=== PATIENT | male | born 1945 | race Caucasian/White ===

== ENCOUNTER 2018-12-29 12:33 | Observation (INO) ==
[2018-12-29 14:18] LABS: Basophils # (auto) 0.03 K/uL (0-0.2); Basophils % (auto) 0.4 %; Eosinophils # (auto) 0.07 K/uL (0-0.5); Eosinophils % (auto) 0.9 %; Hematocrit (blood only) 35.6 % (42-52); Hemoglobin 10.9 g/dL (14.0-18.0); Immature Granulocytes # (auto) 0.02 K/uL (0.00-0.02); Immature Granulocytes % (auto) 0.3 %; Lymphocytes # (auto) 0.65 K/uL (1.2-3.4); Lymphocytes % (auto) 8.8 %; Mean Corpuscular Hgb Conc 30.6 g/dL (32-36); Mean Corpuscular Volume 76.2 fL (80-100); Mean Platelet Volume 10.2 fL (7.4-10.4); Monocytes % (auto) 12.2 %; Neutrophils # (auto) 5.72 K/uL (1.4-6.5); Neutrophils % (auto) 77.4 %; Platelet Count 240 K/uL (130-400); RDW Coefficient of Variation 16.9 % (11.5-14.5); RDW Standard Deviation 45.9 fL (36.4-46.3); Red Blood Count 4.67 M/uL (4.7-6.1); White Blood Count 7.39 K/uL (4.8-10.8)
[2018-12-29] MEDS ORDERED: CIPROFLOXACIN 500 MG TAB PO STA (14:27)
[2018-12-29 14:35] LABS: Albumin Level 3.2 gm/dl (3.4-5.0); Calcium 8.2 mg/dl (8.5-10.1); Est GFR (African American) 53.7; Est GFR (Non-African American) 46.3; Potassium 4.5 mmol/L (3.5-5.1)
[2018-12-29 14:38] LABS: Albumin Globulin Ratio 0.8 (0.9-2); Bilirubin,Total 0.4 mg/dl (0.2-1); Globulin 4.1 gm/dl (2.5-4.0); Total Protein 7.3 gm/dl (6.4-8.2)
[2018-12-29 15:33] LABS: INR 1.1 (0.9-1.1); Prothrombin Time 11.5 Seconds (9.0-12.0)
--- NOTE | 2018-12-29 16:20 | History & Physical Report ---
Date of Service December 29, 2018 Assessment & Plan (1) Hematuria: Patient with gross hematuria, gaviria in place. Initially clotted now seems to be functioning properly. -Admit to medical floor -Continuous bladder irrigation -Urology consultation -CBC q 8 hours -Hold anticoagulation -NPO after midnight for possible intervention -Ceftriaxone 1gm IV daily to start tomorrow (2) CKD (chronic kidney disease) stage 3, GFR 30-59 ml/min: BUN and Cr mildly above baseline -Gentle IVF, NSS at 80mL/hr x 1 liter -Continue to monitor BUN/Cr/electrolytes -Avoid nephrotoxic agents -Renal dosing where appropriate (3) HTN (hypertension), benign: Blood pressure well controlled at present -Continue Amlodipine -Continue Coreg -Continue Lisinopril -Monitor (4) Atrial fibrillation: Rate controlled -Continue Coreg -Hold Apixaban -Continue to monitor (5) Diabetes: Blood sugar well controlled at present -Hold Metformin -ISS -Continue to monitor (6) Major depressive disorder: Chronic. Stable -Continue Zoloft daily (7) GERD (gastroesophageal reflux disease): Stable. Chronic -Continue Pepcid daily (8) BPH (benign prostatic hyperplasia): Continue Flomax Urology consultation F/E/N - NSS at 80mL/hr x 1 liter, monitor electrolytes and replete as needed, NPO after midnight Ppx -SCDs, Pepcid Code - DNR per discussion with patient Dispo - Admit to medical floor with tele History of Present Illness Chief Complaint: Hematuria Primary Care Provider: Yeyo Melendez DO Patient is a 73yo C male. Had a cystoscopy performed yesterday by Dr. Larson with bladder neck dilation and stent placement. The procedure was well tolerated, no complications. He was sent home with Gaviria in place. He reports hematuria with clots upon returning home. His Gaviria stopped draining around 10:00PM. Patient called home nursing and they came to his home to irrigate the Gaviria. He went to bed around 11:00. when he woke this AM he states his bed was full of blood, Gaviria still not draining, suprapubic discomfort. He called home nursing again and they attempted to irrigate his Gaviria, however they were unsuccessful. He was sent to the ER. Patient presently feeling well. No CP/SOB/palpitations/dizziness ER Course: Cipro Allergies Allergy/AdvReac Type Severity Reaction Status Date / Time No Known Allergies Allergy Verified 12/29/18 14:35 Home Medications Home Medications Medication Instructions Recorded Confirmed Type carvedilol [Coreg] 6.25 mg PO BID 10/15/18 12/29/18 History docusate sodium 100 mg PO QAM 10/15/18 12/29/18 History melatonin 3 mg PO HS 10/15/18 12/29/18 History metformin [Glucophage] 500 mg PO QAM 10/15/18 12/29/18 History sertraline [Zoloft] 50 mg PO QAM 10/15/18 12/29/18 History temazepam [Restoril] 15 mg PO HS PRN 10/15/18 12/29/18 History amlodipine 5 mg PO QAM 11/17/18 12/29/18 History lisinopril 40 mg PO QAM 11/17/18 12/29/18 History tamsulosin 0.4 mg PO HS 11/17/18 12/29/18 History apixaban 5 mg PO BID #60 tab 11/21/18 12/29/18 Rx furosemide 20 mg PO QAM #30 tab 11/21/18 12/29/18 Rx Lyrica 25 mg PO BID 12/24/18 12/29/18 History acetaminophen [Tylenol] 650 mg PO Q6H PRN 12/24/18 12/29/18 History famotidine 20 mg PO QAM 12/24/18 12/29/18 History ferrous sulfate 325 mg PO BID 12/24/18 12/29/18 History magnesium oxide 400 mg PO QAM 12/24/18 12/29/18 History Past Med/Surg History Medical History Hypertensive urgency 11/2018 CHF (congestive heart failure) Major depressive disorder BPH w urinary obs/LUTS Obesity Chronic anticoagulation Demand ischemia of myocardium 11/2018 RESULTED IN ELEVATED TROPONIN; "LV FUNCTION IS NORMAL.. STABLE FROM A CARDIAC STANDPOINT" PER 11/20/18 [facility] CARDIO PROGRESS NOTE HTN (hypertension), benign Hyperlipidemia Osteoarthritis, knee CKD (chronic kidney disease) stage 3, GFR 30-59 ml/min A-fib Anemia CHRONIC' BASELINE HGB 10-11 RANGE PER CHART REVIEW Anxiety BPH (benign prostatic hyperplasia) Depression GERD (gastroesophageal reflux disease) CONTROLLED Hypertension Kidney stones Type 2 diabetes mellitus Surgical History No history of previous surgery Family History Other Family history non-contributory Social History Preferred Language: Belarusian Beliefs That Will Affect Care: None marital status: Single Current Living Situation: Alone Current Living Situation Comment: [facility] Q 2-3 DAYS Feels Safe at Home: Yes Smoking Status: Never smoker Hx Alcohol Use: No Hx Substance Use: No Review of Systems All systems reviewed & are unremarkable except as noted in HPI & below Physical Exam Vital Signs (Past 24 Hours): Last Vital Signs Temp 36.8 C 12/29/18 12:40 Pulse 79 12/29/18 14:22 Resp 15 12/29/18 14:22 BP 161/100 H 12/29/18 14:22 Pulse Ox 94 12/29/18 14:22 Physical Exam: General: patient resting comfortably, NAD, non-toxic in appearance, AA&O x 4 Skin: warm, dry, intact, no rashes or lesions HEENT: NC/AT, PERRL, EOMI, anicteric sclera, conjunctiva without injection, external ear normal to inspection and nontender, nares patent, moist mucus membranes, dentition intact, no oropharyngeal lesions, neck supple, trachea midline, no LAD, no thyromegaly, no JVD Heart: +S1/S2, irregularly irregular, no m/r/g Lungs: equal air entry bilaterally, no rales/rhonchi/wheezes Abd: +BS, soft, NT/ND, no masses/organomegaly/ascites, mild suprapubic tenderness, Gaviria catheter in place with 300mL of dark blood with clots in the bag, urine in tubing as well Ext: warm, 2+ pulses in UE/LE bilaterally, no clubbing/cyanosis or edema Neuro: nonfocal, patient AA&O x 4, speech intact, no facial droop, moving all extremities on command with equal strength 5/5 Results & Data Laboratory Results Lab Results 12/29/18 12/29/18 12/29/18 Range/Units 14:00 14:00 14:00 WBC 7.39 (4.8-10.8) K/uL RBC 4.67 L (4.7-6.1) M/uL Hgb 10.9 L (14.0-18.0) g/dL Hct 35.6 L (42-52) % MCV 76.2 L (80-100) fL MCH 23.3 L (25-34) pg MCHC 30.6 L (32-36) g/dL RDW Std Deviation 45.9 (36.4-46.3) fL RDW Coeff of Cain 16.9 H (11.5-14.5) % Plt Count 240 (130-400) K/uL MPV 10.2 (7.4-10.4) fL Immature Gran % (Auto) 0.3 % Neut % (Auto) 77.4 % Lymph % (Auto) 8.8 % [place] % (Auto) 12.2 % Eos % (Auto) 0.9 % Baso % (Auto) 0.4 % Immature Gran # (Auto) 0.02 (0.00-0.02) K/uL Neut # (Auto) 5.72 (1.4-6.5) K/uL Lymph # (Auto) 0.65 L (1.2-3.4) K/uL [place] # (Auto) 0.90 H (0.11-0.59) K/uL Eos # (Auto) 0.07 (0-0.5) K/uL Baso # (Auto) 0.03 (0-0.2) K/uL PT 11.5 (9.0-12.0) Seconds INR 1.1 (0.9-1.1) Sodium 139 (136-145) mmol/L Potassium 4.5 (3.5-5.1) mmol/L Chloride 106 (98-107) mmol/L Carbon Dioxide 27 (21-32) mmol/L Anion Gap 6.0 (3-11) BUN 29 H (7-18) mg/dl Creatinine 1.47 H (0.6-1.4) mg/dl Est Cr Clr Drug Dosing 57.0 ml/min Est GFR ( Amer) 53.7 Est GFR (Non-Af Amer) 46.3 BUN/Creatinine Ratio 20.0 (10-20) Glucose 141 H (70-99) mg/dl Calcium 8.2 L (8.5-10.1) mg/dl Total Bilirubin 0.4 (0.2-1) mg/dl AST 7 L (15-37) U/L ALT 14 (12-78) U/L Alkaline Phosphatase 79 (45-117) U/L Total Protein 7.3 (6.4-8.2) gm/dl Albumin 3.2 L (3.4-5.0) gm/dl Globulin 4.1 H (2.5-4.0) gm/dl Albumin/Globulin Ratio 0.8 L (0.9-2) Lipase 54 L (73-393) U/L Code Status & VTE Plan Code Status DNR VTE Prophylaxis Plan VTE Prophylaxis will be ordered: Yes Critical Care Time Critical Care Time: No (1) Major depressive disorder Major depression recurrence: unspecified whether recurrent Active/Remission status: remission status unspecified Qualified Code(s): F32.9 - Major depressive disorder, single episode, unspecified (2) Hematuria Hematuria type: gross Qualified Code(s): R31.0 - Gross hematuria (3) Diabetes Diabetes mellitus type: type 2 Diabetes mellitus envelope sealer insulin use: without envelope sealer use Diabetes mellitus complication status: without complication Qualified Code(s): E11.9 - Type 2 diabetes mellitus without complications (4) Atrial fibrillation Atrial fibrillation type: permanent Qualified Code(s): I48.2 - Chronic atrial fibrillation (5) GERD (gastroesophageal reflux disease) Esophagitis presence: esophagitis presence not specified Qualified Code(s): K21.9 - Gastro-esophageal reflux disease without esophagitis
[2018-12-29] MEDS ORDERED: DEXTROSE 50% 50 ML SYRINGE IV PRN (18:45)
[2018-12-29] MEDS ORDERED: GLUCOSE 10 TABS/TUBE PO PRN (18:45)
[2018-12-29] MEDS ORDERED: GLUCAGON FOR INJ 1 MG VIAL SQ PRN (18:45)
[2018-12-29] MEDS ORDERED: ACETAMINOPHEN 325 MG TAB PO PRN (18:45)
[2018-12-29] MEDS ORDERED: TEMAZEPAM 15 MG CAPSULE PO PRN (18:45)
[2018-12-29] MEDS ORDERED: NON-FORMULARY MEDICATION (Acetaminophen [Tylenol] 650 MG) PO PRN (18:45)
[2018-12-29] MEDS ORDERED: CARBOHYDRATES FOR HYPOGLYCEMIA PO PRN (18:45)
[2018-12-29] MEDS ORDERED: GLUCOSE 40% GEL 15 GM TUBE PO PRN (18:45)
--- NOTE | 2018-12-29 18:49 | Emergency Department Note ---
Entered by Kraig Ferro acting as a scribe for History of Present Illness General Chief complaint: Hematuria Source: patient Limitations: no limitations History of Present Illness Provider complaint: Hematuria Onset (ago): hour(s) Location: genitals Pain Consistency: + intermittent Quality: + other (hematuria) Associated symptoms: + other (No pain, feels need to urinate) Treatments prior to arrival: other (Lithotripsy yesterday, 2 stents yesterday) The patient is a 73 year old male who presents to the Emergency Room with complaints of intermittent hematuria that began last night. The patient states that he had a lithotripsy performed and 2 stents placed in his right kidney yesterday for a large stone. He states that he has had a catheter placed for the past 6 months after a procedure to "scrape out my prostate" was not successful. The patient states that when he woke up this morning his bed was covered in blood and there was blood in the catheter. He does add that his Home Nurse flushed the catheter last night and again this morning. The catheter did flush this morning after her first attempt, but then clotted again. The patient admits that he feels the need to urinate and has been "pushing urine" out around the catheter. He denies any abdominal pain, but does feel the need to urinate currently. Home Medications Home Medications Medication Instructions Recorded Confirmed Type carvedilol [Coreg] 6.25 mg PO BID 10/15/18 12/29/18 History docusate sodium 100 mg PO QAM 10/15/18 12/29/18 History melatonin 3 mg PO HS 10/15/18 12/29/18 History metformin [Glucophage] 500 mg PO QAM 10/15/18 12/29/18 History sertraline [Zoloft] 50 mg PO QAM 10/15/18 12/29/18 History temazepam [Restoril] 15 mg PO HS PRN 10/15/18 12/29/18 History amlodipine 5 mg PO QAM 11/17/18 12/29/18 History lisinopril 40 mg PO QAM 11/17/18 12/29/18 History tamsulosin 0.4 mg PO HS 11/17/18 12/29/18 History apixaban 5 mg PO BID #60 tab 11/21/18 12/29/18 Rx furosemide 20 mg PO QAM #30 tab 11/21/18 12/29/18 Rx Lyrica 25 mg PO BID 12/24/18 12/29/18 History acetaminophen [Tylenol] 650 mg PO Q6H PRN 12/24/18 12/29/18 History famotidine 20 mg PO QAM 12/24/18 12/29/18 History ferrous sulfate 325 mg PO BID 12/24/18 12/29/18 History magnesium oxide 400 mg PO QAM 12/24/18 12/29/18 History Allergies Allergy/AdvReac Type Severity Reaction Status Date / Time No Known Allergies Allergy Verified 12/29/18 14:35 Past Med/Surg History Medical History Hypertensive urgency 11/2018 CHF (congestive heart failure) Major depressive disorder BPH w urinary obs/LUTS Obesity Chronic anticoagulation Demand ischemia of myocardium 11/2018 RESULTED IN ELEVATED TROPONIN; "LV FUNCTION IS NORMAL.. STABLE FROM A CARDIAC STANDPOINT" PER 11/20/18 [facility] CARDIO PROGRESS NOTE HTN (hypertension), benign Hyperlipidemia Osteoarthritis, knee CKD (chronic kidney disease) stage 3, GFR 30-59 ml/min A-fib Anemia CHRONIC' BASELINE HGB 10-11 RANGE PER CHART REVIEW Anxiety BPH (benign prostatic hyperplasia) Depression GERD (gastroesophageal reflux disease) CONTROLLED Hypertension Kidney stones Type 2 diabetes mellitus Surgical History No history of previous surgery Family History Other Family history non-contributory Social History Preferred Language: Portuguese Beliefs That Will Affect Care: None marital status: Single Current Living Situation: Alone Current Living Situation Comment: [facility] Q 2-3 DAYS Feels Safe at Home: Yes Smoking Status: Never smoker Hx Alcohol Use: No Hx Substance Use: No Review of Systems See HPI for pertinent positives & negatives. and A total of 10 systems reviewed and were otherwise negative Physical Exam Vital Signs Vital Signs - 24 hr 12/29/18 12:37 12/29/18 12:40 12/29/18 12:44 Temperature 36.8 C Temperature Source Oral Sepsis Recent Fever Within 48 Hours No Sepsis New/Unexplained Change in Mental Status No Sepsis Action Taken by Nursing No Action Required Pulse Rate 72 76 70 Pulse Rate [Left Apical] Pulse Rate from SpO2 Sensor 79 74 Pulse Rhythm Regular Pulse Rhythm [Left Apical] Pulse Strength Normal Pulse Strength [Left Apical] Respiratory Rate 22 18 20 Respiratory Effort / Characteristics Non-Labored Spontaneous Respiratory Depth Normal Respiratory Pattern Regular Blood Pressure 148/108 H 141/88 H Blood Pressure [Right Arm] Blood Pressure Mean 121 105 Blood Pressure Mean [Right Arm] Blood Pressure Position Sitting Blood Pressure Position [Right Arm] Pulse Oximetry 99 99 99 Oxygen Delivery Method Room Air 12/29/18 13:00 12/29/18 13:01 12/29/18 13:30 Temperature Temperature Source Sepsis Recent Fever Within 48 Hours Sepsis New/Unexplained Change in Mental Status Sepsis Action Taken by Nursing Pulse Rate 85 71 Pulse Rate [Left Apical] Pulse Rate from SpO2 Sensor 87 76 Pulse Rhythm Pulse Rhythm [Left Apical] Pulse Strength Pulse Strength [Left Apical] Respiratory Rate 10 L 16 Respiratory Effort / Characteristics Respiratory Depth Respiratory Pattern Blood Pressure 141/88 H 141/72 H Blood Pressure [Right Arm] Blood Pressure Mean 105 95 Blood Pressure Mean [Right Arm] Blood Pressure Position Blood Pressure Position [Right Arm] Pulse Oximetry 100 100 Oxygen Delivery Method 12/29/18 13:58 12/29/18 14:00 12/29/18 14:22 Temperature Temperature Source Sepsis Recent Fever Within 48 Hours Sepsis New/Unexplained Change in Mental Status Sepsis Action Taken by Nursing Pulse Rate 67 Pulse Rate [Left Apical] 79 Pulse Rate from SpO2 Sensor Pulse Rhythm Pulse Rhythm [Left Apical] Regular Pulse Strength Pulse Strength [Left Apical] Normal Respiratory Rate 15 Respiratory Effort / Characteristics Non-Labored Spontaneous Respiratory Depth Normal Respiratory Pattern Regular Blood Pressure 137/91 Blood Pressure [Right Arm] 161/100 H Blood Pressure Mean 106 Blood Pressure Mean [Right Arm] 120 Blood Pressure Position Blood Pressure Position [Right Arm] Lying Pulse Oximetry 94 Oxygen Delivery Method Room Air Room Air 12/29/18 14:30 12/29/18 15:00 12/29/18 15:01 Temperature Temperature Source Sepsis Recent Fever Within 48 Hours Sepsis New/Unexplained Change in Mental Status Sepsis Action Taken by Nursing Pulse Rate 73 Pulse Rate [Left Apical] Pulse Rate from SpO2 Sensor Pulse Rhythm Pulse Rhythm [Left Apical] Pulse Strength Pulse Strength [Left Apical] Respiratory Rate 19 Respiratory Effort / Characteristics Respiratory Depth Respiratory Pattern Blood Pressure 135/85 157/104 H 161/100 H Blood Pressure [Right Arm] Blood Pressure Mean 101 121 120 Blood Pressure Mean [Right Arm] Blood Pressure Position Blood Pressure Position [Right Arm] Pulse Oximetry Oxygen Delivery Method 12/29/18 15:02 12/29/18 15:30 12/29/18 15:31 Temperature Temperature Source Sepsis Recent Fever Within 48 Hours Sepsis New/Unexplained Change in Mental Status Sepsis Action Taken by Nursing Pulse Rate 73 70 66 Pulse Rate [Left Apical] Pulse Rate from SpO2 Sensor Pulse Rhythm Pulse Rhythm [Left Apical] Pulse Strength Pulse Strength [Left Apical] Respiratory Rate 22 21 18 Respiratory Effort / Characteristics Respiratory Depth Respiratory Pattern Blood Pressure 152/91 H Blood Pressure [Right Arm] Blood Pressure Mean 111 Blood Pressure Mean [Right Arm] Blood Pressure Position Blood Pressure Position [Right Arm] Pulse Oximetry Oxygen Delivery Method 12/29/18 16:00 12/29/18 16:30 12/29/18 16:31 Temperature Temperature Source Sepsis Recent Fever Within 48 Hours Sepsis New/Unexplained Change in Mental Status Sepsis Action Taken by Nursing Pulse Rate 76 75 65 Pulse Rate [Left Apical] Pulse Rate from SpO2 Sensor Pulse Rhythm Pulse Rhythm [Left Apical] Pulse Strength Pulse Strength [Left Apical] Respiratory Rate 28 H 27 H 19 Respiratory Effort / Characteristics Respiratory Depth Respiratory Pattern Blood Pressure 136/93 160/86 H Blood Pressure [Right Arm] Blood Pressure Mean 107 110 Blood Pressure Mean [Right Arm] Blood Pressure Position Blood Pressure Position [Right Arm] Pulse Oximetry Oxygen Delivery Method 12/29/18 17:00 12/29/18 17:01 12/29/18 17:30 Temperature Temperature Source Sepsis Recent Fever Within 48 Hours Sepsis New/Unexplained Change in Mental Status Sepsis Action Taken by Nursing Pulse Rate 71 71 80 Pulse Rate [Left Apical] Pulse Rate from SpO2 Sensor Pulse Rhythm Pulse Rhythm [Left Apical] Pulse Strength Pulse Strength [Left Apical] Respiratory Rate 20 20 20 Respiratory Effort / Characteristics Respiratory Depth Respiratory Pattern Blood Pressure 165/88 H 171/105 H Blood Pressure [Right Arm] Blood Pressure Mean 113 127 Blood Pressure Mean [Right Arm] Blood Pressure Position Blood Pressure Position [Right Arm] Pulse Oximetry Oxygen Delivery Method 12/29/18 17:31 12/29/18 18:00 12/29/18 18:01 Temperature Temperature Source Sepsis Recent Fever Within 48 Hours Sepsis New/Unexplained Change in Mental Status Sepsis Action Taken by Nursing Pulse Rate 79 71 78 Pulse Rate [Left Apical] Pulse Rate from SpO2 Sensor Pulse Rhythm Pulse Rhythm [Left Apical] Pulse Strength Pulse Strength [Left Apical] Respiratory Rate 18 19 15 Respiratory Effort / Characteristics Respiratory Depth Respiratory Pattern Blood Pressure 156/98 H Blood Pressure [Right Arm] Blood Pressure Mean 117 Blood Pressure Mean [Right Arm] Blood Pressure Position Blood Pressure Position [Right Arm] Pulse Oximetry Oxygen Delivery Method GENERAL: Sitting up in bed, alert, disheveled, non-toxic, in mild-distress. EYE EXAM: normal conjunctiva. OROPHARYNX: no exudate, no erythema, lips, buccal mucosa, and tongue normal and mucous membranes are moist NECK: supple, no nuchal rigidity, no adenopathy, non-tender LUNGS: Clear to auscultation. Normal chest wall mechanics HEART: no murmurs, S1 normal and S2 normal ABDOMEN: abdomen soft, non-tender, normo-active bowel, sounds, no masses, no gutierrez ound or guarding. BACK: Back is symmetrical on inspection and there is no deformity, no midline tenderness, no CVA tenderness. SKIN: no rashes and no bruising UPPER EXTREMITIES: upper extremities are grossly normal. LOWER EXTREMITIES: No pitting edema. NEURO EXAM: Normal sensorium, cranial nerves II-XII grossly intact, normal speech, no gross weakness of arms, no gross weakness of legs. : Gaviria inplace with blood leaking around the Gaviria. Bedside US shows Gaviria in bladder with retained fluid. Procedures Free Text Procedures BED SIDE US: Shows gaviria in place in bladder with retained fluid. Course ED COURSE: Vital signs were reviewed and showed hypertension. The patients medical record was reviewed The above diagnostic studies were performed and reviewed. ED treatments and interventions as stated above. 1316: The patient was evaluated in room C1B. A complete history and physical examination was performed. 1427: I discussed the case with Martha Chadwick - Urology. She suggests admitting to medicine. 1428: I reviewed the patient's case with Dr. Blair Carlin [facility] Hospitalist. She will evaluate the patient for further management. 1431: Upon reevaluation, the patient is resting in bed. I discussed my findings with the patient and he understands and agrees with the treatment plan. Based on the patients age, coexisting illnesses, exam and lab findings the decision to treat as an inpatient was made. The patient remained stable while under my care. The patient will be evaluated for further management. Consultations Consultation #1: Administered Medications Discontinued Medications Ciprofloxacin (Cipro) 500 mg PO NOW STA Stop: 12/29/18 14:28 Last Admin: 12/29/18 15:01 Dose: 500 mg Documented by: [id number] Medical Decision Making Differential Diagnosis Differential diagnosis: Etiologies such as biliary colic, cholecystitis, hepatitis, pancreatitis, cardiac disease, pancreatitis, gastritis, peptic ulcer disease, appendicitis, cystitis, diverticulitis, mesenteric ischemia, inflammatory bowel disease, ileus, bowel obstruction, testicular torsion, aortic pathology, shingles, as well as others were considered. Medical Records Attestation: I reviewed the patient's medical records. Home Medications Current Medication List: was personally reviewed by me Laboratory Data Attestation: I reviewed the patient's lab results. Result diagrams: 12/29/18 14:00 12/29/18 14:00 Lab Results 12/29/18 12/29/18 12/29/18 Range/Units 14:00 14:00 14:00 WBC 7.39 (4.8-10.8) K/uL RBC 4.67 L (4.7-6.1) M/uL Hgb 10.9 L (14.0-18.0) g/dL Hct 35.6 L (42-52) % MCV 76.2 L (80-100) fL MCH 23.3 L (25-34) pg MCHC 30.6 L (32-36) g/dL RDW Std Deviation 45.9 (36.4-46.3) fL RDW Coeff of Cain 16.9 H (11.5-14.5) % Plt Count 240 (130-400) K/uL MPV 10.2 (7.4-10.4) fL Immature Gran % (Auto) 0.3 % Neut % (Auto) 77.4 % Lymph % (Auto) 8.8 % [place] % (Auto) 12.2 % Eos % (Auto) 0.9 % Baso % (Auto) 0.4 % Immature Gran # (Auto) 0.02 (0.00-0.02) K/uL Neut # (Auto) 5.72 (1.4-6.5) K/uL Lymph # (Auto) 0.65 L (1.2-3.4) K/uL [place] # (Auto) 0.90 H (0.11-0.59) K/uL Eos # (Auto) 0.07 (0-0.5) K/uL Baso # (Auto) 0.03 (0-0.2) K/uL PT 11.5 (9.0-12.0) Seconds INR 1.1 (0.9-1.1) Sodium 139 (136-145) mmol/L Potassium 4.5 (3.5-5.1) mmol/L Chloride 106 (98-107) mmol/L Carbon Dioxide 27 (21-32) mmol/L Anion Gap 6.0 (3-11) BUN 29 H (7-18) mg/dl Creatinine 1.47 H (0.6-1.4) mg/dl Est Cr Clr Drug Dosing 57.0 ml/min Est GFR ( Amer) 53.7 Est GFR (Non-Af Amer) 46.3 BUN/Creatinine Ratio 20.0 (10-20) Glucose 141 H (70-99) mg/dl Calcium 8.2 L (8.5-10.1) mg/dl Total Bilirubin 0.4 (0.2-1) mg/dl AST 7 L (15-37) U/L ALT 14 (12-78) U/L Alkaline Phosphatase 79 (45-117) U/L Total Protein 7.3 (6.4-8.2) gm/dl Albumin 3.2 L (3.4-5.0) gm/dl Globulin 4.1 H (2.5-4.0) gm/dl Albumin/Globulin Ratio 0.8 L (0.9-2) Lipase 54 L (73-393) U/L Blood Pressure Blood Pressure Findings: Elevated blood pressure Blood Pressure Disposition: further management by hospitalist ROGELIO Narrative Patient is a 73-year-old male who presents the ER following receiving lithotripsy yesterday having 2 stents placed and a Gaviria reinserted for hematuria. Per report while he was at home he had nursing come to help him out as the Gaviria clock on 2 separate occasions once last night and once this morning. They were unable to clear the Gaviria this morning. He was leaking urine around catheter. Upon presentation patient's Gaviria was flushed on 3 separate occasions and cleared but re-clotted. Following this he was placed on continuous bladder irrigation after discussion with urology. I updated the patient at bedside. Discussed with the hospitalist and he was admitted for persistent hematuria and recurrent clogging of the Gaviria. Labs were obtained and showed mild anemia at 10.9 which consistent with his previous. No significant leukocytosis. INR was unremarkable. BMP was unremarkable as well as bilirubin LFTs and lipase. Patient does take a 10 a inhibitor. I did give him a dose of Cipro prior to admission as well. Impression & Plan Post-operative hemorrhage, Hematuria, Complication of Gaviria catheter, Acute urinary retention Discharge Plan Visit Data *Final* Discharge Date/Time: 12/29/18 18:27 Chief Complaint: Hematuria ED Provider: Rome Goff Discharge Problem: Post-operative hemorrhage, Hematuria, Complication of Gaviria catheter, Acute urinary retention Patient Disposition: Admitted As Inpatient Discharge Instructions Interventions: ED Discharge Assessment Last Done: 12/29/18 18:27 The scribe's documentation has been prepared under my direction and personally reviewed by me in its entirety. I confirm that the note above accurately reflects all work, treatment, procedures, and medical decision making performed by me.
[2018-12-29 19:41] LABS: Hematocrit (blood only) 34.2 % (42-52); Hemoglobin 10.5 g/dL (14.0-18.0); Mean Corpuscular Hgb Conc 30.7 g/dL (32-36); Mean Corpuscular Volume 76.5 fL (80-100); Mean Platelet Volume 9.8 fL (7.4-10.4); Platelet Count 216 K/uL (130-400); RDW Coefficient of Variation 16.9 % (11.5-14.5); RDW Standard Deviation 47.3 fL (36.4-46.3); Red Blood Count 4.47 M/uL (4.7-6.1); White Blood Count 6.37 K/uL (4.8-10.8)
[2018-12-29] MEDS: SODIUM CHLORIDE 0.9% 1000ML 1,000 ML IV SCH (20:37)
[2018-12-29] MEDS: cefTRIAXone SODIUM 1,000 MG in DEXTROSE 5% 50 ML IV SCH (20:40)
[2018-12-29 20:48] LABS: Appearance Urine Turbid (Clear); Bilirubin Urine Negative (Negative); Blood Urine 3+ (Negative); Epithelial Cell Urine Auto >30 /lpf (0-5); Glucose Urine UA Negative (Negative); Ketones Urine Negative (Negative); Leukocyte Esterase Urine 3+ (Negative); Nitrite Urine Negative (Negative); Protein Urine 3+ (Negative); Specific Gravity Urine 1.019 (1.000-1.030); Urobilinogen Urine Negative (Negative); WBC Urine Automated >30 /hpf (0-5)
[2018-12-29 20:59] LABS: Color Urine Amber
[2018-12-29 21:14] LABS: Bacteria Urine Automated 1+ (Negative); RBC Urine Automated >30 /hpf (0-4)
[2018-12-29] MEDS: INSULIN ASPART 100 UNITS/ML 3 ML PEN SC SCH (21:48)
[2018-12-29] MEDS: PREGABALIN 25 MG CAP PO SCH (22:00)
[2018-12-29] MEDS: CARVEDILOL 6.25 MG TAB PO SCH (22:24)
[2018-12-29] MEDS: FERROUS SULFATE 325 MG TAB PO SCH (22:25)
[2018-12-29] MEDS: TAMSULOSIN HCL 0.4 MG CAP PO SCH (22:25)
[2018-12-30] MEDS: INSULIN ASPART 100 UNITS/ML 3 ML PEN SC SCH ×5 (06:23→20:41)
--- NOTE | 2018-12-30 07:17 | Urology Consultation ---
Date of Consultation December 30, 2018 Assessment & Plan (1) Acute urinary retention: (2) Hematuria: 73yo M POD #1 s/p Cystoscopy with incision/dilation of bladder neck contracture, bilateral RPG and ureteral stent insertion - AFebrile, VSS - 20fr 3-way hematuria catheter intact with CBI running - hematuria resolved, draining clear yellow this AM - H/H stable - Pt denies pain or discomfort with catheter Plan : decrease CBI rate to slow drip this AM CBI clamped this evening. No acute surgical intervention required at this time. Plans to restart eliquis tonight, reasonable. Will continue to monitor, likely okay to d/c home tomorrow if urine remains clear. History of Present Illness Reason for Consultation: Gross hematuria s/p cystoscopy with incision/dilation of bladder neck contracture, bilateral retrograde pyelogram and ureteral stent insertion on 12/28/[address] Larson . Home with catheter same day with gaviria catheter in place. Presented back to ED POD x2 for obstructed gaviria catheter due to clots. Required hand irrigation multiple times in ED. Per our recommendation, catheter was converted to 20fr 3-way and started on CBI last evening. Pt takes Eliquis for atrial fib, only able to hold for short period of time preoperatively. Pt appears comfortable on exam this AM, denies suprapubic or flank pain. Catheter draining clear yellow. Offers no concerns or complaints with gaviria catheter in place. Requesting Physician: Dr. Pinto Attending Physician: Mansi Pinto, History of Present Illness 73yo M POD #2 Allergies Allergy/AdvReac Type Severity Reaction Status Date / Time No Known Allergies Allergy Verified 12/29/18 14:35 Home Medications Home Medications Medication Instructions Recorded Confirmed Type carvedilol [Coreg] 6.25 mg PO BID 10/15/18 12/29/18 History docusate sodium 100 mg PO QAM 10/15/18 12/29/18 History melatonin 3 mg PO HS 10/15/18 12/29/18 History metformin [Glucophage] 500 mg PO QAM 10/15/18 12/29/18 History sertraline [Zoloft] 50 mg PO QAM 10/15/18 12/29/18 History temazepam [Restoril] 15 mg PO HS PRN 10/15/18 12/29/18 History amlodipine 5 mg PO QAM 11/17/18 12/29/18 History lisinopril 40 mg PO QAM 11/17/18 12/29/18 History tamsulosin 0.4 mg PO HS 11/17/18 12/29/18 History apixaban 5 mg PO BID #60 tab 11/21/18 12/29/18 Rx furosemide 20 mg PO QAM #30 tab 11/21/18 12/29/18 Rx Lyrica 25 mg PO BID 12/24/18 12/29/18 History acetaminophen [Tylenol] 650 mg PO Q6H PRN 12/24/18 12/29/18 History famotidine 20 mg PO QAM 12/24/18 12/29/18 History ferrous sulfate 325 mg PO BID 12/24/18 12/29/18 History magnesium oxide 400 mg PO QAM 12/24/18 12/29/18 History Patient History Medical History Hypertensive urgency 11/2018 CHF (congestive heart failure) Major depressive disorder BPH w urinary obs/LUTS Obesity Chronic anticoagulation Demand ischemia of myocardium 11/2018 RESULTED IN [facility]; "LV FUNCTION IS NORMAL.. STABLE FROM A CARDIAC STANDPOINT" PER 11/20/18 [facility] CARDIO PROGRESS NOTE HTN (hypertension), benign Hyperlipidemia Osteoarthritis, knee CKD (chronic kidney disease) stage 3, GFR 30-59 ml/min A-fib Anemia CHRONIC' BASELINE HGB 10-11 RANGE PER CHART REVIEW Anxiety BPH (benign prostatic hyperplasia) Depression GERD (gastroesophageal reflux disease) CONTROLLED Hypertension Kidney stones Type 2 diabetes mellitus Surgical History No history of previous surgery Family History Other Family history non-contributory Social History Communication Ability: Effective Beliefs That Will Affect Care: None marital status: Single Current Living Situation: Alone Current Living Situation Comment: [facility] 2-3 DAYS Other Information That Helps Us Care for You: No Feels Safe at Home: Yes Safety Concerns: Feels Safe At This Time Smoking Status: Never smoker Hx Alcohol Use: No Hx Substance Use: No Review of Systems Constitutional: no fever and no chills Eyes: no problem reported Ear, Nose, Mouth, Throat: no ear pain Respiratory: no cough and no dyspnea Cardiovascular: no chest pain Gastrointestinal: no abdominal pain, no bloating, no nausea and no vomiting Genitourinary (Male): no dysuria, no hematuria and no flank pain Musculoskeletal: no back pain Integumentary: no acne and no rash Neurologic: no numbness and no paresthesia Psychiatric: no behavioral changes and no hopelessness Endocrine: no fatigue and no polydipsia Hematologic / Lymphatic: no easy bleeding Allergy / Immunological: no problem reported Physical Exam Vital Signs (Past 24 Hours): Last Vital Signs Temp 36.5 C 12/29/18 23:15 Pulse 86 12/29/18 23:15 Resp 16 12/29/18 23:15 BP 152/97 H 12/29/18 23:15 Pulse Ox 95 12/29/18 23:15 Constitutional: well developed and well nourished; no acute distress, not ill appearing and not intoxicated appearing Eyes: no nystagmus corrective lenses ENMT: Ears: no hearing impairment Neck: + trachea not midline Respiratory: no respiratory distress Cardiovascular: Vessels: no JVD Gastrointestinal (Abdomen): Inspection/Auscultation: abdomen not distended and no abdominal edema Musculoskeletal: Head/Neck/Chest: + abnormal head shape Skin: no rashes Neurologic: not confused and not obtunded Psychiatric: Orientation: alert and oriented x 3 Apperance: appropriately d ressed Genitourinary: 3-way hematuria catheter intact, no drainage or penile swelling. Results & Data Laboratory Results Laboratory Results - last 48 hr 12/29/18 12/29/18 12/29/18 14:00 14:00 14:00 WBC 7.39 RBC 4.67 L Hgb 10.9 L Hct 35.6 L MCV 76.2 L MCH 23.3 L MCHC 30.6 L RDW Std Deviation 45.9 RDW Coeff of Cain 16.9 H Plt Count 240 MPV 10.2 Immature Gran % (Auto) 0.3 Neut % (Auto) 77.4 Lymph % (Auto) 8.8 [place] % (Auto) 12.2 Eos % (Auto) 0.9 Baso % (Auto) 0.4 Immature Gran # (Auto) 0.02 Neut # (Auto) 5.72 Lymph # (Auto) 0.65 L [place] # (Auto) 0.90 H Eos # (Auto) 0.07 Baso # (Auto) 0.03 PT 11.5 INR 1.1 Sodium 139 Potassium 4.5 Chloride 106 Carbon Dioxide 27 Anion Gap 6.0 BUN 29 H Creatinine 1.47 H Est Cr Clr Drug Dosing 57.0 Est GFR ( Amer) 53.7 Est GFR (Non-Af Amer) 46.3 BUN/Creatinine Ratio 20.0 Glucose 141 H POC Glucose Calcium 8.2 L Total Bilirubin 0.4 AST 7 L ALT 14 Alkaline Phosphatase 79 Total Protein 7.3 Albumin 3.2 L Globulin 4.1 H Albumin/Globulin Ratio 0.8 L Lipase 54 L Urine Color Urine Appearance Urine pH Ur Specific [place] Urine Protein Urine Glucose (UA) Urine Ketones Urine Blood Urine Nitrite Urine Bilirubin Urine Urobilinogen Ur Leukocyte Esterase Urine WBC (Auto) Urine RBC (Auto) U Hyaline Cast (Auto) U Epithel Cells (Auto) Urine Bacteria (Auto) Urine Yeast 12/29/18 12/29/18 12/29/18 19:33 20:26 Unknown WBC 6.37 RBC 4.47 L Hgb 10.5 L Hct 34.2 L MCV 76.5 L MCH 23.5 L MCHC 30.7 L RDW Std Deviation 47.3 H RDW Coeff of Cain 16.9 H Plt Count 216 MPV 9.8 Immature Gran % (Auto) Neut % (Auto) Lymph % (Auto) [place] % (Auto) Eos % (Auto) Baso % (Auto) Immature Gran # (Auto) Neut # (Auto) Lymph # (Auto) [place] # (Auto) Eos # (Auto) Baso # (Auto) PT INR Sodium Potassium Chloride Carbon Dioxide Anion Gap BUN Creatinine Est Cr Clr Drug Dosing Est GFR ( Amer) Est GFR (Non-Af Amer) BUN/Creatinine Ratio Glucose POC Glucose 176 H Calcium Total Bilirubin AST ALT Alkaline Phosphatase Total Protein Albumin Globulin Albumin/Globulin Ratio Lipase Urine Color Janet Urine Appearance Turbid H Urine pH 6.0 Ur Specific [place] 1.019 Urine Protein 3+ H Urine Glucose (UA) Negative Urine Ketones Negative Urine Blood 3+ H Urine Nitrite Negative Urine Bilirubin Negative Urine Urobilinogen Negative Ur Leukocyte Esterase 3+ H Urine WBC (Auto) >30 H Urine RBC (Auto) >30 H U Hyaline Cast (Auto) Not Reportable U Epithel Cells (Auto) >30 H Urine Bacteria (Auto) 1+ H Urine Yeast Not Reportable 12/30/18 12/30/18 12/30/18 06:10 06:17 07:59 WBC RBC Hgb Hct MCV MCH MCHC RDW Std Deviation RDW Coeff of Cain Plt Count MPV Immature Gran % (Auto) Neut % (Auto) Lymph % (Auto) [place] % (Auto) Eos % (Auto) Baso % (Auto) Immature Gran # (Auto) Neut # (Auto) Lymph # (Auto) [place] # (Auto) Eos # (Auto) Baso # (Auto) PT INR Sodium 139 Potassium 3.7 D Chloride 108 H Carbon Dioxide 26 Anion Gap 6.0 BUN 24 H Creatinine 1.14 D Est Cr Clr Drug Dosing 72.7 Est GFR ( Amer) 73.0 Est GFR (Non-Af Amer) 63.0 BUN/Creatinine Ratio 21.2 H Glucose 120 H POC Glucose 128 H 125 H Calcium 8.2 L Total Bilirubin AST ALT Alkaline Phosphatase Total Protein Albumin Globulin Albumin/Globulin Ratio Lipase Urine Color Urine Appearance Urine pH Ur Specific [place] Urine Protein Urine Glucose (UA) Urine Ketones Urine Blood Urine Nitrite Urine Bilirubin Urine Urobilinogen Ur Leukocyte Esterase Urine WBC (Auto) Urine RBC (Auto) U Hyaline Cast (Auto) U Epithel Cells (Auto) Urine Bacteria (Auto) Urine Yeast 12/30/18 12/30/18 12:05 17:16 WBC RBC Hgb Hct MCV MCH MCHC RDW Std Deviation RDW Coeff of Cain Plt Count MPV Immature Gran % (Auto) Neut % (Auto) Lymph % (Auto) [place] % (Auto) Eos % (Auto) Baso % (Auto) Immature Gran # (Auto) Neut # (Auto) Lymph # (Auto) [place] # (Auto) Eos # (Auto) Baso # (Auto) PT INR Sodium Potassium Chloride Carbon Dioxide Anion Gap BUN Creatinine Est Cr Clr Drug Dosing Est GFR ( Amer) Est GFR (Non-Af Amer) BUN/Creatinine Ratio Glucose POC Glucose 128 H 119 H Calcium Total Bilirubin AST ALT Alkaline Phosphatase Total Protein Albumin Globulin Albumin/Globulin Ratio Lipase Urine Color Urine Appearance Urine pH Ur Specific [place] Urine Protein Urine Glucose (UA) Urine Ketones Urine Blood Urine Nitrite Urine Bilirubin Urine Urobilinogen Ur Leukocyte Esterase Urine WBC (Auto) Urine RBC (Auto) U Hyaline Cast (Auto) U Epithel Cells (Auto) Urine Bacteria (Auto) Urine Yeast (1) Hematuria Hematuria type: unspecified type Qualified Code(s): R31.9 - Hematuria, unspecified
[2018-12-30 07:28] LABS: BUN Creatinine Ratio 21.2 (10-20); Calcium 8.2 mg/dl (8.5-10.1); Creatinine Clr Calc Pharmacy 72.7 ml/min; Potassium 3.7 mmol/L (3.5-5.1)
[2018-12-30] MEDS ORDERED: Nursing to Pharmacy Communication ONE (07:53)
[2018-12-30] MEDS: FERROUS SULFATE 325 MG TAB PO SCH ×2 (08:45→20:31)
[2018-12-30] MEDS: AMLODIPINE BESYLATE 5 MG TAB PO SCH (08:45)
[2018-12-30] MEDS: MAGNESIUM OXIDE 400 MG TAB PO SCH (08:45)
[2018-12-30] MEDS: LISINOPRIL 40 MG TAB PO SCH (08:46)
[2018-12-30] MEDS: SERTRALINE HCL 50 MG TABLET PO SCH (08:46)
[2018-12-30] MEDS: FUROSEMIDE 20 MG TAB PO SCH (08:46)
[2018-12-30] MEDS: DOCUSATE SODIUM 100 MG CAP PO SCH (08:46)
[2018-12-30] MEDS: FAMOTIDINE 20 MG TAB PO SCH (08:46)
[2018-12-30] MEDS: CARVEDILOL 6.25 MG TAB PO SCH ×2 (08:47→20:30)
[2018-12-30] MEDS: PREGABALIN 25 MG CAP PO SCH ×2 (08:48→20:43)
[2018-12-30] MEDS: SODIUM CHLORIDE 0.9% 1000ML 1,000 ML IV SCH ×2 (08:48→20:26)
--- NOTE | 2018-12-30 16:25 | Family Medicine Progress Note ---
Date of Service December 30, 2018 Assessment & Plan (1) Hematuria: appears to have resolved after continuous bladder irrigation. Plan for clamping after re-recheck mid-day per Urology. No plan for surgical intervention He is POD#1 s/p cystoscopy with incision/dilation of bladder neck contracture, ureteral stent inserion, bilateral RPG Hgb is stable Apixiban held because of hematuria, SCDs for DVT ppx today, but will restart Abixaban since hematuria has resolved and currently in afib plan for discharge home tomorrow rocephin was started for possible UTI, pending cultures. (2) Complication of Gaviria catheter: appears to have been resolved, functioning properly (3) Atrial fibrillation: will restart Abixaban since hematuria has resolved and currently in afib rate control with co-reg irregularly irregular on exam, asymptomatic (4) GERD (gastroesophageal reflux disease): continue with famotidine (5) BPH (benign prostatic hyperplasia): continue with tamsulosin (6) CHF (congestive heart failure): continue with lasix and coreg (7) Diabetes: metformin on hold Insulin for coverage (8) Anxiety: continue with temazepam continue with Sertaline (9) HTN (hypertension), benign: continue with amlodipine continue with lisinopril Supervising Physician Co-Signing Physician Notes I saw the patient with the resident physician and confirmed hernandez portions of the history and physical exam. Agree with the impression and plan as noted in the resident documentation. Urology consult reviewed and appreciated. Fortunately patient is without discomfort; his continuous bladder irrigation is producing normal-appearing urine without obvious blood. We will continue per urology's recommendations. Subjective Caveat: History limited by patient is a vague historian. Rosendo states that he has not had anymore hematuria. He denies chest pain, shortness of breath, abdomina pain, nausea, vomiting, diarrhea, constipation, black/bloody bowel movements. Physical Exam Vital Signs (Past 24 Hours): Last Vital Signs Temp 36.9 C 12/30/18 15:19 Pulse 77 12/30/18 15:19 Resp 18 12/30/18 15:19 BP 135/84 12/30/18 15:19 Pulse Ox 95 12/30/18 15:19 Constitutional: WD/WN, vitals as above + obese, cooperative and comfortable Eyes: + anicteric sclerae Neck: normal visual inspection and trachea midline Respiratory: normal respiratory effort, lungs clear to auscultation Cardiovascular: Rate/Rhythm: regular rate; + abnormal rhythm (irregularly irregular) Extremities: no edema Gastrointestinal (Abdomen): Inspection/Auscultation: normal bowel sounds Percussion/Palpation: abdomen soft; abdomen nontender, no guarding and abdomen not rigid Musculoskeletal: Head/Neck/Chest: normocephalic and head atraumatic Skin: no rashes, warm and dry Neurologic: moves all extremities and awake Psychiatric: A+Ox3, euthymic affect Genitourinary: gaviria cath in place with yellow colored urine in bag without signs of hematuria Results & Data Laboratory Results Laboratory Results - last 24 hr 12/29/18 12/29/18 12/29/18 19:33 20:26 Unknown WBC 6.37 RBC 4.47 L Hgb 10.5 L Hct 34.2 L MCV 76.5 L MCH 23.5 L MCHC 30.7 L RDW Std Deviation 47.3 H RDW Coeff of Cain 16.9 H Plt Count 216 MPV 9.8 Sodium Potassium Chloride Carbon Dioxide Anion Gap BUN Creatinine Est Cr Clr Drug Dosing Est GFR ( Amer) Est GFR (Non-Af Amer) BUN/Creatinine Ratio Glucose POC Glucose 176 H Calcium Urine Color [place] Urine Appearance Turbid H Urine pH 6.0 Ur Specific [place] 1.019 Urine Protein 3+ H Urine Glucose (UA) Negative Urine Ketones Negative Urine Blood 3+ H Urine Nitrite Negative Urine Bilirubin Negative Urine Urobilinogen Negative Ur Leukocyte Esterase 3+ H Urine WBC (Auto) >30 H Urine RBC (Auto) >30 H U Hyaline Cast (Auto) Not Reportable U Epithel Cells (Auto) >30 H Urine Bacteria (Auto) 1+ H Urine Yeast Not Reportable 12/30/18 12/30/18 12/30/18 06:10 06:17 07:59 WBC RBC Hgb Hct MCV MCH MCHC RDW Std Deviation RDW Coeff of Cain Plt Count MPV Sodium 139 Potassium 3.7 D Chloride 108 H Carbon Dioxide 26 Anion Gap 6.0 BUN 24 H Creatinine 1.14 D Est Cr Clr Drug Dosing 72.7 Est GFR ( Amer) 73.0 Est GFR (Non-Af Amer) 63.0 BUN/Creatinine Ratio 21.2 H Glucose 120 H POC Glucose 128 H 125 H Calcium 8.2 L Urine Color Urine Appearance Urine pH Ur Specific [place] Urine Protein Urine Glucose (UA) Urine Ketones Urine Blood Urine Nitrite Urine Bilirubin Urine Urobilinogen Ur Leukocyte Esterase Urine WBC (Auto) Urine RBC (Auto) U Hyaline Cast (Auto) U Epithel Cells (Auto) Urine Bacteria (Auto) Urine Yeast 12/30/18 12/30/18 12:05 17:16 WBC RBC Hgb Hct MCV MCH MCHC RDW Std Deviation RDW Coeff of Cain Plt Count MPV Sodium Potassium Chloride Carbon Dioxide Anion Gap BUN Creatinine Est Cr Clr Drug Dosing Est GFR ( Amer) Est GFR (Non-Af Amer) BUN/Creatinine Ratio Glucose POC Glucose 128 H 119 H Calcium Urine Color Urine Appearance Urine pH Ur Specific [place] Urine Protein Urine Glucose (UA) Urine Ketones Urine Blood Urine Nitrite Urine Bilirubin Urine Urobilinogen Ur Leukocyte Esterase Urine WBC (Auto) Urine RBC (Auto) U Hyaline Cast (Auto) U Epithel Cells (Auto) Urine Bacteria (Auto) Urine Yeast Medications Administered Amlodipine Besylate (Norvasc) 5 mg PO [facility] Stop: 01/29/19 08:59 Last Admin: 12/30/18 08:45 Dose: 5 mg Documented by: [id number] Carvedilol (Coreg) 6.25 mg PO BID [facility] Stop: 01/28/19 20:59 Last Admin: 12/30/18 08:47 Dose: 6.25 mg Documented by: [id number] Admin: 12/29/18 22:24 Dose: 6.25 mg Documented by: [id number] Docusate Sodium (Colace) 100 mg PO [facility] Stop: 01/29/19 08:59 Last Admin: 12/30/18 08:46 Dose: 100 mg Documented by: [id number] [facility]: 01/29/19 08:59 Last Admin: 12/30/18 08:46 Dose: 20 mg Documented by: [id number] Ferrous Sulfate (Feosol) 325 mg PO BID [facility] Stop: 01/28/19 20:59 Last Admin: 12/30/18 08:45 Dose: 325 mg Documented by: [id number] Admin: 12/29/18 22:25 Dose: 325 mg Documented by: [id number] Furosemide (Lasix) [facility] Stop: 01/29/19 08:59 Last Admin: 12/30/18 08:46 Dose: 20 mg Documented by: [id number] Ceftriaxone Sodium 1,000 mg/ (Dextrose) 50 mls @ 100 mls/hr IV Q24H [facility] Stop: 01/03/19 19:59 Last Infusion: 12/29/18 21:46 Dose: 0 mls/hr Documented by: [id number] Admin: 12/29/18 20:40 Dose: 100 mls/hr Documented by: [id number] Sodium Chloride (Nss 1000ml) 1,000 mls @ 80 mls/hr IV .[id number] [facility] Stop: 01/28/19 19:29 Last Admin: 12/30/18 08:48 Dose: 80 mls/hr Documented by: [id number] Infusion: 12/30/18 08:48 Dose: 80 mls/hr Documented by: [id number] Admin: 12/29/18 20:37 Dose: 80 mls/hr Documented by: [id number] Insulin Aspart (Novolog Flexpen) 0 units SC ACHS [facility] Stop: 01/29/19 07:29 Last Admin: 12/30/18 13:33 Dose: 7 units Documented by: [id number] Cosigned by: [id number] Admin: 12/30/18 08:55 Dose: 5 units Documented by: [id number] Cosigned by: [id number] Lisinopril (Zestril) 40 mg PO QAM [facility] Stop: 01/29/19 08:59 Last Admin: 12/30/18 08:46 Dose: 40 mg Documented by: [id number] Magnesium Oxide (Mag-Ox) 400 mg PO QAM [facility] Stop: 01/29/19 08:59 Last Admin: 12/30/18 08:45 Dose: 400 mg Documented by: [id number] Pregabalin (Lyrica) 25 mg PO BID [facility] Stop: 01/28/19 20:59 Last Admin: 12/30/18 08:48 Dose: 25 mg Documented by: [id number] Admin: 12/29/18 22:00 Dose: 25 mg Documented by: [id number] Sertraline HCl (Zoloft) 50 mg PO QAM [facility] Stop: 01/29/19 08:59 Last Admin: 12/30/18 08:46 Dose: 50 mg Documented by: [id number] Tamsulosin HCl (Flomax) 0.4 mg PO HS [facility] Stop: 01/28/19 20:59 Last Admin: 12/29/18 22:25 Dose: 0.4 mg Documented by: [id number] (1) Hematuria Hematuria type: unspecified type Qualified Code(s): R31.9 - Hematuria, unspecified (2) Diabetes Diabetes mellitus complication status: without complication 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: without 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 use Diabetes mellitus type: type 2 Qualified Code(s): E11.9 - Type 2 diabetes mellitus without complications (3) Atrial fibrillation Atrial fibrillation type: permanent Qualified Code(s): I48.2 - Chronic atrial fibrillation (4) GERD (gastroesophageal reflux disease) Esophagitis presence: esophagitis presence not specified Qualified Code(s): K21.9 - Gastro-esophageal reflux disease without esophagitis (5) Complication of Gaviria catheter Encounter type: initial encounter Qualified Code(s): T83.9XXA - Unspecified complication of genitourinary prosthetic device, implant and graft, initial encounter
[2018-12-30] MEDS: cefTRIAXone SODIUM 1,000 MG in DEXTROSE 5% 50 ML IV SCH (20:28)
[2018-12-30] MEDS: TAMSULOSIN HCL 0.4 MG CAP PO SCH (20:31)
[2018-12-30] MEDS: APIXABAN 5 MG TABLET PO SCH (20:43)
[2018-12-31 07:08] LABS: Basophils # (auto) 0.03 K/uL (0-0.2); Basophils % (auto) 0.7 %; Eosinophils # (auto) 0.15 K/uL (0-0.5); Eosinophils % (auto) 3.3 %; Hematocrit (blood only) 31.9 % (42-52); Hemoglobin 9.8 g/dL (14.0-18.0); Immature Granulocytes # (auto) 0.02 K/uL (0.00-0.02); Immature Granulocytes % (auto) 0.4 %; Lymphocytes # (auto) 0.68 K/uL (1.2-3.4); Mean Corpuscular Hgb Conc 30.7 g/dL (32-36); Mean Platelet Volume 10.9 fL (7.4-10.4); Monocytes # (auto) 0.65 K/uL (0.11-0.59); Monocytes % (auto) 14.3 %; Neutrophils % (auto) 66.3 %; Platelet Count 208 K/uL (130-400); RDW Coefficient of Variation 17.2 % (11.5-14.5); RDW Standard Deviation 47.3 fL (36.4-46.3); White Blood Count 4.53 K/uL (4.8-10.8)
[2018-12-31 07:43] LABS: BUN Creatinine Ratio 15.2 (10-20); Calcium 7.6 mg/dl (8.5-10.1); Creatinine Clr Calc Pharmacy 65.8 ml/min; Est GFR (African American) 64.7; Est GFR (Non-African American) 55.8; Potassium 3.9 mmol/L (3.5-5.1)
[2018-12-31] MEDS: PREGABALIN 25 MG CAP PO SCH ×2 (09:06→21:33)
[2018-12-31] MEDS: MAGNESIUM OXIDE 400 MG TAB PO SCH (09:06)
[2018-12-31] MEDS: AMLODIPINE BESYLATE 5 MG TAB PO SCH (09:06)
[2018-12-31] MEDS: DOCUSATE SODIUM 100 MG CAP PO SCH (09:06)
[2018-12-31] MEDS: CARVEDILOL 6.25 MG TAB PO SCH ×2 (09:06→21:29)
[2018-12-31] MEDS: FERROUS SULFATE 325 MG TAB PO SCH ×2 (09:06→21:30)
[2018-12-31] MEDS: FAMOTIDINE 20 MG TAB PO SCH (09:07)
[2018-12-31] MEDS: LISINOPRIL 40 MG TAB PO SCH (09:07)
[2018-12-31] MEDS: FUROSEMIDE 20 MG TAB PO SCH (09:07)
[2018-12-31] MEDS: SERTRALINE HCL 50 MG TABLET PO SCH (09:07)
[2018-12-31] MEDS: APIXABAN 5 MG TABLET PO SCH ×2 (09:08→21:29)
[2018-12-31] MEDS: SODIUM CHLORIDE 0.9% 1000ML 1,000 ML IV SCH ×2 (09:08→21:34)
--- NOTE | 2018-12-31 09:09 | Urology Progress Note ---
Date of Service December 31, 2018 Assessment & Plan (1) Hematuria: Pt doing very well overnight Afebrile, VSS. H/H stable. Eliquis restarted last evening. Phipps now draining pink tinged, small clots. Careplan discussed with Dr. Larson. Will continue to monitor today, would like to observe hematuria at least 24 hours after initiating anticoagulation therapy. Okay to hand irrigate PRN clots, if this is required more than 2x, please restart CBI. We will continue to follow closely with primary service. Please see additional comments per my attending physician as indicated. Subjective 73yo M with gross hematuria s/p TIBNC, bilateral stent placement Doing well overnight No new issues or concerns. Tolerated CBI on hold, did not require hand irrigation overnight. Restarted eliquis last evening - pink tinged urine, scant small clot, easily passed Pt denies flank pain, suprapubic pain or bladder spasms Denies fever/chils. n/v. Denies CP/SOB. Review of Systems All systems reviewed & are unremarkable except as noted in HPI & below Physical Exam Vital Signs (Past 24 Hours): Last Vital Signs Temp 36.9 C 12/31/18 08:56 Pulse 68 12/31/18 08:56 Resp 20 12/31/18 08:56 BP 130/82 12/31/18 08:56 Pulse Ox 95 12/31/18 08:56 Physical Exam: A&Ox3 RRR abd obese soft : 20fr 3-way hematuria catheter in place, draining pink tinged urine with small clots. Results & Data Laboratory Results Laboratory Results - last 48 hr 12/29/18 12/29/18 12/29/18 14:00 14:00 14:00 WBC 7.39 RBC 4.67 L Hgb 10.9 L Hct 35.6 L MCV 76.2 L MCH 23.3 L MCHC 30.6 L RDW Std Deviation 45.9 RDW Coeff of Cain 16.9 H Plt Count 240 MPV 10.2 Immature Gran % (Auto) 0.3 Neut % (Auto) 77.4 Lymph % (Auto) 8.8 Person % (Auto) 12.2 Eos % (Auto) 0.9 Baso % (Auto) 0.4 Immature Gran # (Auto) 0.02 Neut # (Auto) 5.72 Lymph # (Auto) 0.65 L Person # (Auto) 0.90 H Eos # (Auto) 0.07 Baso # (Auto) 0.03 PT 11.5 INR 1.1 Sodium 139 Potassium 4.5 Chloride 106 Carbon Dioxide 27 Anion Gap 6.0 BUN 29 H Creatinine 1.47 H Est Cr Clr Drug Dosing 57.0 Est GFR ( Amer) 53.7 Est GFR (Non-Af Amer) 46.3 BUN/Creatinine Ratio 20.0 Glucose 141 H POC Glucose Calcium 8.2 L Total Bilirubin 0.4 AST 7 L ALT 14 Alkaline Phosphatase 79 Total Protein 7.3 Albumin 3.2 L Globulin 4.1 H Albumin/Globulin Ratio 0.8 L Lipase 54 L Urine Color Urine Appearance Urine pH Ur Specific Alderson Urine Protein Urine Glucose (UA) Urine Ketones Urine Blood Urine Nitrite Urine Bilirubin Urine Urobilinogen Ur Leukocyte Esterase Urine WBC (Auto) Urine RBC (Auto) U Hyaline Cast (Auto) U Epithel Cells (Auto) Urine Bacteria (Auto) Urine Yeast 12/29/18 12/29/18 12/29/18 19:33 20:26 Unknown WBC 6.37 RBC 4.47 L Hgb 10.5 L Hct 34.2 L MCV 76.5 L MCH 23.5 L MCHC 30.7 L RDW Std Deviation 47.3 H RDW Coeff of Cain 16.9 H Plt Count 216 MPV 9.8 Immature Gran % (Auto) Neut % (Auto) Lymph % (Auto) Person % (Auto) Eos % (Auto) Baso % (Auto) Immature Gran # (Auto) Neut # (Auto) Lymph # (Auto) Person # (Auto) Eos # (Auto) Baso # (Auto) PT INR Sodium Potassium Chloride Carbon Dioxide Anion Gap BUN Creatinine Est Cr Clr Drug Dosing Est GFR ( Amer) Est GFR (Non-Af Amer) BUN/Creatinine Ratio Glucose POC Glucose 176 H Calcium Total Bilirubin AST ALT Alkaline Phosphatase Total Protein Albumin Globulin Albumin/Globulin Ratio Lipase Urine Color Janet Urine Appearance Turbid H Urine pH 6.0 Ur Specific Ald[place] 1.019 Urine Protein 3+ H Urine Glucose (UA) Negative Urine Ketones Negative Urine Blood 3+ H Urine Nitrite Negative Urine Bilirubin Negative Urine Urobilinogen Negative Ur Leukocyte Esterase 3+ H Urine WBC (Auto) >30 H Urine RBC (Auto) >30 H U Hyaline Cast (Auto) Not Reportable U Epithel Cells (Auto) >30 H Urine Bacteria (Auto) 1+ H Urine Yeast Not Reportable 12/30/18 12/30/18 12/30/18 06:10 06:17 07:59 WBC RBC Hgb Hct MCV MCH MCHC RDW Std Deviation RDW Coeff of Cain Plt Count MPV Immature Gran % (Auto) Neut % (Auto) Lymph % (Auto) Person % (Auto) Eos % (Auto) Baso % (Auto) Immature Gran # (Auto) Neut # (Auto) Lymph # (Auto) Person # (Auto) Eos # (Auto) Baso # (Auto) PT INR Sodium 139 Potassium 3.7 D Chloride 108 H Carbon Dioxide 26 Anion Gap 6.0 BUN 24 H Creatinine 1.14 D Est Cr Clr Drug Dosing 72.7 Est GFR ( Amer) 73.0 Est GFR (Non-Af Amer) 63.0 BUN/Creatinine Ratio 21.2 H Glucose 120 H POC Glucose 128 H 125 H Calcium 8.2 L Total Bilirubin AST ALT Alkaline Phosphatase Total Protein Albumin Globulin Albumin/Globulin Ratio Lipase Urine Color Urine Appearance Urine pH Ur Specific [place] Urine Protein Urine Glucose (UA) Urine Ketones Urine Blood Urine Nitrite Urine Bilirubin Urine Urobilinogen Ur Leukocyte Esterase Urine WBC (Auto) Urine RBC (Auto) U Hyaline Cast (Auto) U Epithel Cells (Auto) Urine Bacteria (Auto) Urine Yeast 12/30/18 12/30/18 12/30/18 12:05 17:16 20:34 WBC RBC Hgb Hct MCV MCH MCHC RDW Std Deviation RDW Coeff of Cain Plt Count MPV Immature Gran % (Auto) Neut % (Auto) Lymph % (Auto) Person % (Auto) Eos % (Auto) Baso % (Auto) Immature Gran # (Auto) Neut # (Auto) Lymph # (Auto) Person # (Auto) Eos # (Auto) Baso # (Auto) PT INR Sodium Potassium Chloride Carbon Dioxide Anion Gap BUN Creatinine Est Cr Clr Drug Dosing Est GFR ( Amer) Est GFR (Non-Af Amer) BUN/Creatinine Ratio Glucose POC Glucose 128 H 119 H 164 H Calcium Total Bilirubin AST ALT Alkaline Phosphatase Total Protein Albumin Globulin Albumin/Globulin Ratio Lipase Urine Color Urine Appearance Urine pH Ur Specific Ald[place] Urine Protein Urine Glucose (UA) Urine Ketones Urine Blood Urine Nitrite Urine Bilirubin Urine Urobilinogen Ur Leukocyte Esterase Urine WBC (Auto) Urine RBC (Auto) U Hyaline Cast (Auto) U Epithel Cells (Auto) Urine Bacteria (Auto) Urine Yeast 12/31/18 12/31/18 12/31/18 06:34 06:34 08:04 WBC 4.53 L RBC 4.20 L Hgb 9.8 L Hct 31.9 L MCV 76.0 L MCH 23.3 L MCHC 30.7 L RDW Std Deviation 47.3 H RDW Coeff of Cain 17.2 H Plt Count 208 MPV 10.9 H Immature Gran % (Auto) 0.4 Neut % (Auto) 66.3 Lymph % (Auto) 15.0 Person % (Auto) 14.3 Eos % (Auto) 3.3 Baso % (Auto) 0.7 Immature Gran # (Auto) 0.02 Neut # (Auto) 3.00 Lymph # (Auto) 0.68 L Person # (Auto) 0.65 H Eos # (Auto) 0.15 Baso # (Auto) 0.03 PT INR Sodium 139 Potassium 3.9 Chloride 108 H Carbon Dioxide 26 Anion Gap 5.0 BUN 19 H Creatinine 1.26 Est Cr Clr Drug Dosing 65.8 Est GFR ( Amer) 64.7 Est GFR (Non-Af Amer) 55.8 BUN/Creatinine Ratio 15.2 Glucose 113 H POC Glucose 121 H Calcium 7.6 L Total Bilirubin AST ALT Alkaline Phosphatase Total Protein Albumin Globulin Albumin/Globulin Ratio Lipase Urine Color Urine Appearance Urine pH Ur Specific Ald[place] Urine Protein Urine Glucose (UA) Urine Ketones Urine Blood Urine Nitrite Urine Bilirubin Urine Urobilinogen Ur Leukocyte Esterase Urine WBC (Auto) Urine RBC (Auto) U Hyaline Cast (Auto) U Epithel Cells (Auto) Urine Bacteria (Auto) Urine Yeast 12/31/18 11:56 WBC RBC Hgb Hct MCV MCH MCHC RDW Std Deviation RDW Coeff of Cain Plt Count MPV Immature Gran % (Auto) Neut % (Auto) Lymph % (Auto) Person % (Auto) Eos % (Auto) Baso % (Auto) Immature Gran # (Auto) Neut # (Auto) Lymph # (Auto) Person # (Auto) Eos # (Auto) Baso # (Auto) PT INR Sodium Potassium Chloride Carbon Dioxide Anion Gap BUN Creatinine Est Cr Clr Drug Dosing Est GFR ( Amer) Est GFR (Non-Af Amer) BUN/Creatinine Ratio Glucose POC Glucose 159 H Calcium Total Bilirubin AST ALT Alkaline Phosphatase Total Protein Albumin Globulin Albumin/Globulin Ratio Lipase Urine Color Urine Appearance Urine pH Ur Specific Ald[place] Urine Protein Urine Glucose (UA) Urine Ketones Urine Blood Urine Nitrite Urine Bilirubin Urine Urobilinogen Ur Leukocyte Esterase Urine WBC (Auto) Urine RBC (Auto) U Hyaline Cast (Auto) U Epithel Cells (Auto) Urine Bacteria (Auto) Urine Yeast (1) Hematuria Hematuria type: unspecified type Qualified Code(s): R31.9 - Hematuria, unspecified
[2018-12-31] MEDS: INSULIN ASPART 100 UNITS/ML 3 ML PEN SC SCH ×4 (09:12→21:30)
[2018-12-31 11:49] VITALS: TEMP 97.9
--- NOTE | 2018-12-31 17:18 | Family Medicine Progress Note ---
Date of Service December 31, 2018 Assessment & Plan (1) Hematuria: Urology noted some pink tinged urine in gaviria bag with small clots. Hgb is stable Apixiban for afib restarted last night plan for discharge home tomorrow with observation of hematuria today on anticoagulation rocephin was started for possible UTI, but cultures negative and Rocephin discontinued. (2) Complication of Gaviria catheter: functioning properly (3) Atrial fibrillation: restarted Abixaban last night rate control with co-reg irregularly irregular on exam, asymptomatic (4) GERD (gastroesophageal reflux disease): continue with famotidine (5) BPH (benign prostatic hyperplasia): continue with tamsulosin (6) CHF (congestive heart failure): continue with lasix and coreg (7) Diabetes: metformin on hold Insulin for coverage (8) Anxiety: continue with temazepam continue with Sertaline (9) HTN (hypertension), benign: continue with amlodipine continue with lisinopril (10) DVT prophylaxis: on Eliquis will DC SCDs Supervising Physician Co-Signing Physician Notes Patient seen and examined with Dr. Humphrey. Agree with history, physical exam findings, assessment and plan of care as outlined. In brief, Mr. Hopkins is a 73 year old male admitted following a urologic procedure for hematuria and gaviria catheter malfunction. He is feeling well today. Did have some pink tinged urine but no big clots today in the gaviria bag. 1. hematuria. resolving. back on apixaban. monitor for re-bleeding. ceftriaxone discontinued since cx did not grow pathogens. 2. afib, rate controlled, coreg. AC with apixaban. 3. HTN. controlled. amlodipine, lisinopril 4. anemia of chronic disease. stable. 5. CKD stage 3, stable. Dispo: discharge home tomorrow if no re-bleeding. Subjective Urology noted gaviria drained pink tinged, small clots this morning. At time of our rounds, gaviria bag contained yellow urine without red or pink color. Rosendo reports no abdominal pain, or bloody bowel movements. He has no acute complaints. He is agreeable for observation of hematuria today as anticoagulation was restarted last night. Physical Exam Vital Signs (Past 24 Hours): Last Vital Signs Temp 36.6 C 12/31/18 15:50 Pulse 71 12/31/18 15:50 Resp 16 12/31/18 15:50 BP 122/75 12/31/18 15:50 Pulse Ox 96 12/31/18 15:50 Constitutional: WD/WN, vitals as above + obese, cooperative and comfortable Eyes: + anicteric sclerae Neck: normal visual inspection and trachea midline Respiratory: normal respiratory effort, lungs clear to auscultation Cardiovascular: Rate/Rhythm: regular rate; + abnormal rhythm (irregularly irregular) Extremities: no edema Gastrointestinal (Abdomen): Inspection/Auscultation: normal bowel sounds Percussion/Palpation: abdomen soft; abdomen nontender, no guarding and abdomen not rigid Musculoskeletal: Head/Neck/Chest: normocephalic and head atraumatic Skin: no rashes, warm and dry Neurologic: moves all extremities and awake Psychiatric: A+Ox3, euthymic affect Genitourinary: gaviria bag in place draining yellow urine Results & Data Laboratory Results Laboratory Results - last 24 hr 12/30/18 12/30/18 12/31/18 17:16 20:34 06:34 WBC 4.53 L RBC 4.20 L Hgb 9.8 L Hct 31.9 L MCV 76.0 L MCH 23.3 L MCHC 30.7 L RDW Std Deviation 47.3 H RDW Coeff of Cain 17.2 H Plt Count 208 MPV 10.9 H Immature Gran % (Auto) 0.4 Neut % (Auto) 66.3 Lymph % (Auto) 15.0 [place] % (Auto) 14.3 Eos % (Auto) 3.3 Baso % (Auto) 0.7 Immature Gran # (Auto) 0.02 Neut # (Auto) 3.00 Lymph # (Auto) 0.68 L [place] # (Auto) 0.65 H Eos # (Auto) 0.15 Baso # (Auto) 0.03 Sodium Potassium Chloride Carbon Dioxide Anion Gap BUN Creatinine Est Cr Clr Drug Dosing Est GFR ( Amer) Est GFR (Non-Af Amer) BUN/Creatinine Ratio Glucose POC Glucose 119 H 164 H Calcium 12/31/18 12/31/18 12/31/18 06:34 08:04 11:56 WBC RBC Hgb Hct MCV MCH MCHC RDW Std Deviation RDW Coeff of Cain Plt Count MPV Immature Gran % (Auto) Neut % (Auto) Lymph % (Auto) [place] % (Auto) Eos % (Auto) Baso % (Auto) Immature Gran # (Auto) Neut # (Auto) Lymph # (Auto) [place] # (Auto) Eos # (Auto) Baso # (Auto) Sodium 139 Potassium 3.9 Chloride 108 H Carbon Dioxide 26 Anion Gap 5.0 BUN 19 H Creatinine 1.26 Est Cr Clr Drug Dosing 65.8 Est GFR ( Amer) 64.7 Est GFR (Non-Af Amer) 55.8 BUN/Creatinine Ratio 15.2 Glucose 113 H POC Glucose 121 H 159 H Calcium 7.6 L 12/31/18 17:06 WBC RBC Hgb Hct MCV MCH MCHC RDW Std Deviation RDW Coeff of Cain Plt Count MPV Immature Gran % (Auto) Neut % (Auto) Lymph % (Auto) [place] % (Auto) Eos % (Auto) Baso % (Auto) Immature Gran # (Auto) Neut # (Auto) Lymph # (Auto) [place] # (Auto) Eos # (Auto) Baso # (Auto) Sodium Potassium Chloride Carbon Dioxide Anion Gap BUN Creatinine Est Cr Clr Drug Dosing Est GFR ( Amer) Est GFR (Non-Af Amer) BUN/Creatinine Ratio Glucose POC Glucose 124 H Calcium Medications Administered Amlodipine Besylate (Norvasc) 5 mg PO QAM CYNDIE Stop: 01/29/19 08:59 Last Admin: 12/31/18 09:06 Dose: 5 mg Documented by: [id number] Admin: 12/30/18 08:45 Dose: 5 mg Documented by: [id number] Apixaban (Eliquis) 5 mg PO BID CYNDIE Stop: 01/29/19 20:59 Last Admin: 12/31/18 09:08 Dose: 5 mg Documented by: [id number] Admin: 12/30/18 20:43 Dose: 5 mg Documented by: [id number] Carvedilol (Coreg) 6.25 mg PO BID CYNDIE Stop: 01/28/19 20:59 Last Admin: 12/31/18 09:06 Dose: 6.25 mg Documented by: [id number] Admin: 12/30/18 20:30 Dose: 6.25 mg Documented by: [id number] Admin: 12/30/18 08:47 Dose: 6.25 mg Documented by: [id number] Admin: 12/29/18 22:24 Dose: 6.25 mg Documented by: [id number] [facility] S[facility] ([facility]ace) [facility] [place]: 01/29/19 08:59 Last Admin: 12/31/18 09:06 Dose: 100 mg Documented by: [id number] Admin: 12/30/18 08:46 Dose: 100 mg Documented by: [id number] Famotidine (Pepcid) [facility] [place] Stop: 01/29/19 08:59 Last Admin: 12/31/18 09:07 Dose: 20 mg Documented by: [id number] Admin: 12/30/18 08:46 Dose: 20 mg Documented by: [id number] Ferrous Sulfate (Feosol) 325 mg PO BID [facility] Stop: 01/28/19 20:59 Last Admin: 12/31/18 09:06 Dose: 325 mg Documented by: [id number] Admin: 12/30/18 20:31 Dose: 325 mg Documented by: [id number] Admin: 12/30/18 08:45 Dose: 325 mg Documented by: [id number] Admin: 12/29/18 22:25 Dose: 325 mg Documented by: [id number] Furosemide (Lasix) 20 mg PO [facility] Stop: 01/29/19 08:59 Last Admin: 12/31/18 09:07 Dose: 20 mg Documented by: [id number] Admin: 12/30/18 08:46 Dose: 20 mg Documented by: [id number] Ceftriaxone Sodium 1,000 mg/ (Dextrose) 50 mls @ 100 mls/hr IV Q24H [facility] Stop: 01/03/19 19:59 Last Infusion: 12/30/18 21:56 Dose: 0 mls/hr Documented by: [id number] Admin: 12/30/18 20:28 Dose: 100 mls/hr Documented by: [id number] Infusion: 12/29/18 21:46 Dose: 0 mls/hr Documented by: [id number] Admin: 12/29/18 20:40 Dose: 100 mls/hr Documented by: [id number] Sodium Chloride (Nss 1000ml) 1,000 mls @ 80 mls/hr IV .[id number] [facility] Stop: 01/28/19 19:29 Last Admin: 12/31/18 09:08 Dose: 80 mls/hr Documented by: [id number] Infusion: 12/31/18 08:56 Dose: 80 mls/hr Documented by: [id number] Infusion: 12/31/18 05:07 Dose: 80 mls/hr Documented by: [id number] Admin: 12/30/18 20:26 Dose: 80 mls/hr Documented by: [id number] Infusion: 12/30/18 20:26 Dose: 80 mls/hr Documented by: [id number] Admin: 12/30/18 08:48 Dose: 80 mls/hr Documented by: [id number] Infusion: 12/30/18 08:48 Dose: 80 mls/hr Documented by: [id number] Admin: 12/29/18 20:37 Dose: 80 mls/hr Documented by: [id number] Insulin Aspart (Novolog Flexpen) 0 units SC ACHS CYNDIE Stop: 01/29/19 07:29 Last Admin: 12/31/18 13:06 Dose: 8 units Documented by: [id number] Cosigned by: [id number] Admin: 12/31/18 09:12 Dose: 7 units Documented by: [id number] Cosigned by: [id number] Admin: 12/30/18 20:41 Dose: 3 units Documented by: [id number] Cosigned by: [id number] Admin: 12/30/18 18:35 Dose: 7 units Documented by: [id number] Cosigned by: [id number] Admin: 12/30/18 13:33 Dose: 7 units Documented by: [id number] Cosigned by: [id number] Admin: 12/30/18 08:55 Dose: 5 units Documented by: [id number] Cosigned by: [id number] Lisinopril (Zestril) 40 mg PO QAM CYNDIE Stop: 01/29/19 08:59 Last Admin: 12/31/18 09:07 Dose: 40 mg Documented by: [id number] Admin: 12/30/18 08:46 Dose: 40 mg Documented by: [id number] Magnesium Oxide (Mag-Ox) 400 mg PO QAM CYNDIE Stop: 01/29/19 08:59 Last Admin: 12/31/18 09:06 Dose: 400 mg Documented by: [id number] Admin: 12/30/18 08:45 Dose: 400 mg Documented by: [id number] Pregabalin (Lyrica) 25 mg PO BID CYNDIE Stop: 01/28/19 20:59 Last Admin: 12/31/18 09:06 Dose: 25 mg Documented by: [id number] Admin: 12/30/18 20:43 Dose: 25 mg Documented by: [id number] Admin: 12/30/18 08:48 Dose: 25 mg Documented by: [id number] Admin: 12/29/18 22:00 Dose: 25 mg Documented by: [id number] Sertraline HCl (Zoloft) 50 mg PO QAM [facility] Stop: 01/29/19 08:59 Last Admin: 12/31/18 09:07 Dose: 50 mg Documented by: [id number] Admin: 12/30/18 08:46 Dose: 50 mg Documented by: [id number] Tamsulosin HCl (Flomax) 0.4 mg PO HS [facility] Stop: 01/28/19 20:59 Last Admin: 12/30/18 20:31 Dose: 0.4 mg Documented by: [id number] Admin: 12/29/18 22:25 Dose: 0.4 mg Documented by: [id number] (1) Hematuria Hematuria type: unspecified type Qualified Code(s): R31.9 - Hematuria, unspecified (2) Diabetes Diabetes mellitus complication status: without complication Diabetes mellitus fci insulin use: without fci use Diabetes mellitus type: type 2 Qualified Code(s): E11.9 - Type 2 diabetes mellitus without complications (3) Atrial fibrillation Atrial fibrillation type: permanent Qualified Code(s): I48.2 - Chronic atrial fibrillation (4) GERD (gastroesophageal reflux disease) Esophagitis presence: esophagitis presence not specified Qualified Code(s): K21.9 - Gastro-esophageal reflux disease without esophagitis (5) Complication of Gaviria catheter Encounter type: initial encounter Qualified Code(s): T83.9XXA - Unspecified complication of genitourinary prosthetic device, implant and graft, initial encounter
[2018-12-31] MEDS: TAMSULOSIN HCL 0.4 MG CAP PO SCH (21:30)
[2019-01-01 07:08] LABS: Hematocrit (blood only) 32.7 % (42-52); Hemoglobin 10.2 g/dL (14.0-18.0); Mean Corpuscular Hgb Conc 31.2 g/dL (32-36); Mean Corpuscular Volume 76.4 fL (80-100); Platelet Count 200 K/uL (130-400); RDW Coefficient of Variation 17.1 % (11.5-14.5); RDW Standard Deviation 46.8 fL (36.4-46.3); Red Blood Count 4.28 M/uL (4.7-6.1); White Blood Count 4.17 K/uL (4.8-10.8)
[2019-01-01 07:43] LABS: BUN Creatinine Ratio 16.7 (10-20); Creatinine Clr Calc Pharmacy 79.7 ml/min; Est GFR (African American) 81.6; Est GFR (Non-African American) 70.4; Potassium 3.9 mmol/L (3.5-5.1)
[2019-01-01 07:56] VITALS: O2SAT 96
[2019-01-01] MEDS: INSULIN ASPART 100 UNITS/ML 3 ML PEN SC SCH ×3 (09:46→18:05)
[2019-01-01] MEDS: CARVEDILOL 6.25 MG TAB PO SCH (09:48)
[2019-01-01] MEDS: APIXABAN 5 MG TABLET PO SCH (09:48)
[2019-01-01] MEDS: DOCUSATE SODIUM 100 MG CAP PO SCH (09:48)
[2019-01-01] MEDS: FERROUS SULFATE 325 MG TAB PO SCH (09:49)
[2019-01-01] MEDS: MAGNESIUM OXIDE 400 MG TAB PO SCH (09:49)
[2019-01-01] MEDS: FUROSEMIDE 20 MG TAB PO SCH (09:49)
[2019-01-01] MEDS: LISINOPRIL 40 MG TAB PO SCH (09:50)
[2019-01-01] MEDS: SERTRALINE HCL 50 MG TABLET PO SCH (09:50)
[2019-01-01] MEDS: FAMOTIDINE 20 MG TAB PO SCH (09:50)
[2019-01-01] MEDS: AMLODIPINE BESYLATE 5 MG TAB PO SCH (09:50)
[2019-01-01] MEDS: PREGABALIN 25 MG CAP PO SCH (09:54)
[2019-01-01] MEDS: SODIUM CHLORIDE 0.9% 1000ML 1,000 ML IV SCH (09:56)
--- NOTE | 2019-01-01 13:33 | Urology Progress Note ---
Date of Service January 01, 2019 Assessment & Plan (1) Hematuria: Will plan to continue to monitor. Feeling better overall. Discussed large bilateral obstructing stones. Stents in good position. Will need to plan future intervention. Will need to have Cardiology and PCP assist with risk assessment and planning for procedures. Will likely be at least 2 additional procedures on stones with possiblity of further intervention if stones take more than one intervention. Also need to consider outlet obstruction and bladder lesions. Will plan to reimage while admitted with CT to assist in planning and confirm stents and melisa. Will monitor for now. Subjective 73yo M with gross hematuria s/p TIBNC, bilateral stent placement Improved. Patient feels better than he has in "months" Tolerating diet. Tolerating stents and gaviria. Clear urine. NO major issues. Severe cardiac issues at baseline. Toelrating medications. Physical Exam Vital Signs (Past 24 Hours): Last Vital Signs Temp 36.6 C 01/01/19 07:00 Pulse 78 01/01/19 07:00 Resp 18 01/01/19 07:00 BP 168/98 H 01/01/19 07:00 Pulse Ox 96 01/01/19 07:00 Constitutional: WD/WN, vitals as above well developed, well nourished, + obese, cooperative and comfortable; no acute distress, not ill appearing and not intoxicated appearing Eyes: + anicteric sclerae; no nystagmus ENMT: Ears: no hearing impairment Neck: normal visual inspection and trachea midline Respiratory: normal respiratory effort, lungs clear to auscultation no respiratory distress Cardiovascular: Rate/Rhythm: regular rate; + abnormal rhythm (irregularly irregular) Vessels: no JVD Extremities: no edema Gastrointestinal (Abdomen): Inspection/Auscultation: normal bowel sounds; abdomen not distended and no abdominal edema Percussion/Palpation: abdomen soft; abdomen nontender, no guarding and abdomen not rigid Musculoskeletal: Head/Neck/Chest: normocephalic and head atraumatic Skin: no rashes, warm and dry no rashes Neurologic: moves all extremities and awake; not confused and not obtunded Psychiatric: A+Ox3, euthymic affect Orientation: alert and oriented x 3 Apperance: appropriately dressed (1) Hematuria Hematuria type: unspecified type Qualified Code(s): R31.9 - Hematuria, unspecified
[2019-01-01 15:05] VITALS: BP 105/70; PULSE 60
--- NOTE | 2019-01-01 15:53 | Discharge Summary ---
Date of Service January 01, 2019 Admission HPI Per Admitting Provider Patient is a 73yo C male. Had a cystoscopy performed yesterday by Dr. Larson with bladder neck dilation and stent placement. The procedure was well tolerated, no complications. He was sent home with Gaviria in place. He reports hematuria with clots upon returning home. His Gaviria stopped draining around 10:00PM. Patient called home nursing and they came to his home to irrigate the Gaviria. He went to bed around 11:00. when he woke this AM he states his bed was full of blood, Gaviria still not draining, suprapubic discomfort. He called home nursing again and they attempted to irrigate his Gaviria, however they were unsuccessful. He was sent to the ER. Patient presently feeling well. No CP/SOB/palpitations/dizziness ER Course: Cipro Admission Exam Per Admitting Provider General: patient resting comfortably, NAD, non-toxic in appearance, AA&O x 4 Skin: warm, dry, intact, no rashes or lesions HEENT: NC/AT, PERRL, EOMI, anicteric sclera, conjunctiva without injection, external ear normal to inspection and nontender, nares patent, moist mucus membranes, dentition intact, no oropharyngeal lesions, neck supple, trachea midline, no LAD, no thyromegaly, no JVD Heart: +S1/S2, irregularly irregular, no m/r/g Lungs: equal air entry bilaterally, no rales/rhonchi/wheezes Abd: +BS, soft, NT/ND, no masses/organomegaly/ascites, mild suprapubic tenderness, Gaviria catheter in place with 300mL of dark blood with clots in the bag, urine in tubing as well Ext: warm, 2+ pulses in UE/LE bilaterally, no clubbing/cyanosis or edema Neuro: nonfocal, patient AA&O x 4, speech intact, no facial droop, moving all extremities on command with equal strength 5/5 Principal Diagnosis hematuria Discharge Exam Constitutional: WD/WN, vitals as above + obese, cooperative and comfortable Eyes: Neck: normal visual inspection and trachea midline Respiratory: normal respiratory effort, lungs clear to auscultation Cardiovascular: Rate/Rhythm: regular rate; + abnormal rhythm (irregularly irregular) Extremities: no edema Gastrointestinal (Abdomen): Inspection/Auscultation: normal bowel sounds Percussion/Palpation: abdomen soft; abdomen nontender, no guarding and abdomen not rigid Musculoskeletal: Head/Neck/Chest: normocephalic and head atraumatic Skin: no rashes, warm and dry Neurologic: moves all extremities and awake Psychiatric: A+Ox3, euthymic affect Genitourinary: gaviria bag in place draining yellow urine; no clots Discharge Data Allergies Allergy/AdvReac Type Severity Reaction Status Date / Time No Known Allergies Allergy Verified 12/29/18 14:35 Consultations 12/29/18 14:27 ED Decision to Admit Stat 12/29/18 18:45 Consult Urology Routine Ordered Studies 01/01/19 15:30 CT abd pelvis wo con Routine 01/02/19 13:28 CT abd pelvis wo con Routine Hospital Course (1) Hematuria: Pt was admitted to medical floor for management of hematuria and gaviria catheter malfunction. he was provided continous bladder irragation, ac held, started on CTX for possible urine infection, and uro was consulted. Hematuria resolved s/p ~24 of CBI , h/h was stable. CBI was clamped that evening and eliquis restarted. Following day small clots and blood observed in gaviria bag, uro wanted to monitor pt for 24 hours. Ucx was neg rocephin stopped. The following day pt gaviria bag was clot and blood free, afvss, no contrast CT obtained and pt was d/c'd (2) Complication of Gaviria catheter: as above (3) Atrial fibrillation: As above rate control with co-reg irregularly irregular on exam, asymptomatic (4) GERD (gastroesophageal reflux disease): continued with famotidine (5) BPH (benign prostatic hyperplasia): continued with tamsulosin (6) CHF (congestive heart failure): continued with lasix and coreg (7) Diabetes: metformin was held sugars were controlled per pharmacy, d/c on home regimen (8) Anxiety: continued with temazepam continued with Sertaline (9) HTN (hypertension), benign: continued with amlodipine continued with lisinopril (10) DVT prophylaxis: Eliquis Total Time Total Time Spent Total Time Spent (In Minutes): 30 Discharge Plan Discharge Items Patient Disposition: Home - Self-Care Reason For Visit: HEMATURIA Discharge Diagnosis: Hematuria with Gaviria Cath Malfunction Discharge Goals: Decrease discomfort and Therapeutic intervention Activity: Resume your previous activity Non-emergency contact: Primary Care Provider and Urologist Call non-emergency contact if: you have any medication questions, your symptoms worsen, your pain is not controlled and your temperature is above 101 Follow-up/Referrals: Yeyo Melendez, DO [Primary Care Provider] - Diet: Carb Consistent or DM2 Addtl Provider Instructions: Care instructions: You were admitted to [facility] for treatment of blood in your urine and gaviria cath malfunction A discharge summary will be sent to your primary care physician to ensure continuity of care. Please bring this discharge summary with you to your next office appointment so that your provider can review it at that time. Follow-up appointments: - Keep all your follow-up appointments as already scheduled. If you cannot make an appointment, notify your provider. - We request you schedule a follow-up appointment with your primary care physician within one week of discharge. Please call their office to do so Medications: - Your medication list has been reviewed and reconciled upon discharge to ensure accuracy and continuity of care. - You are provided with a list of all your current medications at this time. Please review this list closely and make note of any changes. - Please take all of your medications exactly as prescribed. - Tell your primary care provider if you cannot afford your medications. - Call your primary care provider if you are having any side effects or any other problems. - Call your primary care provider before taking any over the counter medications or supplements, including herbals and vitamins, because some of these may interact with your current medications and/or make your symptoms worse. It has been our privilege to take care of you during your hospital stay. Symptoms: Please call your primary care provider for symptoms including, but not limited to: fevers (temperatures > 38.3 degrees C), chills, intractable nausea or vomiting, diarrhea, rash, shortness of breath, bleeding, pain, or if you experience any worsening of the symptoms that brought you to the hospital. For EMERGENCY and VERY SERIOUS health-related issues, such as chest pain, shortness of breath, or sudden onset of the symptoms that brought you to the hospital, you may need to call 911 or go directly to the Emergency Room Prescriptions: Continued amlodipine 5 mg tablet 5 mg PO QAM RF: 0 tamsulosin 0.4 mg capsule 0.4 mg PO HS RF: 0 lisinopril 40 mg tablet 40 mg PO QAM RF: 0 furosemide 20 mg Tablet 20 mg PO QAM Qty: 30 RF: 2 apixaban 5 mg tablet 5 mg PO BID Qty: 60 RF: 2 famotidine 20 mg Tablet 20 mg PO QAM RF: 0 ferrous sulfate 325 mg (65 mg iron) Tablet,Delayed Release (Dr/Ec) 325 mg PO BID RF: 0 Lyrica 25 mg Capsule 25 mg PO BID RF: 0 magnesium oxide 400 mg Capsule 400 mg PO QAM RF: 0 acetaminophen [Tylenol] 325 mg Capsule 650 mg PO Q6H PRN (Reason: Pain) RF: 0 metformin [Glucophage] 500 mg tablet 500 mg PO QAM RF: 0 carvedilol [Coreg] 6.25 mg tablet 6.25 mg PO BID RF: 0 melatonin 3 mg Tablet 3 mg PO HS RF: 0 temazepam [Restoril] 15 mg capsule 15 mg PO HS PRN (Reason: Restless Leg(S)) RF: 0 docusate sodium 100 mg Capsule 100 mg PO QAM RF: 0 sertraline [Zoloft] 50 mg tablet 50 mg PO QAM RF: 0 Stand-Alone Forms: [facility] Discharge Orders: Discharge Order (Routine); Ordered 01/01/19 Ordered By: Jonn Pinto Admission Data Admit Date/Time: 12/29/18 16:14 Attending Provider: Shyann Bey Admit Provider: Mansi Pinto Primary Care Provider: Yeyo Melendez Other Providers: Mansi Pinto ; Hugo Larson II Service: Surgical Services Supervising Physician Co-Signing Physician Notes Patient seen and examined independently of Dr. Pinto. Agree with history, physical exam findings, and hospital course as outlined. In brief, Mr. Hopkins is a 73 year old male admitted following a urologic procedure for hematuria and gaviria catheter malfunction. He is feeling well today. Gaviria bag is draining yellow urine. No clots visible. 1. hematuria. resolving. back on apixaban. no signs of re-bleeding. ceftriaxone discontinued since cx did not grow pathogens. 2. afib, rate controlled, coreg. AC with apixaban. 3. HTN. controlled. amlodipine, lisinopril 4. anemia of chronic disease. stable. 5. CKD stage 3, stable. Dispo: CT to assist with surgical planning per urology then dc home. Resident Activity Tracking Resident Involvement: Resident Care Provided Care Provided: Adult [facility] Medicine
--- NOTE | 2019-01-01 16:10 | CT Scan Report ---
CT abd pelvis wo con CT DOSE: 1180.93 mGycm HISTORY: Bilateral Stones and Stents. Hematuria. TECHNIQUE: Multiaxial CT images of the abdomen and pelvis were performed without contrast. A dose lo wering technique was utilized adhering to the principles of ALARA. COMPARISON STUDY: 12/24/2018 FINDINGS: Lung bases are clear. Liver continues to show a small anterior hepatic cyst. This is unchan ged. Spleen and pancreas appear unremarkable. Patient now has bilateral urinary tract stents. A large calcification right renal pelvis is unchanged . There is mild cortical scarring of the right kidney. Hydronephrosis on the prior study is not ident ified currently. There is been interval placement of a left ureteral stent. There has been considerable improvement in the left hydronephrosis. There continues be moderate cortical scarring left kidney. It is not appear to be a current ureteral calculus. Bowel pattern is nonobstructive. Mild bladder wall thickening. Prostate is moderately enlarged. IMPRESSION: 1. Interval placement of a left ureteral stent. 2. No evidence for a ureteral calculus at the current time. 3. Bilateral nonobstructing renal calcifications are again noted. 4. Improved exam with a hydronephrosis procedure described resolved. The above report was generated using voice recognition software. It may contain grammatical, syntax or spelling errors. Electronically signed by: Alfred Patiño M.D. 01/01/2019 4:09 PM
== END 2019-01-01 18:14 | disposition home or self-care (01) ==
LOC: ED 12:33 → 3N 12:33 → SUATTDRO 16:14 → 3N 18:27

== ENCOUNTER 2019-02-01 01:01 | Inpatient (IN) ==
[2019-02-01] MEDS ORDERED: fentaNYL citrate 100 MCG/2 ML VIAL IV STA ×2 (02:01→02:34)
[2019-02-01] MEDS ORDERED: METOPROLOL TARTRATE 1 MG/ML VIAL IV STA (02:01)
[2019-02-01 02:10] LABS: Basophils # (auto) 0.02 K/uL (0-0.2); Basophils % (auto) 0.2 %; Eosinophils # (auto) 0.09 K/uL (0-0.5); Eosinophils % (auto) 1.1 %; Hematocrit (blood only) 34.9 % (42-52); Hemoglobin 10.8 g/dL (14.0-18.0); Immature Granulocytes # (auto) 0.03 K/uL (0.00-0.02); Immature Granulocytes % (auto) 0.4 %; Lymphocytes # (auto) 0.59 K/uL (1.2-3.4); Lymphocytes % (auto) 7.1 %; Mean Corpuscular Hgb Conc 30.9 g/dL (32-36); Mean Corpuscular Volume 73.6 fL (80-100); Mean Platelet Volume 9.6 fL (7.4-10.4); Monocytes # (auto) 0.56 K/uL (0.11-0.59); Monocytes % (auto) 6.7 %; Neutrophils # (auto) 7.07 K/uL (1.4-6.5); Neutrophils % (auto) 84.5 %; Platelet Count 345 K/uL (130-400); RDW Coefficient of Variation 17.4 % (11.5-14.5); Red Blood Count 4.74 M/uL (4.7-6.1); White Blood Count 8.36 K/uL (4.8-10.8)
[2019-02-01 02:20] LABS: INR 1.2 (0.9-1.1); Partial Thromboplastin Time 26.6 Seconds (21.0-31.0); Prothrombin Time 11.9 Seconds (9.0-12.0)
[2019-02-01 02:30] LABS: Alanine Aminotransferase 15 U/L (12-78); Albumin Level 3.1 gm/dl (3.4-5.0); Aspartate Aminotransferase 9 U/L (15-37); BUN Creatinine Ratio 20.6 (10-20); Bilirubin Direct < 0.1 mg/dl (0-0.2); Blood Urea Nitrogen 30 mg/dl (7-18); Calcium 8.7 mg/dl (8.5-10.1); Carbon Dioxide 26 mmol/L (21-32); Chloride 109 mmol/L (98-107); Est GFR (African American) 54.7; Est GFR (Non-African American) 47.2; Glucose 178 mg/dl (70-99); Potassium 3.9 mmol/L (3.5-5.1); Sodium 143 mmol/L (136-145)
[2019-02-01 02:35] LABS: Alkaline Phosphatase 77 U/L (45-117); Bilirubin,Total 0.3 mg/dl (0.2-1); Total Protein 7.3 gm/dl (6.4-8.2); Troponin I < 0.015 ng/ml (0-0.045)
[2019-02-01 02:37] LABS: RBC Morphology Unremarkable
--- NOTE | 2019-02-01 03:34 | Emergency Department Note ---
Entered by Boone Newman acting as a scribe for ED Provider Note Name: Rosendo Hopkins Age: 74 Arrives Via: EMS Informant: Self CC: Urinary retention HPI: 74 y/o male arrives for evaluation of constant urinary retention beginning this afternoon. The patient states his catheter stopped draining this afternoon and had several blood clots in it. He reports he is also experiences abdominal pain and fullness. The patient states he had kidney stones removed a few days ago and had the catheter placed then. The patient notes he is on Elequis for his a-fib. He states he thinks he is on an antibiotic. The patient denies SOB, chest pain, and fevers. No medications perior to arrival. Movement makes worse, laying still on left side makes better. no trauma nor injuries. This occurred in similar fashion last month. ROS: See above HPI for pertinent positives & negatives. A total of 10 systems reviewed and were otherwise negative. Past Medical History: A-fib, hematuria, DM, GERD, BPH, CHF, HTN, CKD Past Surgical History: Kidney stone removal Family History: non-contributory Social History: Single Home Medications: Eliquis Allergies NKDA Physical: Vitals: BP 154/120, Pusle 120 Exam: GENERAL: Patient is uncomfortable appearing and in moderate distress. EYES: No scleral icterus, unremarkable pupils. NECK: No masses appreciated, no meningismus, trachea is midline. RESPIRATORY: No dyspnea. Clear to auscultation and equal bilaterally. No wheeze, no rhonchi. CARDIOVASCULAR: Tachycardic rate and rhythm. No murmurs, rubs, gallops appreciated. GASTROINTESTINAL: Abdomen soft, suprapubic tenderness to palpation, no peritonitis. Bowel sounds positive. No masses appreciated. : (Performed in the presence of a male nurse): Blood at the meatus of the penis. BACK: Unremarkable. No CVA tenderness. EXTREMITIES: Normal motion all extremities, no cyanosis, no edema. NEUROLOGIC: Alert and oriented, no acute motor or sensory deficits, no focal we akness, cranial nerves grossly intact. SKIN: No rash, no jaundice, no diaphoresis. ED Course: Prior Medical Record, Triage/Nursing Notes, Medications, Allergies reviewed by Me Vital Signs: reviewed and remarkable for Labs: Reviewed and remarkable for mild anemia, stable Cr Interventions: Fentanyl 50mcg IV, Fentanyl 75mcg IV, Lopressor 5mg IV Imaging: none EKG: none Consults: Dr Zamorano and Dr Melendez Reassessments/Times: 0116: The patient was evaluated in room C02B, and a complete history and physical examination were performed. 0142: Two 20 Persian Foleys have been placed and both have been blocked. The second one is currently being flushed with little success. I asked the nurse to obtain labs and a type an screen. 0202: The patient is feeling better after about 600cc of blood has been removed from his bladder. The Gaviria continues to clog although the patient feels better. His heart rate has maintained in the 130s. 0213: The third Gaviria is now being placed. After 5 of Lopressor the pt's HR has dropped to the 80s-90s. 0225: Currently placing a three way catheter because each Gaviria has been blocked. 0234: The three way is in place and another 300cc of grossly bloody urine was drained from his bladder. CBI will be started shortly. 0239: Paged Dr. Zamorano, [facility] Hospitalist. 0249: I reviewed the patient's case with Dr. Zamorano, [facility] Hospitalist. He requests I discuss the case with Urology to ensure nothing special needs to be done. 0252: Paged Dr. Melendez, Urology 0256: I discussed the patient's case with Dr. Melendez, Urology. He is in agreeme nt with the plan and states hand irrigation may still be required. 0259: I updated Dr. Zamorano of the consult. He will evaluate the patient for further management and care. Blood pressure: Elevated - Monitored by hospitalist. Disposition: Hospitalization Differentials: Urinary retention, hematuria, UTI, renal failure, anemia, a-fib with RVR, cardiac ischemia, amongst others. Medical Decision Making: Pleasnt 74 yr old male quite uncomfortable arrives for acute urinary retention. Left renal stone removal last week including biopsy of ulcer in proximal ureter. Has been on Eliquis for afib. Several days bloody urine with acute obstruction this evening. I personally manually removed about 600 ml clot from gaviria over an hour and 2 different 20 g catheters. We then placed [address] catheter and began CBI with gradually clearing urine though continued red urine. HR was controlled with lopressor. Pain controlled with fentanyl. Mildly dehydration with minor renal insufficiency from his baseline though will defer hydration at this time to hospitalist service. We discussed abx and they will manage these as well. Currently he does not appear infected and due to pure blood removed from initial two catheters UA was not sent. Patient without chest pain. WIthout hypotension nor acute anemia I do not feel that he requires transfusion, nor do I feel trying to reverse Eliquis would be beneficial at this time. Hospitalist and Urology on board with plan. Impression: Acute Urinary Retention Gross Hematuria Atrial Fibrillation with rapid ventricular response Acute Renal Insufficiency Florencio Rebolledo MD The scribe's documentation has been prepared under my direction and personally reviewed by me in its entirety. I confirm that the note above accurately reflects all work, treatment, procedures, and medical decision making performed by me. Impression & Plan Acute urinary retention, Gross hematuria, Atrial fibrillation with rapid ventricular response, Acute renal insufficiency Past Med/Surg History Medical History Atrial fibrillation Diabetes GERD (gastroesophageal reflux disease) BPH (benign prostatic hyperplasia) Hypertensive urgency 11/2018 CHF (congestive heart failure) Major depressive disorder BPH w urinary obs/LUTS Obesity Chronic anticoagulation Demand ischemia of myocardium 11/2018 RESULTED IN ELEVATED TROPONIN; "LV FUNCTION IS NORMAL.. STABLE FROM A CARDIAC STANDPOINT" PER 11/20/18 [facility] CARDIO PROGRESS NOTE HTN (hypertension), benign Hyperlipidemia Osteoarthritis, knee CKD (chronic kidney disease) stage 3, GFR 30-59 ml/min A-fib Anemia CHRONIC' BASELINE HGB 10-11 RANGE PER CHART REVIEW Anxiety BPH (benign prostatic hyperplasia) Depression GERD (gastroesophageal reflux disease) CONTROLLED Hypertension Indwelling Gaviria catheter present Kidney stones Type 2 diabetes mellitus Surgical History History of colonoscopy History of cystoscopy WITH STENT 12/28/18 Family History Other Family history non-contributory Social History Preferred Language: Bots[place] Communication Ability: Effective Beliefs That Will Affect Care: None marital status: Single Current Living Situation: Alone Current Living Situation Comment: [facility] Q 2-3 DAYS Feels Safe at Home: Yes Smoking Status: Never smoker Hx Alcohol Use: No Hx Substance Use: No Results & Data Vital Signs Vital Signs - 24 hr 02/01/19 02:11 Pulse Rate 120 H Blood Pressure 154/120 H Home Medications Current Medication List: was personally reviewed by me Laboratory Data Attestation: I reviewed the patient's lab results. Result diagrams: 02/01/19 01:56 02/01/19 01:56 Lab Results 02/01/19 02/01/19 02/01/19 Range/Units 01:56 01:56 01:56 WBC 8.36 (4.8-10.8) K/uL RBC 4.74 (4.7-6.1) M/uL Hgb 10.8 L (14.0-18.0) g/dL Hct 34.9 L (42-52) % MCV 73.6 L (80-100) fL MCH 22.8 L (25-34) pg MCHC 30.9 L (32-36) g/dL RDW Std Deviation 47.0 H (36.4-46.3) fL RDW Coeff of Cain 17.4 H (11.5-14.5) % Plt Count 345 (130-400) K/uL MPV 9.6 (7.4-10.4) fL Immature Gran % (Auto) 0.4 % Neut % (Auto) 84.5 % Lymph % (Auto) 7.1 % [place] % (Auto) 6.7 % Eos % (Auto) 1.1 % Baso % (Auto) 0.2 % Immature Gran # (Auto) 0.03 H (0.00-0.02) K/uL Neut # (Auto) 7.07 H (1.4-6.5) K/uL Lymph # (Auto) 0.59 L (1.2-3.4) K/uL [place] # (Auto) 0.56 (0.11-0.59) K/uL Eos # (Auto) 0.09 (0-0.5) K/uL Baso # (Auto) 0.02 (0-0.2) K/uL RBC Morphology Unremarkable PT 11.9 (9.0-12.0) Seconds INR 1.2 H (0.9-1.1) APTT 26.6 (21.0-31.0) Seconds PTT Ratio 1.0 Sodium 143 (136-145) mmol/L Potassium 3.9 (3.5-5.1) mmol/L Chloride 109 H (98-107) mmol/L Carbon Dioxide 26 (21-32) mmol/L Anion Gap 8.0 (3-11) BUN 30 H (7-18) mg/dl Creatinine 1.44 H (0.6-1.4) mg/dl Est Cr Clr Drug Dosing Not Reportable Est GFR ( Amer) 54.7 Est GFR (Non-Af Amer) 47.2 BUN/Creatinine Ratio 20.6 H (10-20) Glucose 178 H (70-99) mg/dl Calcium 8.7 (8.5-10.1) mg/dl Total Bilirubin 0.3 (0.2-1) mg/dl Direct Bilirubin < 0.1 (0-0.2) mg/dl AST 9 L (15-37) U/L ALT 15 (12-78) U/L Alkaline Phosphatase 77 (45-117) U/L Troponin I < 0.015 (0-0.045) ng/ml Total Protein 7.3 (6.4-8.2) gm/dl Albumin 3.1 L (3.4-5.0) gm/dl Blood Type Antibody Screen 02/01/19 Range/Units 01:56 WBC (4.8-10.8) K/uL RBC (4.7-6.1) M/uL Hgb (14.0-18.0) g/dL Hct (42-52) % MCV (80-100) fL MCH (25-34) pg MCHC (32-36) g/dL RDW Std Deviation (36.4-46.3) fL RDW Coeff of Cain (11.5-14.5) % Plt Count (130-400) K/uL MPV (7.4-10.4) fL Immature Gran % (Auto) % Neut % (Auto) % Lymph % (Auto) % [place] % (Auto) % Eos % (Auto) % Baso % (Auto) % Immature Gran # (Auto) (0.00-0.02) K/uL Neut # (Auto) (1.4-6.5) K/uL Lymph # (Auto) (1.2-3.4) K/uL [place] # (Auto) (0.11-0.59) K/uL Eos # (Auto) (0-0.5) K/uL Baso # (Auto) (0-0.2) K/uL RBC Morphology PT (9.0-12.0) Seconds INR (0.9-1.1) APTT (21.0-31.0) Seconds PTT Ratio Sodium (136-145) mmol/L Potassium (3.5-5.1) mmol/L Chloride (98-107) mmol/L Carbon Dioxide (21-32) mmol/L Anion Gap (3-11) BUN (7-18) mg/dl Creatinine (0.6-1.4) mg/dl Est Cr Clr Drug Dosing Est GFR ( Amer) Est GFR (Non-Af Amer) BUN/Creatinine Ratio (10-20) Glucose (70-99) mg/dl Calcium (8.5-10.1) mg/dl Total Bilirubin (0.2-1) mg/dl Direct Bilirubin (0-0.2) mg/dl AST (15-37) U/L ALT (12-78) U/L Alkaline Phosphatase (45-117) U/L Troponin I (0-0.045) ng/ml Total Protein (6.4-8.2) gm/dl Albumin (3.4-5.0) gm/dl Blood Type A Positive Antibody Screen NEGATIVE Administered Medications Discontinued Medications Fentanyl Citrate (Fentanyl Citrate) 50 mcg IV NOW STA Stop: 02/01/19 02:02 Last Admin: 02/01/19 02:11 Dose: 50 mcg Documented by: [id number] Fentanyl Citrate (Fentanyl Citrate) 75 mcg IV NOW STA Stop: 02/01/19 02:35 Last Admin: 02/01/19 03:15 Dose: 100 mcg Documented by: [id number] Metoprolol Tartrate (Lopressor) 5 mg IV NOW STA Stop: 02/01/19 02:02 Last Admin: 02/01/19 02:11 Dose: 5 mg Documented by: [id number] Blood Pressure Blood Pressure Findings: Elevated blood pressure Blood Pressure Disposition: further management by hospitalist Discharge Plan Visit Data Chief Complaint: Catheter Replacement ED Provider: Florencio Rebolledo Discharge Problem: Acute urinary retention, Gross hematuria, Atrial fibrillation with rapid ventricular response, Acute renal insufficiency Patient Disposition: Being Evaluated by Hospitalist Forms Stand Alone Forms: My [facility] Prescriptions Prescriptions: No Action amlodipine 5 mg tablet 5 mg PO BID RF: 0 tamsulosin 0.4 mg capsule 0.4 mg PO HS RF: 0 lisinopril 40 mg tablet 40 mg PO QAM RF: 0 furosemide 20 mg Tablet 20 mg PO QAM Qty: 30 RF: 2 famotidine 20 mg Tablet 20 mg PO QAM RF: 0 ferrous sulfate 325 mg (65 mg iron) Tablet,Delayed Release (Dr/Ec) 325 mg PO BID RF: 0 Lyrica 25 mg Capsule 25 mg PO BID RF: 0 magnesium oxide 400 mg Capsule 400 mg PO QAM RF: 0 acetaminophen [Tylenol] 325 mg Capsule 650 mg PO Q6H PRN (Reason: Pain) RF: 0 oxybutynin chloride 5 mg Tablet 5 mg PO Q8H PRN (Reason: Bladder Spasms) RF: 0 cranberry extract 425 mg Capsule 425 mg PO DAILY RF: 0 oxycodone-acetaminophen [Percocet] 7.5-325 mg tablet 1 tab PO Q8H PRN (Reason: pain) Qty: 7 RF: 0 carvedilol 3.125 mg tablet 3.125 mg PO BID RF: 0 Eliquis 5 mg tablet 5 mg PO DAILY RF: 0 metformin [Glucophage] 500 mg tablet 500 mg PO BID RF: 0 melatonin 3 mg Tablet 3 mg PO HS RF: 0 temazepam [Restoril] 15 mg capsule 15 mg PO HS PRN (Reason: Restless Leg(S)) RF: 0 docusate sodium 100 mg Capsule 100 mg PO QAM RF: 0 sertraline [Zoloft] 50 mg tablet 50 mg PO QAM RF: 0 Referrals Referrals: Yeyo Melendez DO [Primary Care Provider] - The scribe's documentation has been prepared under my direction and personally reviewed by me in its entirety. I confirm that the note above accurately reflects all work, treatment, procedures, and medical decision making performed by me.
[2019-02-01] MEDS ORDERED: LORazepam 0.5 MG/1 ML VIAL IV STA ×2 (03:46→05:35)
--- NOTE | 2019-02-01 03:52 | History & Physical Report ---
Date of Service February 01, 2019 Assessment & Plan (1) Acute urinary retention: 74 y/oM with recent hx of left renal stone removal, L ureteral stent exchange and biopsy of ulcer in L proximal ureter on 01/25; BPH, Afib, Diastolic CHF, HTN, DM, and anxiety presented with constant urinary retention x 1 day. Urinary Retention: Catheter clogged with blood -Had left renal stone removal, L ureteral stent exchange and biopsy of ulcer in L proximal ureter on 01/25 and pt was continued on eliquis -Pt noted catheter not draining yesterday afternoon -ED: Bladder was irrigated manually with 600cc of clot removal and another 300cc with continous irrigation -On continous irrigation -Started on rocephin for prophylaxis -Pain relief: fentanyl 50mcg Q3H PRN -Urology consulted: Dr. Melendez Acute blood loss in the setting of baseline anemia -Hgb on arrival 10.8 (baseline around 10) -Type and screen completed -AM CBC and Check H/H Q6H x 3 CKD (chronic kidney disease) stage 3, GFR 30-59 ml/min: -BUN and Cr (1.4 improved from 1.7 on 01/14) and mildly above baseline of 1.3 -IVFs NS at 125cc/hr -Continue to monitor BMP -Avoid nephrotoxic agents -Renal dosing where appropriate Afib/HTN/Diastolic CHF -ECHO: 11/2018: Ef 55-60%, mild con. LVH, mild-mod MVR, mild TVR -Hold eliquis in the setting of acute bleed -Hold Lisinopril and Lasix in the setting of elevated Cr -Continue Coreg and amlodipine -Lopressor 5mg IV Q4H PRN with hold parameters DM -Hold metformin -On SSI -BSG checks per protocol GERD -Continue famotidine RLS -Continue Temazepam Anxiety -Continue sertraline BPH -Continue tamsulosin Bladder spasm -Continue Oxybutynin NPO on IVF NS 125cc/hr for possible procedure DVT prop: SCD only Code: Full Dispo: PCU telemetry (2) Gross hematuria: (3) Atrial fibrillation with rapid ventricular response: (4) Atrial fibrillation: (5) Diabetes: (6) GERD (gastroesophageal reflux disease): (7) BPH (benign prostatic hyperplasia): (8) Anxiety: (9) CHF (congestive heart failure): (10) HTN (hypertension), benign: (11) Hyperlipidemia: (12) CKD (chronic kidney disease) stage 3, GFR 30-59 ml/min: History of Present Illness Primary Care Provider: Yeyo Melendez, DO 74 y/oM presented with constant urinary retention beginning x 1 day. Catheter stopped draining yesterday afternoon and had several blood clots in it. Catheter was placed post urology procedure on 01/25. A/w pelvis/groin pain. Pt taking Elequis for his a-fib. Denies any f/c, sob, chest pain, abdominal pain, n/v. Of note: Pt had left renal stone removal, L ureteral stent exchange and biopsy of ulcer in proximal ureter on 01/25. Pt was recently admitted on 12/29 for similar issue, hematuria and clots blocking catheter from draining. ED course: Bladder was irrigated with 3 foleys which clogged and about 600cc of clot were removed then a and 3-way catheter was placed with an additional 300cc removal and continues bladder irrigation started. Dr. Melendez was called who noted that additional hand irrigation may be required. Found to be hypertensive and tachycardic. Hgb 10.8 (around baseline), Cr improved from 1.7 on 01/14 to 1.4 today. Given: Fentanyl 50mcg IV, Fentanyl 75mcg IV, Lopressor 5mg IV Allergies Allergy/AdvReac Type Severity Reaction Status Date / Time No Known Allergies Allergy Verified 02/01/19 02:02 Home Medications Home Medications Medication Instructions Recorded Confirmed Type docusate sodium 100 mg PO QAM 10/15/18 02/01/19 History melatonin 3 mg PO HS 10/15/18 02/01/19 History metformin [Glucophage] 500 mg PO BID 10/15/18 02/01/19 History sertraline [Zoloft] 50 mg PO QAM 10/15/18 02/01/19 History temazepam [Restoril] 15 mg PO HS PRN 10/15/18 02/01/19 History amlodipine 5 mg PO BID 11/17/18 02/01/19 History lisinopril 40 mg PO QAM 11/17/18 02/01/19 History tamsulosin 0.4 mg PO HS 11/17/18 02/01/19 History furosemide 20 mg PO QAM #30 tab 11/21/18 02/01/19 Rx Lyrica 25 mg PO BID 12/24/18 02/01/19 History acetaminophen [Tylenol] 650 mg PO Q6H PRN 12/24/18 02/01/19 History famotidine 20 mg PO QAM 12/24/18 02/01/19 History ferrous sulfate 325 mg PO BID 12/24/18 02/01/19 History magnesium oxide 400 mg PO QAM 12/24/18 02/01/19 History cranberry extract 425 mg PO DAILY 01/06/19 02/01/19 History oxybutynin chloride 5 mg PO Q8H PRN 01/06/19 02/01/19 History oxycodone-acetaminophen [Percocet] 1 tab PO Q8H PRN #7 tab 01/25/19 02/01/19 Rx apixaban [Eliquis] 5 mg PO DAILY 02/01/19 02/01/19 History carvedilol 3.125 mg PO BID 02/01/19 02/01/19 History Past Med/Surg History Medical History Atrial fibrillation Diabetes GERD (gastroesophageal reflux disease) BPH (benign prostatic hyperplasia) Hypertensive urgency 11/2018 CHF (congestive heart failure) Major depressive disorder BPH w urinary obs/LUTS Obesity Chronic anticoagulation Demand ischemia of myocardium 11/2018 RESULTED IN ELEVATED TROPONIN; "LV FUNCTION IS NORMAL.. STABLE FROM A CARDIAC STANDPOINT" PER 11/20/18 [facility] CARDIO PROGRESS NOTE HTN (hypertension), benign Hyperlipidemia Osteoarthritis, knee CKD (chronic kidney disease) stage 3, GFR 30-59 ml/min A-fib Anemia CHRONIC' BASELINE HGB 10-11 RANGE PER CHART REVIEW Anxiety BPH (benign prostatic hyperplasia) Depression GERD (gastroesophageal reflux disease) CONTROLLED Hypertension Indwelling Phipps catheter present Kidney stones Type 2 diabetes mellitus Surgical History History of colonoscopy History of cystoscopy WITH STENT 12/28/18 Family History Other Family history non-contributory Social History Preferred Language: Beninese Communication Ability: Effective Comp Field Case Manager Required: No Beliefs That Will Affect Care: None marital status: Single Current Living Situation: Alone Current Living Situation Comment: [facility] Q 2-3 DAYS Other Information That Helps Us Care for You: No Feels Safe at Home: Yes Safety Concerns: Feels Safe At This Time Smoking Status: Never smoker Hx Alcohol Use: No Hx Substance Use: No Review of Systems As per HPI Physical Exam Vital Signs (Past 24 Hours): Last Vital Signs Temp 36.8 C 02/01/19 01:05 Pulse 120 H 02/01/19 02:11 Resp 26 H 02/01/19 01:05 BP 154/120 H 02/01/19 02:11 Pulse Ox 98 02/01/19 01:05 Physical Exam: General: In NAD Neuro: A&O x 4 CV: RRR, no m/r/g Pulm: CTAB, equal breath sounds bilaterally, on RA GI: +BS, non-distended, NTTP in all quadrants Genitourinary: 3 [address] catheter [address] with continous irrigation running, blood noted on b/l pt legs Results & Data Laboratory Results Abnormal lab results 02/01/19 02/01/19 02/01/19 Range/Units 01:56 01:56 01:56 Hgb 10.8 L (14.0-18.0) g/dL Hct 34.9 L (42-52) % MCV 73.6 L (80-100) fL MCH 22.8 L (25-34) pg MCHC 30.9 L (32-36) g/dL RDW Std Deviation 47.0 H (36.4-46.3) fL RDW Coeff of Cain 17.4 H (11.5-14.5) % Immature Gran # (Auto) 0.03 H (0.00-0.02) K/uL Neut # (Auto) 7.07 H (1.4-6.5) K/uL Lymph # (Auto) 0.59 L (1.2-3.4) K/uL INR 1.2 H (0.9-1.1) Chloride 109 H (98-107) mmol/L BUN 30 H (7-18) mg/dl Creatinine 1.44 H (0.6-1.4) mg/dl BUN/Creatinine Ratio 20.6 H (10-20) Glucose 178 H (70-99) mg/dl AST 9 L (15-37) U/L Albumin 3.1 L (3.4-5.0) gm/dl Code Status & VTE Plan Code Status Full VTE Prophylaxis Plan VTE Prophylaxis will be ordered: Yes Reason for no VTE drug order: Contraindicated Supervising Physician Co-Signing Physician Notes Attending addendum: I have physically seen this patient, have supervised the medical residents activities, and agree with the H&P unless as otherwise noted. Assessment and Plan: Acute urinary retention/multiple clots in bladder-- Will hold Eliquis. Continue CBI. Urine has significantly improved but still is dark pink. Place empirically on ceftriaxone 1 g IV daily. Acetaminophen 1000 mg IV every 8 hours as needed mild pain or temperature. Fentanyl 50 mcg IV every 3 hours as needed severe pain. Urology consult Dr. Melendez is aware. Anemia-- Patient does have chronic anemia, however, will expect that his hemoglobin will drop further than his baseline. Type and screen ordered and completed. H&H every 6 hours x3. Atrial fibrillation/hypertension/diastolic CHF-- hold Eliquis as noted above Hold lisinopril and Lasix due to acute kidney injury. Continue Coreg and amlodipine with hold parameters. Lopressor 5 mg IV every 4 hours as needed systolic blood pressure above 160. Remainder of orders and notations as noted. Resident Activity Tracking Resident Involvement: Resident Care Provided Care Provided: Adult Hospital Medicine (1) Diabetes Diabetes mellitus complication status: without complication Diabetes mellitus exterminator insulin use: without exterminator use Diabetes mellitus type: type 2 Qualified Code(s): E11.9 - Type 2 diabetes mellitus without complications (2) Atrial fibrillation Atrial fibrillation type: permanent Qualified Code(s): I48.2 - Chronic atrial fibrillation (3) Hyperlipidemia Hyperlipidemia type: unspecified Qualified Code(s): E78.5 - Hyperlipidemia, unspecified (4) GERD (gastroesophageal reflux disease) Esophagitis presence: esophagitis presence not specified Qualified Code(s): K21.9 - Gastro-esophageal reflux disease without esophagitis
[2019-02-01] MEDS ORDERED: ONDANSETRON INJ 2 MG/ML 2 ML VIAL IV PRN (05:01)
[2019-02-01] MEDS ORDERED: fentaNYL citrate 100 MCG/2 ML VIAL IV PRN (05:01)
[2019-02-01] MEDS ORDERED: TEMAZEPAM 15 MG CAPSULE PO PRN (05:01)
[2019-02-01] MEDS: SODIUM CHLORIDE 0.9% 1000ML 1,000 ML IV SCH ×3 (05:26→20:20)
[2019-02-01] MEDS: OXYBUTYNIN CHLORIDE 5 MG TAB PO PRN ×2 (05:43→22:23)
[2019-02-01] MEDS: cefTRIAXone SODIUM 2,000 MG in DEXTROSE 5% 50 ML IV SCH (06:26)
[2019-02-01] MEDS: METOPROLOL TARTRATE 1 MG/ML VIAL IV SCH ×2 (06:36→10:30)
[2019-02-01] MEDS: AMLODIPINE BESYLATE 5 MG TAB PO SCH ×2 (07:41→20:19)
[2019-02-01] MEDS: FERROUS SULFATE 325 MG TAB PO SCH ×2 (07:41→20:19)
[2019-02-01] MEDS: MAGNESIUM OXIDE 400 MG TAB PO SCH (07:41)
[2019-02-01] MEDS: SERTRALINE HCL 50 MG TABLET PO SCH (07:42)
[2019-02-01] MEDS: FAMOTIDINE 20 MG TAB PO SCH (07:42)
[2019-02-01] MEDS: INSULIN ASPART 100 UNITS/ML 3 ML PEN SC SCH ×4 (07:48→20:23)
--- NOTE | 2019-02-01 07:52 | Urology Consultation ---
Date of Consultation February 01, 2019 Assessment & Plan (1) Gross hematuria: (2) Clot retention of urine: 74yo M POD# 7 s/p cystoscopy Left RGP, Left Ureteral Stent Exchange, Left URS, stone extraction, LL, and biopsy of ureter. Pt has bilateral stents, plans to address R sided stone burden in near future. KUB now - stents in good position. R renal pelvic stone noted, ?L distal ureteral stone. Continue CBI Keep NPO Continue H/H q6h - due at 11am. Discussed with Dr. Callejas, eliquis just stopped last evening. Likely will not intervene tonight due to risk for worsening bleeding with manipulation. PRBC on hold if needed. Pt seen with stable hct at noon. he apparently passed out and cardiology is seeing him for possible pacemaker in am . Question stone fragment in distal l ureter but needs stent removed and needs R stone treated . Will discuss with partners for possible r ureteroscopy and laser litho this admission. Continue to hold elequis and monitor h/h . Hospitalists to transfuse at there discretion but hct will continue to drift lower. Possible intervention or Thursday. Ok to feed from POV today if ok with cardiology History of Present Illness Reason for Consultation: gross hematuria, clot retention s/p URS Requesting Physician: Dr Farnsworth Attending Physician: Thien Zamorano MD History of Present Illness 74yo M well known to our practice with, on eliquis for afib. Hx of TURP 10 months ago with continued bleeding and retention issues, complicated by obstructing nephrolithiasis. Pt has undergone staged procedures with Dr. Larson on 12/28 for incision/dilation of BNC, bilat stent insertions for obs stones - admitted for hematuria at that time. OR on 01/25 for L stent exchange, laser litho and ureteral biopsy. Pt still has significant stone burden to R renal pelvis with planned repeat OR in near future. Pt presented back to ED for clotted catheter this AM. Required ample hand irrigation to free clots, then began CBI. Pt generally uncomfortable but denies signficant flank or suprapubic pain. Denies dysuria. CBI running at fast rate, draining light pink/cross urine. Nursing reports requiring hand irrigation x1 since on floor. 24fr 3-way hematuria catheter intact. Allergies Allergy/AdvReac Type Severity Reaction Status Date / Time No Known Allergies Allergy Verified 02/01/19 02:02 Home Medications Home Medications Medication Instructions Recorded Confirmed Type docusate sodium 100 mg PO QAM 10/15/18 02/01/19 History melatonin 3 mg PO HS 10/15/18 02/01/19 History metformin [Glucophage] 500 mg PO BID 10/15/18 02/01/19 History sertraline [Zoloft] 50 mg PO QAM 10/15/18 02/01/19 History temazepam [Restoril] 15 mg PO HS PRN 10/15/18 02/01/19 History amlodipine 5 mg PO BID 11/17/18 02/01/19 History lisinopril 40 mg PO QAM 11/17/18 02/01/19 History tamsulosin 0.4 mg PO HS 11/17/18 02/01/19 History furosemide 20 mg PO QAM #30 tab 11/21/18 02/01/19 Rx Lyrica 25 mg PO BID 12/24/18 02/01/19 History acetaminophen [Tylenol] 650 mg PO Q6H PRN 12/24/18 02/01/19 History famotidine 20 mg PO QAM 12/24/18 02/01/19 History ferrous sulfate 325 mg PO BID 12/24/18 02/01/19 History magnesium oxide 400 mg PO QAM 12/24/18 02/01/19 History cranberry extract 425 mg PO DAILY 01/06/19 02/01/19 History oxybutynin chloride 5 mg PO Q8H PRN 01/06/19 02/01/19 History oxycodone-acetaminophen [Percocet] 1 tab PO Q8H PRN #7 tab 01/25/19 02/01/19 Rx apixaban [Eliquis] 5 mg PO DAILY 02/01/19 02/01/19 History carvedilol 3.125 mg PO BID 02/01/19 02/01/19 History Patient History Medical History Atrial fibrillation Diabetes GERD (gastroesophageal reflux disease) BPH (benign prostatic hyperplasia) Hypertensive urgency 11/2018 CHF (congestive heart failure) Major depressive disorder BPH w urinary obs/LUTS Obesity Chronic anticoagulation Demand ischemia of myocardium 11/2018 RESULTED IN ELEVATED TROPONIN; "LV FUNCTION IS NORMAL.. STABLE FROM A CARDIAC STANDPOINT" PER 11/20/18 [facility] CARDIO PROGRESS NOTE HTN (hypertension), benign Hyperlipidemia Osteoarthritis, knee CKD (chronic kidney disease) stage 3, GFR 30-59 ml/min A-fib Anemia CHRONIC' BASELINE HGB 10-11 RANGE PER CHART REVIEW Anxiety BPH (benign prostatic hyperplasia) Depression GERD (gastroesophageal reflux disease) CONTROLLED Hypertension Indwelling Phipps catheter present Kidney stones Type 2 diabetes mellitus Surgical History History of colonoscopy History of cystoscopy WITH STENT 12/28/18 Family History Other Family history non-contributory Social History Preferred Language: Khmer Communication Ability: Effective Fiscal Analyst Required: No Beliefs That Will Affect Care: None marital status: Single Current Living Situation: Alone Current Living Situation Comment: [facility] Q 2-3 DAYS Other Information That Helps Us Care for You: No Feels Safe at Home: Yes Safety Concerns: Feels Safe At This Time Smoking Status: Never smoker Hx Alcohol Use: No Hx Substance Use: No Review of Systems Constitutional: no fever and no chills Eyes: no blind spots and no problem reported Ear, Nose, Mouth, Throat: no ear pain and no tinnitus Respiratory: no cough and no dyspnea Cardiovascular: no chest pain Gastrointestinal: no abdominal pain, no bloating, no early satiety, no nausea and no vomiting Genitourinary (Male): + hematuria; no dysuria, no flank pain, no testicle pain, no penile discharge and no urinary urgency Musculoskeletal: no back pain Integumentary: no acne and no rash Neurologic: no gait abnormality, no falls, no paralysis, no numbness and no radiating pain Psychiatric: no behavioral changes and no hopelessness Endocrine: no fatigue and no polydipsia Hematologic / Lymphatic: no easy bleeding and no coagulopathy Allergy / Immunological: no GI upset with certain foods and no lip swelling Physical Exam Vital Signs (Past 24 Hours): Last Vital Signs Temp 36.9 C 02/01/19 07:37 Pulse 88 02/01/19 07:37 Resp 18 02/01/19 07:37 BP 105/68 02/01/19 07:37 Pulse Ox 93 02/01/19 07:37 Constitutional: + obese; no acute distress and not intoxicated appearing Eyes: PERRL, conjunctivae normal, anicteric sclerae no nystagmus ENMT: Ears: no hearing impairment and no TM abnormality Neck: trachea midline Respiratory: no respiratory distress and does not use accessory muscles Cardiovascular: Vessels: no JVD Chest (Breasts): Chest: no mass Gastrointestinal (Abdomen): Inspection/Auscultation: abdomen not distended and no abdominal edema Musculoskeletal: Head/Neck/Chest: normocephalic and head atraumatic Skin: no rashes and no ulcers Psychiatric: Orientation: alert and oriented x 3 Eye Contact: good eye contact Genitourinary: no CVA tenderness 24fr 3-way hematuria catheter intact, CBI running at fast rate. Draining light cross red. Lymphatic: no cervical or axillary lymphadenopathy Results & Data Laboratory Results Laboratory Results - last 48 hr 02/01/19 02/01/19 02/01/19 01:56 01:56 01:56 WBC 8.36 RBC 4.74 Hgb 10.8 L Hct 34.9 L MCV 73.6 L MCH 22.8 L MCHC 30.9 L RDW Std Deviation 47.0 H RDW Coeff of Cain 17.4 H Plt Count 345 MPV 9.6 Immature Gran % (Auto) 0.4 Neut % (Auto) 84.5 Lymph % (Auto) 7.1 [place] % (Auto) 6.7 Eos % (Auto) 1.1 Baso % (Auto) 0.2 Immature Gran # (Auto) 0.03 H Neut # (Auto) 7.07 H Lymph # (Auto) 0.59 L [place] # (Auto) 0.56 Eos # (Auto) 0.09 Baso # (Auto) 0.02 RBC Morphology Unremarkable PT 11.9 INR 1.2 H APTT 26.6 PTT Ratio 1.0 Sodium 143 Potassium 3.9 Chloride 109 H Carbon Dioxide 26 Anion Gap 8.0 BUN 30 H Creatinine 1.44 H Est Cr Clr Drug Dosing Not Reportable Est GFR ( Amer) 54.7 Est GFR (Non-Af Amer) 47.2 BUN/Creatinine Ratio 20.6 H Glucose 178 H POC Glucose Calcium 8.7 Total Bilirubin 0.3 Direct Bilirubin < 0.1 AST 9 L ALT 15 Alkaline Phosphatase 77 Troponin I < 0.015 Total Protein 7.3 Albumin 3.1 L Blood Type Antibody Screen 02/01/19 02/01/19 02/01/19 01:56 07:17 11:10 WBC RBC Hgb 9.4 L Hct 30.6 L MCV MCH MCHC RDW Std Deviation RDW Coeff of Cain Plt Count MPV Immature Gran % (Auto) Neut % (Auto) Lymph % (Auto) [place] % (Auto) Eos % (Auto) Baso % (Auto) Immature Gran # (Auto) Neut # (Auto) Lymph # (Auto) [place] # (Auto) Eos # (Auto) Baso # (Auto) RBC Morphology PT INR APTT PTT Ratio Sodium Potassium Chloride Carbon Dioxide Anion Gap BUN Creatinine Est Cr Clr Drug Dosing Est GFR ( Amer) Est GFR (Non-Af Amer) BUN/Creatinine Ratio Glucose POC Glucose 181 H Calcium Total Bilirubin Direct Bilirubin AST ALT Alkaline Phosphatase Troponin I Total Protein Albumin Blood Type A Positive Antibody Screen NEGATIVE
[2019-02-01] MEDS: PREGABALIN 25 MG CAP PO SCH ×2 (08:39→20:22)
[2019-02-01] MEDS ORDERED: CARVEDILOL 3.125 MG TAB PO SCH (09:00)
--- NOTE | 2019-02-01 09:49 | XRay Report ---
XR KUB CLINICAL HISTORY: 74 years-old Male presenting with stone burden. TECHNIQUE: Single supine view of the abdomen was obtained. COMPARISON: CT from 01/01/2019. FINDINGS: Nonobstructive bowel gas pattern. No gross pneumoperitoneum. Bilateral ureteral stents in place as on prior exam. The presence of bilateral renal calculi is yamileth r appreciated on the prior CT. Dominant calculus in the right renal pelvis again noted. Calcification in the left hemipelvis along the course of the left ureteral stent may represent a distal left urete ral calculus. Additional phleboliths again noted. Degenerative changes of the spine. Lung bases clear. IMPRESSION: 1. The overall calculus burden is not as well demonstrated by radiograph. Dominant right pelvic calc ulus noted as well as a presumed distal left ureteral calculus. Bilateral ureteral stents in place. Electronically signed by: Greyson Anne M.D. 02/01/2019 9:48 AM
[2019-02-01 11:23] LABS: Hematocrit (blood only) 30.6 % (42-52); Hemoglobin 9.4 g/dL (14.0-18.0)
[2019-02-01 12:38] LABS: Hematocrit (blood only) 31.4 % (42-52); Hemoglobin 9.6 g/dL (14.0-18.0); Mean Corpuscular Hgb Conc 30.6 g/dL (32-36); Mean Corpuscular Volume 74.1 fL (80-100); Mean Platelet Volume 9.5 fL (7.4-10.4); Platelet Count 307 K/uL (130-400); RDW Coefficient of Variation 17.6 % (11.5-14.5); Red Blood Count 4.24 M/uL (4.7-6.1)
[2019-02-01] MEDS: INSULIN GLARGINE SOLOSTAR 100 UNITS/ML 3 ML PEN SC SCH (12:54)
[2019-02-01 13:05] LABS: BUN Creatinine Ratio 20.7 (10-20); Blood Urea Nitrogen 27 mg/dl (7-18); Calcium 8.5 mg/dl (8.5-10.1); Carbon Dioxide 28 mmol/L (21-32); Chloride 110 mmol/L (98-107); Creatinine Clr Calc Pharmacy 60.5 ml/min; Est GFR (African American) 60.2; Est GFR (Non-African American) 51.9; Glucose 156 mg/dl (70-99); Magnesium 2.1 mg/dl (1.8-2.4); Potassium 3.9 mmol/L (3.5-5.1); Sodium 144 mmol/L (136-145)
[2019-02-01 13:10] LABS: Troponin I < 0.015 ng/ml (0-0.045)
--- NOTE | 2019-02-01 16:14 | Cardiology Consultation ---
Date of Consultation February 01, 2019 Assessment & Plan (1) Atrial fibrillation: When he presented in atrial fibrillation earlier this year we thought it was probably paroxysmal, although ever since then he appears to be in it on every electrocardiogram. I still do not believe it is permanent as it would have been identified and treated before therefore I think it probably now persistent. On the other hand I do not think it is permanent and we may well want to get him back into sinus rhythm once we have his urinary situation settled down and we can anticoagulate him for the long run. I would therefore use a dual-chamber pacemaker and plan on cardioversion down the road. (2) Bradycardia: He has a well-documented episode of transient bradycardia with very little escape rhythm and associated with syncope. The episode was profound enough that even though he was in the bathroom and perhaps we could explain it in part by a vagal reaction I do not think we can leave it untreated. He was unconscious, the episode was prolonged (nearly 30 seconds) and his heart rate is otherwise well controlled so we really cannot decrease rate controlling medications. He is also had at least one other episode at home where he fell with injury and that may have been a similar etiology. I think he needs a pacemaker. I discussed the indications, procedure, risks and alternatives of pacemaker implantation with him and he understands and agrees to proceed. Sent obtained. I also discussed conscious sedation and he is agreeable. Sent obtained. We will plan on doing this tomorrow morning. (3) Chronic anticoagulation: He will need long-term anticoagulation, he has been on Eliquis and has been tolerating it well. Although it is on hold now for both his pacemaker and then for his urologic surgery at some point I would recommend restarting it when cleared by surgery. History of Present Illness Reason for Consultation: Severe bradycardia Attending Physician: Brennen Villarreal History of Present Illness This is a 74-year-old male who has a history of hypertension, diabetes mellitus, atrial fibrillation (which may be paroxysmal), BPH, obesity and a lot of urinary difficulty including long-standing indwelling catheter, kidney stones and difficulty with bleeding from his catheter and around his catheter in the past. He has also had urinary tract infections has been on various antibiotics. He was not happy with his care in [place] therefore he was brought to [facility] in mid October 2018, he was treated in the emergency room for bleeding at the catheter site and discharged. He presented again on November 18, 2018 evidently because of a headache and he was noted to be in atrial fibrillation with a rapid heart rate and quite hypertensive. He was unaware of the diagnosis and this was the first time we were aware that he had atrial fibrillation therefore our thought was that it was paroxysmal. We treated his atrial fibrillation with rate control and that he was placed on anticoagulation, however he has continued to have a lot of difficulty with urinary procedures and is currently having hematuria and I believe urologic surgery is planned. Today while in the bathroom he had a profound episode of bradycardia where he became unresponsive and had very long periods of asystole. It took several people to get him back to bed and the episode was quite prolonged (on the order of 30 seconds). Interestingly now at the time of my evaluation he has no recollection of it. He does describe one other episode of falling where he had injury to his spine about 2 years ago. He does not recall any other loss of consciousness (although he does not remember the one today and he was clearly unconscious). He remained in atrial fibrillation throughout this event. Allergies Allergy/AdvReac Type Severity Reaction Status Date / Time No Known Allergies Allergy Verified 02/01/19 02:02 Home Medications Home Medications Medication Instructions Recorded Confirmed Type docusate sodium 100 mg PO QAM 10/15/18 02/01/19 History melatonin 3 mg PO HS 10/15/18 02/01/19 History metformin [Glucophage] 500 mg PO BID 10/15/18 02/01/19 History sertraline [Zoloft] 50 mg PO QAM 10/15/18 02/01/19 History temazepam [Restoril] 15 mg PO HS PRN 10/15/18 02/01/19 History amlodipine 5 mg PO BID 11/17/18 02/01/19 History lisinopril 40 mg PO QAM 11/17/18 02/01/19 History tamsulosin 0.4 mg PO HS 11/17/18 02/01/19 History furosemide 20 mg PO QAM #30 tab 11/21/18 02/01/19 Rx Lyrica 25 mg PO BID 12/24/18 02/01/19 History acetaminophen [Tylenol] 650 mg PO Q6H PRN 12/24/18 02/01/19 History famotidine 20 mg PO QAM 12/24/18 02/01/19 History ferrous sulfate 325 mg PO BID 12/24/18 02/01/19 History magnesium oxide 400 mg PO QAM 12/24/18 02/01/19 History cranberry extract 425 mg PO DAILY 01/06/19 02/01/19 History oxybutynin chloride 5 mg PO Q8H PRN 01/06/19 02/01/19 History oxycodone-acetaminophen [Percocet] 1 tab PO Q8H PRN #7 tab 01/25/19 02/01/19 Rx apixaban [Eliquis] 5 mg PO DAILY 02/01/19 02/01/19 History carvedilol 3.125 mg PO BID 02/01/19 02/01/19 History Patient History Medical History Atrial fibrillation Diabetes GERD (gastroesophageal reflux disease) BPH (benign prostatic hyperplasia) Hypertensive urgency 11/2018 CHF (congestive heart failure) Major depressive disorder BPH w urinary obs/LUTS Obesity Chronic anticoagulation Demand ischemia of myocardium 11/2018 RESULTED IN ELEVATED TROPONIN; "LV FUNCTION IS NORMAL.. STABLE FROM A CARDIAC STANDPOINT" PER 11/20/18 [facility] CARDIO PROGRESS NOTE HTN (hypertension), benign Hyperlipidemia Osteoarthritis, knee CKD (chronic kidney disease) stage 3, GFR 30-59 ml/min A-fib Anemia CHRONIC' BASELINE HGB 10-11 RANGE PER CHART REVIEW Anxiety BPH (benign prostatic hyperplasia) Depression GERD (gastroesophageal reflux disease) CONTROLLED Hypertension Indwelling Phipps catheter present Kidney stones Type 2 diabetes mellitus Surgical History History of colonoscopy History of cystoscopy WITH STENT 12/28/18 Family History Other Family history non-contributory Social History Communication Ability: Effective Beliefs That Will Affect Care: None marital status: Single Current Living Situation: Alone Current Living Situation Comment: [facility] 2-3 DAYS Other Information That Helps Us Care for You: No Feels Safe at Home: Yes Safety Concerns: Feels Safe At This Time Smoking Status: Never smoker Hx Alcohol Use: No Hx Substance Use: No Review of Systems Negative for lightheadedness, dizziness, palpitations, presyncope or syncope. No exertional symptoms, no dyspnea on exertion or exertional chest pain. No orthopnea or PND or peripheral edema. No GI complaints. No neurologic complaints such as TIA or stroke symptoms. Other systems negative. Physical Exam Vital Signs (Past 24 Hours): Last Vital Signs Temp 36.4 C L 02/01/19 15:14 Pulse 76 02/01/19 15:14 Resp 13 02/01/19 15:14 BP 144/85 H 02/01/19 15:14 Pulse Ox 100 02/01/19 15:14 Physical Exam: Constitutional: Alert, cooperative and in no distress. HEENT: Unremarkable Neck: No jugular venous distention, carotid pulses are irregular but otherwise normal and equal bilaterally without bruits. Pulmonary: Clear to auscultation bilaterally. Cardiac: Irregular rhythm with no murmur, gallop or rub. Abdomen: Soft, nontender with normal bowel sounds. Extremities: No edema. Distal pulses intact. Neurologic: No focal findings. Gait is steady. Skin: No rash, ecchymoses or petechiae. Results & Data Diagnostic Findings Telemetry: Review of telemetry shows that he is predominantly in atrial fibri llation with a controlled heart rate. Earlier today he had an episode he became profoundly bradycardic with only occasional escape beats, this lasted for just under 30 seconds. (1) Atrial fibrillation Atrial fibrillation type: permanent Qualified Code(s): I48.2 - Chronic atrial fibrillation
[2019-02-01 17:18] LABS: Hematocrit (blood only) 29.9 % (42-52); Hemoglobin 9.3 g/dL (14.0-18.0)
--- NOTE | 2019-02-01 19:40 | Hospitalist Progress Note ---
Date of Service February 01, 2019 Assessment & Plan (1) Bradycardia: In the setting of probable vasovagal type event as the severe bradycardia occurred while straining at stool. This was a severe episode with probable escape rhythm noted on tele and the event was quite prolonged (20+ seconds). He lost consciousness. He also had another syncopal episode about 2 years ago - etiology at that time was uncertain, but easily could have been similar to today's event. Dr. Trinidad was consulted and he plans to place permanent pacemaker tomorrow. NPO after MN. Eliquis has been held since yesterday due to hematuria. Holding coreg and IV lopressor was stopped. Based on testing, my exam, etc I do not think this was a primary neurological event (stroke, seizure, etc). Neuro exam remains normal. I also do not think this was an ACS. Present on Admission?: No (2) Syncope: see discussion above in "bradycardia". Present on Admission?: No (3) Clot retention of urine: copious bladder clots leading to urinary retention in the setting of chronic eliquis use. eliquis has been stopped. 3-way gaviria with CBI is continuing. creatinine modestly improved today. the patient just had a urological procedure about 1 week ago including - cystoscopy, Left RGP, Left Ureteral Stent Exchange, Left URS, stone extraction, laser lithotripsy, and biopsy of ureter. urology has seen today - plan is for ongoing CBI. possible OR later this week for additional stone management. continue to monitor H/H while holding eliquis. Present on Admission?: Yes (4) Acute blood loss anemia: due to bleeding. continue to trend H/H. no indication for PRBCs at this time. MCV on CBC quite low c/w Fe deficiency -- will need Fe supplementation. Present on Admission?: Yes (5) Kidney stone: management per urology Present on Admission?: Yes (6) Acute renal insufficiency: 2nd to obstruction. improving s/p gaviria with CBI. BMP in am. Present on Admission?: Yes (7) BPH (benign prostatic hyperplasia): cont alpha travon Present on Admission?: Yes (8) Diabetes: add lantus 10 units daily. cont novolog ac/hs. DM diet. Present on Admission?: Yes (9) Atrial fibrillation: holding low-dose coreg due to today's bradycardia event. holding eliquis due to hematuria. see "bradycardia" re: plan for pacemaker. Present on Admission?: Yes (10) Obesity: BMI 35.9 Present on Admission?: Yes (11) HTN (hypertension), benign: cont norvasc hold coreg (12) CKD (chronic kidney disease) stage 3, GFR 30-59 ml/min: baseline Cr about 1 or 1.1 (13) DVT prophylaxis: SCDs chemical means contraindicated attempted to call both contacts listed in chair - unsuccessful critical care time about 60 minutes including [place] [facility] [place] [facility] [place], speaking with cardiology, speaking with urology, etc. Subjective 2 visits to see the patient today. First visit was during AM rounds. He was resting in bed. Only complaint was that of bladder spasm. CBI via 3-way gaviria was in place. Tele overnight had demonstrated a.fib with good rate control. About 2 hours after I had seen him a "ascencion blue" was called by the nursing staff. I responded immediately to the code. Upon arrival he was sitting on the bedside commode and appeared very pale, ashen, and was unresponsive. The monitor showed a.fib with rates <100 and his initial BP was 90 systolic. He was brought to the bed by numerous staff members. Once in the bed his mentation, color, and ability to speak improved. Initially his speech was garbled. He had a nonfocal neurological exam. FSBS was >150. Repeat BP was about 140 systolic. EKG with RBBB and no acute ST changes. Within 5 minutes his speech, mentation, color, etc were all normal. The patient states he had been straining to have a bowel movement during this event. I checked the tele strips which corresponded to the start of the event and he had severe bradycardia with probable escape rhythm. The bradycardia event lasted 20+ seconds. With resolution of this he returned to rate-controlled a.fib. The patient was quite tearful following this event. He did NOT report any chest pain, dyspnea, etc. Constitutional: no fever Respiratory: no cough and no dyspnea Cardiovascular: no chest pain, no orthopnea, no paroxysmal nocturnal dyspnea and no edema Gastrointestinal: + abdominal pain and + constipation; no nausea, no vomiting and no diarrhea/loose stools Genitourinary (Male): + hematuria bladde pain/spasm Physical Exam Vital Signs (Past 24 Hours): Last Vital Signs Temp 36.4 C L 02/01/19 15:14 Pulse 76 02/01/19 15:14 Resp 13 02/01/19 15:14 BP 144/85 H 02/01/19 15:14 Pulse Ox 100 02/01/19 15:14 Constitutional: + obese; no acute distress this exam was from my initial visit this AM ENMT: external ear and nose normal, oropharynx normal Respiratory: normal respiratory effort, lungs clear to auscultation Cardiovascular: Rate/Rhythm: regular rate; + abnormal rhythm (irregular) Heart Sounds: normal S1 and normal S2; no murmur Vessels: posterior tibial pulses present and dorsalis pedis pulses present; no JVD Extremities: no edema Gastrointestinal (Abdomen): Inspection/Auscultation: + abdomen distended Percussion/Palpation: + abdomen tender (mild - suprapubic region); no hepatosplenomegaly Skin: pallor Psychiatric: A+Ox3, euthymic affect Genitourinary: gaviria in place; bag with grossly bloody urine Lymphatic: repeat exam during the Code- gen- garbled speech, then improved; pallor/ashen with ultimate return of color mouth -MMM neck- no JVD heart- irregular, s1, s2 lungs - CTA b/l abd- soft NT ext - no edema neuro - strength 5/5 x 4 exts; no facial droop; DTRs 2+ b/l Results & Data Laboratory Results Laboratory Results - last 24 hr 02/01/19 02/01/19 02/01/19 01:56 01:56 01:56 WBC 8.36 RBC 4.74 Hgb 10.8 L Hct 34.9 L MCV 73.6 L MCH 22.8 L MCHC 30.9 L RDW Std Deviation 47.0 H RDW Coeff of Cain 17.4 H Plt Count 345 MPV 9.6 Immature Gran % (Auto) 0.4 Neut % (Auto) 84.5 Lymph % (Auto) 7.1 Clare % (Auto) 6.7 Eos % (Auto) 1.1 Baso % (Auto) 0.2 Immature Gran # (Auto) 0.03 H Neut # (Auto) 7.07 H Lymph # (Auto) 0.59 L Clare # (Auto) 0.56 Eos # (Auto) 0.09 Baso # (Auto) 0.02 RBC Morphology Unremarkable PT 11.9 INR 1.2 H APTT 26.6 PTT Ratio 1.0 Sodium 143 Potassium 3.9 Chloride 109 H Carbon Dioxide 26 Anion Gap 8.0 BUN 30 H Creatinine 1.44 H Est Cr Clr Drug Dosing Not Reportable Est GFR ( Amer) 54.7 Est GFR (Non-Af Amer) 47.2 BUN/Creatinine Ratio 20.6 H Glucose 178 H POC Glucose Calcium 8.7 Magnesium Total Bilirubin 0.3 Direct Bilirubin < 0.1 AST 9 L ALT 15 Alkaline Phosphatase 77 Troponin I < 0.015 Total Protein 7.3 Albumin 3.1 L Blood Type Blood Type Recheck Antibody Screen Crossmatch 02/01/19 02/01/19 02/01/19 01:56 07:17 11:10 WBC RBC Hgb 9.4 L Hct 30.6 L MCV MCH MCHC RDW Std Deviation RDW Coeff of Cain Plt Count MPV Immature Gran % (Auto) Neut % (Auto) Lymph % (Auto) Clare % (Auto) Eos % (Auto) Baso % (Auto) Immature Gran # (Auto) Neut # (Auto) Lymph # (Auto) Clare # (Auto) Eos # (Auto) Baso # (Auto) RBC Morphology PT INR APTT PTT Ratio Sodium Potassium Chloride Carbon Dioxide Anion Gap BUN Creatinine Est Cr Clr Drug Dosing Est GFR ( Amer) Est GFR (Non-Af Amer) BUN/Creatinine Ratio Glucose POC Glucose 181 H Calcium Magnesium Total Bilirubin Direct Bilirubin AST ALT Alkaline Phosphatase Troponin I Total Protein Albumin Blood Type A Positive Blood Type Recheck Antibody Screen NEGATIVE Crossmatch See Detail 02/01/19 02/01/19 02/01/19 11:10 11:25 12:20 WBC RBC Hgb Hct MCV MCH MCHC RDW Std Deviation RDW Coeff of Cain Plt Count MPV Immature Gran % (Auto) Neut % (Auto) Lymph % (Auto) Clare % (Auto) Eos % (Auto) Baso % (Auto) Immature Gran # (Auto) Neut # (Auto) Lymph # (Auto) Clare # (Auto) Eos # (Auto) Baso # (Auto) RBC Morphology PT INR APTT PTT Ratio Sodium Potassium Chloride Carbon Dioxide Anion Gap BUN Creatinine Est Cr Clr Drug Dosing Est GFR ( Amer) Est GFR (Non-Af Amer) BUN/Creatinine Ratio Glucose POC Glucose 144 H 171 H Calcium Magnesium Total Bilirubin Direct Bilirubin AST ALT Alkaline Phosphatase Troponin I Total Protein Albumin Blood Type Blood Type Recheck A Positive Antibody Screen Crossmatch 02/01/19 02/01/19 02/01/19 12:31 12:31 16:59 WBC 7.70 RBC 4.24 L Hgb 9.6 L Hct 31.4 L MCV 74.1 L MCH 22.6 L MCHC 30.6 L RDW Std Deviation 48.0 H RDW Coeff of Cain 17.6 H Plt Count 307 MPV 9.5 Immature Gran % (Auto) Neut % (Auto) Lymph % (Auto) Clare % (Auto) Eos % (Auto) Baso % (Auto) Immature Gran # (Auto) Neut # (Auto) Lymph # (Auto) Clare # (Auto) Eos # (Auto) Baso # (Auto) RBC Morphology PT INR APTT PTT Ratio Sodium 144 Potassium 3.9 Chloride 110 H Carbon Dioxide 28 Anion Gap 6.0 BUN 27 H Creatinine 1.33 Est Cr Clr Drug Dosing 60.5 Est GFR ( Amer) 60.2 Est GFR (Non-Af Amer) 51.9 BUN/Creatinine Ratio 20.7 H Glucose 156 H POC Glucose 124 H Calcium 8.5 Magnesium 2.1 Total Bilirubin Direct Bilirubin AST ALT Alkaline Phosphatase Troponin I < 0.015 Total Protein Albumin Blood Type Blood Type Recheck Antibody Screen Crossmatch 02/01/19 17:07 WBC RBC Hgb 9.3 L Hct 29.9 L MCV MCH MCHC RDW Std Deviation RDW Coeff of Cain Plt Count MPV Immature Gran % (Auto) Neut % (Auto) Lymph % (Auto) Clare % (Auto) Eos % (Auto) Baso % (Auto) Immature Gran # (Auto) Neut # (Auto) Lymph # (Auto) Clare # (Auto) Eos # (Auto) Baso # (Auto) RBC Morphology PT INR APTT PTT Ratio Sodium Potassium Chloride Carbon Dioxide Anion Gap BUN Creatinine Est Cr Clr Drug Dosing Est GFR ( Amer) Est GFR (Non-Af Amer) BUN/Creatinine Ratio Glucose POC Glucose Calcium Magnesium Total Bilirubin Direct Bilirubin AST ALT Alkaline Phosphatase Troponin I Total Protein Albumin Blood Type Blood Type Recheck Antibody Screen Crossmatch (1) Syncope Syncope type: unspecified Qualified Code(s): R55 - Syncope and collapse (2) BPH (benign prostatic hyperplasia) Lower urinary tract symptom presence: symptoms present Lower urinary tract symptom detail: unspecified Qualified Code(s): N40.1 - Benign prostatic hyperplasia with lower urinary tract symptoms (3) Diabetes Diabetes mellitus type: type 2 Diabetes mellitus mcc insulin use: without mcc use Diabetes mellitus complication status: without complication Qualified Code(s): E11.9 - Type 2 diabetes mellitus without complications (4) Atrial fibrillation Atrial fibrillation type: permanent Qualified Code(s): I48.2 - Chronic atrial fibrillation (5) Obesity Obesity type: unspecified obesity type Obesity classification: adult class 2 (BMI 35 - 39.9) Serious obesity comorbidity presence: with serious comorbidity Body mass index: BMI 35.0-35.9 Qualified Code(s): E66.01 - Morbid (severe) obesity due to excess calories; Z68.35 - Body mass index (BMI) 35.0-35.9, adult
[2019-02-01] MEDS ORDERED: HYDROmorphone INJ 0.5 MG/0.5 ML SYR IV PRN (20:09)
[2019-02-01] MEDS: TAMSULOSIN HCL 0.4 MG CAP PO SCH (20:19)
[2019-02-01 23:14] LABS: Hematocrit (blood only) 28.6 % (42-52); Hemoglobin 8.9 g/dL (14.0-18.0)
[2019-02-02] MEDS: SODIUM CHLORIDE 0.9% 1000ML 1,000 ML IV SCH ×3 (04:32→21:24)
[2019-02-02] MEDS: cefTRIAXone SODIUM 2,000 MG in DEXTROSE 5% 50 ML IV SCH (04:36)
[2019-02-02] MEDS ORDERED: CEFAZOLIN 2000MG 2,000 MG/15 ML SYR IV SCH (06:00)
[2019-02-02 06:10] LABS: Hematocrit (blood only) 26.3 % (42-52); Hemoglobin 8.1 g/dL (14.0-18.0); Mean Corpuscular Hgb Conc 30.8 g/dL (32-36); Mean Corpuscular Volume 74.1 fL (80-100); Platelet Count 248 K/uL (130-400); RDW Coefficient of Variation 17.6 % (11.5-14.5); RDW Standard Deviation 48.2 fL (36.4-46.3); Red Blood Count 3.55 M/uL (4.7-6.1); White Blood Count 5.57 K/uL (4.8-10.8)
[2019-02-02 06:45] LABS: BUN Creatinine Ratio 20.4 (10-20); Calcium 8.1 mg/dl (8.5-10.1); Creatinine Clr Calc Pharmacy 73.2 ml/min; Est GFR (African American) 75.7; Est GFR (Non-African American) 65.3; Potassium 3.8 mmol/L (3.5-5.1)
[2019-02-02] MEDS ORDERED: BACITRACIN INJ 50,000 UNIT VIAL ONE (07:24)
[2019-02-02] MEDS ORDERED: LIDOCAINE HCL 1% 20 ML VIAL ONE (07:24)
[2019-02-02] MEDS ORDERED: BACITRACIN OINT 0.9 GM PKT ONE (07:24)
[2019-02-02] MEDS ORDERED: CEFAZOLIN 250 MG/ML 1 GM VIAL ONE (08:26)
[2019-02-02] MEDS ORDERED: fentaNYL citrate 100 MCG/2 ML VIAL ONE ×2 (08:26→08:57)
[2019-02-02] MEDS ORDERED: MIDAZOLAM HCL 5 MG/ML 1 ML VIAL ONE ×2 (08:26→08:57)
--- NOTE | 2019-02-02 08:30 | History & Physical Bridge Note ---
Date of Service February 02, 2019 History & Physical Bridge Note I have examined the patient, reviewed the History & Physical and in the interval since the performance of the History & Physical I have noted the following changes of clinical significance: no changes noted
--- NOTE | 2019-02-02 08:32 | Pre Anesthesia Assessment ---
Date of Service February 02, 2019 Pre Sedation Assessment Vital Signs Temp Pulse Pulse Pulse Resp BP BP 02/02/19 08:06 36.8 C 65 18 02/02/19 06:03 86 02/02/19 05:40 02/02/19 03:57 36.8 C 82 19 170/88 H 02/02/19 00:34 77 02/02/19 00:17 158/101 H 02/01/19 23:57 36.6 C 85 19 178/124 H 02/01/19 15:14 36.4 C L 76 13 144/85 H 02/01/19 12:03 36.8 C 75 18 02/01/19 10:30 66 110/77 BP Pulse Ox 02/02/19 08:06 159/92 H 98 02/02/19 06:03 02/02/19 05:40 144/80 H 02/02/19 03:57 96 02/02/19 00:34 144/93 H 02/02/19 00:17 02/01/19 23:57 98 02/01/19 15:14 100 02/01/19 12:03 96/62 L 100 02/01/19 10:30 Cardiovascular Additional Comments: irregular Respiratory normal respiratory effort, lungs clear to auscultation Pre-Sedation Airway Assessment Smoking Status: Never smoker Hx Sleep Apnea: No Hx Difficult Intubation: No Short, Thick Neck: Yes Thyromental Distance: > or= 3.5 Finger Breadths Mallampati Class: II ASA III NPO Status Date of Last Intake of Fluids: 02/01/19 Date of Last Intake of Solid Food: 02/01/19 Procedure Planning Contraindications for Sedation: none Current Medications Reviewed: Yes Notes The planned sedation has been discussed with the patient. Informed Consent was obtained. I have identified the patient, determined the appropriateness of sedation and have assessed the patient immediately prior to the procedure. All medicine(s) and interventions are by my order.
[2019-02-02] MEDS: LACTATED RINGER'S 1,000 ML IV SCH (09:04)
--- NOTE | 2019-02-02 09:28 | Urology Progress Note ---
Date of Service February 02, 2019 Assessment & Plan (1) Gross hematuria: (2) Clot retention of urine: 74yo M POD# 8 s/p cystoscopy Left RGP, Left Ureteral Stent Exchange, Left URS, stone extraction, LL, and biopsy of ureter. R ureteral stent maintained. He has a large R renal pelvic stone noted, ?L distal ureteral stone. Pt off floor receiving pacemaker this AM Back to check on patient this afternoon, s/p pacer insertion. Hbg steadily dropping to 8g/dL this AM. May benefit from transfusion if becomes hemodynamically unstable. Urine color improved from cross to light pink to clear today. CBI running, titrating to keep urine light pink/peach. Hand irrigation x1 on plastic boat buffer. Slowed rate down slightly to see how patient tolerates. Titrate to light pink. Dr. Hankins aware of patient status. NPO at [place] again to re-evaluate benefit of possible intervention tomorrow for continued hematuria. Discussed with nursing staff. . Subjective 73yo M with recurrent gross hematuria s/p URS. bilateral stents in place. Offers no new complaints today. Tolerating CBI - required hand irrigation x1 last evening. Now draining link pink/peach color, No clots. s/p permanent pacemaker insertion today, poor recollection of events from yesterday. Review of Systems All systems reviewed & are unremarkable except as noted in HPI & below Physical Exam Vital Signs (Past 24 Hours): Last Vital Signs Temp 36.8 C 02/02/19 08:06 Pulse 65 02/02/19 08:06 Resp 18 02/02/19 08:06 BP 159/92 H 02/02/19 08:06 Pulse Ox 98 02/02/19 08:06 Physical Exam: A&Ox3 RRR ABd soft,obese, nontender no suprapubic tenderness on palpation 3way catheter intact, CBI running at moderate rate to keep urine light pink /peach. Results & Data Laboratory Results Laboratory Results - last 48 hr 02/01/19 02/01/19 02/01/19 01:56 01:56 01:56 WBC 8.36 RBC 4.74 Hgb 10.8 L Hct 34.9 L MCV 73.6 L MCH 22.8 L MCHC 30.9 L RDW Std Deviation 47.0 H RDW Coeff of Cain 17.4 H Plt Count 345 MPV 9.6 Immature Gran % (Auto) 0.4 Neut % (Auto) 84.5 Lymph % (Auto) 7.1 Williams % (Auto) 6.7 Eos % (Auto) 1.1 Baso % (Auto) 0.2 Immature Gran # (Auto) 0.03 H Neut # (Auto) 7.07 H Lymph # (Auto) 0.59 L Williams # (Auto) 0.56 Eos # (Auto) 0.09 Baso # (Auto) 0.02 RBC Morphology Unremarkable PT 11.9 INR 1.2 H APTT 26.6 PTT Ratio 1.0 Sodium 143 Potassium 3.9 Chloride 109 H Carbon Dioxide 26 Anion Gap 8.0 BUN 30 H Creatinine 1.44 H Est Cr Clr Drug Dosing Not Reportable Est GFR ( Amer) 54.7 Est GFR (Non-Af Amer) 47.2 BUN/Creatinine Ratio 20.6 H Glucose 178 H POC Glucose Calcium 8.7 Magnesium Total Bilirubin 0.3 Direct Bilirubin < 0.1 AST 9 L ALT 15 Alkaline Phosphatase 77 Troponin I < 0.015 Total Protein 7.3 Albumin 3.1 L Blood Type Blood Type Recheck Antibody Screen Crossmatch 02/01/19 02/01/19 02/01/19 01:56 07:17 11:10 WBC RBC Hgb 9.4 L Hct 30.6 L MCV MCH MCHC RDW Std Deviation RDW Coeff of Cain Plt Count MPV Immature Gran % (Auto) Neut % (Auto) Lymph % (Auto) Williams % (Auto) Eos % (Auto) Baso % (Auto) Immature Gran # (Auto) Neut # (Auto) Lymph # (Auto) Williams # (Auto) Eos # (Auto) Baso # (Auto) RBC Morphology PT INR APTT PTT Ratio Sodium Potassium Chloride Carbon Dioxide Anion Gap BUN Creatinine Est Cr Clr Drug Dosing Est GFR ( Amer) Est GFR (Non-Af Amer) BUN/Creatinine Ratio Glucose POC Glucose 181 H Calcium Magnesium Total Bilirubin Direct Bilirubin AST ALT Alkaline Phosphatase Troponin I Total Protein Albumin Blood Type A Positive Blood Type Recheck Antibody Screen NEGATIVE Crossmatch See Detail 02/01/19 02/01/19 02/01/19 11:10 11:25 12:20 WBC RBC Hgb Hct MCV MCH MCHC RDW Std Deviation RDW Coeff of Cain Plt Count MPV Immature Gran % (Auto) Neut % (Auto) Lymph % (Auto) Williams % (Auto) Eos % (Auto) Baso % (Auto) Immature Gran # (Auto) Neut # (Auto) Lymph # (Auto) Williams # (Auto) Eos # (Auto) Baso # (Auto) RBC Morphology PT INR APTT PTT Ratio Sodium Potassium Chloride Carbon Dioxide Anion Gap BUN Creatinine Est Cr Clr Drug Dosing Est GFR ( Amer) Est GFR (Non-Af Amer) BUN/Creatinine Ratio Glucose POC Glucose 144 H 171 H Calcium Magnesium Total Bilirubin Direct Bilirubin AST ALT Alkaline Phosphatase Troponin I Total Protein Albumin Blood Type Blood Type Recheck A Positive Antibody Screen Crossmatch 02/01/19 02/01/19 02/01/19 12:31 12:31 16:59 WBC 7.70 RBC 4.24 L Hgb 9.6 L Hct 31.4 L MCV 74.1 L MCH 22.6 L MCHC 30.6 L RDW Std Deviation 48.0 H RDW Coeff of Cain 17.6 H Plt Count 307 MPV 9.5 Immature Gran % (Auto) Neut % (Auto) Lymph % (Auto) Williams % (Auto) Eos % (Auto) Baso % (Auto) Immature Gran # (Auto) Neut # (Auto) Lymph # (Auto) Williams # (Auto) Eos # (Auto) Baso # (Auto) RBC Morphology PT INR APTT PTT Ratio Sodium 144 Potassium 3.9 Chloride 110 H Carbon Dioxide 28 Anion Gap 6.0 BUN 27 H Creatinine 1.33 Est Cr Clr Drug Dosing 60.5 Est GFR ( Amer) 60.2 Est GFR (Non-Af Amer) 51.9 BUN/Creatinine Ratio 20.7 H Glucose 156 H POC Glucose 124 H Calcium 8.5 Magnesium 2.1 Total Bilirubin Direct Bilirubin AST ALT Alkaline Phosphatase Troponin I < 0.015 Total Protein Albumin Blood Type Blood Type Recheck Antibody Screen Crossmatch 02/01/19 02/01/19 02/01/19 17:07 20:15 23:01 WBC RBC Hgb 9.3 L 8.9 L Hct 29.9 L 28.6 L MCV MCH MCHC RDW Std Deviation RDW Coeff of Cain Plt Count MPV Immature Gran % (Auto) Neut % (Auto) Lymph % (Auto) Williams % (Auto) Eos % (Auto) Baso % (Auto) Immature Gran # (Auto) Neut # (Auto) Lymph # (Auto) Williams # (Auto) Eos # (Auto) Baso # (Auto) RBC Morphology PT INR APTT PTT Ratio Sodium Potassium Chloride Carbon Dioxide Anion Gap BUN Creatinine Est Cr Clr Drug Dosing Est GFR ( Amer) Est GFR (Non-Af Amer) BUN/Creatinine Ratio Glucose POC Glucose 179 H Calcium Magnesium Total Bilirubin Direct Bilirubin AST ALT Alkaline Phosphatase Troponin I Total Protein Albumin Blood Type Blood Type Recheck Antibody Screen Crossmatch 02/02/19 02/02/19 02/02/19 05:15 05:15 10:12 WBC 5.57 RBC 3.55 L Hgb 8.1 L Hct 26.3 L MCV 74.1 L MCH 22.8 L MCHC 30.8 L RDW Std Deviation 48.2 H RDW Coeff of Cain 17.6 H Plt Count 248 MPV 10.0 Immature Gran % (Auto) Neut % (Auto) Lymph % (Auto) Williams % (Auto) Eos % (Auto) Baso % (Auto) Immature Gran # (Auto) Neut # (Auto) Lymph # (Auto) Williams # (Auto) Eos # (Auto) Baso # (Auto) RBC Morphology PT INR APTT PTT Ratio Sodium 145 Potassium 3.8 Chloride 112 H Carbon Dioxide 26 Anion Gap 7.0 BUN 22 H Creatinine 1.10 Est Cr Clr Drug Dosing 73.2 Est GFR ( Amer) 75.7 Est GFR (Non-Af Amer) 65.3 BUN/Creatinine Ratio 20.4 H Glucose 124 H POC Glucose 137 H Calcium 8.1 L Magnesium Total Bilirubin Direct Bilirubin AST ALT Alkaline Phosphatase Troponin I Total Protein Albumin Blood Type Blood Type Recheck Antibody Screen Crossmatch 02/02/19 11:10 WBC RBC Hgb Hct MCV MCH MCHC RDW Std Deviation RDW Coeff of Cain Plt Count MPV Immature Gran % (Auto) Neut % (Auto) Lymph % (Auto) Williams % (Auto) Eos % (Auto) Baso % (Auto) Immature Gran # (Auto) Neut # (Auto) Lymph # (Auto) Williams # (Auto) Eos # (Auto) Baso # (Auto) RBC Morphology PT INR APTT PTT Ratio Sodium Potassium Chloride Carbon Dioxide Anion Gap BUN Creatinine Est Cr Clr Drug Dosing Est GFR ( Amer) Est GFR (Non-Af Amer) BUN/Creatinine Ratio Glucose POC Glucose 182 H Calcium Magnesium Total Bilirubin Direct Bilirubin AST ALT Alkaline Phosphatase Troponin I Total Protein Albumin Blood Type Blood Type Recheck Antibody Screen Crossmatch
[2019-02-02] MEDS: INSULIN ASPART 100 UNITS/ML 3 ML PEN SC SCH ×4 (09:29→21:25)
--- NOTE | 2019-02-02 09:52 | Operative Report ---
Post Operative Report Pre & Post Diagnosis Operation Date: 02/02/19 08:00 Preoperative diagnosis: Atrial fibrillation with severe symptomatic bradycardia Postoperative diagnosis: Same Procedure Operation Date: 02/02/19 08:00 Actual Procedures p Pacer with A/V Leads (Dual) - Omkar Trinidad MD s Venogram, Unilateral - Omkar Trinidad MD Surgeon Omkar Trinidad MD Tray Delivery Aide None Estimated Blood Loss 50 Findings Consistent with Post-Op Diagnosis High venous pressures with more than usual bleeding Specimens None Complications none Disposition Accompanied Patient To Recovery: No Disposition: PCU Description of Procedure After obtaining informed consent for the procedure, the patient was brought to the laboratory and prepped and draped in the standard sterile manner. Dye was injected the left arm IV site to opacify the left subclavian vein. The wise bclavian vein was identified and found to be free of obstruction. The left prepectoral region was anesthetized with 1% lidocaine local anesthetic and left axillary venipuncture was performed by percutaneous technique and a guidewire placed through the left subclavian vein into the superior vena cava. The area was further infiltrated with 1% lidocaine local anesthetic and a 5 cm incision was made parallel to the left clavicle and 2 cm below it and carried down to the anterior pectoralis fascia. A pacemaker pocket was formed by blunt dissection anterior to the pectoralis fascia and a bacitracin-soaked sponge (50,000 units in 50 cc normal saline solution) was placed in the pocket. An 8 German Medtronic lead introducer was placed over the guidewire into the left subclavian vein, the dilator and guidewire were removed and a bipolar active fixation steroid tipped ventricular lead was advanced through the introducer into the superior vena cava. A guidewire was placed through the introducer and the introducer was stripped from the lead and guidewire. Another 8 German Medtronic lead introducer was placed over the guidewire into the left subclavian vein, the dilator and guidewire were removed and a bipolar active fixation steroid tipped atrial lead was advanced through the introducer into the superior vena cava. A guidewire was placed back through the introducer and the introducer was stripped from the lead and guidewire. Using a curved stylette the ventricular lead was advanced through the right ventricular outflow tract into the pulmonary artery and then using a straight stylette was positioned in the right ventricular apex. The screw was extended fixing the lead in position. Pacing and sensing thresholds were evaluated in bipolar configuration and are recorded on the implant data sheet. Using a curved stylette the atrial lead was positioned in the region of the atrial appendage and the screw extended fixing the lead in position. Pacing and sensing thresholds were evaluated in bipolar configuration and are recorded on the implant data sheet. Once the leads were in position they were attached to the anterior pectoralis fascia using 2 sutures of 2-0 silk around each lead collar. The bacitracin- soaked sponge was removed from the pocket, hemostasis was obtained, the pacemaker was attached to the leads and placed in the pocket with the leads coiled beneath it. The incision was closed with a running double subcutaneous closure of 3-0 Vicryl absorbable suture, followed by running subcuticular skin closure of 4-0 Vicryl absorbable suture. Bacitracin ointment was placed on the incision and a pressure dressing applied. I attest to the content of the Intraoperative Record and any orders documented therein. Any exceptions are noted below.
[2019-02-02] MEDS ORDERED: ACETAMINOPHEN 325 MG TAB PO PRN (09:53)
[2019-02-02] MEDS ORDERED: KETOROLAC TROMETHAMINE 10 MG TABLET PO PRN (09:53)
[2019-02-02] MEDS: PREGABALIN 25 MG CAP PO SCH ×2 (10:13→20:12)
[2019-02-02] MEDS: FERROUS SULFATE 325 MG TAB PO SCH ×4 (10:13→22:23)
[2019-02-02] MEDS: FAMOTIDINE 20 MG TAB PO SCH (10:14)
[2019-02-02] MEDS: MAGNESIUM OXIDE 400 MG TAB PO SCH (10:14)
[2019-02-02] MEDS: AMLODIPINE BESYLATE 5 MG TAB PO SCH ×2 (10:14→20:13)
[2019-02-02] MEDS: SERTRALINE HCL 50 MG TABLET PO SCH (10:14)
[2019-02-02] MEDS: INSULIN GLARGINE SOLOSTAR 100 UNITS/ML 3 ML PEN SC SCH (10:15)
[2019-02-02] MEDS: CARVEDILOL 6.25 MG TAB PO SCH ×2 (12:12→20:12)
[2019-02-02] MEDS ORDERED: SODIUM CHLORIDE 0.9% 250 ML IV PRN (16:20)
[2019-02-02] MEDS: TAMSULOSIN HCL 0.4 MG CAP PO SCH (20:13)
--- NOTE | 2019-02-02 20:42 | Hospitalist Progress Note ---
Date of Service February 02, 2019 Assessment & Plan (1) Bradycardia: In the setting of probable vasovagal type event as the severe bradycardia occurred while straining at stool. This was a severe episode with probable escape rhythm noted on tele and the event was quite prolonged (20+ seconds). He lost consciousness. He also had another syncopal episode about 2 years ago - etiology at that time was uncertain, but easily could have been similar to today's event. s/p permanent pacemaker placement today by Dr. Trinidad without incident. appreciate his help. chest x-ray w/o pneumothorax. ok to resume coreg. (2) Syncope: see discussion above in "bradycardia". no recurrent events. s/p pacer placement today. (3) Clot retention of urine: copious bladder clots leading to urinary retention in the setting of chronic eliquis use. eliquis has been stopped. 3-way gaviria with CBI is continuing. creatinine continues to improve. the patient just had a urological procedure about 1 week ago including - cystoscopy, Left RGP, Left Ureteral Stent Exchange, Left URS, stone extraction, laser lithotripsy, and biopsy of ureter. urology continues to follow - has right-sided stone and ?left-sided stone as well. plan is for OR this week for stone management and to address the source of his hematuria. appreciate urology consult. (4) Acute blood loss anemia: due to bleeding. continue to trend H/H. no indication for PRBCs at this time but getting closer to needing such; thus will type/cross 1unit and place on hold. cbc in am. ferritin c/w severe Fe deficiency. (5) Iron deficiency anemia: start ferrous sulfate 325mg BID see above in "acute blood loss" Present on Admission?: Yes (6) Kidney stone: management per urology pelvic stone on right, ?stone on left as well OR this week for stone management (7) Acute renal insufficiency: 2nd to obstruction. improving s/p gaviria with CBI. BMP in am. overall improving nicely. (8) BPH (benign prostatic hyperplasia): cont alpha travon (9) Diabetes: cont lantus 10 units daily. may need slightly more basal insulin. cont novolog ac/hs. DM diet. (10) Atrial fibrillation: resume coreg. holding eliquis due to hematuria. s/p pacer placement -- see above. (11) Obesity: BMI 37 (12) HTN (hypertension), benign: cont norvasc resume coreg (13) CKD (chronic kidney disease) stage 3, GFR 30-59 ml/min: baseline Cr about 1 or 1.1 (14) DVT prophylaxis: SCDs chemical means contraindicated due to hematuria PT, OT evals Subjective I saw the patient post-op from pacer placement. He was resting well. He denied any complaints today. In fact he said "I feel pretty good today." Tele overnight with rate-controlled a.fib; no further episodes of bradycardia. Late in day had ASYMPTOMATIC 10+beat run of nonsustained V-tach. Urine is starting to clear with CBI. Constitutional: no fever Respiratory: no cough and no dyspnea Cardiovascular: no chest pain, no orthopnea, no paroxysmal nocturnal dyspnea and no edema Gastrointestinal: no abdominal pain, no nausea and no vomiting Physical Exam Vital Signs (Past 24 Hours): Last Vital Signs Temp 36.6 C 02/02/19 19:09 Pulse 65 02/02/19 19:09 Resp 20 02/02/19 19:09 BP 118/72 02/02/19 19:09 Pulse Ox 95 02/02/19 19:09 Constitutional: + obese; no acute distress ENMT: external ear and nose normal, oropharynx normal Respiratory: normal respiratory effort, lungs clear to auscultation Cardiovascular: Rate/Rhythm: regular rate; + abnormal rhythm (irregular) Heart Sounds: normal S1 and normal S2; no murmur Vessels: posterior tibial pulses present and dorsalis pedis pulses present; no JVD Extremities: no edema Gastrointestinal (Abdomen): normal bowel sounds, soft, nontender, no hepatosplenomegaly Inspection/Auscultation: abdomen not distended Skin: pacer site left upper chest covered w/ dressing Psychiatric: A+Ox3, euthymic affect Results & Data Laboratory Results Laboratory Results - last 24 hr 02/01/19 02/02/19 02/02/19 23:01 05:15 05:15 WBC 5.57 RBC 3.55 L Hgb 8.9 L 8.1 L Hct 28.6 L 26.3 L MCV 74.1 L MCH 22.8 L MCHC 30.8 L RDW Std Deviation 48.2 H RDW Coeff of Cain 17.6 H Plt Count 248 MPV 10.0 Sodium 145 Potassium 3.8 Chloride 112 H Carbon Dioxide 26 Anion Gap 7.0 BUN 22 H Creatinine 1.10 Est Cr Clr Drug Dosing 73.2 Est GFR ( Amer) 75.7 Est GFR (Non-Af Amer) 65.3 BUN/Creatinine Ratio 20.4 H Glucose 124 H POC Glucose Calcium 8.1 L Ferritin 02/02/19 02/02/19 02/02/19 10:12 11:10 16:28 WBC RBC Hgb Hct MCV MCH MCHC RDW Std Deviation RDW Coeff of Cain Plt Count MPV Sodium Potassium Chloride Carbon Dioxide Anion Gap BUN Creatinine Est Cr Clr Drug Dosing Est GFR ( Amer) Est GFR (Non-Af Amer) BUN/Creatinine Ratio Glucose POC Glucose 137 H 182 H 135 H Calcium Ferritin 02/02/19 02/02/19 16:45 16:45 WBC RBC Hgb 8.0 L Hct MCV MCH MCHC RDW Std Deviation RDW Coeff of Cain Plt Count MPV Sodium Potassium Chloride Carbon Dioxide Anion Gap BUN Creatinine Est Cr Clr Drug Dosing Est GFR ( Amer) Est GFR (Non-Af Amer) BUN/Creatinine Ratio Glucose POC Glucose Calcium Ferritin 18.9 (1) BPH (benign prostatic hyperplasia) Lower urinary tract symptom detail: unspecified Lower urinary tract symptom presence: symptoms present Qualified Code(s): N40.1 - Benign prostatic hyperplasia with lower urinary tract symptoms (2) Diabetes Diabetes mellitus complication status: without complication Diabetes mellitus shelter insulin use: without shelter use Diabetes mellitus type: type 2 Qualified Code(s): E11.9 - Type 2 diabetes mellitus without complications (3) Atrial fibrillation Atrial fibrillation type: permanent Qualified Code(s): I48.2 - Chronic atrial fibrillation (4) Syncope Syncope type: unspecified Qualified Code(s): R55 - Syncope and collapse (5) Obesity Body mass index: BMI 35.0-35.9 Obesity classification: adult class 2 (BMI 35 - 39.9) Obesity type: unspecified obesity type Serious obesity comorbidity presence: with serious comorbidity Qualified Code(s): E66.01 - Morbid (severe) obesity due to excess calories; Z68.35 - Body mass index (BMI) 35.0-35.9, adult (6) Iron deficiency anemia Iron deficiency anemia type: chronic blood loss Qualified Code(s): D50.0 - Iron deficiency anemia secondary to blood loss (chronic)
[2019-02-02] MEDS ORDERED: FERROUS SULFATE 325 MG TAB PO SCH (21:00)
[2019-02-02] MEDS: OXYBUTYNIN CHLORIDE 5 MG TAB PO PRN (22:19)
[2019-02-03] MEDS: cefTRIAXone SODIUM 2,000 MG in DEXTROSE 5% 50 ML IV SCH (05:41)
[2019-02-03] MEDS: SODIUM CHLORIDE 0.9% 1000ML 1,000 ML IV SCH ×2 (05:41→16:23)
[2019-02-03 05:49] LABS: Hematocrit (blood only) 22.7 % (42-52); Hemoglobin 7.2 g/dL (14.0-18.0); Mean Corpuscular Hgb Conc 31.7 g/dL (32-36); Mean Corpuscular Volume 74.2 fL (80-100); Mean Platelet Volume 9.7 fL (7.4-10.4); Platelet Count 211 K/uL (130-400); RDW Standard Deviation 48.7 fL (36.4-46.3); Red Blood Count 3.06 M/uL (4.7-6.1); White Blood Count 4.38 K/uL (4.8-10.8)
[2019-02-03 06:10] LABS: Calcium 7.7 mg/dl (8.5-10.1); Creatinine Clr Calc Pharmacy 75.4 ml/min; Est GFR (African American) 76.5; Magnesium 1.9 mg/dl (1.8-2.4); Potassium 3.7 mmol/L (3.5-5.1)
--- NOTE | 2019-02-03 07:19 | XRay Report ---
TWO VIEW CHEST CLINICAL HISTORY: Cardiac pacemaker implantation. FINDINGS: PA and lateral chest radiographs are compared to study dated 01/14/2019. A 2-lead cardiac pa cemaker has been placed and partially obscures the left upper chest. Leads project over the right atr ial appendage and the right ventricle. The heart is enlarged and there is atherosclerotic calcificati on of the thoracic aorta. The pulmonary vasculature is noncongested. There is bibasilar scarring/atel ectasis. Chronic interstitial thickening similar to previous. No airspace consolidation or pleural ef fusion is identified. There is no pneumothorax. The skeletal structures are osteopenic. Advanced arth ritic change and deformity is seen in the shoulders. Degenerative change is also seen throughout the thoracic spine. IMPRESSION: 1. A 2-lead cardiac pacemaker has been placed as detailed above. No pneumothorax is identified post p rocedure. 2. Cardiomegaly without radiographic evidence of congestive failure. 3. No airspace consolidation or pleural effusion is identified. Electronically signed by: Monty De M.D. 02/03/2019 7:18 AM
[2019-02-03] MEDS ORDERED: MAGNESIUM SULFATE / D5W 1 GM/100 ML BAG IV ONE (07:45)
[2019-02-03] MEDS ORDERED: SODIUM CHLORIDE 0.9% 250 ML IV PRN (07:58)
--- NOTE | 2019-02-03 08:01 | Hospitalist Progress Note ---
Date of Service February 03, 2019 Assessment & Plan (1) Bradycardia: In the setting of probable vasovagal type event as the severe bradycardia occurred while straining at stool. This was a severe episode with probable escape rhythm noted on tele and the event was quite prolonged (20+ seconds). He lost consciousness. He also had another syncopal episode about 2 years ago - etiology at that time was uncertain, but easily could have been similar to today's event. s/p permanent pacemaker placement on 02/[address] Trinidad without incident. Pacer is functioning well. Can be discharged to home as per cardiology -Continue carvedilol 6.25 mg p.o. twice daily (2) Syncope: see discussion above in "bradycardia". no recurrent events. s/p pacer placement on 02/02 (3) Clot retention of urine: copious bladder clots leading to urinary retention in the setting of chronic eliquis use. eliquis remains on hold 3-way gaviria with CBI was performed and is now turned down, urine is clear creatinine continues to improve. the patient just had a urological procedure about 1 week prior to admission including - cystoscopy, Left RGP, Left Ureteral Stent Exchange, Left URS, stone extraction, laser lithotripsy, and biopsy of ureter. This is the most likely source of his clots/hematuria Now status post Cystoscopy, Bilateral Retrograde Pyelogram, Bilateral Ureteroscopy, Bilateral Laser Lithotripsy, with right Ureteral Stent Exchange on 02/03 Gaviria catheter was removed after the procedure today -Watch for recurrent hematuria (4) Acute blood loss anemia: due to bleeding. Although ferritin c/w severe Fe deficiency which points towards a more chronic anemia Hemoglobin trended downward today further to 7.2 -Transfuse 2 units of PRBCs today -Follow CBC in the morning (5) Iron deficiency anemia: started ferrous sulfate 325mg BID see above in "acute blood loss" -Need to see if has had GI workup recently (6) Kidney stone: management per urology pelvic stone on right, ureteral stone on left as well Now status post or today as above with lithotripsy Stents in place (7) Acute renal insufficiency: 2nd to obstruction. Resolved s/p gaviria with CBI. BMP in am. (8) BPH (benign prostatic hyperplasia): cont Flomax (9) Diabetes: Blood sugars well controlled, hemoglobin A1c 6.6% in 12/2018 -Cont lantus 10 units daily cont novolog ac/hs. DM diet. (10) Atrial fibrillation: Rates well controlled -Continue Coreg. -Continue holding eliquis due to hematuria and restart when okay with urology. s/p pacer placement -- see above. (11) Obesity: BMI 37 (12) HTN (hypertension), benign: Blood pressures controlled -Cont norvasc and carvedilol at increased dose of 6.25 mg twice daily -Holding furosemide and lisinopril from home due to GRETCHEN earlier in the stay (13) CKD (chronic kidney disease) stage 3, GFR 30-59 ml/min: baseline Cr about 1 or 1.1 (14) DVT prophylaxis: SCDs chemical means contraindicated due to hematuria PT, OT evals ordered but not completed yet due to receiving blood transfusion today Disposition-remain on telemetry Subjective Patient reports feeling tired. Hematuria has resolved but did have to have it hand irrigated one time on the overnight shift. Denies abdominal pain or chest pain, denies shortness of breath. Discussed getting a blood transfusion today and he is frustrated and feels like he is not improving. Telemetry with atrial fibrillation one 4 beat run of V. tach. Review of Systems All systems reviewed & are unremarkable except as noted in HPI & below Physical Exam Vital Signs (Past 24 Hours): Last Vital Signs Temp 37.1 C 02/03/19 03:53 Pulse 85 02/03/19 03:53 Resp 19 02/03/19 03:53 BP 143/86 H 02/03/19 03:53 Pulse Ox 97 02/03/19 03:53 Constitutional: WD/WN, vitals as above Eyes: PERRL, conjunctivae normal, anicteric sclerae Neck: trachea midline, no thyromegaly Respiratory: normal respiratory effort, lungs clear to auscultation Cardiovascular: RRR, no murmur, no edema Gastrointestinal (Abdomen): normal bowel sounds, soft, nontender, no hepatosplenomegaly Musculoskeletal: Extremities: extremities normal to inspection; no cyanosis and no clubbing Skin: no rashes, warm and dry Neurologic: moves all extremities and awake; no focal motor deficits Psychiatric: Orientation: alert and oriented x 3 Affect: + depressed affect Genitourinary: Gaviria catheter in place with clear yellow urine Results & Data Laboratory Results 02/03/19 02/03/19 02/03/19 Range/Units Unknown 16:19 15:17 WBC (4.8-10.8) K/uL RBC (4.7-6.1) M/uL Hgb 8.9 L (14.0-18.0) g/dL Hct 28.3 L (42-52) % MCV (80-100) fL MCH (25-34) pg MCHC (32-36) g/dL RDW Std Deviation (36.4-46.3) fL RDW Coeff of Cain (11.5-14.5) % Plt Count (130-400) K/uL MPV (7.4-10.4) fL Sodium (136-145) mmol/L Potassium (3.5-5.1) mmol/L Chloride (98-107) mmol/L Carbon Dioxide (21-32) mmol/L Anion Gap (3-11) BUN (7-18) mg/dl Creatinine (0.6-1.4) mg/dl Est Cr Clr Drug Dosing ml/min Est GFR ( Amer) Est GFR (Non-Af Amer) BUN/Creatinine Ratio (10-20) Glucose (70-99) mg/dl POC Glucose 119 H (70-99) Calcium (8.5-10.1) mg/dl Magnesium (1.8-2.4) mg/dl Ferritin (8-388) ng/ml Stone Source Pending Stone Weight Pending Stone Composition Pending Stone Composition 2 Pending Major Stone Nidus Pending Blood Type Antibody Screen Crossmatch 02/03/19 02/03/19 02/03/19 Range/Units 15:14 13:10 10:58 WBC (4.8-10.8) K/uL RBC (4.7-6.1) M/uL Hgb (14.0-18.0) g/dL Hct (42-52) % MCV (80-100) fL MCH (25-34) pg MCHC (32-36) g/dL RDW Std Deviation (36.4-46.3) fL RDW Coeff of Cain (11.5-14.5) % Plt Count (130-400) K/uL MPV (7.4-10.4) fL Sodium (136-145) mmol/L Potassium (3.5-5.1) mmol/L Chloride (98-107) mmol/L Carbon Dioxide (21-32) mmol/L Anion Gap (3-11) BUN (7-18) mg/dl Creatinine (0.6-1.4) mg/dl Est Cr Clr Drug Dosing ml/min Est GFR ( Amer) Est GFR (Non-Af Amer) BUN/Creatinine Ratio (10-20) Glucose (70-99) mg/dl POC Glucose 106 H 112 H 135 H (70-99) Calcium (8.5-10.1) mg/dl Magnesium (1.8-2.4) mg/dl Ferritin (8-388) ng/ml Stone Source Stone Weight Stone Composition Stone Composition 2 Major Stone Nidus Blood Type Antibody Screen Crossmatch 02/03/19 02/03/19 02/03/19 Range/Units 07:07 04:59 04:59 WBC 4.38 L (4.8-10.8) K/uL RBC 3.06 L (4.7-6.1) M/uL Hgb 7.2 L (14.0-18.0) g/dL Hct 22.7 L (42-52) % MCV 74.2 L (80-100) fL MCH 23.5 L (25-34) pg MCHC 31.7 L (32-36) g/dL RDW Std Deviation 48.7 H (36.4-46.3) fL RDW Coeff of Cain 18.0 H (11.5-14.5) % Plt Count 211 (130-400) K/uL MPV 9.7 (7.4-10.4) fL Sodium 143 (136-145) mmol/L Potassium 3.7 (3.5-5.1) mmol/L Chloride 111 H (98-107) mmol/L Carbon Dioxide 25 (21-32) mmol/L Anion Gap 7.0 (3-11) BUN 16 (7-18) mg/dl Creatinine 1.09 (0.6-1.4) mg/dl Est Cr Clr Drug Dosing 75.4 ml/min Est GFR ( Amer) 76.5 Est GFR (Non-Af Amer) 66.0 BUN/Creatinine Ratio 15.0 (10-20) Glucose 104 H (70-99) mg/dl POC Glucose 122 H (70-99) Calcium 7.7 L (8.5-10.1) mg/dl Magnesium 1.9 (1.8-2.4) mg/dl Ferritin (8-388) ng/ml Stone Source Stone Weight Stone Composition Stone Composition 2 Major Stone Nidus Blood Type Antibody Screen Crossmatch 02/02/19 02/02/19 02/01/19 Range/Units 21:08 16:45 01:56 WBC (4.8-10.8) K/uL RBC (4.7-6.1) M/uL Hgb (14.0-18.0) g/dL Hct (42-52) % MCV (80-100) fL MCH (25-34) pg MCHC (32-36) g/dL RDW Std Deviation (36.4-46.3) fL RDW Coeff of Cain (11.5-14.5) % Plt Count (130-400) K/uL MPV (7.4-10.4) fL Sodium (136-145) mmol/L Potassium (3.5-5.1) mmol/L Chloride (98-107) mmol/L Carbon Dioxide (21-32) mmol/L Anion Gap (3-11) BUN (7-18) mg/dl Creatinine (0.6-1.4) mg/dl Est Cr Clr Drug Dosing ml/min Est GFR ( Amer) Est GFR (Non-Af Amer) BUN/Creatinine Ratio (10-20) Glucose (70-99) mg/dl POC Glucose 184 H (70-99) Calcium (8.5-10.1) mg/dl Magnesium (1.8-2.4) mg/dl Ferritin 18.9 (8-388) ng/ml Stone Source Stone Weight Stone Composition Stone Composition 2 Major Stone Nidus Blood Type A Positive Antibody Screen NEGATIVE Crossmatch See Detail (1) BPH (benign prostatic hyperplasia) Lower urinary tract symptom detail: unspecified Lower urinary tract symptom presence: symptoms present Qualified Code(s): N40.1 - Benign prostatic hyperplasia with lower urinary tract symptoms (2) Diabetes Diabetes mellitus complication status: without complication Diabetes mellitus retirement insulin use: without oysterman use Diabetes mellitus type: type 2 Qualified Code(s): E11.9 - Type 2 diabetes mellitus without complications (3) Atrial fibrillation Atrial fibrillation type: permanent Qualified Code(s): I48.2 - Chronic atrial fibrillation (4) Syncope Syncope type: unspecified Qualified Code(s): R55 - Syncope and collapse (5) Iron deficiency anemia Iron deficiency anemia type: chronic blood loss Qualified Code(s): D50.0 - Iron deficiency anemia secondary to blood loss (chronic) (6) Obesity Body mass index: BMI 35.0-35.9 Obesity classification: adult class 2 (BMI 35 - 39.9) Obesity type: unspecified obesity type Serious obesity comorbidity presence: with serious comorbidity Qualified Code(s): E66.01 - Morbid (severe) obesity due to excess calories; Z68.35 - Body mass index (BMI) 35.0-35.9, adult
[2019-02-03] MEDS: INSULIN ASPART 100 UNITS/ML 3 ML PEN SC SCH ×4 (08:34→21:06)
[2019-02-03] MEDS: POTASSIUM CHLORIDE / WTR 10 MEQ/100 ML PLCT IV SCH ×2 (08:35→09:56)
[2019-02-03] MEDS: CARVEDILOL 6.25 MG TAB PO SCH ×2 (08:36→21:04)
[2019-02-03] MEDS: FAMOTIDINE 20 MG TAB PO SCH (08:36)
[2019-02-03] MEDS: AMLODIPINE BESYLATE 5 MG TAB PO SCH ×2 (08:36→21:04)
[2019-02-03] MEDS: FERROUS SULFATE 325 MG TAB PO SCH ×2 (08:36→21:04)
[2019-02-03] MEDS: INSULIN GLARGINE SOLOSTAR 100 UNITS/ML 3 ML PEN SC SCH (08:37)
[2019-02-03] MEDS: SERTRALINE HCL 50 MG TABLET PO SCH (08:37)
[2019-02-03] MEDS: MAGNESIUM OXIDE 400 MG TAB PO SCH (08:37)
[2019-02-03] MEDS: PREGABALIN 25 MG CAP PO SCH ×2 (08:38→21:03)
--- NOTE | 2019-02-03 11:49 | Urology Progress Note ---
Date of Service February 03, 2019 Assessment & Plan (1) Kidney stone: Hematuria; b/l stones/stents - transfuse now - plan for cysto, pos fulguration, pos b/l ureteroscopy w/laser lithotripsy and pos stent exchange - risks, benefits, and alternatives discussed Subjective feeling ok frustrated by his numerous problems hematuria has essentially resolved did require irrigation x1 last evening pacer placed yesterday (tolerated well) scheduled transfusion later today Physical Exam Vital Signs (Past 24 Hours): Last Vital Signs Temp 36.7 C 02/03/19 11:13 Pulse 70 02/03/19 11:13 Resp 18 02/03/19 11:13 BP 120/95 02/03/19 11:13 Pulse Ox 94 02/03/19 11:13 Physical Exam: NAD AAOx3 rrr (paced) pacer site bandaged, healthy appearing no resp distress abd soft urine clear (gaviria) minimal edema no rash no adenopathy
[2019-02-03] MEDS ORDERED: MIDAZOLAM HCL 1 MG/ML 2ML VIAL ONE (12:29)
[2019-02-03] MEDS ORDERED: PROPOFOL IV EMULSION 10 MG/ML 20 ML VIAL IV ONE (12:29)
[2019-02-03] MEDS ORDERED: PHENYLEPHRINE 100MCG/ML 5ML SYR ONE (12:29)
[2019-02-03] MEDS ORDERED: ePHEDrine sulfate 50 MG/ML SYR ONE (12:29)
[2019-02-03] MEDS ORDERED: ONDANSETRON INJ 2 MG/ML 2 ML VIAL ONE (12:29)
[2019-02-03] MEDS ORDERED: LIDOCAINE HCL 2% 2 ML VIAL/AMP(20MG/ML) INFIL ONE (12:29)
[2019-02-03] MEDS ORDERED: fentaNYL citrate 100 MCG/2 ML VIAL ONE (12:29)
--- NOTE | 2019-02-03 13:23 | Anesthesiology Consultation ---
Date of Service February 03, 2019 The patient has received 2 units PRBC since his hgb was last checked. Assessment & Plan (1) Encounter for pre-operative examination: Chart Review Chart Review: Acceptable Risk for Surgery and Patient NOT seen in Pre Admission Testing Consults Requested none NPO Date Last Intake of Fluids: 02/01/19 Time Last Intake of Fluids: 23:59 Date Last Intake of Solids: 02/01/19 Time Last Intake of Solids: 23:59 History Surgery Operation Date: 02/02/19 08:00 Proposed Procedures p Single Chamber Pacemaker Insertion - Omkar Trinidad MD Operation Date: 02/03/19 13:05 Proposed Procedures p Cystoscopy, Fulguration, Bilateral Retrograde Pyelogram, Laser Lithotripsy, Basket Stone Extraction, with Stent Exchange - Edin Hankins MD Height/Weight Height: 5 ft 10 in Weight: 118.2 kg Allergies Allergy/AdvReac Type Severity Reaction Status Date / Time No Known Allergies Allergy Verified 02/01/19 02:02 Medications Home Medications Medication Instructions Recorded Confirmed Last Taken docusate sodium 100 mg PO QAM 10/15/18 02/01/19 01/24/19 09:00 melatonin 3 mg PO HS 10/15/18 02/01/19 01/24/19 21:00 metformin [Glucophage] 500 mg PO BID 10/15/18 02/01/19 01/24/19 09:00 sertraline [Zoloft] 50 mg PO QAM 10/15/18 02/01/19 01/24/19 09:00 temazepam [Restoril] 15 mg PO HS PRN 10/15/18 02/01/19 01/21/19 21:00 amlodipine 5 mg PO BID 11/17/18 02/01/19 01/24/19 06:00 lisinopril 40 mg PO QAM 11/17/18 02/01/19 01/25/19 06:00 tamsulosin 0.4 mg PO HS 11/17/18 02/01/19 01/24/19 21:00 furosemide 20 mg PO QAM #30 tab 11/21/18 02/01/19 01/25/19 06:00 Lyrica 25 mg PO BID 12/24/18 02/01/19 01/24/19 18:00 acetaminophen [Tylenol] 650 mg PO Q6H PRN 12/24/18 02/01/19 12/28/18 08:00 famotidine 20 mg PO QAM 12/24/18 02/01/19 01/25/19 06:00 ferrous sulfate 325 mg PO BID 12/24/18 02/01/19 01/24/19 18:00 magnesium oxide 400 mg PO QAM 12/24/18 02/01/19 01/24/19 09:00 cranberry extract 425 mg PO DAILY 01/06/19 02/01/19 01/25/19 06:00 oxybutynin chloride 5 mg PO Q8H PRN 01/06/19 02/01/19 Unknown oxycodone-acetaminophen [Percocet] 1 tab PO Q8H PRN #7 tab 01/25/19 02/01/19 Unknown apixaban [Eliquis] 5 mg PO DAILY 02/01/19 02/01/19 Unknown carvedilol 3.125 mg PO BID 02/01/19 02/01/19 Unknown Active Medications Generic Name Dose Route Start Last Admin Trade Name Freq PRN Reason Stop Dose Admin Amlodipine Besylate 5 mg 02/01/19 09:00 02/03/19 08:36 Norvasc PO 03/03/19 08:59 5 mg BID CYNDIE Administration Carvedilol 6.25 mg 02/02/19 10:00 02/03/19 08:36 Coreg PO 03/04/19 09:59 6.25 mg BID CYNDIE Administration Famotidine 20 mg 02/01/19 09:00 02/03/19 08:36 Pepcid PO 03/03/19 08:59 20 mg QAM CYNDIE Administration Ferrous Sulfate 325 mg 02/01/19 09:00 02/03/19 08:36 Feosol PO 03/03/19 08:59 325 mg BID CYNDIE Administration Ceftriaxone Sodium 2,000 mg/ 70 mls @ 100 mls/hr 02/01/19 05:00 02/03/19 06:24 Dextrose IV 02/11/19 04:59 Infused Q24H CYNDIE Infusion Protocol Sodium Chloride 1,000 mls @ 125 mls/hr 02/01/19 05:01 02/03/19 12:01 Nss 1000ml IV 03/03/19 05:00 15 mls/hr .Q8H CYNDIE Infusion Insulin Aspart 0 units 02/01/19 07:30 02/03/19 11:51 Novolog Flexpen SC 03/03/19 07:29 Not Given ACHS CYNDIE Insulin Glargine 10 units 02/01/19 09:15 02/03/19 08:37 Lantus Solostar Pen SC 03/03/19 09:14 10 units QAM CYNDIE Administration Magnesium Oxide 400 mg 02/01/19 09:00 02/03/19 08:37 Mag-Ox PO 03/03/19 08:59 400 mg QAM CYNDIE Administration Oxybutynin Chloride 5 mg 02/01/19 05:01 02/02/19 22:19 Ditropan PO 03/03/19 05:00 5 mg Q8H PRN Administration Bladder Spasms Pregabalin 25 mg 02/01/19 09:00 02/03/19 08:38 Lyrica PO 03/03/19 08:59 25 mg BID CYNDIE Administration Sertraline HCl 50 mg 02/01/19 09:00 02/03/19 08:37 Zoloft PO 03/03/19 08:59 50 mg QAM CYNDIE Administration Tamsulosin HCl 0.4 mg 02/01/19 21:00 02/02/19 20:13 Flomax PO 03/03/19 20:59 0.4 mg HS CYNDIE Administration Past Medical History Medical History Atrial fibrillation (Chronic) Diabetes (Chronic) GERD (gastroesophageal reflux disease) BPH (benign prostatic hyperplasia) Hypertensive urgency 11/2018 CHF (congestive heart failure) Major depressive disorder BPH w urinary obs/LUTS Obesity (Chronic) Chronic anticoagulation Demand ischemia of myocardium 11/2018 RESULTED IN ELEVATED TROPONIN; "LV FUNCTION IS NORMAL.. STABLE FROM A CARDIAC STANDPOINT" PER 11/20/18 [facility] CARDIO PROGRESS NOTE HTN (hypertension), benign Hyperlipidemia Osteoarthritis, knee CKD (chronic kidney disease) stage 3, GFR 30-59 ml/min A-fib Anemia CHRONIC' BASELINE HGB 10-11 RANGE PER CHART REVIEW Anxiety BPH (benign prostatic hyperplasia) Depression GERD (gastroesophageal reflux disease) CONTROLLED Hypertension Indwelling Phipps catheter present Kidney stones Type 2 diabetes mellitus Past Family History Family History Other Family history non-contributory Past Surgical History Surgical History H/O cystoscopy 01/25/19 LMA 5 History of colonoscopy History of cystoscopy WITH STENT 12/28/18 Social History Smoking Status: Never smoker Do You Dip or Chew Tobacco: No Hx Alcohol Use: No Hx Substance Use: No substance use type: does not use Physical Exam Vital Signs Last Vital Signs Temp 36.8 C 02/03/19 13:20 Pulse 83 02/03/19 13:20 Resp 20 02/03/19 13:20 BP 148/88 H 02/03/19 13:20 Pulse Ox 93 02/03/19 13:20 Testing Electrocardiogram Date: 02/02/19 Findings: + AFIB @ (74) and + RBBB Chest X-Ray Date: 02/03/19 [place], [place] [phone] XRay Report Patient: LUIS ALBERTO PARHAM Date: 02/01/19 MR#: [id number]: [id number] Acct ID:[id number]: [facility] Zip: [place] [address] Age: 74Location: 2E Sex: M Room/Bed: [facility] Att Phy: Haylie Rodgers, MDDiagnosis: HEMATURIA Aimee Phy: Yeyo Melendez, DOService Date: 02/03/19 Fam Phy: Interpreting Phy: Monty De MD Admit Phy: Thien Zamorano M.D. Ordering Phy: Omkar Trinidad MD cc: ~ TWO VIEW CHEST CLINICAL HISTORY: Cardiac pacemaker implantation. FINDINGS: PA and lateral chest radiographs are compared to study dated 01/14/2019. A 2-lead cardiac pacemaker has been placed and partially obscures the left upper chest. Leads project over the right atrial appendage and the right ventricle. The heart is enlarged and there is atherosclerotic calcification of the thoracic aorta. The pulmonary vasculature is noncongested. There is bibasilar scarring/atelectasis. Chronic interstitial thickening similar to previous. No airspace consolidation or pleural effusion is identified. There is no pneumothorax. The skeletal structures are osteopenic. Advanced arthritic change and deformity is seen in the shoulders. Degenerative change is also seen throughout the thoracic spine. IMPRESSION: 1. A 2-lead cardiac pacemaker has been placed as detailed above. No pneumothorax is identified post procedure. 2. Cardiomegaly without radiographic evidence of congestive failure. 3. No airspace consolidation or pleural effusion is identified. Electronically signed by: Monty De M.D. 02/03/2019 7:18 AM Dictated: 02/03/19715 Transcribed: 02/03/19715 Laboratory Results 02/03/19 04:59 02/03/19 04:59 Blood Type A Positive 02/01/19 01:56 Antibody Screen NEGATIVE 02/01/19 01:56 PT 11.9 Seconds (9.0-12.0) 02/01/19 01:56 INR 1.2 (0.9-1.1) H 02/01/19 01:56 APTT 26.6 Seconds (21.0-31.0) 02/01/19 01:56 02/03/19 02/03/19 02/03/19 13:10 10:58 07:07 POC Glucose 112 H 135 H 122 H
[2019-02-03] MEDS ORDERED: IOTHALAMATE MEGLUMINE II 17.2% 250 ML VIAL ONE (13:46)
--- NOTE | 2019-02-03 15:04 | Operative Report ---
Post Operative Report Pre & Post Diagnosis Operation Date: 02/02/19 08:00 <No data on this case meets the specified criteria> Operation Date: 02/03/19 13:05 Pre-Op Diagnosis: HEMATURIA, Bilateral stones/stents Post-Op Diagnosis: HEMATURIA, Bilateral stones/stents Procedure Operation Date: 02/02/19 08:00 Actual Procedures p Pacer with A/V Leads (Dual) - Omkar Trinidad MD s Venogram, Unilateral - Omkar Trinidad MD Operation Date: 02/03/19 13:05 Actual Procedures p Cystoscopy, Bilateral Retrograde Pyelogram, Bilateral Ureteroscopy, Bilateral Laser Lithotripsy, with right Ureteral Stent Exchange - Edin Hankins MD Surgeon Jose Hankins MD Production Line Welder None Estimated Blood Loss 50 Findings Consistent with Post-Op Diagnosis Specimens stones for chemical analysis Description of Procedure Patient was identified in the preoperative holding area, appropriate informed consents reviewed and completed and the patient was transported to the operating suite. Earlier in the morning, he received appropriate preoperative antibiotics in the form of ceftriaxone. He received appropriate general anesthesia upon arrival in the operative suite. He was placed in dorsal lithotomy position where he was sterilely prepped and draped in standard fashion. To begin the case I passed a 22 [place] cystoscope with 30 degree lens. Inspection revealed no evidence of significant urethral abnormality, he is noted to have an enlarged prostate with no active bleeding. There is some debris and old clot within the bladder which was evacuated. He had bilateral ureteral stents easily visible within the bladder. I turned my attention to the left ureteral orifice and grasped the distal aspect of the left stent. I withdrew the stent to the urethral meatus and intubated with a sensor wire. I then entered the bladder with a semirigid ureteroscope alongside the wire and guided into the distal left ureter. I encountered a large yellow appearing calculus approximately 3 cm above the UVJ. I passed a 270 m laser fiber and fragmented the stone entirely before evacuating it from the ureter. I left a wire in place and I did opacify the collecting system which promptly drained. I withdrew the wire. I then turned my attention to the right ureteral orifice. Grasped the distal aspect of the right ureteral stent withdrew to the meatus before intubating it with a sensor wire. After withdrawing the stent, I passed a 10 [place] double- lumen catheter over the wire and introduced a second wire which was advanced to the kidney. I then advanced a flexible ureteroscope over 1 of the wires will reserving that there is a safety wire. I performed a full renoscopy which revealed a large yellow appearing calculus in the renal pelvis. I passed 270 m laser fiber and fragmented the stone entirely. Of note, there is a substantial amount of debris within the kidney, but I could not identify any large fragments within the pile of debris. Performed a careful exit ureteroscopy identifying no ureteral stones. I then placed a 6 [place] by 26 cm double-J ureteral stent seeing a good curl in the kidney as well as the bladder. I left a string attached to the distal aspect of the stent. I elected to leave him without a Phipps catheter. I drained his bladder and concluded the case. He was extubated and taken to the PACU in stable condition. I attest to the content of the Intraoperative Record and any orders documented therein. Any exceptions are noted below.
[2019-02-03] MEDS ORDERED: ONDANSETRON INJ 2 MG/ML 2 ML VIAL IV PRN (15:09)
[2019-02-03] MEDS ORDERED: ATROPINE SULFATE 0.1 MG/ML 10ML SYR IV PRN (15:09)
[2019-02-03] MEDS ORDERED: PHENYLEPHRINE 100MCG/ML 5ML SYR IV PRN (15:09)
[2019-02-03] MEDS ORDERED: LABETALOL HCL IV 5 MG/ML 20ML IV PRN (15:09)
[2019-02-03] MEDS ORDERED: ePHEDrine sulfate 50 MG/ML AMP IV PRN (15:09)
[2019-02-03] MEDS ORDERED: fentaNYL citrate 100 MCG/2 ML VIAL IV PRN (15:09)
[2019-02-03 15:24] LABS: Hematocrit (blood only) 28.3 % (42-52); Hemoglobin 8.9 g/dL (14.0-18.0)
--- NOTE | 2019-02-03 15:29 | Anesthesiology Progress Note ---
Date of Service February 03, 2019 Anesthesia Post Procedure Vital Signs Vital Signs: Temp Pulse Pulse Resp BP BP Pulse Ox 02/03/19 13:20 36.8 C 83 20 148/88 H 93 02/03/19 13:01 147/88 H 02/03/19 13:00 36.8 C 83 16 148/106 H 93 02/03/19 12:57 36.6 C 78 16 147/87 H 96 02/03/19 12:27 36.7 C 73 18 155/86 H 97 02/03/19 12:12 36.6 C 68 18 141/87 H 96 02/03/19 11:56 36.7 C 72 16 156/79 H 95 02/03/19 11:13 36.7 C 70 18 120/95 94 02/03/19 10:30 36.9 C 85 16 168/97 H 96 02/03/19 09:30 36.9 C 76 20 158/79 H 96 02/03/19 09:00 36.8 C 65 18 152/78 H 96 02/03/19 08:46 36.7 C 78 16 135/87 95 02/03/19 08:31 36.7 C 75 16 152/83 H 96 02/03/19 03:53 37.1 C 85 19 143/86 H 97 02/02/19 23:44 37.1 C 82 19 174/75 H 97 02/02/19 19:09 36.6 C 65 20 118/72 95 02/02/19 18:21 84 144/72 H 95 Pain Intensity Abdomen: Pain Intensity: 2 Notes Mental Status: alert / awake / arousable Patient Amnestic to Procedure: Yes Nausea / Vomiting: adequately controlled Pain: adequately controlled Airway Patency, RR, SpO2: stable & adequate BP & HR: stable & adequate Hydration State: stable & adequate Anesthetic Complications: no major complications apparent and Pt Satisfied with anesthetic care Notes: The patient did well. He is awake and vitals are stable. Postop hgb is 8.9.
--- NOTE | 2019-02-03 16:02 | Fluoroscopy Report ---
FL retrograde includes kub HISTORY: 74 years-old Male B/L CYSTO/RETROGRADE cystourethrogram with stent placement COMPARISON: KUB 02/01/2019 TECHNIQUE: 3 views of the abdomen and pelvis were obtained utilizing 47.8 seconds fluoroscopy time FINDINGS: Guidewire noted within the left ureter. A right ureteral stent is noted with the proximal portion manjit earing to be in satisfactory positioning. The distal portion of the right ureteral stent is not image d. IMPRESSION: Fluoroscopic assistance as above. Please see procedural report for further details. The above report was generated using voice recognition software. It may contain grammatical, syntax o r spelling errors. Electronically signed by: Randy Vance M.D. 02/03/2019 4:01 PM
--- NOTE | 2019-02-03 16:50 | Cardiology Progress Note ---
Date of Service February 03, 2019 Assessment & Plan (1) Atrial fibrillation: When he presented in atrial fibrillation earlier this year we thought it was probably paroxysmal, although ever since then he appears to be in it on every electrocardiogram. I still do not believe it is permanent as it would have been identified and treated before therefore I think it probably now persistent. On the other hand I do not think it is permanent and we may well want to get him back into sinus rhythm once we have his urinary situation settled down and we can anticoagulate him for the long run. I increased his beta-travon after pacemaker implantation. His heart rate appears to be well controlled and he is asymptomatic with his rhythm. (2) Bradycardia: He has a well-documented episode of transient bradycardia with very little escape rhythm and associated with syncope. The episode was profound enough that even though he was in the bathroom and perhaps we could explain it in part by a vagal reaction I did not think we could leave it untreated. He was unconscious, the episode was prolonged (nearly 30 seconds) and his heart rate was otherwise well controlled so we really could not decrease rate controlling medications. He has also had at least one other episode at home where he fell with injury and that may have been a similar etiology. I think he needs a pacemaker,, that was performed yesterday. (3) Chronic anticoagulation: He will need long-term anticoagulation, he has been on Eliquis and has been tolerating it well. Although it is on hold now for both his pacemaker and then for his urologic surgery at some point I would recommend restarting it when cleared by surgery. From the standpoint of the pacemaker he can start it any time now, including this evening. (4) Pacemaker: His pacemaker is working well, the site looks good, measurements are excellent and leads are in good position on chest x-ray. His site looks good and I replaced the dressing. He can go home anytime from my standpoint. Subjective Patient seen this morning, at that time he is feeling well having no significant discomfort at his pacemaker site. No palpitations. Physical Exam Vital Signs (Past 24 Hours): Last Vital Signs Temp 36.2 C L 02/03/19 15:08 Pulse 86 02/03/19 15:35 Resp 22 02/03/19 15:35 BP 120/82 02/03/19 15:35 Pulse Ox 95 02/03/19 15:35 Physical Exam: The pacemaker site was clean and dry, minimal bleeding, no ecchymosis or swelling. Minimal tenderness. Results & Data Diagnostic Findings ECG post pacemaker: Atrial fibrillation with a controlled heart rate, appropriate pacemaker inhibition Telemetry: Atrial fibrillation with a controlled heart rate, appropriate intermittent ventricular pacing Chest x-ray: Good lead position, no pneumothorax Pacemaker evaluation: Excellent pacing and sensing characteristics. (1) Atrial fibrillation Atrial fibrillation type: permanent Qualified Code(s): I48.2 - Chronic atrial fibrillation
[2019-02-03] MEDS: TAMSULOSIN HCL 0.4 MG CAP PO SCH (21:04)
[2019-02-03] MEDS: LACTATED RINGER'S 1,000 ML IV SCH (23:09)
[2019-02-04] MEDS: SODIUM CHLORIDE 0.9% 1000ML 1,000 ML IV SCH ×2 (00:36→19:43)
[2019-02-04] MEDS: cefTRIAXone SODIUM 2,000 MG in DEXTROSE 5% 50 ML IV SCH (04:58)
[2019-02-04 06:02] LABS: Basophils # (auto) 0.02 K/uL (0-0.2); Basophils % (auto) 0.3 %; Eosinophils # (auto) 0.17 K/uL (0-0.5); Eosinophils % (auto) 2.6 %; Hematocrit (blood only) 29.1 % (42-52); Hemoglobin 9.1 g/dL (14.0-18.0); Immature Granulocytes # (auto) 0.05 K/uL (0.00-0.02); Immature Granulocytes % (auto) 0.8 %; Lymphocytes # (auto) 0.49 K/uL (1.2-3.4); Lymphocytes % (auto) 7.5 %; Mean Corpuscular Hgb Conc 31.3 g/dL (32-36); Mean Corpuscular Volume 76.6 fL (80-100); Mean Platelet Volume 9.6 fL (7.4-10.4); Monocytes # (auto) 0.86 K/uL (0.11-0.59); Monocytes % (auto) 13.2 %; Neutrophils # (auto) 4.92 K/uL (1.4-6.5); Neutrophils % (auto) 75.6 %; Platelet Count 207 K/uL (130-400); RDW Coefficient of Variation 18.1 % (11.5-14.5); White Blood Count 6.51 K/uL (4.8-10.8)
[2019-02-04 06:29] LABS: BUN Creatinine Ratio 12.2 (10-20); Calcium 7.6 mg/dl (8.5-10.1); Creatinine Clr Calc Pharmacy 73.6 ml/min; Est GFR (African American) 73.3; Est GFR (Non-African American) 63.2; Magnesium 2.1 mg/dl (1.8-2.4); Potassium 3.8 mmol/L (3.5-5.1)
[2019-02-04] MEDS: CARVEDILOL 6.25 MG TAB PO SCH ×2 (08:17→20:07)
[2019-02-04] MEDS: SERTRALINE HCL 50 MG TABLET PO SCH (08:17)
[2019-02-04] MEDS: FERROUS SULFATE 325 MG TAB PO SCH ×2 (08:17→20:07)
[2019-02-04] MEDS: MAGNESIUM OXIDE 400 MG TAB PO SCH (08:17)
[2019-02-04] MEDS: AMLODIPINE BESYLATE 5 MG TAB PO SCH ×2 (08:17→20:07)
[2019-02-04] MEDS: FAMOTIDINE 20 MG TAB PO SCH (08:18)
[2019-02-04] MEDS: PREGABALIN 25 MG CAP PO SCH ×2 (08:19→20:07)
[2019-02-04] MEDS: INSULIN ASPART 100 UNITS/ML 3 ML PEN SC SCH ×4 (08:22→20:29)
[2019-02-04] MEDS: INSULIN GLARGINE SOLOSTAR 100 UNITS/ML 3 ML PEN SC SCH (08:22)
--- NOTE | 2019-02-04 09:14 | Cardiology Progress Note ---
Date of Service February 04, 2019 Assessment & Plan (1) Atrial fibrillation: When he presented in atrial fibrillation earlier this year we thought it was probably paroxysmal, although ever since then he appears to be in it on every electrocardiogram. I still do not believe it is permanent as it would have been identified and treated before therefore I think it probably now persistent. On the other hand I do not think it is permanent and we may well want to get him back into sinus rhythm, however we need to wait about a month on anticoagulation. He will be seen in the office in March and I scheduled that appointment, at that time we can check his pacemaker and consider elective cardioversion depending on his anticoagulation status. I increased his beta- travon after pacemaker implantation. His heart rate appears to be well controlled on the increased dose of carvedilol and he is asymptomatic with his rhythm so I would continue this dose. (2) Bradycardia: He has a well-documented episode of transient bradycardia with very little escape rhythm and associated with syncope. The episode was profound enough that even though he was in the bathroom and perhaps we could explain it in part by a vagal reaction I did not think we could leave it untreated. He was unconscious, the episode was prolonged (nearly 30 seconds) and his heart rate was otherwise well controlled so we really could not decrease rate controlling medications. He has also had at least one other episode at home where he fell with injury and that may have been a similar etiology. Hopefully the pacemaker will eliminate further episodes. (3) Chronic anticoagulation: He will need long-term anticoagulation, he has been on Eliquis and has been tolerating it well. He is now back on it and seems to be doing well. Hopefully he can continue it. (4) Pacemaker: His pacemaker is working well, the site looks good, measurements are excellent and leads are in good position on chest x-ray. His site looks good. He can go home anytime from my standpoint. I have arranged follow-up for early March in our office and it is in his discharge paperwork. Subjective He feels well today from the cardiovascular standpoint. I understand he may be going home today. No pacer site discomfort. Physical Exam Vital Signs (Past 24 Hours): Last Vital Signs Temp 36.7 C 02/04/19 07:26 Pulse 78 02/04/19 07:26 Resp 20 02/04/19 07:26 BP 154/82 H 02/04/19 07:26 Pulse Ox 97 02/04/19 07:26 Physical Exam: The pacemaker site looks good, I did not remove the dressing today but there is no evidence of bleeding or swelling or tenderness. Results & Data Diagnostic Findings Telemetry: Atrial fibrillation with a controlled heart rate regimen. (1) Atrial fibrillation Atrial fibrillation type: permanent Qualified Code(s): I48.2 - Chronic atrial fibrillation
--- NOTE | 2019-02-04 11:52 | Urology Progress Note ---
Date of Service February 04, 2019 Assessment & Plan (1) Clot retention of urine: 74yo M POD# 1 cysto, bilateral URS, LL, right stent exchange. See op note for details of procedure - Stone burden now cleared from L side, stent removed. R renal stone fragmented - likely still with substantial, but small debris within the kidney. R ureteral stent with tether - if appropriate progression, consider stent removal as soon as Thursday Hematuria seems largely improved, voiding spontaneously, clear Pt doing well, in better spirits. VS and H/H remains stable s/p 2u PRBC transfusion. Continue tamsulosin. Bladder scans qshift. Straight cath for PVR >300. Pt may benefit from CIC teaching in the future. Plan for outpt KUB prior to ureteral stent removal on Thursday, per Dr. Hankins. If patient still inpatient at this time, will re-evaluate. Will continue to monitor while inpatient. Subjective 74yo M s/p POD #1 s/p cysto, bilateral URS, LL, and R stent exchange. Pt in better spirits today, sitting up in chair at time of evaluation. Tolerating regular PO diet well. Denies n/v/f/c. Has been spontaneously voiding small amounts, frequently. Denies hematuria or dysuria. Denies flank or suprapubic pain. Physical Exam Vital Signs (Past 24 Hours): Last Vital Signs Temp 36.7 C 02/04/19 11:21 Pulse 65 02/04/19 11:21 Resp 19 02/04/19 11:21 BP 118/67 02/04/19 11:21 Pulse Ox 96 02/04/19 11:21 Physical Exam: A&Ox3 RRR Abd soft, obese, nontender Psych: better spirits Urine clear (in urinal) Results & Data Laboratory Results Laboratory Results - last 48 hr 02/01/19 02/02/19 02/02/19 01:56 16:28 16:45 WBC RBC Hgb 8.0 L Hct MCV MCH MCHC RDW Std Deviation RDW Coeff of Cain Plt Count MPV Immature Gran % (Auto) Neut % (Auto) Lymph % (Auto) [place] % (Auto) Eos % (Auto) Baso % (Auto) Immature Gran # (Auto) Neut # (Auto) Lymph # (Auto) [place] # (Auto) Eos # (Auto) Baso # (Auto) Sodium Potassium Chloride Carbon Dioxide Anion Gap BUN Creatinine Est Cr Clr Drug Dosing Est GFR ( Amer) Est GFR (Non-Af Amer) BUN/Creatinine Ratio Glucose POC Glucose 135 H Calcium Magnesium Ferritin Blood Type A Positive Antibody Screen NEGATIVE Crossmatch See Detail 02/02/19 02/02/19 02/03/19 16:45 21:08 04:59 WBC 4.38 L RBC 3.06 L Hgb 7.2 L Hct 22.7 L MCV 74.2 L MCH 23.5 L MCHC 31.7 L RDW Std Deviation 48.7 H RDW Coeff of Cain 18.0 H Plt Count 211 MPV 9.7 Immature Gran % (Auto) Neut % (Auto) Lymph % (Auto) [place] % (Auto) Eos % (Auto) Baso % (Auto) Immature Gran # (Auto) Neut # (Auto) Lymph # (Auto) [place] # (Auto) Eos # (Auto) Baso # (Auto) Sodium Potassium Chloride Carbon Dioxide Anion Gap BUN Creatinine Est Cr Clr Drug Dosing Est GFR ( Amer) Est GFR (Non-Af Amer) BUN/Creatinine Ratio Glucose POC Glucose 184 H Calcium Magnesium Ferritin 18.9 Blood Type Antibody Screen Crossmatch 02/03/19 02/03/19 02/03/19 04:59 07:07 10:58 WBC RBC Hgb Hct MCV MCH MCHC RDW Std Deviation RDW Coeff of Cain Plt Count MPV Immature Gran % (Auto) Neut % (Auto) Lymph % (Auto) [place] % (Auto) Eos % (Auto) Baso % (Auto) Immature Gran # (Auto) Neut # (Auto) Lymph # (Auto) [place] # (Auto) Eos # (Auto) Baso # (Auto) Sodium 143 Potassium 3.7 Chloride 111 H Carbon Dioxide 25 Anion Gap 7.0 BUN 16 Creatinine 1.09 Est Cr Clr Drug Dosing 75.4 Est GFR ( Amer) 76.5 Est GFR (Non-Af Amer) 66.0 BUN/Creatinine Ratio 15.0 Glucose 104 H POC Glucose 122 H 135 H Calcium 7.7 L Magnesium 1.9 Ferritin Blood Type Antibody Screen Crossmatch 02/03/19 02/03/19 02/03/19 13:10 15:14 15:17 WBC RBC Hgb 8.9 L Hct 28.3 L MCV MCH MCHC RDW Std Deviation RDW Coeff of Cain Plt Count MPV Immature Gran % (Auto) Neut % (Auto) Lymph % (Auto) [place] % (Auto) Eos % (Auto) Baso % (Auto) Immature Gran # (Auto) Neut # (Auto) Lymph # (Auto) [place] # (Auto) Eos # (Auto) Baso # (Auto) Sodium Potassium Chloride Carbon Dioxide Anion Gap BUN Creatinine Est Cr Clr Drug Dosing Est GFR ( Amer) Est GFR (Non-Af Amer) BUN/Creatinine Ratio Glucose POC Glucose 112 H 106 H Calcium Magnesium Ferritin Blood Type Antibody Screen Crossmatch 02/03/19 02/03/19 02/04/19 16:19 20:14 05:30 WBC 6.51 RBC 3.80 L Hgb 9.1 L Hct 29.1 L MCV 76.6 L MCH 23.9 L MCHC 31.3 L RDW Std Deviation 51.0 H RDW Coeff of Cain 18.1 H Plt Count 207 MPV 9.6 Immature Gran % (Auto) 0.8 Neut % (Auto) 75.6 Lymph % (Auto) 7.5 [place] % (Auto) 13.2 Eos % (Auto) 2.6 Baso % (Auto) 0.3 Immature Gran # (Auto) 0.05 H Neut # (Auto) 4.92 Lymph # (Auto) 0.49 L [place] # (Auto) 0.86 H Eos # (Auto) 0.17 Baso # (Auto) 0.02 Sodium Potassium Chloride Carbon Dioxide Anion Gap BUN Creatinine Est Cr Clr Drug Dosing Est GFR ( Amer) Est GFR (Non-Af Amer) BUN/Creatinine Ratio Glucose POC Glucose 119 H 132 H Calcium Magnesium Ferritin Blood Type Antibody Screen Crossmatch 02/04/19 02/04/19 02/04/19 05:30 07:07 11:18 WBC RBC Hgb Hct MCV MCH MCHC RDW Std Deviation RDW Coeff of Cain Plt Count MPV Immature Gran % (Auto) Neut % (Auto) Lymph % (Auto) [place] % (Auto) Eos % (Auto) Baso % (Auto) Immature Gran # (Auto) Neut # (Auto) Lymph # (Auto) [place] # (Auto) Eos # (Auto) Baso # (Auto) Sodium 142 Potassium 3.8 Chloride 112 H Carbon Dioxide 24 Anion Gap 6.0 BUN 14 Creatinine 1.13 Est Cr Clr Drug Dosing 73.6 Est GFR ( Amer) 73.3 Est GFR (Non-Af Amer) 63.2 BUN/Creatinine Ratio 12.2 Glucose 112 H POC Glucose 110 H 130 H Calcium 7.6 L Magnesium 2.1 Ferritin Blood Type Antibody Screen Crossmatch
--- NOTE | 2019-02-04 14:04 | Communication Note ---
Date of Service: February 04, 2019 Tentative follow-up arranged for patient at [facility] [place] Thursday, February 07 at 1:40PM with myself pending discharge. Please instruct patient to go for x-ray prior to visit (added to discharge instructions). If patient is still inpatient on Thursday, will plan for KUB and possible stent removal while in-house.
[2019-02-04] MEDS: HYDROCODONE/ACETAMOPHEN 5/325MG TAB PO PRN ×2 (15:46→20:06)
--- NOTE | 2019-02-04 15:58 | Hospitalist Progress Note ---
Date of Service February 04, 2019 Assessment & Plan (1) Bradycardia: In the setting of probable vasovagal type event as the severe bradycardia occurred while straining at stool. This was a severe episode with probable escape rhythm noted on tele and the event was quite prolonged (20+ seconds). He lost consciousness. He also had another syncopal episode about 2 years ago - etiology at that time was uncertain, but easily could have been similar to today's event. s/p permanent pacemaker placement on 02/[address] Trinidad without incident. Pacer is functioning well. Can be discharged as per cardiology -Continue carvedilol 6.25 mg p.o. twice daily (2) Syncope: see discussion above in "bradycardia". no recurrent events. s/p pacer placement on 02/02 (3) Clot retention of urine: copious bladder clots leading to urinary retention in the setting of chronic eliquis use. eliquis remains on hold 3-way gaviria with CBI was initially performed and was successful in stopping his bleeding No hematuria today the patient just had a urological procedure about 1 week prior to admission including - cystoscopy, Left RGP, Left Ureteral Stent Exchange, Left URS, stone extraction, laser lithotripsy, and biopsy of ureter. This was the most likely source of his clots/hematuria in the setting of taking Eliquis Now status post Cystoscopy, Bilateral Retrograde Pyelogram, Bilateral Ureteroscopy, Bilateral Laser Lithotripsy, with right Ureteral Stent Exchange on 02/03 Gaviria catheter was removed after the procedure and he no longer has a stent on the left. -Watch for recurrent hematuria -Discussed the case with urology-they may remove his right ureteral stent in the office on Thursday-arrangements will be made for this appointment and he should have a KUB prior to his appointment -Neurology recommends continuing to hold Eliquis until after stent removal (4) Acute blood loss anemia: due to bleeding. Although ferritin c/w severe Fe deficiency which points towards a more chronic anemia Hemoglobin trended downward to 7.2 randell-now appropriately increased to 9.1 after transfusion of 2 units of PRBCs on 02/03 No further bleeding -Follow CBC in the morning (5) Iron deficiency anemia: started ferrous sulfate 325mg BID see above in "acute blood loss" -Would recommend GI workup with EGD and colonoscopy as an outpatient when stabilized. (6) Kidney stone: management per urology pelvic stone on right, ureteral stone on left as well Now status post lithotripsy with left-sided stone gone and right-sided stones likely remain with stent in place Management as per urology with follow-up appointment scheduled for Thursday (7) Acute renal insufficiency: 2nd to obstruction. Resolved s/p gaviria with CBI. BMP in am. (8) BPH (benign prostatic hyperplasia): cont Flomax -Bladder scan every 6 hours straight cath as needed Gaviria catheter remains out (9) Diabetes: Blood sugars well controlled, hemoglobin A1c 6.6% in 12/2018 -Cont lantus 10 units daily cont novolog ac/hs. DM diet. (10) Atrial fibrillation: Rates well controlled -Continue Coreg. -Continue holding eliquis due to hematuria and restart after stent removal as per urology recommendations s/p pacer placement -- see above. (11) Obesity: BMI 37 (12) HTN (hypertension), benign: Blood pressures controlled -Cont norvasc and carvedilol at increased dose of 6.25 mg twice daily -Was holding furosemide and lisinopril from home due to GRETCHEN earlier in the stay but can restart Lasix tomorrow as his weight is trending upward (13) CKD (chronic kidney disease) stage 3, GFR 30-59 ml/min: baseline Cr about 1 or 1.1 (14) DVT prophylaxis: SCDs chemical means contraindicated due to hematuria PT, OT evals recommending rehab placement Disposition-remain on telemetry overnight and if hemoglobin and renal function stable in the morning and no further hematuria, can be discharged to a swing bed at [facility] tomorrow for rehab Subjective Feeling much better today. Having some acute on chronic right shoulder pain that he says is from arthritis that he has had for many years. No further hematuria. He is getting his urine out now without the Gaviria catheter in place. Denies abdominal pain. Denies chest pain or shortness of breath. In better spirits today and has more energy after blood transfusion yesterday. Telemetry with atrial fibrillation some PVCs and pacing, rates in the 80s-90s Review of Systems All systems reviewed & are unremarkable except as noted in HPI & below Physical Exam Vital Signs (Past 24 Hours): Last Vital Signs Temp 36.7 C 02/04/19 15:49 Pulse 78 02/04/19 15:49 Resp 20 02/04/19 15:49 BP 145/76 H 02/04/19 15:49 Pulse Ox 98 02/04/19 15:49 Constitutional: WD/WN, vitals as above Eyes: PERRL, conjunctivae normal, anicteric sclerae Neck: trachea midline, no thyromegaly Respiratory: normal respiratory effort, lungs clear to auscultation Cardiovascular: Rate/Rhythm: regular rate; + abnormal rhythm (Irregularly ir regular) Heart Sounds: no murmur Extremities: + edema (2+ pitting edema legs bilaterally) Gastrointestinal (Abdomen): normal bowel sounds, soft, nontender, no hepatosplenomegaly Musculoskeletal: Extremities: extremities normal to inspection; no cyanosis and no clubbing Skin: no rashes, warm and dry Neurologic: moves all extremities and awake; no focal motor deficits Psychiatric: Orientation: alert and oriented x 3 Results & Data Laboratory Results 02/04/19 02/04/19 02/04/19 Range/Units 16:41 11:18 07:07 WBC (4.8-10.8) K/uL RBC (4.7-6.1) M/uL Hgb (14.0-18.0) g/dL Hct (42-52) % MCV (80-100) fL MCH (25-34) pg MCHC (32-36) g/dL RDW Std Deviation (36.4-46.3) fL RDW Coeff of Cain (11.5-14.5) % Plt Count (130-400) K/uL MPV (7.4-10.4) fL Immature Gran % (Auto) % Neut % (Auto) % Lymph % (Auto) % [place] % (Auto) % Eos % (Auto) % Baso % (Auto) % Immature Gran # (Auto) (0.00-0.02) K/uL Neut # (Auto) (1.4-6.5) K/uL Lymph # (Auto) (1.2-3.4) K/uL [place] # (Auto) (0.11-0.59) K/uL Eos # (Auto) (0-0.5) K/uL Baso # (Auto) (0-0.2) K/uL Sodium (136-145) mmol/L Potassium (3.5-5.1) mmol/L Chloride (98-107) mmol/L Carbon Dioxide (21-32) mmol/L Anion Gap (3-11) BUN (7-18) mg/dl Creatinine (0.6-1.4) mg/dl Est Cr Clr Drug Dosing ml/min Est GFR ( Amer) Est GFR (Non-Af Amer) BUN/Creatinine Ratio (10-20) Glucose (70-99) mg/dl POC Glucose 83 130 H 110 H (70-99) Calcium (8.5-10.1) mg/dl Magnesium (1.8-2.4) mg/dl Crossmatch 02/04/19 02/04/19 02/03/19 Range/Units 05:30 05:30 20:14 WBC 6.51 (4.8-10.8) K/uL RBC 3.80 L (4.7-6.1) M/uL Hgb 9.1 L (14.0-18.0) g/dL Hct 29.1 L (42-52) % MCV 76.6 L (80-100) fL MCH 23.9 L (25-34) pg MCHC 31.3 L (32-36) g/dL RDW Std Deviation 51.0 H (36.4-46.3) fL RDW Coeff of Cain 18.1 H (11.5-14.5) % Plt Count 207 (130-400) K/uL MPV 9.6 (7.4-10.4) fL Immature Gran % (Auto) 0.8 % Neut % (Auto) 75.6 % Lymph % (Auto) 7.5 % [place] % (Auto) 13.2 % Eos % (Auto) 2.6 % Baso % (Auto) 0.3 % Immature Gran # (Auto) 0.05 H (0.00-0.02) K/uL Neut # (Auto) 4.92 (1.4-6.5) K/uL Lymph # (Auto) 0.49 L (1.2-3.4) K/uL [place] # (Auto) 0.86 H (0.11-0.59) K/uL Eos # (Auto) 0.17 (0-0.5) K/uL Baso # (Auto) 0.02 (0-0.2) K/uL Sodium 142 (136-145) mmol/L Potassium 3.8 (3.5-5.1) mmol/L Chloride 112 H (98-107) mmol/L Carbon Dioxide 24 (21-32) mmol/L Anion Gap 6.0 (3-11) BUN 14 (7-18) mg/dl Creatinine 1.13 (0.6-1.4) mg/dl Est Cr Clr Drug Dosing 73.6 ml/min Est GFR ( Amer) 73.3 Est GFR (Non-Af Amer) 63.2 BUN/Creatinine Ratio 12.2 (10-20) Glucose 112 H (70-99) mg/dl POC Glucose 132 H (70-99) Calcium 7.6 L (8.5-10.1) mg/dl Magnesium 2.1 (1.8-2.4) mg/dl Crossmatch 02/01/19 Range/Units 01:56 WBC (4.8-10.8) K/uL RBC (4.7-6.1) M/uL Hgb (14.0-18.0) g/dL Hct (42-52) % MCV (80-100) fL MCH (25-34) pg MCHC (32-36) g/dL RDW Std Deviation (36.4-46.3) fL RDW Coeff of Cain (11.5-14.5) % Plt Count (130-400) K/uL MPV (7.4-10.4) fL Immature Gran % (Auto) % Neut % (Auto) % Lymph % (Auto) % [place] % (Auto) % Eos % (Auto) % Baso % (Auto) % Immature Gran # (Auto) (0.00-0.02) K/uL Neut # (Auto) (1.4-6.5) K/uL Lymph # (Auto) (1.2-3.4) K/uL [place] # (Auto) (0.11-0.59) K/uL Eos # (Auto) (0-0.5) K/uL Baso # (Auto) (0-0.2) K/uL Sodium (136-145) mmol/L Potassium (3.5-5.1) mmol/L Chloride (98-107) mmol/L Carbon Dioxide (21-32) mmol/L Anion Gap (3-11) BUN (7-18) mg/dl Creatinine (0.6-1.4) mg/dl Est Cr Clr Drug Dosing ml/min Est GFR ( Amer) Est GFR (Non-Af Amer) BUN/Creatinine Ratio (10-20) Glucose (70-99) mg/dl POC Glucose (70-99) Calcium (8.5-10.1) mg/dl Magnesium (1.8-2.4) mg/dl Crossmatch See Detail (1) BPH (benign prostatic hyperplasia) Lower urinary tract symptom detail: unspecified Lower urinary tract symptom presence: symptoms present Qualified Code(s): N40.1 - Benign prostatic hyperplasia with lower urinary tract symptoms (2) Diabetes Diabetes mellitus complication status: without complication 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 Diabetes mellitus type: type 2 Qualified Code(s): E11.9 - Type 2 diabetes mellitus without complications (3) Atrial fibrillation Atrial fibrillation type: permanent Qualified Code(s): I48.2 - Chronic atrial fibrillation (4) Syncope Syncope type: unspecified Qualified Code(s): R55 - Syncope and collapse (5) Iron deficiency anemia Iron deficiency anemia type: chronic blood loss Qualified Code(s): D50.0 - Iron deficiency anemia secondary to blood loss (chronic) (6) Obesity Body mass index: BMI 35.0-35.9 Obesity classification: adult class 2 (BMI 35 - 39.9) Obesity type: unspecified obesity type Serious obesity comorbidity presence: with serious comorbidity Qualified Code(s): E66.01 - Morbid (severe) obesity due to excess calories; Z68.35 - Body mass index (BMI) 35.0-35.9, adult
[2019-02-04] MEDS: TAMSULOSIN HCL 0.4 MG CAP PO SCH (20:07)
--- NOTE | 2019-02-04 22:16 | XRay Report ---
XR KUB/Abdomen 1 view CLINICAL HISTORY: 74 years-old Male presenting with right stent leaking. TECHNIQUE: Single supine view of the abdomen was obtained. COMPARISON: 02/01/2019. FINDINGS: Moderate stool burden throughout the colon. Nonobstructive bowel gas pattern. No gross pneumoperitone um. Interval removal of the left ureteral stent. Additionally, the right ureteral stent has been displace d distally with the distal terminus potentially within the penile urethra. There is loss of the pigta il morphology at the proximal terminus. Degenerative changes of the spine. Partially visualized pacer leads at the lung bases. IMPRESSION: 1. Complete displacement of the left ureteral stent and significant displacement of the right ureter al stent since the prior exam. The distal terminus of the right ureteral stent may be within the peni le urethra. Electronically signed by: Greyson Anne M.D. 02/04/2019 10:14 PM
[2019-02-05 06:18] LABS: Basophils # (auto) 0.02 K/uL (0-0.2); Basophils % (auto) 0.5 %; Eosinophils # (auto) 0.13 K/uL (0-0.5); Eosinophils % (auto) 3.1 %; Hematocrit (blood only) 28.3 % (42-52); Hemoglobin 8.8 g/dL (14.0-18.0); Immature Granulocytes # (auto) 0.04 K/uL (0.00-0.02); Lymphocytes % (auto) 14.4 %; Mean Corpuscular Hgb Conc 31.1 g/dL (32-36); Mean Corpuscular Volume 77.3 fL (80-100); Mean Platelet Volume 9.9 fL (7.4-10.4); Monocytes # (auto) 0.65 K/uL (0.11-0.59); Monocytes % (auto) 15.6 %; Neutrophils # (auto) 2.74 K/uL (1.4-6.5); Neutrophils % (auto) 65.4 %; Platelet Count 212 K/uL (130-400); RDW Coefficient of Variation 18.3 % (11.5-14.5); RDW Standard Deviation 51.7 fL (36.4-46.3); Red Blood Count 3.66 M/uL (4.7-6.1); White Blood Count 4.18 K/uL (4.8-10.8)
[2019-02-05 06:36] LABS: BUN Creatinine Ratio 14.9 (10-20); Calcium 7.9 mg/dl (8.5-10.1); Creatinine Clr Calc Pharmacy 78.2 ml/min; Est GFR (African American) 78.3; Est GFR (Non-African American) 67.5; Potassium 3.6 mmol/L (3.5-5.1)
[2019-02-05 07:29] LABS: RBC Morphology Unremarkable
[2019-02-05] MEDS: FAMOTIDINE 20 MG TAB PO SCH (07:54)
[2019-02-05] MEDS: CARVEDILOL 6.25 MG TAB PO SCH (07:54)
[2019-02-05] MEDS: AMLODIPINE BESYLATE 5 MG TAB PO SCH (07:54)
[2019-02-05] MEDS: INSULIN ASPART 100 UNITS/ML 3 ML PEN SC SCH ×2 (07:54→11:43)
[2019-02-05] MEDS: FERROUS SULFATE 325 MG TAB PO SCH (07:54)
[2019-02-05] MEDS: MAGNESIUM OXIDE 400 MG TAB PO SCH (07:55)
[2019-02-05] MEDS: SERTRALINE HCL 50 MG TABLET PO SCH (07:55)
[2019-02-05] MEDS: INSULIN GLARGINE SOLOSTAR 100 UNITS/ML 3 ML PEN SC SCH (07:55)
[2019-02-05] MEDS: PREGABALIN 25 MG CAP PO SCH (07:58)
[2019-02-05] MEDS ORDERED: FUROSEMIDE 20 MG TAB PO SCH (09:00)
--- NOTE | 2019-02-05 10:17 | Discharge Summary ---
Date of Service February 05, 2019 Admission HPI Per Admitting Provider 74 y/oM presented with constant urinary retention beginning x 1 day. Catheter stopped draining yesterday afternoon and had several blood clots in it. Catheter was placed post urology procedure on 01/25. A/w pelvis/groin pain. Pt taking Elequis for his a-fib. Denies any f/c, sob, chest pain, abdominal pain, n/v. Of note: Pt had left renal stone removal, L ureteral stent exchange and biopsy of ulcer in proximal ureter on 01/25. Pt was recently admitted on 12/29 for similar issue, hematuria and clots blocking catheter from draining. ED course: Bladder was irrigated with 3 foleys which clogged and about 600cc of clot were removed then a and 3-way catheter was placed with an additional 300cc removal and continues bladder irrigation started. Dr. Melendez was called who noted that additional hand irrigation may be required. Found to be hypertensive and tachycardic. Hgb 10.8 (around baseline), Cr improved from 1.7 on 01/14 to 1.4 today. Given: Fentanyl 50mcg IV, Fentanyl 75mcg IV, Lopressor 5mg IV Principal Diagnosis Gross hematuria, symptomatic bradycardia Discharge Exam Constitutional WD/WN, vitals as above Eyes PERRL, conjunctivae normal, anicteric sclerae Neck trachea midline, no thyromegaly Respiratory normal respiratory effort, lungs clear to auscultation Cardiovascular Rate/Rhythm: regular rate; + abnormal rhythm (Irregularly irregular) Heart Sounds: no murmur Extremities: + edema (2+ pitting edema legs bilaterally) Gastrointestinal (Abdomen) normal bowel sounds, soft, nontender, no hepatosplenomegaly Musculoskeletal Extremities: extremities normal to inspection; no cyanosis and no clubbing Skin no rashes, warm and dry (Dressing in place over left anterior chest wall clean dry and intact) Neurologic moves all extremities and awake; no focal motor deficits Psychiatric Orientation: alert and oriented x 3 Discharge Data Allergies Allergy/AdvReac Type Severity Reaction Status Date / Time No Known Allergies Allergy Verified 02/01/19 02:02 Consultations 02/01/19 02:39 ED Decision to Admit Stat 02/01/19 03:34 Consult Urology Routine 02/01/19 05:01 Consult Urology Routine 02/01/19 13:17 Consult Cardiology Routine Procedures Performed Operation Date: 02/02/19 08:00 Actual Procedures p Pacer with A/V Leads (Dual) - Omkar Trinidad MD s Venogram, Unilateral - Omkar Trinidad MD Operation Date: 02/03/19 13:05 Actual Procedures p Cystoscopy, Bilateral Retrograde Pyelogram, Bilateral Ureteroscopy, Bilateral Laser Lithotripsy - Edin Hankins MD s right Ureteral Stent Exchange - Edin Hankins MD Chest x-ray Ordered Studies 02/02/19 06:45 EP Lab Images for PACS ONCE 02/03/19 13:10 FL retrograde includes kub Routine Hospital Course (1) Bradycardia: In the setting of probable vasovagal type event as the severe bradycardia occurred while straining at stool. This was a severe episode with probable escape rhythm noted on tele and the event was quite prolonged (20+ seconds). He lost consciousness. He also had another syncopal episode about 2 years ago - etiology at that time was uncertain, but easily could have been similar to today's event. s/p permanent pacemaker placement on 02/[address] Trinidad without incident. Pacer is functioning well. Can be discharged as per cardiology -Continue carvedilol 6.25 mg p.o. twice daily (2) Syncope: see discussion above in "bradycardia". no recurrent events. s/p pacer placement on 02/02 (3) Clot retention of urine: copious bladder clots leading to urinary retention in the setting of chronic eliquis use. eliquis remains on hold 3-way gaviria with CBI was initially performed and was successful in stopping his bleeding No hematuria for several days prior to discharge the patient just had a urological procedure about 1 week prior to admission including - cystoscopy, Left RGP, Left Ureteral Stent Exchange, Left URS, stone extraction, laser lithotripsy, and biopsy of ureter. This was the most likely source of his clots/hematuria in the setting of taking Eliquis Now status post Cystoscopy, Bilateral Retrograde Pyelogram, Bilateral Uretero scopy, Bilateral Laser Lithotripsy, with right Ureteral Stent Exchange on 02/03 Gaviria catheter was removed after the procedure and he no longer has a stent on the left. -Watch for recurrent hematuria -Discussed the case with urology-they may remove his right ureteral stent in the office on Thursday-arrangements will be made for this appointment and he should have a KUB prior to his appointment -Neurology recommends continuing to hold Eliquis until after stent removal (4) Acute blood loss anemia: due to bleeding. Although ferritin c/w severe Fe deficiency which points towards a more chronic anemia Hemoglobin trended downward to 7.2 randell-now appropriately increased to 9.1 after transfusion of 2 units of PRBCs on 02/03, hemoglobin was 8.8 on the day of discharge No further bleeding -Follow CBC in 3-5 days at rehab (5) Iron deficiency anemia: started ferrous sulfate 325mg BID see above in "acute blood loss" -Would recommend GI workup with EGD and colonoscopy as an outpatient when stabilized. (6) Kidney stone: management per urology pelvic stone on right, ureteral stone on left as well Now status post lithotripsy with left-sided stone gone and right-sided stones likely remain with stent in place Management as per urology with follow-up appointment scheduled for Thursday (7) Acute renal insufficiency: Secondary to obstruction. Resolved s/p gaviria with CBI. Follow BMP in 3-5 days (8) BPH (benign prostatic hyperplasia): cont Flomax No evidence of urinary retention since Gaviria catheter was removed (9) Diabetes: Blood sugars well controlled, hemoglobin A1c 6.6% in 12/2018 -Cont lantus 10 units daily cont novolog ac/hs. DM diet. (10) Atrial fibrillation: Rates well controlled -Continue Coreg. -Continue holding eliquis due to hematuria and restart after stent removal as per urology recommendations s/p pacer placement -- see above. (11) Obesity: BMI 37 (12) HTN (hypertension), benign: Blood pressures controlled -Cont norvasc and carvedilol at increased dose of 6.25 mg twice daily -Was holding furosemide and lisinopril from home due to GRETCHEN earlier in the stay but have since restarted Lasix as his weight is trending upward -DC lisinopril (13) CKD (chronic kidney disease) stage 3, GFR 30-59 ml/min: baseline Cr about 1 or 1.1 (14) DVT prophylaxis: SCDs chemical means contraindicated due to hematuria PT, OT evals recommending rehab placement Disposition-stable for discharge today to a swing bed at [facility] for rehab Total Time Total Time Spent Total Time Spent (In Minutes): Greater than 30 minutes Total Time Includes: Examination of the Patient, Discharge Planning and Medication Reconciliation Discharge Plan Discharge Items Patient Disposition: Home - Self-Care Reason For Visit: HEMATURIA Discharge Diagnosis: Gross hematuria, symptomatic bradycardia Condition: Good Discharge Goals: Diagnostic testing, Improve disease control, Learn about illness and Therapeutic intervention Activity: As commented below Lifting Comment: No lifting with left upper extremity Bathing: Keep incision dry Exercise/Sports: As tolerated Exercise Comment: With PT/OT, no raising of left upper extremity above the level of the shoulder Non-emergency contact: Primary Care Provider, Conservation Specialist and Urologist Call non-emergency contact if: you have any medication questions, your symptoms worsen, your pain is not controlled, your pain is worsening, your pain is unusual for you, your pain is concerning for you, you have a fever, your temperature is above 101, your wound has increased redness, your wound has increased drainage and your wound pain has increased Follow-up/Referrals: Omkar Trinidad MD [Physician] - 03/09/19 3:00 pm Martha Penn CRNP [Nurse Practitioner] - 02/07/19 1:40 pm (with KUB (please go to [facility] before appointment to have x-ray done prior to visit)) Yeyo Melendez DO [Primary Care Provider] - Diet: Heart Healthy Addtl Provider Instructions: You were admitted with gross hematuria and had your Eliquis put on hold for now. You required a blood transfusion. Urology treated your stones and placed a new stent in the right ureter. Please follow-up with them as scheduled on Thursday for possible stent removal. The Eliquis should continue to be on hold until after stent removal as per urology recommendations. You had a pacemaker placed due to bradycardia that was symptomatic and caused syncope. Please follow-up with the urologist, project controls scheduler, and a primary care physician as scheduled after discharge. ACTIVITY RECOMMENDATIONS: * Do not raise affected arm over head for 2 weeks. SPECIAL CARE INSTRUCTIONS: * If bleeding occurs, apply direct pressure to area for 5 minutes. * Call your doctor if you have severe pain, fever, drainage or bleeding at site. * Keep dressing on and dry for 24 hours then remove (remove on 02/05/2019). * Keep any scheduled doctor's appointment. * Implant Card - hand held device with website information given. SKIN IRRITATION: * You may experience some redness and/or swelling in the area where radiation was administered. If any skin irritation occurs, please contact your family physician. FOLLOW UP VISIT: Keep any scheduled doctor appointments. Prescriptions: New carvedilol 6.25 mg Tablet 6.25 mg PO BID Qty: 60 RF: 0 Novolog Flexpen U-100 Insulin 100 unit/mL (3 mL) Insulin Pen 1 units SC ACHS Qty: 1 RF: 0 Lantus Solostar U-100 Insulin 100 unit/mL (3 mL) Insulin Pen 10 unit SC QAM Qty: 3 RF: 0 temazepam 15 mg Capsule 15 mg PO HS PRN (Reason: sleep) Qty: 3 RF: 0 hydrocodone-acetaminophen [[place]] 5-325 mg Tablet 1 tab PO Q4H PRN (Reason: pain) Qty: 10 RF: 0 Continued amlodipine 5 mg tablet 5 mg PO BID RF: 0 tamsulosin 0.4 mg capsule 0.4 mg PO HS RF: 0 furosemide 20 mg Tablet 20 mg PO QAM Qty: 30 RF: 2 famotidine 20 mg Tablet 20 mg PO QAM RF: 0 ferrous sulfate 325 mg (65 mg iron) Tablet,Delayed Release (Dr/Ec) 325 mg PO BID RF: 0 Lyrica 25 mg Capsule 25 mg PO BID RF: 0 magnesium oxide 400 mg Capsule 400 mg PO QAM RF: 0 acetaminophen [Tylenol] 325 mg Capsule 650 mg PO Q6H PRN (Reason: Pain) RF: 0 oxybutynin chloride 5 mg Tablet 5 mg PO Q8H PRN (Reason: Bladder Spasms) RF: 0 cranberry extract 425 mg Capsule 425 mg PO DAILY RF: 0 metformin [Glucophage] 500 mg tablet 500 mg PO BID RF: 0 melatonin 3 mg Tablet 3 mg PO HS RF: 0 docusate sodium 100 mg Capsule 100 mg PO QAM RF: 0 sertraline [Zoloft] 50 mg tablet 50 mg PO QAM RF: 0 Changed Eliquis 5 mg tablet 5 mg PO BID Qty: 0 RF: 0 Discontinued lisinopril 40 mg tablet 40 mg PO QAM RF: 0 oxycodone-acetaminophen [Percocet] 7.5-325 mg tablet 1 tab PO Q8H PRN (Reason: pain) Qty: 7 RF: 0 carvedilol 3.125 mg tablet 3.125 mg PO BID RF: 0 temazepam [Restoril] 15 mg capsule 15 mg PO HS PRN (Reason: Restless Leg(S)) RF: 0 Stand-Alone Forms: [facility] Discharge Orders: Discharge Order (Routine); Ordered 02/05/19 Ordered By: Haylie Rodgers Admission Data Admit Date/Time: 02/01/19 03:44 Attending Provider: Haylie Rodgers Admit Provider: Thien Zamorano Primary Care Provider: Yeyo Melendez Other Providers: Munir Melendez I. ; Thien Zamorano ; Omkar Trinidad Service: Telemetry Other Interventions: Discharge Summary Assessment (RN) Last Done: 02/05/19 11:11 Pending Studies at Discharge: No DC Date/Time DO NOT enter until pt leaves facility: 02/05/19 14:52
--- NOTE | 2019-02-05 12:19 | Urology Progress Note ---
Date of Service February 05, 2019 pt pulled stent out inadvertently 70 percent and a kub last night showed the stent partially out. Pt voiding clear urine . Pvr today 230 cc . Urine clear . Pt going to rehab today Physical Exam Vital Signs (Past 24 Hours): Last Vital Signs Temp 36.6 C 02/05/19 11:11 Pulse 67 02/05/19 11:11 Resp 20 02/05/19 11:11 BP 121/74 02/05/19 11:11 Pulse Ox 100 02/05/19 11:11
[2019-02-10 07:41] LABS: Component 2 DNR
== END 2019-02-05 14:52 | disposition home or self-care (01) | DRG 243 ==
LOC: ED 01:01 → SUATTDRO 03:44 → 2E 03:44

== ENCOUNTER 2022-07-22 09:13 | Inpatient (IN) ==
[2022-07-22] MEDS ORDERED: SODIUM CHLORIDE 0.9% 1000ML 1,000 ML IV SCH (10:15)
--- NOTE | 2022-07-22 10:38 | XRay Report ---
XR chest 1V portable CLINICAL HISTORY: Sepsis TECHNIQUE: Single frontal radiograph of the chest was obtained. Comparison: Comparison is made to chest radiograph 11/21/2021 FINDINGS: Dual lead pacemaker is seen. Cardiomegaly is noted. Calcified aortic knob is seen. There is a left re trocardiac opacity. No evidence of pleural effusion or pneumothorax. IMPRESSION: Left retrocardiac opacity may represent atelectasis, pneumonia, and/or aspiration. ACT 112: Negative or not required by law. Electronically signed by: Willy Franz M.D. 07/22/2022 10:37 AM
[2022-07-22 10:48] LABS: Hematocrit (blood only) 29.5 % (40.1-51.0); Hemoglobin 9.3 g/dl (14.0-18.0); Mean Corpuscular Hemoglobin 26.6 pg (25.0-34.0); Mean Corpuscular Hgb Conc 31.5 g/dL (32.0-36.0); Mean Corpuscular Volume 84.5 fL (80.0-100.0); Mean Platelet Volume 10.4 fL (9.4-12.4); Platelet Count 305 K/uL (130-400); RDW Coefficient of Variation 14.6 % (11.5-14.5); RDW Standard Deviation 44.1 fL (36.4-46.3); Red Blood Count 3.49 M/uL (4.63-6.08); White Blood Count 28.75 K/ul (4.8-10.8)
[2022-07-22 10:50] LABS: Appearance Urine Turbid (Clear); Color Urine Brown; Specific Gravity Urine 1.023 (1.000-1.030)
[2022-07-22 10:54] LABS: RBC Urine >30 /hpf (0-4); WBC Urine >30 /hpf (0-5)
[2022-07-22 10:55] LABS: Bacteria Urine 4+ (Negative); Epithelial Cell Urine 0-5 /lpf (0-5); Hyaline Casts Urine 0-5 /lpf (0-5); Renal Epithelial Cells Urine 0-5 /lpf (0-5)
[2022-07-22 10:55] LABS: INR 1.3 (0.9-1.1); Prothrombin Time 13.4 Seconds (9.0-12.0)
[2022-07-22] MEDS ORDERED: CEFEPIME 2,000 MG/20 ML VIAL IV STA (10:55)
--- NOTE | 2022-07-22 10:58 | Emergency Department Note ---
History of Present Illness General Chief complaint: Weakness Time Seen by Provider: 07/22/22 10:01 Source: patient Mode of arrival: ambulatory Limitations: no limitations History of Present Illness Provider complaint: weakness Maximum Pain Intensity: 8 This is a 77-year-old male presents emergency department with concern for weakness. Patient states he underwent removal of kidney stones yesterday and was discharged home. He states this morning he felt weak and he attempted to stand up at bedside and slowly fell back against the bed and slid down to the floor onto his butt. He denies any head trauma. He denies any concern for injury with this. Patient states he did not wait for his aide/caregivers to help him. Patient states he has had kidney stones previously. He states the c atheter was left in place after the procedure and it has been dark and at times bloody looking. He states he was told this is normal. He states he did eat and drink normally last night. He states he does not believe he was discharged on any prophylactic antibiotics. Home Medications Medication Instructions Recorded Confirmed Type blood-glucose meter (Accu-Chek #1 ea 06/12/21 07/11/22 Rx Guide Glucose Meter) lancets (Accu-Chek Softclix #100 ea 06/12/21 07/11/22 Rx Lancets) plastic urinal #2 ea 07/18/21 07/11/22 Rx Hospital Bed Homecare (Hospital #1 ea 08/22/21 07/11/22 Rx Bed) Power Wheel Chair Repair #1 ea 11/20/21 07/11/22 Rx acetaminophen 650 mg 650 mg PO BID 11/21/21 07/21/22 History tablet,extended release omega-3 fatty acids 2,000 mg PO BID 11/21/21 07/11/22 History nebulizer #1 ea 11/22/21 07/11/22 Rx Foot plate for power scooter #1 ea 02/26/22 07/11/22 Rx apixaban 5 mg tablet (Eliquis) 5 mg PO BID #180 tabs 02/27/22 07/21/22 Rx diaper,brief,adult,disposable #200 ea 03/04/22 07/11/22 Rx disposable gloves (Disposable #100 ea 03/04/22 07/11/22 Rx Latex-Free Gloves) underpads (Bed Underpads) #4 ea 03/04/22 07/11/22 Rx amlodipine 5 mg tablet 5 mg PO QAM #90 tabs 03/27/22 07/21/22 Rx ferrous sulfate 325 mg (65 mg 325 mg PO BID #180 tabs 03/27/22 07/21/22 Rx iron) tablet,delayed release blood sugar diagnostic (Accu-Chek #100 ea 06/13/22 07/11/22 Rx Guide test strips) ARM REST FOR POWER WHEELCHAIR #1 ea 06/17/22 07/11/22 Rx furosemide 20 mg tablet 20 mg PO QAM 06/17/22 07/21/22 History glimepiride 1 mg tablet 1 mg PO QAM 06/17/22 07/21/22 History levothyroxine 50 mcg tablet 50 mcg PO QAM 06/17/22 07/21/22 History magnesium oxide 400 mg PO QAM 06/17/22 07/21/22 History omeprazole 40 mg capsule,delayed 40 mg PO QAM 06/17/22 07/21/22 History release sertraline 50 mg tablet (Zoloft) 50 mg PO HS 06/17/22 07/21/22 History carvedilol 6.25 mg tablet 6.25 mg PO BIDM #180 tabs 06/18/22 07/21/22 Rx oxycodone-acetaminophen 7.5 mg-325 1 tab PO Q8H PRN pain #7 tabs 06/26/22 07/21/22 Rx mg tablet (Percocet) phenazopyridine 200 mg tablet 200 mg PO Q8H PRN pain #10 tabs 06/26/22 07/21/22 Rx (Pyridium) tamsulosin 0.4 mg capsule 0.4 mg PO HS #30 caps 06/26/22 07/21/22 Rx amoxicillin 875 mg-potassium 1 tab PO BID #20 tabs 07/09/22 07/21/22 Rx clavulanate 125 mg tablet ciprofloxacin HCl 500 mg tablet 500 mg PO BID #6 tabs 07/11/22 07/21/22 Rx (Cipro) ciprofloxacin HCl 500 mg tablet 500 mg PO Q12H #14 tabs 07/21/22 Rx (Cipro) oxybutynin chloride 5 mg tablet 5 mg PO Q8H PRN bladder spasms #20 07/21/22 Rx tabs oxycodone-acetaminophen 7.5 mg-325 1 tab PO Q8H PRN pain #7 tabs 07/21/22 Rx mg tablet (Percocet) phenazopyridine 200 mg tablet 200 mg PO Q8H PRN pain #10 tabs 07/21/22 Rx (Pyridium) tamsulosin 0.4 mg capsule 0.4 mg PO HS #30 caps 07/21/22 Rx Allergies Allergy/AdvReac Type Severity Reaction Status Date / Time No Known Allergies Allergy Verified 07/21/22 07:50 Past Med/Surg History Medical History (Updated 07/23/22 @ 18:14 by Blossom Lyn DO) Acute kidney injury Anxiety Atrial fibrillation dual chamber pacemaker, Medtronic, follows with [facility], on Eliquis BPH (benign prostatic hyperplasia) CHF (congestive heart failure) EF 55-60% per 2019 ECHO Chronic pain CKD (chronic kidney disease) stage 3, GFR 30-59 ml/min no specialist per pt Depression Diabetes NIDDM Difficult intubation h/o glidescope intubation 06/26/22. GERD (gastroesophageal reflux disease) HTN (hypertension), benign Hyperkalemia Hyperlipidemia Hypothyroidism Iron deficiency anemia Kidney stones bilateral On anticoagulant therapy Pacemaker Last checked 05/2022. Medtronic device. placed in 2019 at [facility] Surgical History (Updated 07/23/22 @ 18:14 by Blossom Lyn DO) H/O cystoscopy H/O ureteroscopy (~2018) with stent placements History of colonoscopy History of cystoscopy with stent 06/26/22: Grade 1 view, Glidescope 4. ETT 8. Hx of lithotripsy S/P cardiac pacemaker procedure placed in 2019 [facility]> last checked Dec 2021 Family History Grandfather Myocardial infarction Other Family history non-contributory No family history of adverse response to anesthesia Denies family history of Colon cancer Ovarian cancer Prostate cancer Breast cancer Social History Smoking Status: Never smoker Second Hand Exposure: No; Do You Dip or Chew Tobacco: No; Hx Alcohol Use: No Hx Substance Use: No Preferred Language: Fijian Communication Ability: Effective Visual Impairment: No Limitations Hearing Ability: Normal Girl Friday Required: No Beliefs That Will Affect Care: None marital status: Single Current Living Situation: Alone Current Living Situation Comment: [employer] helps to take care of him but then leaves current occupational status: 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 Feels Safe at Home: Yes and No Is there a partner from a previous relationship who is making you feel unsafe now?: No Any Concerns about Your Family Situation: Yes (no home care at night) Would You Like to Speak to Someone About Your Situation: Yes (wants to set up night time home care) Safety Concerns: Afraid for Self Childhood Exposure to Second-Hand Smoke: No Dental Care, Regularly: No Physical Activity Frequency: Does not Exercise Seatbelt Use: always Sunscreen Use: No Assistive Devices: Cane, Hospital Bed, Walker and Wheelchair Review of Systems A total of 10 systems reviewed and were otherwise negative All systems reviewed & are unremarkable except as noted in HPI & below Physical Exam Vital Signs Vital Signs - 24 hr 07/22/22 08:51 07/22/22 08:51 07/22/22 08:51 Temperature 36.7 C Temperature Source Oral Pulse Rate 80 Pulse Rate from SpO2 Sensor Pulse Rhythm Regular Pulse Strength Normal Respiratory Rate 16 16 Respiratory Effort / Characteristics Non-Labored Non-Labored Respiratory Depth Normal Normal Respiratory Pattern Regular Regular Blood Pressure 98/60 L Blood Pressure Mean 72 Blood Pressure Position Lying Pulse Oximetry 94 96 Oxygen Delivery Method Room Air Room Air Oxygen Flow Rate 6 Sepsis Recent Fever Within 48 Hours No Sepsis New/Unexplained Change in Mental Status No Sepsis Action Taken by Nursing No Action Required Oxygen Flow Rate - Titration 0 Pulse Oximetry Post Tiitration 94 07/22/22 09:19 07/22/22 09:20 07/22/22 09:50 Temperature Temperature Source Pulse Rate 78 Pulse Rate from SpO2 Sensor 79 Pulse Rhythm Pulse Strength Respiratory Rate 30 H Respiratory Effort / Characteristics Respiratory Depth Respiratory Pattern Blood Pressure 79/59 L 98/60 L Blood Pressure Mean 65 72 Blood Pressure Position Pulse Oximetry 90 Oxygen Delivery Method Oxygen Flow Rate Sepsis Recent Fever Within 48 Hours Sepsis New/Unexplained Change in Mental Status Sepsis Action Taken by Nursing Oxygen Flow Rate - Titration Pulse Oximetry Post Tiitration 07/22/22 11:10 07/22/22 11:15 07/22/22 11:15 Temperature Temperature Source Pulse Rate 90 87 Pulse Rate from SpO2 Sensor 88 86 Pulse Rhythm Pulse Strength Respiratory Rate 25 H 28 H Respiratory Effort / Characteristics Respiratory Depth Respiratory Pattern Blood Pressure 87/49 L 75/52 L Blood Pressure Mean 61 59 Blood Pressure Position Pulse Oximetry 92 92 Oxygen Delivery Method Oxygen Flow Rate Sepsis Recent Fever Within 48 Hours Sepsis New/Unexplained Change in Mental Status Sepsis Action Taken by Nursing Oxygen Flow Rate - Titration Pulse Oximetry Post Tiitration 07/22/22 11:17 07/22/22 11:17 07/22/22 11:57 Temperature Temperature Source Pulse Rate 81 Pulse Rate from SpO2 Sensor 81 Pulse Rhythm Pulse Strength Respiratory Rate 19 Respiratory Effort / Characteristics Respiratory Depth Respiratory Pattern Blood Pressure 87/43 L 124/53 L Blood Pressure Mean 57 76 Blood Pressure Position Pulse Oximetry 92 Oxygen Delivery Method Oxygen Flow Rate Sepsis Recent Fever Within 48 Hours Sepsis New/Unexplained Change in Mental Status Sepsis Action Taken by Nursing Oxygen Flow Rate - Titration Pulse Oximetry Post Tiitration 07/22/22 11:57 07/22/22 12:02 07/22/22 12:02 Temperature Temperature Source Pulse Rate 87 84 Pulse Rate from SpO2 Sensor 84 99 H Pulse Rhythm Pulse Strength Respiratory Rate 26 H 25 H Respiratory Effort / Characteristics Respiratory Depth Respiratory Pattern Blood Pressure 105/53 L Blood Pressure Mean 70 Blood Pressure Position Pulse Oximetry 92 93 Oxygen Delivery Method Oxygen Flow Rate Sepsis Recent Fever Within 48 Hours Sepsis New/Unexplained Change in Mental Status Sepsis Action Taken by Nursing Oxygen Flow Rate - Titration Pulse Oximetry Post Tiitration 07/22/22 12:31 07/22/22 12:31 07/22/22 12:55 Temperature Temperature Source Pulse Rate 91 H Pulse Rate from SpO2 Sensor 87 Pulse Rhythm Pulse Strength Respiratory Rate 22 Respiratory Effort / Characteristics Respiratory Depth Respiratory Pattern Blood Pressure 89/47 L 98/65 L Blood Pressure Mean 61 76 Blood Pressure Position Pulse Oximetry 90 Oxygen Delivery Method Oxygen Flow Rate Sepsis Recent Fever Within 48 Hours Sepsis New/Unexplained Change in Mental Status Sepsis Action Taken by Nursing Oxygen Flow Rate - Titration Pulse Oximetry Post Tiitration 07/22/22 12:55 07/22/22 13:00 07/22/22 13:00 Temperature Temperature Source Pulse Rate 89 85 Pulse Rate from SpO2 Sensor 90 90 Pulse Rhythm Pulse Strength Respiratory Rate 26 H 24 Respiratory Effort / Characteristics Respiratory Depth Respiratory Pattern Blood Pressure 104/61 Blood Pressure Mean 75 Blood Pressure Position Pulse Oximetry 93 92 Oxygen Delivery Method Oxygen Flow Rate Sepsis Recent Fever Within 48 Hours Sepsis New/Unexplained Change in Mental Status Sepsis Action Taken by Nursing Oxygen Flow Rate - Titration Pulse Oximetry Post Tiitration GENERAL: alert, well appearing, well nourished, no distress, non-toxic, BMI 29 EYE EXAM: normal conjunctiva, PERRL and EOM's grossly intact OROPHARYNX: no exudate, no erythema, lips, buccal mucosa, and tongue normal and mucous membranes are moist NECK: supple, no nuchal rigidity, no adenopathy, non-tender LUNGS: Clear to auscultation. Normal chest wall mechanics, no w/r/r HEART: no murmurs, S1 normal and S2 normal ABDOMEN: abdomen soft, non-tender, normo-active bowel sounds, no masses, no rebound or guarding. BACK: Back is symmetrical on inspection and there is no deformity, no midline tenderness, no CVA tenderness. SKIN: no rashes and no bruising UPPER EXTREMITIES: upper extremities are grossly normal. FROM, nml pulses b/l. LOWER EXTREMITIES: No pitting edema. FROM, nml pulses b/l. NEURO EXAM: Normal sensorium, cranial nerves II-XII grossly intact, normal speech, no gross weakness of arms, no gross weakness of legs. Gross sensation intact. Course Course 1105: Pt updated at bedside on results. Administered Medications Carvedilol (Carvedilol 3.125 Mg Tab) 3.125 mg PO BIDM [facility] Stop: 08/22/22 16:59 Last Admin: 07/23/22 16:58 Dose: 3.125 mg Documented By: TAN Cefepime HCl 1,000 mg/ Syringe 10 mls @ 5 mls/min IV Q12H [facility]; Protocol Stop: 07/24/22 15:59 Last Admin: 07/23/22 15:05 Dose: 5 mls/min Documented By: Admin: 07/23/22 04:02 Dose: 5 mls/min Documented By: Admin: 07/22/22 17:23 Dose: 5 mls/min Documented By: MARIBEL Insulin Aspart (Insulin Aspart Per Unit) 0 units SC ACHS [facility] Stop: 08/21/22 16:29 Last Admin: 07/23/22 17:16 Dose: 2 units Documented By: TAN Co-signed By: AM Admin: 07/23/22 12:41 Dose: 2 units Documented By: TAN Co-signed By: LEXA Admin: 07/23/22 08:19 Dose: 3 units Documented By: TAN Co-signed By: KANG Admin: 07/22/22 22:15 Dose: 2 units Documented By: JONO Co-signed By: KATHLEEN Admin: 07/22/22 17:21 Dose: 2 units Documented By: MARIBEL Co-signed By: PHILIP Insulin Glargine (Lantus Per Unit Charge) 9 units SQ BID [facility] Stop: 08/21/22 15:45 Last Admin: 07/23/22 08:29 Dose: 9 units Documented By: TAN Co-signed By: KANG Admin: 07/22/22 22:16 Dose: 9 units Documented By: JONO Co-signed By: KATHLEEN Admin: 07/22/22 16:38 Dose: 9 units Documented By: MARIBEL Co-signed By: BECKY Levothyroxine Sodium (Levothyroxine Sodium 50 Mcg Tablet) 50 mcg PO QAM [facility] Stop: 08/22/22 08:59 Last Admin: 07/23/22 08:14 Dose: 50 mcg Documented By: TAN Oxybutynin Chloride (Oxybutynin Chloride 5 Mg Tab) 5 mg PO Q8H PRN PRN Reason: bladder spasms Stop: 08/21/22 15:45 Last Admin: 07/23/22 08:14 Dose: 5 mg Documented By: TAN Pantoprazole Sodium (Pantoprazole 40 Mg Tab) 40 mg PO DAILY [facility] Stop: 08/22/22 08:59 Last Admin: 07/23/22 08:14 Dose: 40 mg Documented By: TAN Sertraline HCl (Sertraline Hcl 50 Mg Tablet) 50 mg PO HS [facility] Stop: 08/21/22 20:59 Last Admin: 07/22/22 22:16 Dose: 50 mg Documented By: JONO Discontinued Medications Carvedilol (Carvedilol 6.25 Mg Tab) 6.25 mg PO BIDM [facility] Stop: 08/21/22 16:59 Last Admin: 07/23/22 08:15 Dose: 6.25 mg Documented By: Admin: 07/22/22 17:23 Dose: 6.25 mg Documented By: MARIBEL Sodium Chloride (Nss 1000ml) 1,000 mls @ 125 mls/hr IV .Q8H [facility] Stop: 08/21/22 10:14 Last Infusion: 07/22/22 17:19 Dose: 0 mls/hr Documented By: Admin: 07/22/22 10:49 Dose: 125 mls/hr Documented By: DOMINICK Cefepime HCl (Maxipime) 2,000 mg in 20 mls @ 5 mls/min IV NOW STA; Protocol Stop: 07/22/22 10:58 Last Admin: 07/22/22 11:05 Dose: 5 mls/min Documented By: DOMINICK Sodium Chloride (Nss) 500 mls @ 999 mls/hr IV .Q31M ONE Stop: 07/22/22 11:58 Last Infusion: 07/22/22 12:02 Dose: 0 mls/hr Documented By: Admin: 07/22/22 11:35 Dose: 999 mls/hr Documented By: DOMINICK Metronidazole (Flagyl) 500 mg in 100 mls @ 100 mls/hr IV Q8H [facility]IE Stop: 07/24/22 16:14 Last Infusion: 07/23/22 09:51 Dose: 0 mls/hr Documented By: Admin: 07/23/22 08:26 Dose: 100 mls/hr Documented By: Infusion: 07/23/22 00:49 Dose: 0 mls/hr Documented By: Admin: 07/22/22 23:49 Dose: 100 mls/hr Documented By: Infusion: 07/22/22 19:36 Dose: 0 mls/hr Documented By: Admin: 07/22/22 18:36 Dose: 100 mls/hr Documented By: MARIBEL Sodium Chloride (Nss 1000ml) 1,000 mls @ 125 mls/hr IV .Q8H [facility]IE Stop: 07/23/22 07:45 Last Infusion: 07/23/22 07:58 Dose: 0 mls/hr Documented By: Admin: 07/22/22 23:50 Dose: 125 mls/hr Documented By: Infusion: 07/22/22 23:50 Dose: 125 mls/hr Documented By: Admin: 07/22/22 17:06 Dose: 125 mls/hr Documented By: MARIBEL Medical Decision Making Differential Diagnosis Differential Diagnosis includes but is not limited to dehydration, stroke, anemia, hypoglycemia, hyponatremia, hypernatremia, urinary tract infection, pneu monia, bronchitis, sepsis, gastroenteritis, additional abdominal pathology, metabolic abnormalities and infections. Medical Records Attestation: I reviewed the patient's medical records. Home Medications Current Medication List: was personally reviewed by me Laboratory Data Attestation: I reviewed the patient's lab results. Result diagrams: 07/23/22 09:40 07/23/22 06:49 Lab Results 07/22/22 07/22/22 07/22/22 Range/Units 10:22 10:24 10:34 WBC 28.75 H (4.8-10.8) K/ul RBC 3.49 L (4.63-6.08) M/uL Hgb 9.3 L (14.0-18.0) g/dl Hct 29.5 L (40.1-51.0) % MCV 84.5 (80.0-100.0) fL MCH 26.6 (25.0-34.0) pg MCHC 31.5 L (32.0-36.0) g/dL RDW Std Deviation 44.1 (36.4-46.3) fL RDW Coeff of Cain 14.6 H (11.5-14.5) % Plt Count 305 (130-400) K/uL MPV 10.4 (9.4-12.4) fL Immature Gran % (Auto) 1.6 % Neut % (Auto) 91.7 % Lymph % (Auto) 0.6 % Irion % (Auto) 5.9 % Eos % (Auto) 0.0 % Baso % (Auto) 0.2 % Neut # (Auto) 26.40 H (1.4-6.5) K/uL Lymph # (Auto) 0.16 L (1.2-3.4) K/uL Irion # (Auto) 1.69 H (0.24-0.82) K/uL Eos # (Auto) 0.00 (0-0.50) K/uL Baso # (Auto) 0.05 (0-0.2) K/uL Immature Gran # (Auto) 0.45 H (0.00-0.02) K/uL PT (9.0-12.0) Seconds INR (0.9-1.1) Sodium (136-145) mmol/L Potassium (3.5-5.1) mmol/L Chloride (98-107) mmol/L Carbon Dioxide (21-32) mmol/L Anion Gap (3-11) BUN (6-23) mg/dl Creatinine (0.6-1.4) mg/dl Est Cr Clr Drug Dosing ml/min Est GFR ( Amer) ml/min Est GFR (Non-Af Amer) ml/min BUN/Creatinine Ratio (10-20) Glucose (70-99(Fasting)) mg/dl Lactate (0.4-2.0) mmol/L Calcium (8.5-10.1) mg/dl Magnesium (1.7-2.4) mg/dl Total Bilirubin (0.2-1.0) mg/dl Direct Bilirubin (0-0.2) mg/dl AST (13-39) U/L ALT (7-52) U/L Alkaline Phosphatase (34-104) U/L Troponin I High Sens (0-20) pg/ml Total Protein (6.0-8.3) gm/dl Albumin (3.4-5.0) gm/dl Procalcitonin (0-0.5) ng/ml Urine Color Brown Urine Appearance Turbid A (Clear) Urine pH (4.5-7.5) Ur Specific [place] 1.023 (1.000-1.030) Urine Protein (Negative) Urine Glucose (UA) (Negative) Urine Ketones (Negative) Urine Blood (Negative) Urine Nitrite (Negative) Urine Bilirubin (Negative) Urine Urobilinogen (Negative) Ur Leukocyte Esterase (Negative) Urine RBC >30 H (0-4) /hpf Urine WBC >30 H (0-5) /hpf Ur Epithelial Cells 0-5 (0-5) /lpf Ur Renal Epithelial Cell 0-5 (0-5) /lpf Urine Bacteria 4+ H (Negative) Hyaline Casts 0-5 (0-5) /lpf Granular Casts 1-5 H (0) /lpf SARS-CoV-2, RNA, NAAT NEGATIVE (NEGATIVE) 07/22/22 07/22/22 07/22/22 Range/Units 10:34 10:34 10:34 WBC (4.8-10.8) K/ul RBC (4.63-6.08) M/uL Hgb (14.0-18.0) g/dl Hct (40.1-51.0) % MCV (80.0-100.0) fL MCH (25.0-34.0) pg MCHC (32.0-36.0) g/dL RDW Std Deviation (36.4-46.3) fL RDW Coeff of Cain (11.5-14.5) % Plt Count (130-400) K/uL MPV (9.4-12.4) fL Immature Gran % (Auto) % Neut % (Auto) % Lymph % (Auto) % Irion % (Auto) % Eos % (Auto) % Baso % (Auto) % Neut # (Auto) (1.4-6.5) K/uL Lymph # (Auto) (1.2-3.4) K/uL Irion # (Auto) (0.24-0.82) K/uL Eos # (Auto) (0-0.50) K/uL Baso # (Auto) (0-0.2) K/uL Immature Gran # (Auto) (0.00-0.02) K/uL PT (9.0-12.0) Seconds INR (0.9-1.1) Sodium 133 L (136-145) mmol/L Potassium 5.6 H (3.5-5.1) mmol/L Chloride 99 (98-107) mmol/L Carbon Dioxide 24 (21-32) mmol/L Anion Gap 10 (3-11) BUN 32 H (6-23) mg/dl Creatinine 2.63 H (0.6-1.4) mg/dl Est Cr Clr Drug Dosing 26.6 ml/min Est GFR ( Amer) 25.8 ml/min Est GFR (Non-Af Amer) 22.3 ml/min BUN/Creatinine Ratio 12.2 (10-20) Glucose 235 H (70-99(Fasting)) mg/dl Lactate 4.7 H* (0.4-2.0) mmol/L Calcium 8.6 (8.5-10.1) mg/dl Magnesium 2.0 (1.7-2.4) mg/dl Total Bilirubin 0.8 (0.2-1.0) mg/dl Direct Bilirubin 0.3 H (0-0.2) mg/dl AST 11 L (13-39) U/L ALT 7 (7-52) U/L Alkaline Phosphatase 60 (34-104) U/L Troponin I High Sens 23.8 H (0-20) pg/ml Total Protein 6.6 (6.0-8.3) gm/dl Albumin 3.4 (3.4-5.0) gm/dl Procalcitonin 7.08 H (0-0.5) ng/ml Urine Color Urine Appearance (Clear) Urine pH (4.5-7.5) Ur Specific [place] (1.000-1.030) Urine Protein (Negative) Urine Glucose (UA) (Negative) Urine Ketones (Negative) Urine Blood (Negative) Urine Nitrite (Negative) Urine Bilirubin (Negative) Urine Urobilinogen (Negative) Ur Leukocyte Esterase (Negative) Urine RBC (0-4) /hpf Urine WBC (0-5) /hpf Ur Epithelial Cells (0-5) /lpf Ur Renal Epithelial Cell (0-5) /lpf Urine Bacteria (Negative) Hyaline Casts (0-5) /lpf Granular Casts (0) /lpf SARS-CoV-2, RNA, NAAT (NEGATIVE) 07/22/22 07/22/22 Range/Units 10:34 12:23 WBC (4.8-10.8) K/ul RBC (4.63-6.08) M/uL Hgb (14.0-18.0) g/dl Hct (40.1-51.0) % MCV (80.0-100.0) fL MCH (25.0-34.0) pg MCHC (32.0-36.0) g/dL RDW Std Deviation (36.4-46.3) fL RDW Coeff of Cain (11.5-14.5) % Plt Count (130-400) K/uL MPV (9.4-12.4) fL Immature Gran % (Auto) % Neut % (Auto) % Lymph % (Auto) % Irion % (Auto) % Eos % (Auto) % Baso % (Auto) % Neut # (Auto) (1.4-6.5) K/uL Lymph # (Auto) (1.2-3.4) K/uL Irion # (Auto) (0.24-0.82) K/uL Eos # (Auto) (0-0.50) K/uL Baso # (Auto) (0-0.2) K/uL Immature Gran # (Auto) (0.00-0.02) K/uL PT 13.4 H (9.0-12.0) Seconds INR 1.3 H (0.9-1.1) Sodium (136-145) mmol/L Potassium (3.5-5.1) mmol/L Chloride (98-107) mmol/L Carbon Dioxide (21-32) mmol/L Anion Gap (3-11) BUN (6-23) mg/dl Creatinine (0.6-1.4) mg/dl Est Cr Clr Drug Dosing ml/min Est GFR ( Amer) ml/min Est GFR (Non-Af Amer) ml/min BUN/Creatinine Ratio (10-20) Glucose (70-99(Fasting)) mg/dl Lactate 0.6 (0.4-2.0) mmol/L Calcium (8.5-10.1) mg/dl Magnesium (1.7-2.4) mg/dl Total Bilirubin (0.2-1.0) mg/dl Direct Bilirubin (0-0.2) mg/dl AST (13-39) U/L ALT (7-52) U/L Alkaline Phosphatase (34-104) U/L Troponin I High Sens (0-20) pg/ml Total Protein (6.0-8.3) gm/dl Albumin (3.4-5.0) gm/dl Procalcitonin (0-0.5) ng/ml Urine Color Urine Appearance (Clear) Urine pH (4.5-7.5) Ur Specific [place] (1.000-1.030) Urine Protein (Negative) Urine Glucose (UA) (Negative) Urine Ketones (Negative) Urine Blood (Negative) Urine Nitrite (Negative) Urine Bilirubin (Negative) Urine Urobilinogen (Negative) Ur Leukocyte Esterase (Negative) Urine RBC (0-4) /hpf Urine WBC (0-5) /hpf Ur Epithelial Cells (0-5) /lpf Ur Renal Epithelial Cell (0-5) /lpf Urine Bacteria (Negative) Hyaline Casts (0-5) /lpf Granular Casts (0) /lpf SARS-CoV-2, RNA, NAAT (NEGATIVE) Imaging Data Radiologist's Impression: Chest X-Ray 07/22/22 10:11 XR chest 1V portable CLINICAL HISTORY: Sepsis TECHNIQUE: Single frontal radiograph of the chest was obtained. Comparison: Comparison is made to chest radiograph 11/21/2021 FINDINGS: Dual lead pacemaker is seen. Cardiomegaly is noted. Calcified aortic knob is seen. There is a left retrocardiac opacity. No evidence of pleural effusion or pneumothorax. IMPRESSION: Left retrocardiac opacity may represent atelectasis, pneumonia, and/or aspiration. ACT 112: Negative or not required by law. Electronically signed by: Willy Franz M.D. 07/22/2022 10:37 AM KUB X-Ray 07/22/22 10:59 KUB CLINICAL HISTORY: Nephrolithiasis. FINDINGS: 4 AP supine abdominal radiographs are compared to study dated 02/28/2022 and correlated with abdominal CT dated 07/22/2022. The examination is severely degraded by large body habitus. This significantly degrades evaluation for kidney stone. Bilateral ureteral stents are in place. No renal calculi are clearly identified projecting over either kidney or along the course of ureters. A Phipps catheter projects over the pelvis. There is no bowel obstruction. The bony structures appear intact. The heart is enlarged and pacemaker leads are noted. There is a left pleural effusion with left basilar consolidation. IMPRESSION: 1. Bilateral ureteral stents are in place. 2. There is no radiographic evidence of nephrolithiasis. This is not well assessed. 3. Left pleural effusion and left basilar consolidation. Electronically signed by: Monty De M.D. 07/22/2022 5:24 PM Abdomen/Pelvis CT 07/22/22 11:52 CT abd pelvis wo con CLINICAL HISTORY: GRETCHEN sepsis, recent lithotripsy, ?hydro/obstruction TECHNIQUE: Helical axial images of the abdomen and pelvis were obtained. Automated dose lowering techniques and/or adjustment according to patient size were utilized for this exam. This exam was performed without intravenous contrast. COMPARISON: None available at the time of this dictation. FINDINGS: Lower chest: There is a left pleural effusion and atelectasis. Cardiomegaly is noted. Liver: The liver cyst is noted in the gallbladder fossa. Gallbladder and biliary tree: No calcified gallstones. Normal caliber wall. No intra- or extrahepatic biliary ductal dilation. Pancreas: Unremarkable, no focal lesions. Spleen: Unremarkable. Adrenals: Unremarkable. Kidneys and ureters: There is a subcapsular hematoma about the left kidney as well as blood in the perinephric space. Bilateral UVJ stents are seen without evidence of hydronephrosis. Hyperdense material is noted in the bladder with a Phipps catheter in place. A right renal cyst is seen. Bladder: Unremarkable. Reproductive organs: Unremarkable. Bowel: Unremarkable. Lymph nodes Retroperitoneal: Unremarkable. Pelvic: Unremarkable. Mesenteric: Unremarkable. Peritoneum: Stranding is seen predominantly in the left peritoneum. Much of this appears to be high density. Vessels: Atherosclerotic calcifications are seen. Abdominal wall: Unremarkable. Bones: Degenerative changes in the visualized spine. IMPRESSION: There is interval development of a large left subcapsular hematoma and left retroperitoneal hemorrhage. No evidence of hydronephrosis or obstruction. ACT 112: Negative or not required by law. Electronically signed by: Willy Franz M.D. 07/22/2022 1:[address] 07/22/22 11:52 CT SCAN OF THE CHEST WITHOUT IV CONTRAST CLINICAL HISTORY: Hypoxia. COMPARISON STUDY: Chest x-ray dated 07/22/2022. TECHNIQUE: CT scan of the thorax was performed from the thoracic inlet to the upper abdomen. Images are reviewed in the axial, sagittal, and coronal planes. IV contrast was not administered for this examination as per the referring clini joseph. A dose lowering technique was utilized adhering to the principles of ALARA. The examination is degraded by motion artifact, as well as by streak artifact from the arms which could not be elevated above the upper chest. CT DOSE: 1740.42 mGycm FINDINGS: Thyroid: Atrophic and heterogeneous. Thoracic aorta: There is atherosclerotic calcification of the thoracic aorta, which is normal in caliber and demonstrates bovine variant arch anatomy. Heart: A cardiac pacemaker is present in the left chest wall. The heart is enlarged and without pericardial effusion. The coronary arteries are densely calcified. The main pulmonary arteries are dilated suggesting pulmonary artery hypertension. Lungs and pleural spaces: Evaluation of the lung parenchyma is compromised by motion artifact. There is a small left pleural effusion with left basilar consolidation. This likely represents segmental atelectasis comment there is associated volume loss in the left lung. Scarring/atelectasis is seen at the right lung base. The trachea and central airways appear clear. Mediastinum: There is no mediastinal lymphadenopathy. Inés: Not well assessed without IV contrast. Axillae: There is no axillary lymphadenopathy. Upper abdomen: There is subcapsular hemorrhage of the partially imaged left kidney with evidence of retroperitoneal hemorrhage below the left hemidiaphragm. A 2.5 cm cyst is noted in the left lobe of the liver. A tiny hiatal hernia is observed. There is a 2.6 cm adenoma of the right adrenal gland. Skeletal structures: The skeletal structures are osteopenic. Advanced degenerative change is noted in the shoulders and thoracic spine. No lytic or blastic bony lesions are seen. There are healed left-sided rib fractures. IMPRESSION: 1. There is subcapsular hemorrhage of the partially imaged left kidney with retroperitoneal hemorrhage seen below the left hemidiaphragm. 2. Small left pleural effusion and left basilar consolidation. This likely represents segmental atelectasis of the left lower lobe as there is c orresponding volume loss in the left lung. 3. The right lung appears clear. 4. Cardiomegaly and cardiac pacemaker. 5. Additional findings as above. ACT 112: Negative or not required by law. Electronically signed by: Monty De M.D. 07/22/2022 1:07 PM ECG Data Attestation: I personally reviewed and interpreted this ECG as follows: Indication: + weakness Rate (beats per minute): 76 Rhythm: + atrial fibrillation ECG Intervals/blocks: + Right Bundle branch block and + Normal QT ECG [place]: + Normal ECG ST segments: + Nonspecific ST abnormalities MDM Narrative An order was placed for continuous cardiac monitoring. The monitor shows a rate of _80__ with __atrial fibrillation_ rhythm. This is a 77-year-old male who presents due to concern for weakness and inability to stand this morning. Patient did have recent procedure for ureterolithiasis and does have an indwelling Phipps catheter. Urine in the catheter bag was dark and there was a scant amount of blood however patient is anticoagulated due to history of atrial fibrillation. Patient denied fevers or abdominal pain, however was asking to drink and stated he was thirsty. A sepsis evaluation was started as a precaution given recent instrumentation and concern for weakness. Patient found to have leukocytosis and elevated procalcitonin. Patient's first lactic acid was elevated also. Patient initially normotensive and so due to history of chronic kidney disease and CHF, gentle IV fluid rehydration was started. At 1 point his blood pressure did seem to drop a little bit so he was given a 500 mL bolus and it returned to normal. Maintenance IV fluids were continued. Patient was started on IV cefepime after review of prior urine culture. It was also noted the patient appeared to possibly have pneumonia. Patient had no complaints of respiratory distress or cough, he was not hypoxic. I discussed all results with the patient and family who came to bedside. We discussed the need for additional inpatient evaluation and management, they verbalized understanding and were in agreement with the plan. Initially KUB performed due to concern for safety and transporting patient to and from CT. Once blood pressure seemed to be more stable, he was se nt for CT of the abdomen pelvis after discussion with the hospitalist. Hospitalist team to follow-up CT results. Impression & Plan Generalized weakness, Hematuria, gross, S/P ureteral stent placement, GRETCHEN (acute kidney injury), Hyperkalemia, Chronic anticoagulation, Atrial fibrillation, Acute UTI (urinary tract infection), Pneumonia Discharge Plan Visit Data Chief Complaint: Weakness ED Provider: Blossom Lyn Discharge Problem: Generalized weakness, Hematuria, gross, S/P ureteral stent placement, GRETCHEN (acute kidney injury), Hyperkalemia, Chronic anticoagulation, Atrial fibrillation, Acute UTI (urinary tract infection), Pneumonia Patient Disposition: Admitted As Inpatient Discharge Instructions Interventions: ED Discharge Assessment Last Done: 07/22/22 14:57
[2022-07-22 11:06] LABS: Basophils # (auto) 0.05 K/uL (0-0.2); Basophils % (auto) 0.2 %; Immature Granulocytes # (auto) 0.45 K/uL (0.00-0.02); Immature Granulocytes % (auto) 1.6 %; Lymphocytes # (auto) 0.16 K/uL (1.2-3.4); Lymphocytes % (auto) 0.6 %; Monocytes # (auto) 1.69 K/uL (0.24-0.82); Monocytes % (auto) 5.9 %; Neutrophils % (auto) 91.7 %
[2022-07-22 11:27] LABS: BUN Creatinine Ratio 12.2 (10-20); Calcium 8.6 mg/dl (8.5-10.1); Creatinine Clr Calc Pharmacy 26.6 ml/min; Est GFR (African American) 25.8 ml/min; Est GFR (Non-African American) 22.3 ml/min; Potassium 5.6 mmol/L (3.5-5.1)
[2022-07-22] MEDS ORDERED: SODIUM CHLORIDE 0.9% 500 ML IV ONE (11:28)
[2022-07-22 11:38] LABS: Albumin Level 3.4 gm/dl (3.4-5.0); Bilirubin Direct 0.3 mg/dl (0-0.2); Bilirubin,Total 0.8 mg/dl (0.2-1.0); Total Protein 6.6 gm/dl (6.0-8.3)
[2022-07-22 11:59] LABS: Troponin I High Sensitivity 23.8 pg/ml (0-20)
--- NOTE | 2022-07-22 12:06 | History & Physical Report ---
Date of Service July 22, 2022 Assessment & Plan (1) Sepsis: Plan: Rosendo is a 77-year-old male who presents with weakness and meeting sepsis criteria following cystoscopy with laser lithotripsy, basket extraction of right stone, and stent exchange 07/21/2022. Sepsis by SIRS criteria, suspect 2/2 urologic manipulation 07/21, ddx includes PNA S/p stents exchange and lithotripsy/stone extraction 07/21 Hypotensive and tachypneic in ER, leukocytosis to 28.75 BP 87/49 on initial assessment, following IVF bolus improved to 100s/60s CXR: Left retrocardiac opacity? Similar to prior. Could represent atelectasis/pneumonia/aspiration Patient with recent stent exchange. UA/UC pending CTchest follow-up pending CTA/P pending given recent stent exchange and GRETCHEN and potential for obstruction Placed on empiric cefepime Lactate elevated to 4.7, received 500 cc and supplemental IVF with improvement in pressures. Repeat lactate pending. Patient with history of CHF EF 50-55%, caution for over repletion of fluid Cefepime 2 g every 8 hours dose adjusted for creatinine clearance of 26.6 to 1 g every 12 hours, given potential for aspiration post procedure pneumonia Flagyl every 8 hours added for anaerobic coverage. MRSA nares pending Acute anemia Patient on apixaban 5 mg p.o. twice daily Hemoglobin 12.3 07/08/2022, 9.3 on ER assessment Apixaban temporarily held History of iron deficiency anemia Iron panel, reticulocyte index pending Trend hemoglobin every 6 hours Confusion threshold 8.0 Neurology consulted for persistent hematuria postprocedural CT A/P pending, contrast limited by GRETCHEN A. fib Dual-chamber pacemaker in place On apixaban 5 mg p.o. twice daily PPI Rate controlled with carvedilol 6.25 mg p.o. twice daily, adequate rate control at time of assessment dCHF TTE 11/2018: LV SF normal, EF 55 to 60%, concentric LVH Appears volume contracted on admission with GRETCHEN Hold Lasix Continue carvedilol, hold for systolic pressure less than 100 History of bladder mass, BPH with LUTS, nephrolithiasis with stent exchange and lithotripsy 07/11 S/p resection of multiple prostatic lobes with inflamed/ulcerated tissue present history of bilateral stents recent stent exchange 07/21 as noted Hold Flomax while Phipps in place and hypotensive Type II DM Hold glimepiride Insulin basal/bolus weight-based SSI. CF 45, ratio 16, goal [id number]. Glargine 9 units twice daily Type II DM diet and Glucose checks AC/at bedtime A1c pending Hypothyroidism Continue Synthroid Depression/anxiety Continue sertraline Hypertension Hold amlodipine for hypotension Hold Eliquis given acute drop in hemoglobin with hematuria ED prophylaxis: SCDs, Allison prophylaxis and Eliquis held in the setting of acute anemia with hematuria CODE STATUS: Full code Disposition: PCU for sepsis Diet: Type II DM (2) Atrial fibrillation: (3) BPH w urinary obs/LUTS: (4) CHF (congestive heart failure): (5) CKD (chronic kidney disease) stage 3, GFR 30-59 ml/min: (6) Diabetes: (7) HTN (hypertension), benign: (8) Hyperlipidemia: (9) Iron deficiency anemia: (10) Major depressive disorder: (11) Obesity: (12) Physical deconditioning: History of Present Illness Primary Care Provider: Yeyo Melendez DO Rosendo is a 77-year-old male who presents with weakness following cystoscopy with laser lithotripsy, basket extraction of right stone, and stent exchange 07/21/2022. Patient was at home this morning, attempted to stand and felt much weaker than normal and slid to the ground. Notes that his catheter following cystoscopy has been dark and blood-tinged. Was not discharged on procedural antibiotics. At ER assessment patient has a new leukocytosis to 28.75, hemoglobin interval decrease from 12.3-9.3, neutrophilic predominance with an LR of 165. Mildly hyponatremic to 133, potassium is elevated at 5.6, and GRETCHEN is present with an increase from baseline creatinine of 1.41.72 and admitting creatinine of 2.63. 6-630 he reports was trying to transition from edge of bed to wheelchair and was so weak he just slid off the bed and couldn't transfer over and slid to the flood. +Fatigue. Denies fevers and chills. Endorses has felt weak most of the weak, feels similar today to yesterday. Did have surgery for kidney stones yesterday. No dysuria. No frequency. +hematuria since surgery/stent exchange but was told this would be normal for a few days. +lightheadedness. No dizziness. no chest pain, chest pressure, palpitations. Endorses a little shortness of breath in the last day or two 'just huffing and puffing all week a little more than normal, no wheezing.' +cough for a few days, yellow sputum production which is new in last 3-4 days. No night sweats. No bleeding other than hematuria. +N/-V yesterday after the urology procedure. No diarrhea. Time assessment he reports he feels much better after fluids and additional antibiotics. Was initially 87/49, systolic is ranging over 100 and he feels overall with better energy. After surgery was placed on ciprofloxacin 500mg. Has not taken medications today Medical History: Reviewed Medications: Reviewed Surgical History: Reviewed Allergies: Reviewed Social History: No tobacco use. No alcohol use. Code Status: medical POA is Jogre Marsh #[phone]. Full Code. COVID is negative. CXR: Left retrocardiac opacity? Atelectasis/pneumonia/aspiration Allergies Allergy/AdvReac Type Severity Reaction Status Date / Time No Known Allergies Allergy Verified 07/21/22 07:50 Home Medications Medication Instructions Recorded Confirmed Type blood-glucose meter (Accu-Chek #1 ea 06/12/21 07/11/22 Rx Guide Glucose Meter) lancets (Accu-Chek Softclix #100 ea 06/12/21 07/11/22 Rx Lancets) plastic urinal #2 ea 07/18/21 07/11/22 Rx Hospital Bed Homecare (Hospital #1 ea 08/22/21 07/11/22 Rx Bed) Power Wheel Chair Repair #1 ea 11/20/21 07/11/22 Rx acetaminophen 650 mg 650 mg PO BID 11/21/21 07/21/22 History tablet,extended release omega-3 fatty acids 2,000 mg PO BID 11/21/21 07/11/22 History nebulizer #1 ea 11/22/21 07/11/22 Rx Foot plate for power scooter #1 ea 02/26/22 07/11/22 Rx apixaban 5 mg tablet (Eliquis) 5 mg PO BID #180 tabs 02/27/22 07/21/22 Rx diaper,brief,adult,disposable #200 ea 03/04/22 07/11/22 Rx disposable gloves (Disposable #100 ea 03/04/22 07/11/22 Rx Latex-Free Gloves) underpads (Bed Underpads) #4 ea 03/04/22 07/11/22 Rx amlodipine 5 mg tablet 5 mg PO QAM #90 tabs 03/27/22 07/21/22 Rx ferrous sulfate 325 mg (65 mg 325 mg PO BID #180 tabs 03/27/22 07/21/22 Rx iron) tablet,delayed release blood sugar diagnostic (Accu-Chek #100 ea 06/13/22 07/11/22 Rx Guide test strips) ARM REST FOR POWER WHEELCHAIR #1 ea 06/17/22 07/11/22 Rx furosemide 20 mg tablet 20 mg PO QAM 06/17/22 07/21/22 History glimepiride 1 mg tablet 1 mg PO QAM 06/17/22 07/21/22 History levothyroxine 50 mcg tablet 50 mcg PO QAM 06/17/22 07/21/22 History magnesium oxide 400 mg PO QAM 06/17/22 07/21/22 History omeprazole 40 mg capsule,delayed 40 mg PO QAM 06/17/22 07/21/22 History release sertraline 50 mg tablet (Zoloft) 50 mg PO HS 06/17/22 07/21/22 History carvedilol 6.25 mg tablet 6.25 mg PO BIDM #180 tabs 06/18/22 07/21/22 Rx oxycodone-acetaminophen 7.5 mg-325 1 tab PO Q8H PRN pain #7 tabs 06/26/22 07/21/22 Rx mg tablet (Percocet) phenazopyridine 200 mg tablet 200 mg PO Q8H PRN pain #10 tabs 06/26/22 07/21/22 Rx (Pyridium) tamsulosin 0.4 mg capsule 0.4 mg PO HS #30 caps 06/26/22 07/21/22 Rx amoxicillin 875 mg-potassium 1 tab PO BID #20 tabs 07/09/22 07/21/22 Rx clavulanate 125 mg tablet ciprofloxacin HCl 500 mg tablet 500 mg PO BID #6 tabs 07/11/22 07/21/22 Rx (Cipro) ciprofloxacin HCl 500 mg tablet 500 mg PO Q12H #14 tabs 07/21/22 Rx (Cipro) oxybutynin chloride 5 mg tablet 5 mg PO Q8H PRN bladder spasms #20 07/21/22 Rx tabs oxycodone-acetaminophen 7.5 mg-325 1 tab PO Q8H PRN pain #7 tabs 07/21/22 Rx mg tablet (Percocet) phenazopyridine 200 mg tablet 200 mg PO Q8H PRN pain #10 tabs 07/21/22 Rx (Pyridium) tamsulosin 0.4 mg capsule 0.4 mg PO HS #30 caps 07/21/22 Rx Past Med/Surg History Medical History Anxiety Atrial fibrillation dual chamber pacemaker, [employer]tronic, follows with [place] [facility], on Eliquis BPH (benign prostatic hyperplasia) CHF (congestive heart failure) EF 55-60% per 2019 ECHO Chronic pain CKD (chronic kidney disease) stage 3, GFR 30-59 ml/min no specialist per pt Depression Diabetes NIDDM Difficult intubation h/o glidescope intubation 06/26/22. GERD (gastroesophageal reflux disease) HTN (hypertension), benign Hyperlipidemia Hypothyroidism Iron deficiency anemia Kidney stones bilateral On anticoagulant therapy Pacemaker Last checked 05/2022. Medtronic device. placed in 2019 at [facility] Surgical History H/O cystoscopy H/O ureteroscopy (~2019) with stent placements History of colonoscopy History of cystoscopy with stent 06/26/22: Grade 1 view, Glidescope 4. ETT 8. Hx of lithotripsy S/P cardiac pacemaker procedure placed in 2019 [facility]> last checked Dec 2021 Family History Grandfather Myocardial infarction Other Family history non-contributory No family history of adverse response to anesthesia Denies family history of Colon cancer Ovarian cancer Prostate cancer Breast cancer Social History Smoking Status: Never smoker Second Hand Exposure: No; Hx Alcohol Use: Yes Alcohol type: beer Hx Substance Use: No Preferred Language: Polish Communication Ability: Effective Visual Impairment: No Limitations Hearing Ability: Normal Assembler Garment Form Required: No Beliefs That Will Affect Care: None marital status: Single Current Living Situation: Alone Current Living Situation Comment: [employer] helps to take care of him but then leaves current occupational status: 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 NAD. Cooperative. HEENT: Atraumatic, normocephalic. PERLAA. EoM intact. Vision/hearing intact Pulm: Diminished without over rales/wheezes Symmetrical chest rise. No increased work of breathing. No respiratory distress. Cardiac: RRR, -mrg. Radial pulses intact and symmetrical. Abdominal: Nontender, nondistended, soft. BS present. : Phipps in place, draining dark brown/red urine. Ext: Warm, dry. Ankle edema present bilat. 3/5 hip flexion bilaterally, 4/5 ankle dorsi/plantarflexion bilat, 5/5 passenger locomotive engineer strength bilat. Sensation to soft touch in hands/feet intact. Results & Data Results & Data ([facility]) Vital Signs (Past 12 Hours) Vital Signs Temp Pulse Resp BP Pulse Ox O2 Del Method O2 Flow Rate 07/22/22 11:10 90 25 H 87/49 L 92 07/22/22 09:50 78 30 H 90 07/22/22 09:20 98/60 L 07/22/22 09:19 79/59 L 07/22/22 08:51 16 07/22/22 08:51 96 Room Air 6 07/22/22 08:51 36.7 C 80 16 98/60 L 94 Room Air PG Care Time/CCT Total # of Minutes Spent Total Time Spent with Patient: Total time spent is greater than 50% in coordination of care (as documented) at patient's floor/unit and/or counseling patient: Coding Level of Care Code 83732 Initial Inpt Care Lvl 3 Diagnoses Sepsis A41.9 Atrial fibrillation I48.2 Atrial fibrillation type: permanent BPH w urinary obs/LUTS N40.1; N13.8 CHF (congestive heart failure) I50.9 CKD (chronic kidney disease) stage 3, GFR 30-59 ml/min N18.3 Diabetes E11.9 Diabetes mellitus type: type 2 Diabetes mellitus mcfp insulin use: without mcfp use Diabetes mellitus complication status: without complication HTN (hypertension), benign I10 Hyperlipidemia E78.5 Hyperlipidemia type: unspecified Iron deficiency anemia D50.0 Iron deficiency anemia type: chronic blood loss Major depressive disorder F32.9 Major depression recurrence: unspecified whether recurrent Active/Remission status: remission status unspecified Obesity E66.01; Z68.35 Obesity type: unspecified obesity type Obesity classification: adult class 2 (BMI 35 - 39.9) Serious obesity comorbidity presence: with serious comorbidity Body mass index: BMI 35.0-35.9 Physical deconditioning R53.81 (1) Atrial fibrillation Atrial fibrillation type: permanent Qualified Code(s): I48.2 - Chronic atrial fibrillation (2) Diabetes Diabetes mellitus type: type 2 Diabetes mellitus mcfp insulin use: without clerk secretary use Diabetes mellitus complication status: without complication Qualified Code(s): E11.9 - Type 2 diabetes mellitus without co mplications (3) Hyperlipidemia Hyperlipidemia type: unspecified Qualified Code(s): E78.5 - Hyperlipidemia, unspecified (4) Iron deficiency anemia Iron deficiency anemia type: chronic blood loss Qualified Code(s): D50.0 - Iron deficiency anemia secondary to blood loss (chronic) (5) Major depressive disorder Major depression recurrence: unspecified whether recurrent Active/Remission status: remission status unspecified Qualified Code(s): F32.9 - Major depressive disorder, single episode, unspecified (6) Obesity Obesity type: unspecified obesity type Obesity classification: adult class 2 (BMI 35 - 39.9) Serious obesity comorbidity presence: with serious comorbidity Body mass index: BMI 35.0-35.9 Qualified Code(s): E66.01 - Morbid (severe) obesity due to excess calories; Z68.35 - Body mass index (BMI) 35.0-35.9, adult
--- NOTE | 2022-07-22 13:09 | CT Scan Report ---
CT SCAN OF THE CHEST WITHOUT IV CONTRAST CLINICAL HISTORY: Hypoxia. COMPARISON STUDY: Chest x-ray dated 07/22/2022. TECHNIQUE: CT scan of the thorax was performed from the thoracic inlet to the upper abdomen. Images are reviewed in the axial, sagittal, and coronal planes. IV contrast was not administered for this ex amination as per the referring clinician. A dose lowering technique was utilized adhering to the brian nciples of ANCA. The examination is degraded by motion artifact, as well as by streak artifact from the arms which could not be elevated above the upper chest. CT DOSE: 1740.42 mGycm FINDINGS: Thyroid: Atrophic and heterogeneous. Thoracic aorta: There is atherosclerotic calcification of the thoracic aorta, which is normal in nevaeh yared and demonstrates bovine variant arch anatomy. Heart: A cardiac pacemaker is present in the left chest wall. The heart is enlarged and without peric ardial effusion. The coronary arteries are densely calcified. The main pulmonary arteries are dilated suggesting pulmonary artery hypertension. Lungs and pleural spaces: Evaluation of the lung parenchyma is compromised by motion artifact. There is a small left pleural effusion with left basilar consolidation. This likely represents segmental at electasis comment there is associated volume loss in the left lung. Scarring/atelectasis is seen at t he right lung base. The trachea and central airways appear clear. Mediastinum: There is no mediastinal lymphadenopathy. Inés: Not well assessed without IV contrast. Axillae: There is no axillary lymphadenopathy. Upper abdomen: There is subcapsular hemorrhage of the partially imaged left kidney with evidence of r etroperitoneal hemorrhage below the left hemidiaphragm. A 2.5 cm cyst is noted in the left lobe of th e liver. A tiny hiatal hernia is observed. There is a 2.6 cm adenoma of the right adrenal gland. Skeletal structures: The skeletal structures are osteopenic. Advanced degenerative change is noted in the shoulders and thoracic spine. No lytic or blastic bony lesions are seen. There are healed left-s ided rib fractures. IMPRESSION: 1. There is subcapsular hemorrhage of the partially imaged left kidney with retroperitoneal hemorrhag e seen below the left hemidiaphragm. 2. Small left pleural effusion and left basilar consolidation. This likely represents segmental atele ctasis of the left lower lobe as there is corresponding volume loss in the left lung. 3. The right lung appears clear. 4. Cardiomegaly and cardiac pacemaker. 5. Additional findings as above. ACT 112: Negative or not required by law. Electronically signed by: Monty De M.D. 07/22/2022 1:07 PM
--- NOTE | 2022-07-22 13:13 | CT Scan Report ---
CT abd pelvis wo con CLINICAL HISTORY: GRETCHEN sepsis, recent lithotripsy, ?hydro/obstruction TECHNIQUE: Helical axial images of the abdomen and pelvis were obtained. Automated dose lowering tech niques and/or adjustment according to patient size were utilized for this exam. This exam was perfor med without intravenous contrast. COMPARISON: None available at the time of this dictation. FINDINGS: Lower chest: There is a left pleural effusion and atelectasis. Cardiomegaly is noted. Liver: The liver cyst is noted in the gallbladder fossa. Gallbladder and biliary tree: No calcified gallstones. Normal caliber wall. No intra- or extrahepatic biliary ductal dilation. Pancreas: Unremarkable, no focal lesions. Spleen: Unremarkable. Adrenals: Unremarkable. Kidneys and ureters: There is a subcapsular hematoma about the left kidney as well as blood in the pe rinephric space. Bilateral UVJ stents are seen without evidence of hydronephrosis. Hyperdense materia l is noted in the bladder with a Phipps catheter in place. A right renal cyst is seen. Bladder: Unremarkable. Reproductive organs: Unremarkable. Bowel: Unremarkable. Lymph nodes Retroperitoneal: Unremarkable. Pelvic: Unremarkable. Mesenteric: Unremarkable. Peritoneum: Stranding is seen predominantly in the left peritoneum. Much of this appears to be high d ensity. Vessels: Atherosclerotic calcifications are seen. Abdominal wall: Unremarkable. Bones: Degenerative changes in the visualized spine. IMPRESSION: There is interval development of a large left subcapsular hematoma and left retroperitoneal hemorrhag e. No evidence of hydronephrosis or obstruction. ACT 112: Negative or not required by law. Electronically signed by: Willy Franz M.D. 07/22/2022 1:11 PM
[2022-07-22] MEDS ORDERED: OXYBUTYNIN CHLORIDE 5 MG TAB PO PRN (15:46)
[2022-07-22] MEDS ORDERED: ONDANSETRON INJ 2 MG/ML 2 ML VIAL IV PRN (15:46)
[2022-07-22] MEDS ORDERED: GLUCOSE 40% GEL 15 GM TUBE PO PRN (15:46)
[2022-07-22] MEDS ORDERED: GLUCOSE 10 TAB/TUBE PO PRN (15:46)
[2022-07-22] MEDS ORDERED: ACETAMINOPHEN 325 MG TAB PO PRN (15:46)
[2022-07-22] MEDS ORDERED: POLYETHYLENE (MIRALAX) 17 GM PACK PO PRN (15:46)
[2022-07-22] MEDS ORDERED: DEXTROSE 50% 50 ML SYRINGE IV PRN (15:46)
[2022-07-22] MEDS ORDERED: CARBOHYDRATES FOR HYPOGLYCEMIA PO PRN (15:46)
[2022-07-22] MEDS ORDERED: GLUCAGON FOR INJ 1 MG VIAL SQ PRN (15:46)
[2022-07-22 16:27] LABS: Hemoglobin 8.7 g/dl (14.0-18.0)
[2022-07-22 16:28] LABS: Reticulocyte % 2.1 % (0.5-2.0); Reticulocytes # 0.07 10^6/uL (0.02-0.10)
--- NOTE | 2022-07-22 16:35 | Electrocardiogram Report ---
Test Reason : Blood Pressure : / mmHG Vent. Rate : 076 BPM Atrial Rate : 050 BPM P-R Int : 000 ms QRS Dur : 156 ms QT Int : 402 ms P-R-T Axes : 000 -27 -16 degrees QTc Int : 452 ms Atrial fibrillation with occasional ventricular-paced complexes Right bundle branch block T wave abnormality, consider lateral ischemia Abnormal ECG When compared with ECG of 26-JUN-2022 07:10, Vent. rate has increased BY 12 BPM Confirmed by Omkar Trinidad ([id number]) on 07/22/2022 4:35:13 PM Referred By: REFERRED SELF Confirmed By:Omkar Trinidad
[2022-07-22] MEDS: LANTUS PER UNIT CHARGE SQ SCH ×2 (16:38→22:16)
[2022-07-22] MEDS: SODIUM CHLORIDE 0.9% 1000ML 1,000 ML IV SCH ×2 (17:06→23:50)
[2022-07-22 17:15] LABS: Ferritin 303.8 ng/ml (8-388)
[2022-07-22] MEDS: INSULIN ASPART PER UNIT SC SCH ×2 (17:21→22:15)
[2022-07-22] MEDS: CEFEPIME 1,000 MG in SYRINGE 0 ML IV SCH (17:23)
[2022-07-22] MEDS: carvediloL 6.25 MG TAB PO SCH (17:23)
--- NOTE | 2022-07-22 17:25 | XRay Report ---
KUB CLINICAL HISTORY: Nephrolithiasis. FINDINGS: 4 AP supine abdominal radiographs are compared to study dated 02/28/2022 and correlated with abdominal CT dated 07/22/2022. The examination is severely degraded by large body habitus. This signi ficantly degrades evaluation for kidney stone. Bilateral ureteral stents are in place. No renal calcu li are clearly identified projecting over either kidney or along the course of ureters. A Phipps tony ter projects over the pelvis. There is no bowel obstruction. The bony structures appear intact. The h eart is enlarged and pacemaker leads are noted. There is a left pleural effusion with left basilar co nsolidation. IMPRESSION: 1. Bilateral ureteral stents are in place. 2. There is no radiographic evidence of nephrolithiasis. This is not well assessed. 3. Left pleural effusion and left basilar consolidation. Electronically signed by: Monty De M.D. 07/22/2022 5:24 PM
[2022-07-22] MEDS: metroNIDAZOLE 500 MG/100 ML BAG IV SCH ×2 (18:36→23:49)
--- NOTE | 2022-07-22 20:14 | Urology Consultation ---
Date of Consultation July 22, 2022 Assessment & Plan (1) Sepsis: The patient has been admitted on the hospitalist service with concern for sepsis from urinary source. In addition, the patient is noted to have a subcapsular hemorrhage of his left kidney. From a urology perspective we recommend the following: Broad-spectrum antibiotics have been initiated as noted in the HPI. This should be continued until culture results are back at which time antibiotics can be further tailored based on results of this. -Continue resuscitation with intravenous fluids -Maintain Phipps catheter. I discussed with the bedside nurse that a Phipps catheter appears to be clogged manual irrigation can be employed Follow serial labs; appears the patient has suffered acute kidney injury as has as well as noted having worsening anemia Recommend holding anticoagulants (patient takes Eliquis at home) Additional recommendations will be forthcoming based on his clinical course as it unfolds Remainder of plan as directed by primary service History of Present Illness Reason for Consultation: Hematuria with subcapsular renal hematoma Attending Physician: Greyson Stafford MD History of Present Illness This is a 77-year-old male who recently underwent a urologic procedure by Dr. Larson of [facility] u[facility] yesterday. The patient underwent a left ureteral anoscopy with ureteral dilatation and exchange of ureteral stent. Ureteral biopsy was also taken. The patient also underwent a right ureteroscopy with ureteral dilatation and laser destruction of a stone and exchange of a ureteral stent. The patient was discharged home following his procedure with a Phipps catheter in place. The patient represented to the emergency department this morning as the patient has felt somewhat weak after his procedure and he suffered a fall this morning while trying to get out of bed. He notes he was trying to transition from his bed to a wheelchair when he slid off the edge of the bed and fell. Patient says that he did not lose consciousness and denies any headache or head injuries. The patient has noted some blood in his Phipps catheter since his procedure. He does not report any fevers, shakes, or chills. Since admission to the hospital the patient has had labs and imaging which I independently reviewed. He did undergo a chest x-ray that showed no evidence of pleural effusion or pneumothorax. A KUB was performed that showed bilateral ureteral stents were in place. A CT scan of the abdomen and pelvis was performed that showed patient had a large left subcapsular hematoma of the left kidney and some left retroperitoneal hemorrhage. There is no evidence of hydronephrosis or obstruction on the study. A Phipps catheter was in place in the bladder. A CT scan of the chest again demonstrated a subcapsular hematoma of the left kidney with associated retroperitoneal hemorrhage below the left diaphragm. Small left pleural effusion was noted. Labs include a CBC were white blood cell count was 28.7. Hemoglobin and hematocrit were initially noted to be 9.3 and 38.6. These labs were repeated approximately 6 hours later where hemoglobin and hematocrit have dropped 8.7 and 27.0. Platelet count is currently 305,000. Coagulation studies show an INR of 1.3. Chemistry profile shows sodium and potassium are 133 and 5.6. BUN and creatinine are 32 and 2.6. Does appear the patient's baseline creatinine runs from 1.4-1.7. Lactic acid level was initially elevated at 4.7. This was checked approximately 2 hours later and had normalized. A troponin was elevated at 23.8. Urinalysis did show greater than 30 white blood cells per high-power field along with 4+ bacteria. A COVID test was negative. Since admission the patient has been resuscitated with intravenous fluids. He has been initiated on antibiotics in the form of cefepime and Flagyl. Blood and urine cultures have been obtained. It is noteworthy to mention that the patient's most recent urine culture available for review was on 07/08/2022. This grew out Pseudomonas as well as Morganella. Neither of these organisms had significant resistances. At the time of my interview I discussed with the nurse. It appeared that the patient had some dark-colored urine. The patient was bladder scanned and was noted to have minimal to no urine collecting in his bladder. At the time of my interview the patient was resting comfortably in bed and he was in no distress.. Allergies Allergy/AdvReac Type Severity Reaction Status Date / Time No Known Allergies Allergy Verified 07/21/22 07:50 Home Medications Medication Instructions Recorded Confirmed Type blood-glucose meter (Accu-Chek #1 ea 06/12/21 07/11/22 Rx Guide Glucose Meter) lancets (Accu-Chek Softclix #100 ea 06/12/21 07/11/22 Rx Lancets) plastic urinal #2 ea 07/18/21 07/11/22 Rx Hospital Bed Homecare (Hospital #1 ea 08/22/21 07/11/22 Rx Bed) Power Wheel Chair Repair #1 ea 11/20/21 07/11/22 Rx acetaminophen 650 mg 650 mg PO BID 11/21/21 07/21/22 History tablet,extended release omega-3 fatty acids 2,000 mg PO BID 11/21/21 07/11/22 History nebulizer #1 ea 11/22/21 07/11/22 Rx Foot plate for power scooter #1 ea 02/26/22 07/11/22 Rx apixaban 5 mg tablet (Eliquis) 5 mg PO BID #180 tabs 02/27/22 07/21/22 Rx diaper,brief,adult,disposable #200 ea 03/04/22 07/11/22 Rx disposable gloves (Disposable #100 ea 03/04/22 07/11/22 Rx Latex-Free Gloves) underpads (Bed Underpads) #4 ea 03/04/22 07/11/22 Rx amlodipine 5 mg tablet 5 mg PO QAM #90 tabs 03/27/22 07/21/22 Rx ferrous sulfate 325 mg (65 mg 325 mg PO BID #180 tabs 03/27/22 07/21/22 Rx iron) tablet,delayed release blood sugar diagnostic (Accu-Chek #100 ea 06/13/22 07/11/22 Rx Guide test strips) ARM REST FOR POWER WHEELCHAIR #1 ea 06/17/22 07/11/22 Rx furosemide 20 mg tablet 20 mg PO QAM 06/17/22 07/21/22 History glimepiride 1 mg tablet 1 mg PO QAM 06/17/22 07/21/22 History levothyroxine 50 mcg tablet 50 mcg PO QAM 06/17/22 07/21/22 History magnesium oxide 400 mg PO QAM 06/17/22 07/21/22 History omeprazole 40 mg capsule,delayed 40 mg PO QAM 06/17/22 07/21/22 History release sertraline 50 mg tablet (Zoloft) 50 mg PO HS 06/17/22 07/21/22 History carvedilol 6.25 mg tablet 6.25 mg PO BIDM #180 tabs 06/18/22 07/21/22 Rx oxycodone-acetaminophen 7.5 mg-325 1 tab PO Q8H PRN pain #7 tabs 06/26/22 07/21/22 Rx mg tablet (Percocet) phenazopyridine 200 mg tablet 200 mg PO Q8H PRN pain #10 tabs 06/26/22 07/21/22 Rx (Pyridium) tamsulosin 0.4 mg capsule 0.4 mg PO HS #30 caps 06/26/22 07/21/22 Rx amoxicillin 875 mg-potassium 1 tab PO BID #20 tabs 07/09/22 07/21/22 Rx clavulanate 125 mg tablet ciprofloxacin HCl 500 mg tablet 500 mg PO BID #6 tabs 07/11/22 07/21/22 Rx (Cipro) ciprofloxacin HCl 500 mg tablet 500 mg PO Q12H #14 tabs 07/21/22 Rx (Cipro) oxybutynin chloride 5 mg tablet 5 mg PO Q8H PRN bladder spasms #20 07/21/22 Rx tabs oxycodone-acetaminophen 7.5 mg-325 1 tab PO Q8H PRN pain #7 tabs 07/21/22 Rx mg tablet (Percocet) phenazopyridine 200 mg tablet 200 mg PO Q8H PRN pain #10 tabs 07/21/22 Rx (Pyridium) tamsulosin 0.4 mg capsule 0.4 mg PO HS #30 caps 07/21/22 Rx Patient History Medical History Anxiety Atrial fibrillation dual chamber pacemaker, Medtronic, follows with [facility], on Eliquis BPH (benign prostatic hyperplasia) CHF (congestive heart failure) EF 55-60% per 2019 ECHO Chronic pain CKD (chronic kidney disease) stage 3, GFR 30-59 ml/min no specialist per pt Depression Diabetes NIDDM Difficult intubation h/o glidescope intubation 06/26/22. GERD (gastroesophageal reflux disease) HTN (hypertension), benign Hyperlipidemia Hypothyroidism Iron deficiency anemia Kidney stones bilateral On anticoagulant therapy Pacemaker Last checked 05/2022. Medtronic device. placed in 2019 at [facility] Surgical History H/O cystoscopy H/O ureteroscopy (~2019) with stent placements History of colonoscopy History of cystoscopy with stent 06/26/22: Grade 1 view, Glidescope 4. ETT 8. Hx of lithotripsy S/P cardiac pacemaker procedure placed in 2019 [facility]> last checked Dec 2021 Family History Grandfather Myocardial infarction Other Family history non-contributory No family history of adverse response to anesthesia Denies family history of Colon cancer Ovarian cancer Prostate cancer Breast cancer Social History Smoking Status: Never smoker Second Hand Exposure: No; Do You Dip or Chew Tobacco: No; Hx Alcohol Use: No Hx Substance Use: No Preferred Language: Thai Communication Ability: Effective Visual Impairment: No Limitations Hearing Ability: Normal Criminal Justice Instructor Required: No Beliefs That Will Affect Care: None marital status: Single Current Living Situation: Alone Current Living Situation Comment: [employer] helps to take care of him but then leaves current occupational status: 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 [employer] Feels Safe at Home: Yes and No Is there a partner from a previous relationship who is making you feel unsafe now?: No Any Concerns about Your Family Situation: Yes (no home care at night) Would You Like to Speak to Someone About Your Situation: Yes (wants to set up night time home care) Safety Concerns: Afraid for Self Childhood Exposure to Second-Hand Smoke: No Dental Care, Regularly: No Physical Activity Frequency: Does not Exercise Seatbelt Use: always Sunscreen Use: No Assistive Devices: Wheelchair Review of Systems Constitutional: no fever and no chills Eyes: no eye pain Ear, Nose, Mouth, Throat: no ear pain Respiratory: no cough and no dyspnea Cardiovascular: no chest pain Gastrointestinal: no abdominal pain Genitourinary: + as per Subjective / HPI and + hematuria Musculoskeletal: + back pain Integumentary: no rash Neurologic: no localized weakness Physical Exam Constitutional: WD/WN, vitals as above Eyes: no conjunctival abnormality ENMT: Ears: no hearing impairment and no external ear abnormality Mouth: no oropharynx abnormality Neck: trachea midline Respiratory: normal respiratory effort; no respiratory distress and no labored breathing Cardiovascular: Rate/Rhythm: regular rate and regular rhythm Gastrointestinal (Abdomen): Abdomen is rotund but soft. It is nonrigid and nondistended. There is minimal to no pain with palpation. No rebound tenderness or guarding is noted. Musculoskeletal: No calf tenderness Skin: no rashes Neurologic: moves all extremities Psychiatric: A+Ox3, euthymic affect Genitourinary: no CVA tenderness Phipps catheter is in place draining dark/bloody urine. No visible clots are noted in the collection bag or tubing. A bladder scan was performed at the bedside and patient was not noted to have any residual urine in the bladder. Results & Data ([facility]) Vital Signs (Past 12 Hours) Vital Signs Temp Pulse Pulse Resp BP BP Pulse Ox 07/22/22 20:07 36.6 C 97 H 18 100/57 L 93 07/22/22 17:28 97 H 107/66 07/22/22 15:46 07/22/22 15:49 07/22/22 15:49 37.1 C 88 95 H 130/77 97 07/22/22 14:34 97 H 20 120/70 97 07/22/22 14:25 87 L 07/22/22 13:30 74 25 H 88 L 07/22/22 13:30 117/57 L 07/22/22 13:00 85 24 92 07/22/22 13:00 104/61 07/22/22 12:55 89 26 H 93 07/22/22 12:55 98/65 L 07/22/22 12:31 91 H 22 90 07/22/22 12:31 89/47 L 07/22/22 12:02 84 25 H 93 07/22/22 12:02 105/53 L 07/22/22 11:57 87 26 H 92 07/22/22 11:57 124/53 L 07/22/22 11:17 81 19 92 07/22/22 11:17 87/43 L 07/22/22 11:15 87 28 H 92 07/22/22 11:15 75/52 L 07/22/22 11:10 90 25 H 87/49 L 92 07/22/22 09:50 78 30 H 90 07/22/22 09:20 98/60 L 07/22/22 09:19 79/59 L 07/22/22 08:51 16 07/22/22 08:51 96 07/22/22 08:51 36.7 C 80 16 98/60 L 94 Pulse Ox O2 Del Method O2 Del Method O2 Flow Rate O2 Flow Rate 07/22/22 20:07 Nasal Cannula 2 07/22/22 17:28 07/22/22 15:46 97 Nasal Cannula 2 07/22/22 15:49 Nasal Cannula 2 07/22/22 15:49 Nasal Cannula 2 07/22/22 14:34 Nasal Cannula 4 07/22/22 14:25 Room Air 07/22/22 13:30 07/22/22 13:30 07/22/22 13:00 07/22/22 13:00 07/22/22 12:55 07/22/22 12:55 07/22/22 12:31 07/22/22 12:31 07/22/22 12:02 07/22/22 12:02 07/22/22 11:57 07/22/22 11:57 07/22/22 11:17 07/22/22 11:17 07/22/22 11:15 07/22/22 11:15 07/22/22 11:10 07/22/22 09:50 07/22/22 09:20 07/22/22 09:19 07/22/22 08:51 07/22/22 08:51 Room Air 6 07/22/22 08:51 Room Air PG Care Time/CCT Total # of Minutes Spent Total Time Spent with Patient: Total time spent is greater than 50% in coordination of care (as documented) at patient's floor/unit and/or counseling patient: Coding Level of Care Code 69676 Inpt Consult Level 5 Diagnoses Sepsis A41.9
[2022-07-22] MEDS: SERTRALINE HCL 50 MG TABLET PO SCH (22:16)
[2022-07-23 00:20] LABS: Hemoglobin 7.2 g/dl (14.0-18.0)
[2022-07-23] MEDS: CEFEPIME 1,000 MG in SYRINGE 0 ML IV SCH ×2 (04:02→15:05)
[2022-07-23 07:23] LABS: BUN Creatinine Ratio 15.6 (10-20); Calcium 7.9 mg/dl (8.5-10.1); Creatinine Clr Calc Pharmacy 27.2 ml/min; Est GFR (African American) 26.6 ml/min; Est GFR (Non-African American) 22.9 ml/min; Potassium 4.9 mmol/L (3.5-5.1)
[2022-07-23 07:37] LABS: Hematocrit (blood only) 23.6 % (40.1-51.0); Hemoglobin 7.6 g/dl (14.0-18.0); Mean Corpuscular Hemoglobin 27.3 pg (25.0-34.0); Mean Corpuscular Hgb Conc 32.2 g/dL (32.0-36.0); Mean Corpuscular Volume 84.9 fL (80.0-100.0); Mean Platelet Volume 9.9 fL (9.4-12.4); Platelet Count 196 K/uL (130-400); RDW Coefficient of Variation 14.5 % (11.5-14.5); RDW Standard Deviation 44.9 fL (36.4-46.3); Red Blood Count 2.78 M/uL (4.63-6.08); White Blood Count 11.94 K/ul (4.8-10.8)
[2022-07-23 07:40] LABS: Basophils # (auto) 0.03 K/uL (0-0.2); Basophils % (auto) 0.3 %; Eosinophils # (auto) 0.03 K/uL (0-0.50); Eosinophils % (auto) 0.3 %; Immature Granulocytes % (auto) 0.8 %; Lymphocytes # (auto) 0.22 K/uL (1.2-3.4); Lymphocytes % (auto) 1.8 %; Monocytes # (auto) 1.68 K/uL (0.24-0.82); Monocytes % (auto) 14.1 %; Neutrophils # (auto) 9.88 K/uL (1.4-6.5); Neutrophils % (auto) 82.7 %; RBC Morphology Unremarkable
[2022-07-23] MEDS: LEVOTHYROXINE SODIUM 50 MCG TABLET PO SCH (08:14)
[2022-07-23] MEDS: PANTOprazole 40 MG TAB PO SCH (08:14)
[2022-07-23] MEDS: carvediloL 6.25 MG TAB PO SCH (08:15)
[2022-07-23] MEDS: INSULIN ASPART PER UNIT SC SCH ×4 (08:19→21:03)
[2022-07-23] MEDS: metroNIDAZOLE 500 MG/100 ML BAG IV SCH (08:26)
[2022-07-23 08:29] LABS: Hematocrit (blood only) 23.4 % (40.1-51.0); Hemoglobin 7.4 g/dl (14.0-18.0)
[2022-07-23] MEDS: LANTUS PER UNIT CHARGE SQ SCH ×2 (08:29→21:03)
[2022-07-23 08:48] LABS: Estimated Average Glucose 146 mg/dl; Hemoglobin A1C 6.7 % (4.5-5.6)
--- NOTE | 2022-07-23 09:24 | Hospitalist Progress Note ---
Date of Service July 23, 2022 Assessment & Plan (1) Sepsis: Plan: Rosendo is a 77-year-old male who presents with weakness and meeting sepsis criteria following cystoscopy with laser lithotripsy, basket extraction of right stone, and stent exchange 07/21/2022. Sepsis from ureteral stent exchange S/p stents exchange and lithotripsy/stone extraction 07/21 Hypotensive and tachypneic in ER, volume resusitated CTchest abdomen and pelvis shows subcapsular hemorrhage of left kidney and retroperitoneal bleed this making a possibility of hypotension from hypovolemic shock left basilar changes suggest atelectasis Placed on empiric cefepime Acute blood loss anemia due to retroperitoneal hemorrhage Patient on apixaban 5 mg p.o. twice daily currently on hold Hemoglobin 12.3 has dropped to 7.4 received 2 units packed red blood cells History of iron deficiency anemia to be determined how many pack units he gets total we may institute additional iron supplementation GRETCHEN due to ATN A. fib Dual-chamber pacemaker in place On apixaban 5 mg p.o. twice daily PPI Rate controlled with carvedilol 6.25 mg p.o. twice daily, adequate rate control at time of assessment dCF TTE 11/2018: LV SF normal, EF 55 to 60%, concentric LVH Appears volume contracted on admission with GRETCHEN Hold Lasix Continue carvedilol, hold for systolic pressure less than 100 History of bladder mass, BPH with LUTS, nephrolithiasis with stent exchange and lithotripsy 07/11 S/p resection of multiple prostatic lobes with inflamed/ulcerated tissue present history of bilateral stents recent stent exchange 07/21 as noted Hold Flomax while Phipps in place and hypotensive Type II DM Hold glimepiride Insulin basal/bolus weight-based SSI. CF 45, ratio 16, goal [id number]. Glargine 9 units twice daily Type II DM diet and Glucose checks AC/at bedtime A1c pending Hypothyroidism Continue Synthroid Depression/anxiety Continue sertraline Hypertension Hold amlodipine for hypotension Hold Eliquis given acute drop in hemoglobin with hematuria ED prophylaxis: SCDs, Allison prophylaxis and Eliquis held in the setting of acute anemia with hematuria CODE STATUS: Full code Disposition: PCU for sepsis Diet: Type II DM (2) Atrial fibrillation: (3) BPH w urinary obs/LUTS: (4) CHF (congestive heart failure): (5) CKD (chronic kidney disease) stage 3, GFR 30-59 ml/min: (6) Diabetes: (7) HTN (hypertension), benign: (8) Hyperlipidemia: (9) Iron deficiency anemia: (10) Major depressive disorder: (11) Obesity: (12) Physical deconditioning: Admission and Anticipated Discharge Date Admission Date: July 22, 2022 Subjective pt is feeling well he is stable he relates a fall 1 day prior to coming in where he fell to his left side and struck his back and buttocks. He has no visible bruises. This is on the same side that the subcapsular hematoma and retroperitoneal bleed are noted. Patient is agreeable and consented for 2 units packed red blood cells. Review of Systems Review of Systems: Mild distress and fatigue no headache, no visual changes no speech or swallowing issues no chest pain, pressure or palpitations no shortness of breath, cough or wheezes no abdominal pain, nausea or vomiting, diarrhea or constipation no dysuria, hematuria or frequency no focal joint pain or as of chronic lower extremity swelling no back pain, CVA tenderness or radicular pain no bruising, bleeding or rashes no focal signs of weakness or numbness or altered sensation no complaints of anxiety or depression.. Physical Exam Physical Exam: The patient appeared well nourished and normally developed. Vital signs as documented. Head exam is normocephalic atraumatic Neck is without JVD, thyromegaly, or carotid bruits. Lungs are clear to auscultation, no focal loss of breath sounds Cardiac exam, Rhythm is regular.. No murmurs, rubs or gallops. Abdominal exam reveals normal bowel sounds, soft non tender, no masses Extremities are 1+ edematous and both pedal pulses are present Neurologic exam is alert and oriented, no focal loss of strength or sensation Skin is without bruises or rashes specifically no bruises about his side Psychologically is without concerns for anxiety or depression.. Results & Data Results & Data ([facility]) Vital Signs (Past 12 Hours) Vital Signs Temp Pulse Resp BP Pulse Ox O2 Del Method O2 Flow Rate 07/23/22 08:14 97.5 F L 07/23/22 08:10 97.5 F L 94 H 18 111/74 92 Room Air 07/23/22 04:32 97.9 F 63 18 110/61 92 Nasal Cannula 2 07/22/22 23:38 98.1 F 76 20 80/45 L 93 Nasal Cannula 2 PG Care Time/CCT Total # of Minutes Spent Total Time Spent with Patient: Total time spent is greater than 50% in coordination of care (as documented) at patient's floor/unit and/or counseling patient: Coding Level of Care Code 74146 Subseq Hosp Care Lvl 3 Diagnoses Sepsis A41.9 Atrial fibrillation I48.2 Atrial fibrillation type: permanent BPH w urinary obs/LUTS N40.1; N13.8 CHF (congestive heart failure) I50.9 CKD (chronic kidney disease) stage 3, GFR 30-59 ml/min N18.3 Diabetes E11.9 Diabetes mellitus complication status: without complication Diabetes mellitus longterm insulin use: without longterm use Diabetes mellitus type: type 2 HTN (hypertension), benign I10 Hyperlipidemia E78.5 Hyperlipidemia type: unspecified Iron deficiency anemia D50.0 Iron deficiency anemia type: chronic blood loss Major depressive disorder F32.9 Active/Remission status: remission status unspecified Major depression recurrence: unspecified whether recurrent Obesity E66.01; Z68.35 Body mass index: BMI 35.0-35.9 Obesity classification: adult class 2 (BMI 35 - 39.9) Obesity type: unspecified obesity type Serious obesity comorbidity presence: with serious comorbidity Physical deconditioning R53.81 (1) Major depressive disorder Active/Remission status: remission status unspecified Major depression recurrence: unspecified whether recurrent Qualified Code(s): F32.9 - Major depressive disorder, single episode, unspecified (2) Diabetes Diabetes mellitus complication status: without complication Diabetes mellitus lobsterman insulin use: without longterm use Diabetes mellitus type: type 2 Qualified Code(s): E11.9 - Type 2 diabetes mellitus without complications (3) Atrial fibrillation Atrial fibrillation type: permanent Qualified Code(s): I48.2 - Chronic atrial fibrillation (4) Hyperlipidemia Hyperlipidemia type: unspecified Qualified Code(s): E78.5 - Hyperlipidemia, unspecified (5) Iron deficiency anemia Iron deficiency anemia type: chronic blood loss Qualified Code(s): D50.0 - Iron deficiency anemia secondary to blood loss (chronic) (6) Obesity Body mass index: BMI 35.0-35.9 Obesity classification: adult class 2 (BMI 35 - 39.9) Obesity type: unspecified obesity type Serious obesity comorbidity presence: with serious comorbidity Qualified Code(s): E66.01 - Morbid (severe) obesity due to excess calories; Z68.35 - Body mass index (BMI) 35.0-35.9, adult
[2022-07-23] MEDS ORDERED: SODIUM CHLORIDE 0.9% 250 ML IV PRN (09:26)
--- NOTE | 2022-07-23 11:03 | Urology Progress Note ---
Date of Service July 23, 2022 Assessment & Plan (1) Sepsis: (2) Renal hematoma, left: (3) S/P ureteral stent placement: Plan 77yo M who is s/p urological procedure on 07/21 admitted with weakness and concern for sepsis from urinary source. CT a/p imaging on arrival noted pt to have a subcapsular hemorrhage of his left kidney, b/l ureteral stents in place, and no evidence of hydronephrosis. Hyperdense material was noted in the bladder with a Phipps catheter in place. -Afebrile and hemodynamically stable. -Labs reviewed-White count 11.94, hemoglobin 7.8, creatinine 2.57. -Urine and blood cultures are pending -On IV cefepime, follow cultures. -Phipps catheter draining orange-colored urine without clot. Continue to monitor. Ok to hand irrigate prn clots or retention. -No acute intervention warranted at this time. -Continue supportive care and close monitoring. Continue to trend labs. -Anticoagulation on hold. -Urology will follow. Admission and Anticipated Discharge Date Admission Date: July 22, 2022 Supervising Physician Co-Signing Physician Notes I have discussed Mr. Hopkins' case with ARNEL Weathers and agree with the above documentation. Urinary tract is maximally decompressed with his stents and Phipps in place. Would hold off any further intervention at this point. Continue antibiotics and narrow based on cultures as they become available. Urology will continue to follow. Subjective Patient examined at bedside this AM. Awake, sitting in bedside chair on arrival. No acute distress. Denies any significant pain at present. Reports he still feels very weak. No fevers or chills. Denies nausea or vomiting. Tolerating diet. Phipps catheter intact, draining orange-colored urine without clot. Review of Systems Constitutional: as per Subjective / HPI Gastrointestinal: as per Subjective / HPI Genitourinary: + as per Subjective / HPI Physical Exam Constitutional: + obese Respiratory: On O2 via NC Gastrointestinal (Abdomen): Percussion/Palpation: abdomen soft; abdomen nontender and no guarding Neurologic: awake Psychiatric: Orientation: alert and oriented x 3 Affect: + tearful affect Genitourinary: no CVA tenderness Phipps catheter intact, draining orange- colored urine. Results & Data ([facility]) Vital Signs (Past 12 Hours) Vital Signs Temp Pulse Pulse Resp BP BP Pulse Ox 09/21/22 10:46 36.9 C 86 16 112/53 L 93 07/23/22 08:11 07/23/22 10:26 37.4 C 86 126/78 96 07/23/22 08:14 36.4 C L 07/23/22 08:10 36.4 C L 94 H 18 111/74 92 07/23/22 04:32 36.6 C 63 18 110/61 92 07/22/22 23:38 36.7 C 76 20 80/45 L 93 O2 Del Method O2 Flow Rate 07/23/22 10:46 2 07/23/22 08:11 Nasal Cannula 2 07/23/22 10:26 07/23/22 08:14 07/23/22 08:10 Room Air 07/23/22 04:32 Nasal Cannula 2 07/22/22 23:38 Nasal Cannula 2 PG Care Time/CCT Total # of Minutes Spent Total Time Spent with Patient: Total time spent is greater than 50% in coordination of care (as documented) at patient's floor/unit and/or counseling patient: Coding Level of Care Code 14335 Subseq Hosp Care Lvl 2 Diagnoses Sepsis A41.9 Renal hematoma, left S37.012A S/P ureteral stent placement Z96.0
--- NOTE | 2022-07-23 12:15 | Nephrology Consultation ---
Date of Consultation July 23, 2022 Assessment & Plan (1) Acute kidney injury: (2) Hyperkalemia: Plan 77-year-old gentleman with stage IIIB CKD Most likely secondary to diabetic nephropathy, b/l cr 1.4 to 1.7, admitted to the hospital with urosepsis after recent urological intervention, hypotension, GRETCHEN, creatinine was 2.7, potassium was 5.6. CT abdomen pelvis showed no postrenal obstruction however noted to have subcapsular and retroperitoneal hemorrhage with rapid drop in hemoglobin over 2 days. Overall clinically improving. Leukocytosis improving. Blood pressure stabilized. Hemoglobin stable, creatinine staying relatively stable, hyperkalemia resolved. -- continue to monitor renal function electrolyte, monitor intake and output closely. -- expect renal function to start to improve with hemodynamic support and improvement in blood pressure. -- Monitor intake and output, encourage p.o. intake Thank you for allowing me to participate in your patient's care. It was a pleasure to see Mr. Hokpins. History of Present Illness Reason for Consultation: acute kidney injury. Attending Physician: Stone Mayer MD History of Present Illness Mr. Rosendo Hopkins is a 77-year-old male with stage III B CKD, nephrolithiasis, recent lithotripsy admitted to the hospital with generalized weakness, sepsis and GRETCHEN. Nephrology consult was requested for further management of GRETCHEN. EMR records are reviewed in detail during patient's visit. Geronimo has history of nephrolithiasis and underwent a left ureteroscopy with ureteral dilatation and exchange of ureteral stent, Ureteral biopsy, right ureteroscopy with ureteral dilatation and laser destruction of a stone and exchange of a ureteral stent on 07/21/22.He was discharged home with a Phipps catheter in place. Following discharge on 07/21/2022, yesterday morning at home he was feeling weak and lightheaded and had an episode of presyncope and he was brought to the ER for further evaluation. In ER he was found to be septic with significant hypotension, systolic blood pressure around 75, leukocytosis to 28.75, hemoglobin decrease from 12.3 to 9.3. Na 133, potassium is elevated at 5.6, and GRETCHEN with creatinine of 2.63 ( b/l cr 1.4 [address] 1[address]7). CT abdomen pelvis showed left subcapsular and retroperitoneal hemorrhage. urinalysis showed proteinuria, hematuria. He Received IV hydration and currently on cefepime. Leukocytosis already started to improve. He remained afebrile this morning. Blood pressure stable. Overall otherwise feeling better. Renal function staying stable. Potassium normalized. Urine output has been decent. Past medical history significant for h/o gross hematuria, BPH with LUTS, s/p Cystoscopy with Bilateral Retrograde Pyelogram and Bilateral Insertion of Stent, Transurethral Resection/Biopsy of Prostatic Urethral Lesion, Fulguration of bladder ulcer, Fulguration prostatic varicosities, Bladder biopsies x 3 with fulguration in June. h/o bilateral UPJ obstruction and ureteral stent, right- sided nephrolithiasis Has hypertension, diabetes, dyslipidemia, GERD, CHF, AFib and stage IIIB CKD b/l cr 1.4 to 1.7 with moderate degree proteinuria, possibly secondary to diabetic nephropathy. Allergies Allergy/AdvReac Type Severity Reaction Status Date / Time No Known Allergies Allergy Verified 07/21/22 07:50 Home Medications Medication Instructions Recorded Confirmed Type blood-glucose meter (Accu-Chek #1 ea 06/12/21 07/11/22 Rx Guide Glucose Meter) lancets (Accu-Chek Softclix #100 ea 06/12/21 07/11/22 Rx Lancets) plastic urinal #2 ea 07/18/21 07/11/22 Rx Hospital Bed Homecare (Hospital #1 ea 08/22/21 07/11/22 Rx Bed) Power Wheel Chair Repair #1 ea 11/20/21 07/11/22 Rx acetaminophen 650 mg 650 mg PO BID 11/21/21 07/21/22 History tablet,extended release omega-3 fatty acids 2,000 mg PO BID 11/21/21 07/11/22 History nebulizer #1 ea 11/22/21 07/11/22 Rx Foot plate for power scooter #1 ea 02/26/22 07/11/22 Rx apixaban 5 mg tablet (Eliquis) 5 mg PO BID #180 tabs 02/27/22 07/21/22 Rx diaper,brief,adult,disposable #200 ea 03/04/22 07/11/22 Rx disposable gloves (Disposable #100 ea 03/04/22 07/11/22 Rx Latex-Free Gloves) underpads (Bed Underpads) #4 ea 05/03/22 09/09/22 Rx amlodipine 5 mg tablet 5 mg PO QAM #90 tabs 03/27/22 07/21/22 Rx ferrous sulfate 325 mg (65 mg 325 mg PO BID #180 tabs 03/27/22 07/21/22 Rx iron) tablet,delayed release blood sugar diagnostic (Accu-Chek #100 ea 06/13/22 07/11/22 Rx Guide test strips) ARM REST FOR POWER WHEELCHAIR #1 ea 06/17/22 07/11/22 Rx furosemide 20 mg tablet 20 mg PO QAM 06/17/22 07/21/22 History glimepiride 1 mg tablet 1 mg PO QAM 06/17/22 07/21/22 History levothyroxine 50 mcg tablet 50 mcg PO QAM 06/17/22 07/21/22 History magnesium oxide 400 mg PO QAM 06/17/22 07/21/22 History omeprazole 40 mg capsule,delayed 40 mg PO QAM 06/17/22 07/21/22 History release sertraline 50 mg tablet (Zoloft) 50 mg PO HS 06/17/22 07/21/22 History carvedilol 6.25 mg tablet 6.25 mg PO BIDM #180 tabs 06/18/22 07/21/22 Rx oxycodone-acetaminophen 7.5 mg-325 1 tab PO Q8H PRN pain #7 tabs 06/26/22 07/21/22 Rx mg tablet (Percocet) phenazopyridine 200 mg tablet 200 mg PO Q8H PRN pain #10 tabs 06/26/22 07/21/22 Rx (Pyridium) tamsulosin 0.4 mg capsule 0.4 mg PO HS #30 caps 06/26/22 07/21/22 Rx amoxicillin 875 mg-potassium 1 tab PO BID #20 tabs 07/09/22 07/21/22 Rx clavulanate 125 mg tablet ciprofloxacin HCl 500 mg tablet 500 mg PO BID #6 tabs 07/11/22 07/21/22 Rx (Cipro) ciprofloxacin HCl 500 mg tablet 500 mg PO Q12H #14 tabs 07/21/22 Rx (Cipro) oxybutynin chloride 5 mg tablet 5 mg PO Q8H PRN bladder spasms #20 07/21/22 Rx tabs oxycodone-acetaminophen 7.5 mg-325 1 tab PO Q8H PRN pain #7 tabs 07/21/22 Rx mg tablet (Percocet) phenazopyridine 200 mg tablet 200 mg PO Q8H PRN pain #10 tabs 07/21/22 Rx (Pyridium) tamsulosin 0.4 mg capsule 0.4 mg PO HS #30 caps 07/21/22 Rx Patient History Medical History (Updated 07/23/22 @ 12:13 by Tata Rodriguez MD) Acute kidney injury Anxiety Atrial fibrillation dual chamber pacemaker, Medtronic, follows with [place] [facility], on Eliquis BPH (benign prostatic hyperplasia) CHF (congestive heart failure) EF 55-60% per 2019 ECHO Chronic pain CKD (chronic kidney disease) stage 3, GFR 30-59 ml/min no specialist per pt Depression Diabetes NIDDM Difficult intubation h/o glidescope intubation 06/26/22. GERD (gastroesophageal reflux disease) HTN (hypertension), benign Hyperkalemia Hyperlipidemia Hypothyroidism Iron deficiency anemia Kidney stones bilateral On anticoagulant therapy Pacemaker Last checked 05/2022. Medtronic device. placed in 2019 at [facility] Surgical History (Updated 07/23/22 @ 11:06 by ARNEL Jarrett) H/O cystoscopy H/O ureteroscopy (~2018) with stent placements History of colonoscopy History of cystoscopy with stent 06/26/22: Grade 1 view, Glidescope 4. ETT 8. Hx of lithotripsy S/P cardiac pacemaker procedure placed in 2019 [facility]> last checked Dec 2021 Family History Grandfather Myocardial infarction Other Family history non-contributory No family history of adverse response to anesthesia Denies family history of Colon cancer Ovarian cancer Prostate cancer Breast cancer Social History Smoking Status: Never smoker Second Hand Exposure: No; Do You Dip or Chew Tobacco: No; Hx Alcohol Use: No Hx Substance Use: No Preferred Language: Gibralt[place] Communication Ability: Effective Visual Impairment: No Limitations Hearing Ability: Normal Learning [employer] Specialist Required: No Beliefs That Will Affect Care: None marital status: Single Current Living Situation: Alone Current Living Situation Comment: [employer] helps to take care of him but then leaves current occupational status: 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 [employer] Feels Safe at Home: Yes and No Is there a partner from a previous relationship who is making you feel unsafe now?: No Any Concerns about Your Family Situation: Yes (no home care at night) Would You Like to Speak to Someone About Your Situation: Yes (wants to set up night time home care) Safety Concerns: Afraid for Self Childhood Exposure to Second-Hand Smoke: No Dental Care, Regularly: No Physical Activity Frequency: Does not Exercise Seatbelt Use: always Sunscreen Use: No Assistive Devices: Wheelchair Review of Systems Review of Systems: Detailed review of system was done and pertinent positives and negatives are mentioned in HPI. Physical Exam Constitutional: WD/WN, vitals as above + morbidly obese; no acute distress Eyes: + anicteric sclerae ENMT: Ears: no hearing impairment Neck: normal visual inspection Respiratory: normal respiratory effort; no respiratory distress and no cough Auscultation: lungs clear to auscultation bilaterally Cardiovascular: Rate/Rhythm: + irregularly irregular Heart Sounds: normal S1 and normal S2 Extremities: no edema Gastrointestinal (Abdomen): Inspection/Auscultation: abdomen normal to inspection and normal bowel sounds Percussion/Palpation: abdomen soft; abdomen nontender Musculoskeletal: Extremities: extremities normal to inspection Skin: no rashes Neurologic: no focal motor deficits and not confused Psychiatric: Orientation: alert and oriented x 3 Affect: euthymic affect Results & Data ([facility]) Vital Signs (Past 12 Hours) Vital Signs Temp Pulse Pulse Resp BP BP Pulse Ox 07/23/22 11:31 36.8 C 79 16 113/72 97 07/23/22 11:01 36.2 C L 76 16 120/60 97 07/23/22 10:46 36.9 C 86 16 112/53 L 93 07/23/22 08:11 07/23/22 10:26 37.4 C 86 126/78 96 07/23/22 08:14 36.4 C L 07/23/22 08:10 36.4 C L 94 H 18 111/74 92 07/23/22 04:32 36.6 C 63 18 110/61 92 O2 Del Method O2 Flow Rate 07/23/22 11:31 2 07/23/22 11:01 2 07/23/22 10:46 2 07/23/22 08:11 Nasal Cannula 2 07/23/22 10:26 07/23/22 08:14 07/23/22 08:10 Room Air 07/23/22 04:32 Nasal Cannula 2 PG Care Time/CCT Total # of Minutes Spent Total Time Spent with Patient: Total time spent is greater than 50% in coordination of care (as documented) at patient's floor/unit and/or counseling patient: Coding Level of Care Code 70119 Initial Inpt Care Lvl 3 Diagnoses Acute kidney injury N17.9 Hyperkalemia E87.5
[2022-07-23] MEDS: carvediloL 3.125 MG TAB PO SCH (16:58)
[2022-07-23] MEDS: SERTRALINE HCL 50 MG TABLET PO SCH (20:28)
[2022-07-24] MEDS: CEFEPIME 1,000 MG in SYRINGE 0 ML IV SCH (04:10)
[2022-07-24] MEDS: carvediloL 3.125 MG TAB PO SCH ×2 (07:33→16:27)
[2022-07-24] MEDS: PANTOprazole 40 MG TAB PO SCH (07:34)
[2022-07-24] MEDS: LEVOTHYROXINE SODIUM 50 MCG TABLET PO SCH (07:34)
[2022-07-24 07:36] LABS: Hematocrit (blood only) 28.1 % (40.1-51.0); Hemoglobin 9.2 g/dl (14.0-18.0); Mean Corpuscular Hemoglobin 27.5 pg (25.0-34.0); Mean Corpuscular Hgb Conc 32.7 g/dL (32.0-36.0); Mean Corpuscular Volume 84.1 fL (80.0-100.0); Mean Platelet Volume 9.9 fL (9.4-12.4); Platelet Count 198 K/uL (130-400); RDW Coefficient of Variation 14.6 % (11.5-14.5); RDW Standard Deviation 44.8 fL (36.4-46.3); Red Blood Count 3.34 M/uL (4.63-6.08); White Blood Count 7.93 K/ul (4.8-10.8)
[2022-07-24 07:59] LABS: Albumin Level 3.3 gm/dl (3.4-5.0); BUN Creatinine Ratio 17.9 (10-20); Calcium 8.4 mg/dl (8.5-10.1); Creatinine Clr Calc Pharmacy 37.9 ml/min; Est GFR (African American) 32.4 ml/min; Potassium 4.7 mmol/L (3.5-5.1)
--- NOTE | 2022-07-24 08:53 | Urology Progress Note ---
Date of Service July 24, 2022 Assessment & Plan (1) Renal hematoma, left: (2) GRETCHEN (acute kidney injury): (3) S/P ureteral stent placement: (4) Generalized weakness: Plan 77yo M who is s/p urological procedure on 07/21 admitted with weakness and concern for sepsis from urinary source. CT a/p imaging on arrival noted pt to have a subcapsular hemorrhage of his left kidney, b/l ureteral stents in place, and no evidence of hydronephrosis. Hyperdense material was noted in the bladder with a Phipps catheter in place. -Afebrile and hemodynamically stable. -Labs reviewed-Leukocytosis improved, creatinine down from 2.57-2.18 today, hemoglobin 9.2 (received 2U PRBC yesterday). -Urine culture prelim no growth; Blood cultures prelim no growth x24 hours. -On IV cefepime, follow cultures. -Phipps catheter draining clear yellow urine. Continue to monitor. Ok to hand irrigate prn clots or retention. -Urinary tract is maximally decompressed with his stents and Phipps in place. -No further intervention warranted at this point. -Continue supportive care and antibiotics, narrow based on cultures as they become available. -Urology will follow. Admission and Anticipated Discharge Date Admission Date: July 22, 2022 Subjective Patient examined at bedside this AM. Awake, resting in bed on arrival. No acute distress. Phipps catheter intact, draining clear yellow urine. Notes some mild RLQ discomfort, but denies significant pain. Still feels very weak. No fevers or chills. No nausea or vomiting. Tolerating diet. States he did not sleep well, complains that the bed is uncomfortable. Review of Systems Constitutional: as per Subjective / HPI Gastrointestinal: as per Subjective / HPI Genitourinary: + as per Subjective / HPI Physical Exam Constitutional: + obese Respiratory: On O2 via NC Skin: No visible rashes or lesions Neurologic: awake Psychiatric: Orientation: alert and oriented x 3 Genitourinary: Phipps catheter intact, draining clear yellow urine Results & Data ([facility]) Vital Signs (Past 12 Hours) Vital Signs Temp Pulse Pulse Resp BP Pulse Ox O2 Del Method 07/24/22 07:46 36.7 C 86 19 128/80 92 Nasal Cannula 07/24/22 03:23 36.7 C 81 154/66 H 91 Nasal Cannula 07/23/22 22:15 91 H 07/23/22 23:32 36.8 C 90 22 126/83 92 Nasal Cannula 07/23/22 21:00 Nasal Cannula O2 Flow Rate 07/24/22 07:46 1 07/24/22 03:23 1 07/23/22 22:15 07/23/22 23:32 1 07/23/22 21:00 1 PG Care Time/CCT Total # of Minutes Spent Total Time Spent with Patient: Total time spent is greater than 50% in coordination of care (as documented) at patient's floor/unit and/or counseling patient: Coding Level of Care Code 00832 Subseq Hosp Care Lvl 2 Diagnoses Renal hematoma, left S37.012A GRETCHEN (acute kidney injury) N17.9 S/P ureteral stent placement Z96.0 Generalized weakness R53.1
[2022-07-24] MEDS: INSULIN ASPART PER UNIT SC SCH ×4 (09:26→21:03)
[2022-07-24] MEDS: LANTUS PER UNIT CHARGE SQ SCH ×2 (09:27→23:42)
--- NOTE | 2022-07-24 10:26 | Nephrology Progress Note ---
Date of Service July 24, 2022 Assessment & Plan (1) Acute kidney injury: (2) Hyperkalemia: (3) Sepsis: (4) Iron deficiency anemia: Plan 77-year-old gentleman with stage IIIB CKD Most likely secondary to diabetic nephropathy, b/l cr 1.4 to 1.7, admitted to the hospital with urosepsis after recent urological intervention, hypotension, GRETCHEN, creatinine was 2.7, potassium was 5.6. CT abdomen pelvis showed no postrenal obstruction however noted to have subcapsular and retroperitoneal hemorrhage with rapid drop in hemoglobin over 2 days. Overall clinically improving. Leukocytosis improving. Blood pressure stabilized. Hemoglobin stable, creatinine staying relatively stable, hyperkalemia resolved. Renal function continues to improve, electrolyte acceptable. Blood pressure, volume status acceptable. Decent urine output. -- continue to monitor renal function electrolyte, monitor intake and output closely, expect renal function to Continue to improve . -- start on Venofer 200 mg daily -- Monitor intake and output, encourage p.o. intake. Admission and Anticipated Discharge Date Admission Date: July 22, 2022 Santiago Melton was seen and evaluated this morning. He complain of pain all over and the bed uncomfortable. No shortness of breath. Renal function started to improve, electrolyte acceptable. Blood pressure and volume status acceptable. Review of Systems Review of Systems: detailed review of system was otherwise unremarkable. Physical Exam Constitutional: WD/WN, vitals as above + morbidly obese; no acute distress Eyes: + anicteric sclerae Respiratory: Auscultation: lungs clear to auscultation bilaterally Cardiovascular: Rate/Rhythm: + irregularly irregular Extremities: no edema Skin: no rashes Neurologic: no focal motor deficits Psychiatric: Orientation: alert and oriented x 3 Affect: euthymic affect Results & Data ([facility]) Vital Signs (Past 12 Hours) Vital Signs Temp Pulse Resp BP Pulse Ox O2 Del Method O2 Flow Rate 07/24/22 10:09 Nasal Cannula 1 07/24/22 07:46 36.7 C 86 19 128/80 92 Nasal Cannula 1 07/24/22 03:23 36.7 C 81 154/66 H 91 Nasal Cannula 1 07/23/22 23:32 36.8 C 90 22 126/83 92 Nasal Cannula 1 PG Care Time/CCT Total # of Minutes Spent Total Time Spent with Patient: Total time spent is greater than 50% in coordination of care (as documented) at patient's floor/unit and/or counseling patient: Coding Level of Care Code 37669 Subseq Hosp Care Lvl 3 Diagnoses Acute kidney injury N17.9 Hyperkalemia E87.5 Sepsis A41.9 Iron deficiency anemia D50.0 Iron deficiency anemia type: chronic blood loss (1) Iron deficiency anemia Iron deficiency anemia type: chronic blood loss Qualified Code(s): D50.0 - Iron deficiency anemia secondary to blood loss (chronic)
[2022-07-24] MEDS: IRON SUCROSE 200 MG in 0.9 % SODIUM CHLORIDE 100 ML IV SCH (11:05)
--- NOTE | 2022-07-24 16:02 | Electrocardiogram Report ---
Test Reason : Blood Pressure : / mmHG Vent. Rate : 063 BPM Atrial Rate : 063 BPM P-R Int : 000 ms QRS Dur : 158 ms QT Int : 446 ms P-R-T Axes : 000 -29 -39 degrees QTc Int : 456 ms Atrial fibrillation with frequent ventricular-paced complexes Right bundle branch block Old Inferior infarct T-wave inversion in Lateral leads Abnormal ECG When compared with ECG of 26-JUN-2022 07:10, No significant change was found Confirmed by Major Mcleod ([id number]) on 07/24/2022 4:02:40 PM Referred By: REFERRED SELF Confirmed By:Major Mcleod
--- NOTE | 2022-07-24 19:01 | Hospitalist Progress Note ---
Date of Service July 24, 2022 Assessment & Plan (1) Sepsis: Plan: Rosendo is a 77-year-old male who presents with weakness and meeting sepsis criteria following cystoscopy with laser lithotripsy, basket extraction of right stone, and stent exchange 07/21/2022. Sepsis from ureteral stent exchange S/p stents exchange and lithotripsy/stone extraction 07/21 Hypotensive and tachypneic in ER, volume resusitated CTchest abdomen and pelvis shows subcapsular hemorrhage of left kidney and retroperitoneal bleed this making a possibility of hypotension from hypovolemic shock left basilar changes suggest atelectasis Placed on empiric cefepime Acute blood loss anemia due to retroperitoneal hemorrhage Patient on apixaban 5 mg p.o. twice daily currently on hold Hemoglobin 12.3 has dropped to 7.4 received 2 units packed red blood cells has augmented appropriately and stayed stable History of iron deficiency anemia to be determined how many pack units he gets total we may institute additional iron supplementation GRETCHEN due to ATN, Cr improving to CKD 3 A. fib Dual-chamber pacemaker in place On apixaban 5 mg p.o. twice daily PPI Rate controlled with carvedilol 6.25 mg p.o. twice daily, adequate rate control at time of assessment dCF TTE 11/2018: LV SF normal, EF 55 to 60%, concentric LVH Appears volume contracted on admission with GRETCHEN Hold Lasix Continue carvedilol, hold for systolic pressure less than 100 History of bladder mass, BPH with LUTS, nephrolithiasis with stent exchange and lithotripsy 07/11 S/p resection of multiple prostatic lobes with inflamed/ulcerated tissue present history of bilateral stents recent stent exchange 07/21 as noted Hold Flomax while Phipps in place and hypotensive Type II DM Hold glimepiride Insulin basal/bolus weight-based SSI. CF 45, ratio 16, goal [id number]. Glargine 9 units twice daily Type II DM diet and Glucose checks AC/at bedtime A1c pending Hypothyroidism Continue Synthroid Depression/anxiety Continue sertraline Hypertension Hold amlodipine for hypotension Hold Eliquis given acute drop in hemoglobin with hematuria CODE STATUS: Full code transition to med surg (2) Atrial fibrillation: (3) BPH w urinary obs/LUTS: (4) CHF (congestive heart failure): (5) CKD (chronic kidney disease) stage 3, GFR 30-59 ml/min: (6) Diabetes: (7) HTN (hypertension), benign: (8) Hyperlipidemia: (9) Iron deficiency anemia: (10) Major depressive disorder: (11) Obesity: (12) Physical deconditioning: Admission and Anticipated Discharge Date Admission Date: July 22, 2022 Subjective pt does not feel poorly but still feels very weak. No fevers or chills. No nausea or vomiting. Tolerating diet. States he did not sleep well, complains that the bed is uncomfortable. Review of Systems Review of Systems: Mild distress and fatigue no headache, no visual changes no speech or swallowing issues no chest pain, pressure or palpitations no shortness of breath, cough or wheezes no abdominal pain, nausea or vomiting, diarrhea or constipation no dysuria, hematuria or frequency no focal joint pain or as of chronic lower extremity swelling no back pain, CVA tenderness or radicular pain no bruising, bleeding or rashes no focal signs of weakness or numbness or altered sensation no complaints of anxiety or depression.. Physical Exam Physical Exam: The patient appeared well nourished and normally developed. Vital signs as documented. Head exam is normocephalic atraumatic Neck is without JVD, thyromegaly, or carotid bruits. Lungs are clear to auscultation, no focal loss of breath sounds Cardiac exam, Rhythm is regular.. No murmurs, rubs or gallops. Abdominal exam reveals normal bowel sounds, soft non tender, no masses Extremities are 1+ edematous and both pedal pulses are present Neurologic exam is alert and oriented, no focal loss of strength or sensation Skin is without bruises or rashes specifically no bruises about his side Psychologically is without concerns for anxiety or depression.. Results & Data Results & Data ([facility]) Vital Signs (Past 12 Hours) Vital Signs Temp Pulse Pulse Resp BP Pulse Ox O2 Del Method 07/24/22 15:45 97.9 F 88 18 101/62 90 Room Air 07/24/22 14:51 97.9 F 84 20 117/66 92 Room Air 07/24/22 11:46 98.2 F 73 19 128/74 91 Room Air 07/24/22 11:17 87 07/24/22 10:09 Nasal Cannula 07/24/22 07:46 98.1 F 86 19 128/80 92 Nasal Cannula O2 Flow Rate 07/24/22 15:45 07/24/22 14:51 07/24/22 11:46 07/24/22 11:17 07/24/22 10:09 1 07/24/22 07:46 1 Care Time/CCT Total # of Minutes Spent Total Time Spent with Patient: Total time spent is greater than 50% in coordination of care (as documented) at patient's floor/unit and/or counseling patient: Coding Level of Care Code 05017 Subseq Hosp Care Lvl 2 Diagnoses Sepsis A41.9 Atrial fibrillation I48.91 BPH w urinary obs/LUTS N40.1; N13.8 CHF (congestive heart failure) I50.9 CKD (chronic kidney disease) stage 3, GFR 30-59 ml/min N18.3 Diabetes E11.9 Diabetes mellitus type: type 2 Diabetes mellitus assisted insulin use: without intermodal 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 driver use Diabetes mellitus complication status: without complication HTN (hypertension), benign I10 Hyperlipidemia E78.5 Hyperlipidemia type: unspecified Iron deficiency anemia D50.0 Iron deficiency anemia type: chronic blood loss Major depressive disorder F32.9 Major depression recurrence: unspecified whether recurrent Active/Remission status: remission status unspecified Obesity E66.01; Z68.35 Obesity type: unspecified obesity type Obesity classification: adult class 2 (BMI 35 - 39.9) Serious obesity comorbidity presence: with serious comorbidity Body mass index: BMI 35.0-35.9 Physical deconditioning R53.81 (1) Diabetes Diabetes mellitus type: type 2 Diabetes mellitus intermodal 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 driver insulin use: without intermodal 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 driver use Diabetes mellitus complication status: without complication Qualified Code(s): E11.9 - Type 2 diabetes mellitus without complications (2) Hyperlipidemia Hyperlipidemia type: unspecified Qualified Code(s): E78.5 - Hyperlipidemia, unspecified (3) Iron deficiency anemia Iron deficiency anemia type: chronic blood loss Qualified Code(s): D50.0 - Iron deficiency anemia secondary to blood loss (chronic) (4) Major depressive disorder Major depression recurrence: unspecified whether recurrent Active/Remission status: remission status unspecified Qualified Code(s): F32.9 - Major depressive disorder, single episode, unspecified (5) Obesity Obesity type: unspecified obesity type Obesity classification: adult class 2 (BMI 35 - 39.9) Serious obesity comorbidity presence: with serious comorbidity Body mass index: BMI 35.0-35.9 Qualified Code(s): E66.01 - Morbid (severe) obesity due to excess calories; Z68.35 - Body mass index (BMI) 35.0-35.9, adult
[2022-07-24] MEDS: SERTRALINE HCL 50 MG TABLET PO SCH (21:10)
--- NOTE | 2022-07-25 08:05 | Urology Progress Note ---
Date of Service July 25, 2022 Assessment & Plan (1) Renal hematoma, left: (2) GRETCHEN (acute kidney injury): (3) S/P ureteral stent placement: (4) Generalized weakness: Plan 77yo M who is s/p urological procedure on 07/21 admitted with weakness and concern for sepsis from urinary source. CT a/p imaging on arrival noted pt to have a subcapsular hemorrhage of his left kidney, b/l ureteral stents in place, and no evidence of hydronephrosis. Hyperdense material was noted in the bladder with a Phipps catheter in place. -Afebrile and hemodynamically stable. -Labs reviewed-no leukocytosis, renal function continues to improve, hemoglobin stable. -UC&S negative; Blood cultures no growth x 48 hours. Cefepime d/c yesterday. -Phipps catheter draining clear yellow urine. -Urinary tract is maximally decompressed with his stents and Phipps in place. -Will plan to maintain catheter and ureteral stents until outpatient follow-up with urology. -Plan to follow-up with our service as scheduled on 08/13/22. -No further intervention warranted at this point. -Continue supportive care. -Urology will sign-off. Thank you for allowing us to participate in the acute care of Mr. Hopkins. Please contact us with additional questions, concerns or changes in patient status. Admission and Anticipated Discharge Date Admission Date: July 22, 2022 Supervising Physician Co-Signing Physician Notes I have discussed Mr. Hopkins' case with ARNEL Weathers and agree with the above documentation. Urinary tract is maximally drained, renal function and infectious symptoms continue to improve. Subjective Patient examined at bedside this AM. Awake, resting in bed on arrival. No acute distress. Phipps catheter intact, draining clear yellow urine. Still feels weak. States he is likely going to rehab following discharge. Denies any significant pain at present. No fevers or chills. No nausea or vomiting. Tolerating diet. WBC 5.86, Hemoglobin 9.1, Creatinine 1.80 Review of Systems Constitutional: as per Subjective / HPI Gastrointestinal: as per Subjective / HPI Genitourinary: + as per Subjective / HPI Physical Exam Constitutional: + obese Respiratory: no respiratory distress Skin: No visible rashes or lesions Neurologic: awake Psychiatric: Orientation: alert and oriented x 3 Genitourinary: Phipps catheter intact, draining clear yellow urine Results & Data ([facility]) Vital Signs (Past 12 Hours) Vital Signs Temp Pulse Resp BP Pulse Ox O2 Del Method 07/25/22 07:41 36.4 C L 92 H 18 164/95 H 92 Room Air 07/25/22 04:13 36.6 C 86 18 150/70 H 92 Room Air 07/24/22 23:25 Room Air PG Care Time/CCT Total # of Minutes Spent Total Time Spent with Patient: Total time spent is greater than 50% in coordination of care (as documented) at patient's floor/unit and/or counseling patient: Coding Level of Care Code 69179 Subseq Hosp Care Lvl 2 Diagnoses Renal hematoma, left S37.012A GRETCHEN (acute kidney injury) N17.9 S/P ureteral stent placement Z96.0 Generalized weakness R53.1
[2022-07-25 08:06] LABS: Hemoglobin 9.1 g/dl (14.0-18.0); Mean Corpuscular Hemoglobin 27.2 pg (25.0-34.0); Mean Corpuscular Hgb Conc 32.5 g/dL (32.0-36.0); Mean Corpuscular Volume 83.8 fL (80.0-100.0); Mean Platelet Volume 10.5 fL (9.4-12.4); Platelet Count 245 K/uL (130-400); RDW Coefficient of Variation 14.6 % (11.5-14.5); RDW Standard Deviation 44.7 fL (36.4-46.3); Red Blood Count 3.34 M/uL (4.63-6.08); White Blood Count 5.86 K/ul (4.8-10.8)
[2022-07-25 08:29] LABS: Albumin Level 3.2 gm/dl (3.4-5.0); BUN Creatinine Ratio 20.6 (10-20); Calcium 8.2 mg/dl (8.5-10.1); Creatinine Clr Calc Pharmacy 45.9 ml/min; Est GFR (African American) 40.9 ml/min; Est GFR (Non-African American) 35.3 ml/min; Phosphorus 2.5 mg/dl (2.5-4.9); Potassium 4.3 mmol/L (3.5-5.1)
[2022-07-25] MEDS: LEVOTHYROXINE SODIUM 50 MCG TABLET PO SCH (08:31)
[2022-07-25] MEDS: IRON SUCROSE 200 MG in 0.9 % SODIUM CHLORIDE 100 ML IV SCH (08:31)
[2022-07-25] MEDS: carvediloL 3.125 MG TAB PO SCH ×2 (08:31→16:49)
[2022-07-25] MEDS: PANTOprazole 40 MG TAB PO SCH (08:31)
[2022-07-25] MEDS: LANTUS PER UNIT CHARGE SQ SCH ×2 (09:39→20:24)
[2022-07-25] MEDS: INSULIN ASPART PER UNIT SC SCH ×4 (09:39→20:24)
--- NOTE | 2022-07-25 10:26 | Nephrology Progress Note ---
Date of Service July 25, 2022 Assessment & Plan (1) Acute kidney injury: (2) Hyperkalemia: (3) Sepsis: (4) Iron deficiency anemia: Plan 77-year-old gentleman with stage IIIB CKD Most likely secondary to diabetic nephropathy, b/l cr 1.4 to 1.7, admitted to the hospital with urosepsis after recent urological intervention, hypotension, GRETCHEN, creatinine was 2.7, potassium was 5.6. CT abdomen pelvis showed no postrenal obstruction however noted to have subcapsular and retroperitoneal hemorrhage with rapid drop in hemoglobin over 2 days. Overall clinically improving. Leukocytosis Resolved. Blood pressure stabilized. Hemoglobin stable, creatinine staying relatively stable, hyperkalemia resolved. Renal function continues to improve, electrolyte acceptable. Blood pressure, volume status acceptable. Decent urine output. -- continue to monitor renal function electrolyte while in patient, monitor intake and output closely, expect renal function to Continue to improve . -- on Venofer 200 mg daily -- Monitor intake and output, encourage p.o. intake. Will sign off, no further nephrology f/u needed at this time. Admission and Anticipated Discharge Date Admission Date: July 22, 2022 Santiago Melton was seen and evaluated this morning. He denies F/C, shortness of breath. Renal function started to improve, electrolyte acceptable. Blood pressure and volume status acceptable. Review of Systems Review of Systems: detailed review of system was otherwise unremarkable. Physical Exam Constitutional: WD/WN, vitals as above + morbidly obese; no acute distress Eyes: + anicteric sclerae Respiratory: Auscultation: lungs clear to auscultation bilaterally Cardiovascular: Rate/Rhythm: + irregularly irregular Extremities: no edema Skin: no rashes Neurologic: no focal motor deficits Psychiatric: Orientation: alert and oriented x 3 Affect: euthymic affect Results & Data ([facility]) Vital Signs (Past 12 Hours) Vital Signs Temp Pulse Resp BP Pulse Ox O2 Del Method 07/25/22 09:00 Room Air 07/25/22 07:41 36.4 C L 92 H 18 164/95 H 92 Room Air 07/25/22 04:13 36.6 C 86 18 150/70 H 92 Room Air 07/24/22 23:25 Room Air PG Care Time/CCT Total # of Minutes Spent Total Time Spent with Patient: Total time spent is greater than 50% in coordination of care (as documented) at patient's floor/unit and/or counseling patient: Coding Level of Care Code 99132 Subseq Hosp Care Lvl 3 Diagnoses Acute kidney injury N17.9 Hyperkalemia E87.5 Sepsis A41.9 Iron deficiency anemia D50.0 Iron deficiency anemia type: chronic blood loss (1) Iron deficiency anemia Iron deficiency anemia type: chronic blood loss Qualified Code(s): D50.0 - Iron deficiency anemia secondary to blood loss (chronic)
--- NOTE | 2022-07-25 18:55 | Hospitalist Progress Note ---
Date of Service July 25, 2022 Assessment & Plan (1) Sepsis: Plan: Rosendo is a 77-year-old male who presents with weakness and meeting sepsis criteria following cystoscopy with laser lithotripsy, basket extraction of right stone, and stent exchange 07/21/2022. Sepsis from ureteral stent exchange S/p stents exchange and lithotripsy/stone extraction 07/21 Hypotensive and tachypneic in ER, volume resusitated CTchest abdomen and pelvis shows subcapsular hemorrhage of left kidney and retroperitoneal bleed this making a possibility of hypotension from hypovolemic shock left basilar changes suggest atelectasis Placed on empiric cefepime urine with no growth is initial concern for sepsis may have been hypovolemic shock Sepsis is subsequently been ruled out Acute blood loss anemia due to retroperitoneal hemorrhage Patient on apixaban 5 mg p.o. twice daily currently on hold Hemoglobin 12.3 has dropped to 7.4 received 2 units packed red blood cells has augmented appropriately and stayed stable History of iron deficiency anemia to be determined how many pack units he gets total we may institute additional iron supplementation GRETCHEN due to ATN, Cr improving to CKD 3 A. fib Dual-chamber pacemaker in place On apixaban 5 mg p.o. twice daily PPI Rate controlled with carvedilol 6.25 mg p.o. twice daily, adequate rate c ontrol at time of assessment dC TTE 11/2018: LV SF normal, EF 55 to 60%, concentric LVH Appears volume contracted on admission with GRETCHEN Hold Lasix Continue carvedilol, hold for systolic pressure less than 100 History of bladder mass, BPH with LUTS, nephrolithiasis with stent exchange and lithotripsy 07/11 S/p resection of multiple prostatic lobes with inflamed/ulcerated tissue present history of bilateral stents recent stent exchange 07/21 as noted Hold Flomax while Phipps in place and hypotensive Type II DM Hold glimepiride Insulin basal/bolus weight-based SSI. CF 45, ratio 16, goal [id number]. Glargine 9 units twice daily Type II DM diet and Glucose checks AC/at bedtime A1c pending Hypothyroidism Continue Synthroid Depression/anxiety Continue sertraline Hypertension Hold amlodipine for hypotension Hold Eliquis given acute drop in hemoglobin with hematuria CODE STATUS: Full code transition to med surg 07/24/2022 PT OT evaluation for possible longterm placement for subacute rehab (2) Atrial fibrillation: (3) BPH w urinary obs/LUTS: (4) CHF (congestive heart failure): (5) CKD (chronic kidney disease) stage 3, GFR 30-59 ml/min: (6) Diabetes: (7) HTN (hypertension), benign: (8) Hyperlipidemia: (9) Iron deficiency anemia: (10) Major depressive disorder: (11) Obesity: (12) Physical deconditioning: Admission and Anticipated Discharge Date Admission Date: July 22, 2022 Subjective Patient is without distress now looking towards longterm home placement he has no additional complaints problems or concerns Review of Systems Review of Systems: Mild distress and fatigue no headache, no visual changes no speech or swallowing issues no chest pain, pressure or palpitations no shortness of breath, cough or wheezes no abdominal pain, nausea or vomiting, diarrhea or constipation no dysuria, hematuria or frequency no focal joint pain or as of chronic lower extremity swelling no back pain, CVA tenderness or radicular pain no bruising, bleeding or rashes no focal signs of weakness or numbness or altered sensation no complaints of anxiety or depression.. Physical Exam Physical Exam: The patient appeared well nourished and normally developed. Vital signs as documented. Head exam is normocephalic atraumatic Neck is without JVD, thyromegaly, or carotid bruits. Lungs are clear to auscultation, no focal loss of breath sounds Cardiac exam, Rhythm is regular.. No murmurs, rubs or gallops. Abdominal exam reveals normal bowel sounds, soft non tender, no masses Extremities are 1+ edematous and both pedal pulses are present Neurologic exam is alert and oriented, no focal loss of strength or sensation Skin is without bruises or rashes specifically no bruises about his side Psychologically is without concerns for anxiety or depression.. Results & Data Results & Data ([facility]) Vital Signs (Past 12 Hours) Vital Signs Temp Pulse Resp BP Pulse Ox O2 Del Method 07/25/22 16:00 98.6 F 98 H 20 149/86 H 97 07/25/22 13:21 Room Air 07/25/22 11:00 97.7 F 96 H 18 159/88 H 97 07/25/22 09:00 Room Air 07/25/22 07:41 97.5 F L 92 H 18 164/95 H 92 Room Air PG Care Time/CCT Total # of Minutes Spent Total Time Spent with Patient: Total time spent is greater than 50% in coordination of care (as documented) at patient's floor/unit and/or counseling patient: Coding Level of Care Code 44492 Subseq Hosp Care Lvl 3 Diagnoses Sepsis A41.9 Atrial fibrillation I48.91 BPH w urinary obs/LUTS N40.1; N13.8 CHF (congestive heart failure) I50.9 CKD (chronic kidney disease) stage 3, GFR 30-59 ml/min N18.3 Diabetes E11.9 Diabetes mellitus type: type 2 Diabetes mellitus 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 insulin use: without senior care use Diabetes mellitus complication status: without complication HTN (hypertension), benign I10 Hyperlipidemia E78.5 Hyperlipidemia type: unspecified Iron deficiency anemia D50.0 Iron deficiency anemia type: chronic blood loss Major depressive disorder F32.9 Major depression recurrence: unspecified whether recurrent Active/Remission status: remission status unspecified Obesity E66.01; Z68.35 Obesity type: unspecified obesity type Obesity classification: adult class 2 (BMI 35 - 39.9) Serious obesity comorbidity presence: with serious comorbidity Body mass index: BMI 35.0-35.9 Physical deconditioning R53.81 (1) Diabetes Diabetes mellitus type: type 2 Diabetes mellitus 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 insulin use: without senior care use Diabetes mellitus complication status: without complication Qualified Code(s): E11.9 - Type 2 diabetes mellitus without c omplications (2) Hyperlipidemia Hyperlipidemia type: unspecified Qualified Code(s): E78.5 - Hyperlipidemia, unspecified (3) Iron deficiency anemia Iron deficiency anemia type: chronic blood loss Qualified Code(s): D50.0 - Iron deficiency anemia secondary to blood loss (chronic) (4) Major depressive disorder Major depression recurrence: unspecified whether recurrent Active/Remission status: remission status unspecified Qualified Code(s): F32.9 - Major depressive disorder, single episode, unspecified (5) Obesity Obesity type: unspecified obesity type Obesity classification: adult class 2 (BMI 35 - 39.9) Serious obesity comorbidity presence: with serious comorbidity Body mass index: BMI 35.0-35.9 Qualified Code(s): E66.01 - Morbid (severe) obesity due to excess calories; Z68.35 - Body mass index (BMI) 35.0-35.9, adult
[2022-07-25] MEDS: SERTRALINE HCL 50 MG TABLET PO SCH (20:06)
[2022-07-26] MEDS ORDERED: MELATONIN 3 MG TAB PO PRN (00:55)
[2022-07-26 08:02] LABS: Hematocrit (blood only) 30.2 % (40.1-51.0); Hemoglobin 9.8 g/dl (14.0-18.0); Mean Corpuscular Hemoglobin 27.1 pg (25.0-34.0); Mean Corpuscular Hgb Conc 32.5 g/dL (32.0-36.0); Mean Corpuscular Volume 83.7 fL (80.0-100.0); Platelet Count 309 K/uL (130-400); RDW Coefficient of Variation 14.9 % (11.5-14.5); RDW Standard Deviation 44.6 fL (36.4-46.3); Red Blood Count 3.61 M/uL (4.63-6.08)
[2022-07-26] MEDS: INSULIN ASPART PER UNIT SC SCH ×4 (08:07→20:54)
[2022-07-26] MEDS: LANTUS PER UNIT CHARGE SQ SCH ×2 (08:08→20:54)
[2022-07-26] MEDS: IRON SUCROSE 200 MG in 0.9 % SODIUM CHLORIDE 100 ML IV SCH (08:23)
[2022-07-26] MEDS: carvediloL 3.125 MG TAB PO SCH ×2 (08:23→17:15)
[2022-07-26] MEDS: PANTOprazole 40 MG TAB PO SCH (08:24)
[2022-07-26] MEDS: LEVOTHYROXINE SODIUM 50 MCG TABLET PO SCH (08:24)
[2022-07-26 08:35] LABS: Albumin Level 3.5 gm/dl (3.4-5.0); BUN Creatinine Ratio 21.9 (10-20); Calcium 8.6 mg/dl (8.5-10.1); Creatinine Clr Calc Pharmacy 53.2 ml/min; Est GFR (Non-African American) 42.3 ml/min; Phosphorus 2.4 mg/dl (2.5-4.9); Potassium 4.4 mmol/L (3.5-5.1)
--- NOTE | 2022-07-26 14:27 | Hospitalist Progress Note ---
Date of Service July 26, 2022 Assessment & Plan (1) Sepsis: Plan: Sepsis after ureteral stent exchange : Ruled out. Cultures negative. Antibiotics discontinued (2) Atrial fibrillation: Plan: Chronic. Permanent cardiac pacemaker in place. Continue current medication (3) BPH w urinary obs/LUTS: Plan: Also history of bladder mass. Recent stent exchange. Flomax on hold while Phipps catheter is in place (4) CHF (congestive heart failure): Plan: Chronic, diastolic. Continue current medications. No exacerbation at this time. Lasix is on hold due to acute kidney injury (5) CKD (chronic kidney disease) stage 3, GFR 30-59 ml/min: Plan: Lasix on hold due to acute kidney injury. Monitor intake and output. Serial labs (6) Diabetes: Plan: Type II. ADA diet. Basal insulin therapy. Sliding scale coverage as needed (7) HTN (hypertension), benign: (8) Hyperlipidemia: Plan: Medication management (9) Iron deficiency anemia: Plan: Iron replacement therapy (10) Major depressive disorder: Plan: Sertraline therapy (11) Obesity: Plan: BMI greater than 40. Supportive care (12) Physical deconditioning: Plan: Continue OT and PT. SNF placement at discharge (13) Hemorrhagic shock: Plan: Resolved with fluid resuscitation and blood transfusion. Hemoglobin dropped to 7.4 and is now 9.8. He has received 2 units of packed red blood cells since admission. Eliquis remains on hold. (14) Acute blood loss anemia: Plan: Hemoglobin dropped to 7.4. He received 2 units of packed red blood cells. Hemoglobin is now stable at 9.8. Eliquis remains on hold (15) Acute kidney injury superimposed on chronic kidney disease: Plan: Monitor intake and output. Serial lab studies Plan Probable placement in SNF facility at discharge Admission and Anticipated Discharge Date Admission Date: July 22, 2022 Subjective Alert and oriented. Hemoglobin is stable at 9.8 after transfusion. Her Carlee remains on hold. Placement is pending. Family member state that he cannot care for himself at home and needs placement. Review of Systems Review of Systems: Constitutional-no fever or chills ENT-no blurred vision, no double vision, no epistaxis, no sore throat Respiratory-no cough, no wheezing, no shortness of breath Cardiac-no palpitations, no chest pain, no syncope GI-no nausea, vomiting, diarrhea, melena, hematochezia -no urinary retention, no urinary incontinence, no dysuria, no hematuria Musculoskeletal-no joint pain, no muscle tenderness. Generalized weakness. Requires a power wheelchair at home Skin-no bruising, no rashes, no pruritus Neuro-no focal deficits Psych-no depression, no anxiety Physical Exam Physical Exam: General-alert and oriented x3, no fevers, no chills HEENT-head atraumatic and normocephalic, pupils equal and reactive to light, extraocular muscles intact Neck-no lymphadenopathy or thyromegaly, trachea midline Chest-clear to auscultation percussion. No rales wheezing or rhonchi Cardiac-regular rate and rhythm, normal S1 and S2, Abdomen-normal bowel sounds, nontender, no hepatosplenomegaly Extremities-no cyanosis, clubbing, or edema Neuro-cranial nerves II through XII intact, motor and sensory function within normal limits, strength symmetrical , no focal deficits Psych-normal affect, normal mood Results & Data Results & Data ([facility]) Vital Signs (Past 12 Hours) Vital Signs Temp Pulse Resp BP Pulse Ox O2 Del Method 07/26/22 12:03 36.9 C 66 19 157/94 H 96 Room Air 07/26/22 08:00 Room Air 07/26/22 06:28 37.1 C 65 18 169/76 H 95 07/26/22 02:49 36.6 C 76 18 152/78 H 92 Laboratory Results 07/26/22 07:42 07/26/22 07:42 PG Care Time/CCT Total # of Minutes Spent Total Time Spent with Patient: Total time spent is greater than 50% in coordination of care (as documented) at patient's floor/unit and/or counseling patient: Coding Level of Care Code 42733 Subseq Hosp Care Lvl 3 Diagnoses Sepsis A41.9 Atrial fibrillation I48.91 BPH w urinary obs/LUTS N40.1; N13.8 CHF (congestive heart failure) I50.9 CKD (chronic kidney disease) stage 3, GFR 30-59 ml/min N18.3 Diabetes E11.9 Diabetes mellitus type: type 2 Diabetes mellitus senior care insulin use: without senior care use Diabetes mellitus complication status: without complication HTN (hypertension), benign I10 Hyperlipidemia E78.5 Hyperlipidemia type: unspecified Iron deficiency anemia D50.0 Iron deficiency anemia type: chronic blood loss Major depressive disorder F32.9 Major depression recurrence: unspecified whether recurrent Active/Remission status: remission status unspecified Obesity E66.01; Z68.35 Obesity type: unspecified obesity type Obesity classification: adult class 2 (BMI 35 - 39.9) Serious obesity comorbidity presence: with serious comorbidity Body mass index: BMI 35.0-35.9 Physical deconditioning R53.81 Hemorrhagic shock R57.8 Acute blood loss anemia D62 Acute kidney injury superimposed on chronic kidney disease N17.9; N18.9 (1) Diabetes Diabetes mellitus type: type 2 Diabetes mellitus intermediate designer insulin use: without senior care use Diabetes mellitus complication status: without complication Qualified Code(s): E11.9 - Type 2 diabetes mellitus without complications (2) Hyperlipidemia Hyperlipidemia type: unspecified Qualified Code(s): E78.5 - Hyperlipidemia, unspecified (3) Iron deficiency anemia Iron deficiency anemia type: chronic blood loss Qualified Code(s): D50.0 - Iron deficiency anemia secondary to blood loss (chronic) (4) Major depressive disorder Major depression recurrence: unspecified whether recurrent Active/Remission status: remission status unspecified Qualified Code(s): F32.9 - Major depressive disorder, single episode, unspecified (5) Obesity Obesity type: unspecified obesity type Obesity classification: adult class 2 (BMI 35 - 39.9) Serious obesity comorbidity presence: with serious comorbidity Body mass index: BMI 35.0-35.9 Qualified Code(s): E66.01 - Morbid (severe) obesity due to excess calories; Z68.35 - Body mass index (BMI) 35.0-35.9, adult
[2022-07-26] MEDS: SERTRALINE HCL 50 MG TABLET PO SCH (20:56)
[2022-07-26] MEDS: DICLOFENAC SOD 1% GEL 100 GM TUBE EXT PRN (22:26)
[2022-07-27] MEDS ORDERED: HYDROmorphone INJ 0.5 MG/0.5 ML SYR IV STA (01:34)
--- NOTE | 2022-07-27 06:09 | Communication Note ---
Date of Service: July 27, 2022 Notified by patient's nurse overnight that he was continuing to have back pain early into this morning. Patient reports to me that he has suffered with this back pain over the last several weeks. It is predominantly left, but on occasion he sometimes has it on the right. He is worried that perhaps the fall that he endured prior to coming in for this admission may have some relationship. He describes it as a sharp pain that waxes and wanes. It is made worse by lying on the left side. It is not made better by anything specific. Patient did utilize K pad, Tylenol, and single dose of Dilaudid 0.25 mg IV earlier this morning without much relief. At the bedside, patient appears well perfused, overall comfortable but intermittently in distress secondary to lying on his left side. Abdomensoft, nontender, and nondistended. Flankno evidence of skin changes or ulcerations. No CVA tenderness appreciated on my exam. When going down the para lumbar muscles bilaterally, patient does have exquisite tenderness to palpation around the level of L5/S1this extends laterally, and to a lesser degree, superiorly. No midline tenderness. Lower extremity strength distally is 5/5. No sensory dysfunction reported. Patient's chart was reviewed; noted that he is here for sepsis secondary to urologic procedure, and that his CT abdomen and pelvis on admission demonstrated interval development left perinephric hematoma. Eliquis on hold. Acute on chronic LBP, L>R: Somewhat difficult to elucidate the origin of this pain given that he reports it has been ongoing for "weeks ", has paraspinal tenderness to palpation on exam, but also has this left-sided perinephric hematoma in the setting of a recent procedure. Patient remains completely hem odynamically stable. Will attempt scheduling Flexeril 5mg t.i.d. x 3 doses throughout today, schedule APAP 1g TID; continue KPad, diclofenac gel -- could also consider waffle cushion for chair if he finds it takes stress off his lower back. Patient requesting to have his bed changed, and cites this as the major source of his discomfort; unable to do this at night, appreciate daytime assistance If pain continues to worsen / worsen despite above therapies, may wish to consider re-imaging the abdomen/pelvis to ensure no interval development of perinephric complication Plan discussed with patient's RN. Resident Activity Tracking Resident Involvement: Resident Care Provided Care Provided: Adult [facility] Medicine
[2022-07-27] MEDS: CYCLOBENZAPRINE HCL 5 MG TAB PO SCH ×2 (06:39→13:30)
[2022-07-27] MEDS: INSULIN ASPART PER UNIT SC SCH ×4 (08:47→21:35)
[2022-07-27] MEDS: LANTUS PER UNIT CHARGE SQ SCH ×2 (08:48→21:36)
[2022-07-27] MEDS: DICLOFENAC SOD 1% GEL 100 GM TUBE EXT PRN ×2 (09:03→20:14)
[2022-07-27] MEDS: carvediloL 3.125 MG TAB PO SCH ×2 (09:04→17:13)
[2022-07-27] MEDS: IRON SUCROSE 200 MG in 0.9 % SODIUM CHLORIDE 100 ML IV SCH (09:04)
[2022-07-27] MEDS: PANTOprazole 40 MG TAB PO SCH (09:04)
[2022-07-27] MEDS: LEVOTHYROXINE SODIUM 50 MCG TABLET PO SCH (09:04)
--- NOTE | 2022-07-27 14:38 | Hospitalist Progress Note ---
Date of Service July 27, 2022 Assessment & Plan (1) Sepsis: Plan: Sepsis after ureteral stent exchange : Ruled out. Cultures negative. Antibiotics discontinued (2) Atrial fibrillation: Plan: Chronic. Permanent cardiac pacemaker in place. Continue current medication (3) BPH w urinary obs/LUTS: Plan: Also history of bladder mass. Recent stent exchange. Flomax on hold while Phipps catheter is in place (4) CHF (congestive heart failure): Plan: Chronic, diastolic. Continue current medications. No exacerbation at this time. Lasix is on hold due to acute kidney injury (5) CKD (chronic kidney disease) stage 3, GFR 30-59 ml/min: Plan: Lasix on hold due to acute kidney injury. Monitor intake and output. Serial labs (6) Diabetes: Plan: Type II. ADA diet. Basal insulin therapy. Sliding scale coverage as needed (7) HTN (hypertension), benign: Plan: Controlled with current medication therapy. (8) Hyperlipidemia: Plan: Medication management (9) Iron deficiency anemia: Plan: Iron replacement therapy (10) Major depressive disorder: Plan: Sertraline therapy (11) Obesity: Plan: BMI greater than 40. Supportive care (12) Physical deconditioning: Plan: Continue OT and PT. SNF placement at discharge (13) Hemorrhagic shock: Plan: Resolved with fluid resuscitation and blood transfusion. Hemoglobin dropped to 7.4 and improved to 9.8. He has received 2 units of packed red blood cells since admission. Carlee remains on hold. (14) Acute blood loss anemia: Plan: Hemoglobin dropped to 7.4. He received 2 units of packed red blood cells. Hemoglobin improved to 9.8 and now appears stable. Serial labs. Carlee remains on hold (15) Acute kidney injury superimposed on chronic kidney disease: Plan: Monitor intake and output. Serial lab studies Plan Probable placement in SNF facility at discharge Admission and Anticipated Discharge Date Admission Date: July 22, 2022 Subjective Alert and oriented. No new complaints. Hemorrhagic shock has resolved. We will repeat lab studies tomorrow. OT and PT assessments requested. Carlee remains on hold Review of Systems Review of Systems: Constitutional-no fever or chills ENT-no blurred vision, no double vision, no epistaxis, no sore throat Respiratory-no cough, no wheezing, no shortness of breath Cardiac-no palpitations, no chest pain, no syncope GI-no nausea, vomiting, diarrhea, melena, hematochezia -no urinary retention, no urinary incontinence, no dysuria, no hematuria Musculoskeletal-no joint pain, no muscle tenderness. Generalized weakness. Requires a power wheelchair at home Skin-no bruising, no rashes, no pruritus Neuro-no focal deficits Psych-no depression, no anxiety Physical Exam Physical Exam: General-alert and oriented x3, no fevers, no chills HEENT-head atraumatic and normocephalic, pupils equal and reactive to light, extraocular muscles intact Neck-no lymphadenopathy or thyromegaly, trachea midline Chest-clear to auscultation percussion. No rales wheezing or rhonchi Cardiac-regular rate and rhythm, normal S1 and S2, Abdomen-normal bowel sounds, nontender, no hepatosplenomegaly Extremities-no cyanosis, clubbing, or edema Neuro-cranial nerves II through XII intact, motor and sensory function within normal limits, strength symmetrical , no focal deficits Psych-normal affect, normal mood Results & Data Results & Data ([facility]) Vital Signs (Past 12 Hours) Vital Signs Temp Pulse Resp BP Pulse Ox O2 Del Method 07/27/22 13:15 36.6 C 74 20 134/72 95 Room Air 07/27/22 08:00 Room Air 07/27/22 06:28 36.7 C 98 H 18 162/91 H 95 Laboratory Results 07/26/22 07:42 07/26/22 07:42 PG Care Time/CCT Total # of Minutes Spent Total Time Spent with Patient: Total time spent is greater than 50% in coordination of care (as documented) at patient's floor/unit and/or counseling patient: Coding Level of Care Code 12129 Subseq Hosp Care Lvl 3 Diagnoses Sepsis A41.9 Atrial fibrillation I48.91 BPH w urinary obs/LUTS N40.1; N13.8 CHF (congestive heart failure) I50.9 CKD (chronic kidney disease) stage 3, GFR 30-59 ml/min N18.3 Diabetes E11.9 Diabetes mellitus type: type 2 Diabetes mellitus prison insulin use: without prison use Diabetes mellitus complication status: without complication HTN (hypertension), benign I10 Hyperlipidemia E78.5 Hyperlipidemia type: unspecified Iron deficiency anemia D50.0 Iron deficiency anemia type: chronic blood loss Major depressive disorder F32.9 Major depression recurrence: unspecified whether recurrent Active/Remission status: remission status unspecified Obesity E66.01; Z68.35 Obesity type: unspecified obesity type Obesity classification: adult class 2 (BMI 35 - 39.9) Serious obesity comorbidity presence: with serious comorbidity Body mass index: BMI 35.0-35.9 Physical deconditioning R53.81 Hemorrhagic shock R57.8 Acute blood loss anemia D62 Acute kidney injury superimposed on chronic kidney disease N17.9; N18.9 (1) Diabetes Diabetes mellitus type: type 2 Diabetes mellitus prison insulin use: without prison use Diabetes mellitus complication status: without complication Qualified Code(s): E11.9 - Type 2 diabetes mellitus without complications (2) Hyperlipidemia Hyperlipidemia type: unspecified Qualified Code(s): E78.5 - Hyperlipidemia, unspecified (3) Iron deficiency anemia Iron deficiency anemia type: chronic blood loss Qualified Code(s): D50.0 - Iron deficiency anemia secondary to blood loss (chronic) (4) Major depressive disorder Major depression recurrence: unspecified whether recurrent Active/Remission status: remission status unspecified Qualified Code(s): F32.9 - Major depressive disorder, single episode, unspecified (5) Obesity Obesity type: unspecified obesity type Obesity classification: adult class 2 (BMI 35 - 39.9) Serious obesity comorbidity presence: with serious comorbidity Body mass index: BMI 35.0-35.9 Qualified Code(s): E66.01 - Morbid (severe) obesity due to excess calories; Z68.35 - Body mass index (BMI) 35.0-35.9, adult
[2022-07-27] MEDS: SERTRALINE HCL 50 MG TABLET PO SCH (20:13)
[2022-07-28 06:47] LABS: Basophils # (auto) 0.03 K/uL (0-0.2); Basophils % (auto) 0.4 %; Eosinophils # (auto) 0.09 K/uL (0-0.50); Eosinophils % (auto) 1.2 %; Hemoglobin 8.8 g/dl (14.0-18.0); Immature Granulocytes # (auto) 0.35 K/uL (0.00-0.02); Immature Granulocytes % (auto) 4.7 %; Lymphocytes # (auto) 0.49 K/uL (1.2-3.4); Lymphocytes % (auto) 6.6 %; Mean Corpuscular Hemoglobin 27.4 pg (25.0-34.0); Mean Corpuscular Hgb Conc 32.6 g/dL (32.0-36.0); Mean Corpuscular Volume 84.1 fL (80.0-100.0); Mean Platelet Volume 9.3 fL (9.4-12.4); Monocytes # (auto) 1.11 K/uL (0.24-0.82); Neutrophils # (auto) 5.32 K/uL (1.4-6.5); Neutrophils % (auto) 72.1 %; Platelet Count 286 K/uL (130-400); RDW Coefficient of Variation 15.6 % (11.5-14.5); RDW Standard Deviation 45.9 fL (36.4-46.3); Red Blood Count 3.21 M/uL (4.63-6.08); White Blood Count 7.39 K/ul (4.8-10.8)
[2022-07-28 07:46] LABS: BUN Creatinine Ratio 21.6 (10-20); Calcium 8.3 mg/dl (8.5-10.1); Est GFR (African American) 63.5 ml/min; Est GFR (Non-African American) 54.8 ml/min; Potassium 4.2 mmol/L (3.5-5.1)
[2022-07-28] MEDS: LEVOTHYROXINE SODIUM 50 MCG TABLET PO SCH (08:04)
[2022-07-28] MEDS: PANTOprazole 40 MG TAB PO SCH (08:04)
[2022-07-28] MEDS: carvediloL 3.125 MG TAB PO SCH ×2 (08:04→17:17)
[2022-07-28] MEDS: IRON SUCROSE 200 MG in 0.9 % SODIUM CHLORIDE 100 ML IV SCH (08:10)
[2022-07-28] MEDS: INSULIN ASPART PER UNIT SC SCH ×4 (08:58→21:30)
[2022-07-28] MEDS: LANTUS PER UNIT CHARGE SQ SCH ×2 (08:58→21:31)
[2022-07-28] MEDS: ACETAMINOPHEN 500 MG TAB PO PRN (21:29)
[2022-07-28] MEDS: SERTRALINE HCL 50 MG TABLET PO SCH (21:29)
--- NOTE | 2022-07-28 21:32 | Hospitalist Progress Note ---
Date of Service July 28, 2022 Assessment & Plan (1) Sepsis: Plan: Sepsis after ureteral stent exchange : Ruled out. Cultures negative. Antibiotics discontinued Awaiting placement (2) Atrial fibrillation: Plan: Chronic. Permanent cardiac pacemaker in place. Continue current medication (3) BPH w urinary obs/LUTS: Plan: Also history of bladder mass. Recent stent exchange. Flomax on hold while Phipps catheter is in place (4) CHF (congestive heart failure): Plan: Chronic, diastolic. Continue current medications. No exacerbation at this time. Lasix is on hold due to acute kidney injury (5) CKD (chronic kidney disease) stage 3, GFR 30-59 ml/min: Plan: Lasix on hold due to acute kidney injury. Monitor intake and output. Serial labs (6) Diabetes: Plan: Type II. ADA diet. Basal insulin therapy. Sliding scale coverage as needed (7) HTN (hypertension), benign: Plan: Controlled with current medication therapy. (8) Hyperlipidemia: Plan: Medication management (9) Iron deficiency anemia: Plan: Iron replacement therapy (10) Major depressive disorder: Plan: Sertraline therapy (11) Obesity: Plan: BMI greater than 40. Supportive care (12) Physical deconditioning: Plan: Continue OT and PT. SNF placement at discharge (13) Hemorrhagic shock: Plan: Resolved with fluid resuscitation and blood transfusion. Hemoglobin dropped to 7.4 and improved to 9.8. He has received 2 units of packed red blood cells since admission. [facility] remains on hold. (14) Acute blood loss anemia: Plan: Hemoglobin dropped to 7.4. He received 2 units of packed red blood cells. Hemoglobin improved to 9.8 and now appears stable. Serial labs. [facility] remains on hold (15) Acute kidney injury superimposed on chronic kidney disease: Plan: Monitor intake and output. Serial lab studies Plan Probable placement in SNF facility at discharge Admission and Anticipated Discharge Date Admission Date: July 22, 2022 Subjective No new symptoms Review of Systems Review of Systems: All systems reviewed & are unremarkable except as noted in HPI & below Physical Exam Physical Exam: General-alert and oriented x3, no fevers, no chills HEENT-head atraumatic and normocephalic, pupils equal and reactive to light, extraocular muscles intact Neck-no lymphadenopathy or thyromegaly, trachea midline Chest-clear to auscultation percussion. No rales wheezing or rhonchi Cardiac-regular rate and rhythm, normal S1 and S2, Abdomen-normal bowel sounds, nontender, no hepatosplenomegaly Extremities-no cyanosis, clubbing, or edema Neuro-cranial nerves II through XII intact, motor and sensory function within normal limits, strength symmetrical , no focal deficits Psych-normal affect, normal mood Results & Data Results & Data ([facility]) Vital Signs (Past 12 Hours) Vital Signs Temp Pulse Resp BP Pulse Ox O2 Del Method 07/28/22 14:51 36.6 C 67 16 138/74 95 Room Air PG Care Time/CCT Total # of Minutes Spent Total Time Spent with Patient: Total time spent is greater than 50% in coordination of care (as documented) at patient's floor/unit and/or counseling patient: Coding Level of Care Code 17982 Subseq Hosp Care Lvl 3 Diagnoses Sepsis A41.9 Atrial fibrillation I48.91 BPH w urinary obs/LUTS N40.1; N13.8 CHF (congestive heart failure) I50.9 CKD (chronic kidney disease) stage 3, GFR 30-59 ml/min N18.3 Diabetes E11.9 Diabetes mellitus complication status: without complication Diabetes mellitus fpc insulin use: without fpc use Diabetes mellitus type: type 2 HTN (hypertension), benign I10 Hyperlipidemia E78.5 Hyperlipidemia type: unspecified Iron deficiency anemia D50.0 Iron deficiency anemia type: chronic blood loss Major depressive disorder F32.9 Active/Remission status: remission status unspecified Major depression recurrence: unspecified whether recurrent Obesity E66.01; Z68.35 Body mass index: BMI 35.0-35.9 Obesity classification: adult class 2 (BMI 35 - 39.9) Obesity type: unspecified obesity type Serious obesity comorbidity presence: with serious comorbidity Physical deconditioning R53.81 Hemorrhagic shock R57.8 Acute blood loss anemia D62 Acute kidney injury superimposed on chronic kidney disease N17.9; N18.9 (1) Major depressive disorder Active/Remission status: remission status unspecified Major depression recurrence: unspecified whether recurrent Qualified Code(s): F32.9 - Major depressive disorder, single episode, unspecified (2) Diabetes Diabetes mellitus complication status: without complication Diabetes mellitus fpc insulin use: without fpc use Diabetes mellitus type: type 2 Qualified Code(s): E11.9 - Type 2 diabetes mellitus without complications (3) Hyperlipidemia Hyperlipidemia type: unspecified Qualified Code(s): E78.5 - Hyperlipidemia, unspecified (4) Iron deficiency anemia Iron deficiency anemia type: chronic blood loss Qualified Code(s): D50.0 - Iron deficiency anemia secondary to blood loss (chronic) (5) Obesity Body mass index: BMI 35.0-35.9 Obesity classification: adult class 2 (BMI 35 - 39.9) Obesity type: unspecified obesity type Serious obesity comorbidity presence: with serious comorbidity Qualified Code(s): E66.01 - Morbid (severe) obesity due to excess calories; Z68.35 - Body mass index (BMI) 35.0-35.9, adult
[2022-07-29 07:45] LABS: Hematocrit (blood only) 29.5 % (40.1-51.0); Hemoglobin 9.4 g/dl (14.0-18.0); Mean Corpuscular Hemoglobin 26.9 pg (25.0-34.0); Mean Corpuscular Hgb Conc 31.9 g/dL (32.0-36.0); Mean Corpuscular Volume 84.3 fL (80.0-100.0); Mean Platelet Volume 9.7 fL (9.4-12.4); Platelet Count 341 K/uL (130-400); RDW Coefficient of Variation 16.2 % (11.5-14.5)
[2022-07-29 08:13] LABS: Basophils # (auto) 0.05 K/uL (0-0.2); Basophils % (auto) 0.7 %; Eosinophils # (auto) 0.18 K/uL (0-0.50); Eosinophils % (auto) 2.4 %; Immature Granulocytes # (auto) 0.46 K/uL (0.00-0.02); Immature Granulocytes % (auto) 6.2 %; Lymphocytes # (auto) 0.51 K/uL (1.2-3.4); Lymphocytes % (auto) 6.9 %; Monocytes # (auto) 0.99 K/uL (0.24-0.82); Monocytes % (auto) 13.4 %; Neutrophils # (auto) 5.21 K/uL (1.4-6.5); Neutrophils % (auto) 70.4 %; Polychromasia 1+
[2022-07-29] MEDS: PANTOprazole 40 MG TAB PO SCH (08:19)
[2022-07-29] MEDS: carvediloL 3.125 MG TAB PO SCH ×2 (08:19→17:21)
[2022-07-29] MEDS: LEVOTHYROXINE SODIUM 50 MCG TABLET PO SCH (08:19)
[2022-07-29] MEDS: LANTUS PER UNIT CHARGE SQ SCH ×2 (08:37→21:06)
[2022-07-29] MEDS: INSULIN ASPART PER UNIT SC SCH ×4 (08:37→21:05)
[2022-07-29 08:41] LABS: BUN Creatinine Ratio 19.7 (10-20); Calcium 8.4 mg/dl (8.5-10.1); Creatinine Clr Calc Pharmacy 62.5 ml/min; Est GFR (African American) 59.5 ml/min; Est GFR (Non-African American) 51.3 ml/min; Potassium 4.2 mmol/L (3.5-5.1)
[2022-07-29] MEDS: FUROSEMIDE 20 MG TAB PO SCH (10:39)
[2022-07-29] MEDS: APIXABAN 5 MG TABLET PO SCH ×2 (10:40→20:54)
--- NOTE | 2022-07-29 14:50 | Hospitalist Progress Note ---
Date of Service July 29, 2022 Assessment & Plan (1) Sepsis: Plan: Sepsis after ureteral stent exchange : Ruled out. Cultures negative. Antibiotics have been discontinued (2) Atrial fibrillation: Plan: Chronic. Permanent cardiac pacemaker in place. Continue current medication (3) BPH w urinary obs/LUTS: Plan: Also history of bladder mass. Recent stent exchange. Flomax on hold while Phipps catheter is in place (4) CHF (congestive heart failure): Plan: Chronic, diastolic. Continue current medications. No exacerbation at this time. Lasix has been restarted today, July 29 (5) CKD (chronic kidney disease) stage 3, GFR 30-59 ml/min: Plan: Lasix restarted today, July 29. Creatinine has normalized. Monitor intake and output. Serial labs (6) Diabetes: Plan: Type II. ADA diet. Basal insulin therapy. Sliding scale coverage as needed (7) HTN (hypertension), benign: Plan: Controlled with current medication therapy. (8) Hyperlipidemia: Plan: Medication management (9) Iron deficiency anemia: Plan: Iron replacement therapy (10) Major depressive disorder: Plan: Sertraline therapy (11) Obesity: Plan: BMI greater than 40. Supportive care (12) Physical deconditioning: Plan: Continue OT and PT. SNF placement at discharge (13) Hemorrhagic shock: Plan: Resolved with fluid resuscitation and blood transfusion. Hemoglobin dropped to 7.4 and improved to 9.8. He has received 2 units of packed red blood cells since admission. Eliquis restarted today, July 29 . (14) Acute blood loss anemia: Plan: Hemoglobin dropped to 7.4. He received 2 units of packed red blood cells. Hemoglobin improved and now appears stable. Serial labs. Eliquis restarted today, July 29 (15) Acute kidney injury superimposed on chronic kidney disease: Plan: Monitor intake and output. Serial lab studies Plan Discharge to SNF when arrangements finalized Admission and Anticipated Discharge Date Admission Date: July 22, 2022 Subjective Alert and oriented. No distress. Hemoglobin is stable. Eliquis and Lasix have been restarted. Awaiting SNF approval by insurance for eventual placement. Cre atinine stable at 1.3. He was 2.6 on admission. Review of Systems Review of Systems: Constitutional-no fever or chills ENT-no blurred vision, no double vision, no epistaxis, no sore throat Respiratory-no cough, no wheezing, no shortness of breath Cardiac-no palpitations, no chest pain, no syncope GI-no nausea, vomiting, diarrhea, melena, hematochezia -no urinary retention, no urinary incontinence, no dysuria, no hematuria Musculoskeletal-no joint pain, no muscle tenderness Skin-no bruising, no rashes, no pruritus Neuro-no isolated weakness, no paresthesia, no weakness Psych-no depression, no anxiety Physical Exam Physical Exam: General-alert and oriented x3, no fevers, no chills. Morbidly obese HEENT-head atraumatic and normocephalic, pupils equal and reactive to light, extraocular muscles intact Neck-no lymphadenopathy or thyromegaly, trachea midline Chest-clear to auscultation percussion. No rales wheezing or rhonchi Cardiac-regular rate and rhythm, normal S1 and S2 Abdomen-normal bowel sounds, nontender, no hepatosplenomegaly Extremities-no cyanosis, clubbing, or edema Neuro-cranial nerves II through XII intact, motor and sensory function within normal limits, strength symmetrical , no focal deficits Psych-normal affect, normal mood Results & Data Results & Data ([facility]) Vital Signs (Past 12 Hours) Vital Signs Temp Pulse Resp BP BP Pulse Ox O2 Del Method 07/29/22 14:39 36.7 C 75 16 183/92 H 95 Room Air 07/29/22 07:31 Room Air 07/29/22 07:22 36.6 C 90 16 135/85 97 Room Air Laboratory Results 07/29/22 07:00 07/29/22 07:00 PG Care Time/CCT Total # of Minutes Spent Total Time Spent with Patient: Total time spent is greater than 50% in coordination of care (as documented) at patient's floor/unit and/or counseling patient: Coding Level of Care Code 53946 Subseq Hosp Care Lvl 3 Diagnoses Sepsis A41.9 Atrial fibrillation I48.91 BPH w urinary obs/LUTS N40.1; N13.8 CHF (congestive heart failure) I50.9 CKD (chronic kidney disease) stage 3, GFR 30-59 ml/min N18.3 Diabetes E11.9 Diabetes mellitus type: type 2 Diabetes mellitus 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 intermodal customer service use Diabetes mellitus complication status: without complication HTN (hypertension), benign I10 Hyperlipidemia E78.5 Hyperlipidemia type: unspecified Iron deficiency anemia D50.0 Iron deficiency anemia type: chronic blood loss Major depressive disorder F32.9 Major depression recurrence: unspecified whether recurrent Active/Remission status: remission status unspecified Obesity E66.01; Z68.35 Obesity type: unspecified obesity type Obesity classification: adult class 2 (BMI 35 - 39.9) Serious obesity comorbidity presence: with serious comorbidity Body mass index: BMI 35.0-35.9 Physical deconditioning R53.81 Hemorrhagic shock R57.8 Acute blood loss anemia D62 Acute kidney injury superimposed on chronic kidney disease N17.9; N18.9 (1) Diabetes Diabetes mellitus type: type 2 Diabetes mellitus 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 intermediate use Diabetes mellitus complication status: without complication Qualified Code(s): E11.9 - Type 2 diabetes mellitus without complications (2) Hyperlipidemia Hyperlipidemia type: unspecified Qualified Code(s): E78.5 - Hyperlipidemia, unspecified (3) Iron deficiency anemia Iron deficiency anemia type: chronic blood loss Qualified Code(s): D50.0 - Iron deficiency anemia secondary to blood loss (chronic) (4) Major depressive disorder Major depression recurrence: unspecified whether recurrent Active/Remission status: remission status unspecified Qualified Code(s): F32.9 - Major depressive disorder, single episode, unspecified (5) Obesity Obesity type: unspecified obesity type Obesity classification: adult class 2 (BMI 35 - 39.9) Serious obesity comorbidity presence: with serious comorbidity Body mass index: BMI 35.0-35.9 Qualified Code(s): E66.01 - Morbid (severe) obesity due to excess calories; Z68.35 - Body mass index (BMI) 35.0-35.9, adult
[2022-07-29] MEDS: SERTRALINE HCL 50 MG TABLET PO SCH (20:54)
[2022-07-30 06:39] LABS: Hematocrit (blood only) 28.1 % (40.1-51.0); Hemoglobin 9.1 g/dl (14.0-18.0); Mean Corpuscular Hemoglobin 27.3 pg (25.0-34.0); Mean Corpuscular Hgb Conc 32.4 g/dL (32.0-36.0); Mean Corpuscular Volume 84.4 fL (80.0-100.0); Mean Platelet Volume 9.5 fL (9.4-12.4); Platelet Count 343 K/uL (130-400); RDW Coefficient of Variation 16.1 % (11.5-14.5); RDW Standard Deviation 48.5 fL (36.4-46.3); Red Blood Count 3.33 M/uL (4.63-6.08); White Blood Count 6.44 K/ul (4.8-10.8)
[2022-07-30 07:17] LABS: Basophils # (auto) 0.05 K/uL (0-0.2); Basophils % (auto) 0.8 %; Eosinophils # (auto) 0.17 K/uL (0-0.50); Eosinophils % (auto) 2.6 %; Immature Granulocytes # (auto) 0.37 K/uL (0.00-0.02); Immature Granulocytes % (auto) 5.7 %; Lymphocytes # (auto) 0.55 K/uL (1.2-3.4); Lymphocytes % (auto) 8.5 %; Monocytes # (auto) 0.85 K/uL (0.24-0.82); Monocytes % (auto) 13.2 %; Neutrophils # (auto) 4.45 K/uL (1.4-6.5); Neutrophils % (auto) 69.2 %
[2022-07-30 07:49] LABS: BUN Creatinine Ratio 19.5 (10-20); Calcium 8.2 mg/dl (8.5-10.1); Creatinine Clr Calc Pharmacy 69.9 ml/min; Est GFR (African American) 68.1 ml/min; Est GFR (Non-African American) 58.8 ml/min; Potassium 4.1 mmol/L (3.5-5.1)
[2022-07-30] MEDS: FUROSEMIDE 20 MG TAB PO SCH (07:49)
[2022-07-30] MEDS: APIXABAN 5 MG TABLET PO SCH (07:49)
[2022-07-30] MEDS: LEVOTHYROXINE SODIUM 50 MCG TABLET PO SCH (07:50)
[2022-07-30] MEDS: PANTOprazole 40 MG TAB PO SCH (07:50)
[2022-07-30] MEDS: carvediloL 3.125 MG TAB PO SCH ×2 (07:50→18:13)
[2022-07-30] MEDS: INSULIN ASPART PER UNIT SC SCH ×3 (08:33→18:13)
[2022-07-30] MEDS: LANTUS PER UNIT CHARGE SQ SCH (08:34)
--- NOTE | 2022-07-30 12:46 | Hospitalist Progress Note ---
Date of Service July 30, 2022 Assessment & Plan (1) Sepsis: Plan: Sepsis after ureteral stent exchange : Ruled out. Cultures negative. Antibiotics have been discontinued (2) Atrial fibrillation: Plan: Chronic. Permanent cardiac pacemaker in place. Continue current medication (3) BPH w urinary obs/LUTS: Plan: Also history of bladder mass. Recent stent exchange. Flomax on hold while Phipps catheter is in place (4) CHF (congestive heart failure): Plan: Chronic, diastolic. Continue current medications. No exacerbation at this time. Lasix has been restarted on July 29 (5) CKD (chronic kidney disease) stage 3, GFR 30-59 ml/min: Plan: Lasix restarted on July 29. Creatinine has normalized. Monitor intake and output. Serial labs (6) Diabetes: Plan: Type II. ADA diet. Basal insulin therapy. Sliding scale coverage as needed (7) HTN (hypertension), benign: Plan: Controlled with current medication therapy. (8) Hyperlipidemia: Plan: Medication management (9) Iron deficiency anemia: Plan: Iron replacement therapy (10) Major depressive disorder: Plan: Sertraline therapy (11) Obesity: Plan: BMI greater than 40. Supportive care (12) Physical deconditioning: Plan: Continue OT and PT. SNF placement at discharge (13) Hemorrhagic shock: Plan: Resolved with fluid resuscitation and blood transfusion. Hemoglobin dropped to 7.4 and improved to 9.8. He has received 2 units of packed red blood cells since admission. Eliquis restarted on July 29 . (14) Acute blood loss anemia: Plan: Hemoglobin dropped to 7.4. He received 2 units of packed red blood cells. Hemoglobin improved and now appears stable. Serial labs. Eliquis restarted on July 29 (15) Acute kidney injury superimposed on chronic kidney disease: Plan: Monitor intake and output. Serial lab studies Plan Discharge to SNF when arrangements finalized Admission and Anticipated Discharge Date Admission Date: July 22, 2022 Subjective Alert and oriented. Medically stable. Awaiting SNF placement Review of Systems Review of Systems: Constitutional-no fever or chills ENT-no blurred vision, no double vision, no epistaxis, no sore throat Respiratory-no cough, no wheezing, no shortness of breath Cardiac-no palpitations, no chest pain, no syncope GI-no nausea, vomiting, diarrhea, melena, hematochezia -no urinary retention, no urinary incontinence, no dysuria, no hematuria Musculoskeletal-no joint pain, no muscle tenderness Skin-no bruising, no rashes, no pruritus Neuro-no isolated weakness, no paresthesia, no weakness Psych-no depression, no anxiety Physical Exam Physical Exam: General-alert and oriented x3, no fevers, no chills. Morbidly obese HEENT-head atraumatic and normocephalic, pupils equal and reactive to light, extraocular muscles intact Neck-no lymphadenopathy or thyromegaly, trachea midline Chest-clear to auscultation percussion. No rales wheezing or rhonchi Cardiac-regular rate and rhythm, normal S1 and S2 Abdomen-normal bowel sounds, nontender, no hepatosplenomegaly Extremities-no cyanosis, clubbing, or edema Neuro-cranial nerves II through XII intact, motor and sensory function within normal limits, strength symmetrical , no focal deficits Psych-normal affect, normal mood Results & Data Results & Data ([facility]) Vital Signs (Past 12 Hours) Vital Signs Temp Pulse Resp BP Pulse Ox O2 Del Method 07/30/22 08:00 Room Air 07/30/22 07:48 36.9 C 92 H 18 154/88 H 94 Room Air Laboratory Results 07/30/22 06:04 07/30/22 06:04 PG Care Time/CCT Total # of Minutes Spent Total Time Spent with Patient: Total time spent is greater than 50% in coordination of care (as documented) at patient's floor/unit and/or counseling patient: Coding Level of Care Code 66549 Subseq Hosp Care Lvl 2 Diagnoses Sepsis A41.9 Atrial fibrillation I48.91 BPH w urinary obs/LUTS N40.1; N13.8 CHF (congestive heart failure) I50.9 CKD (chronic kidney disease) stage 3, GFR 30-59 ml/min N18.3 Diabetes E11.9 Diabetes mellitus type: type 2 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 Diabetes mellitus complication status: without complication HTN (hypertension), benign I10 Hyperlipidemia E78.5 Hyperlipidemia type: unspecified Iron deficiency anemia D50.0 Iron deficiency anemia type: chronic blood loss Major depressive disorder F32.9 Major depression recurrence: unspecified whether recurrent Active/Remission status: remission status unspecified Obesity E66.01; Z68.35 Obesity type: unspecified obesity type Obesity classification: adult class 2 (BMI 35 - 39.9) Serious obesity comorbidity presence: with serious comorbidity Body mass index: BMI 35.0-35.9 Physical deconditioning R53.81 Hemorrhagic shock R57.8 Acute blood loss anemia D62 Acute kidney injury superimposed on chronic kidney disease N17.9; N18.9 (1) Diabetes Diabetes mellitus type: type 2 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 third 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 Diabetes mellitus complication status: without complication Qualified Code(s): E11.9 - Type 2 diabetes mellitus without complications (2) Hyperlipidemia Hyperlipidemia type: unspecified Qualified Code(s): E78.5 - Hyperlipidemia, unspecified (3) Iron deficiency anemia Iron deficiency anemia type: chronic blood loss Qualified Code(s): D50.0 - Iron deficiency anemia secondary to blood loss (chronic) (4) Major depressive disorder Major depression recurrence: unspecified whether recurrent Active/Remission status: remission status unspecified Qualified Code(s): F32.9 - Major depres sive disorder, single episode, unspecified (5) Obesity Obesity type: unspecified obesity type Obesity classification: adult class 2 (BMI 35 - 39.9) Serious obesity comorbidity presence: with serious comorbidity Body mass index: BMI 35.0-35.9 Qualified Code(s): E66.01 - Morbid (severe) obesity due to excess calories; Z68.35 - Body mass index (BMI) 35.0-35.9, adult
--- NOTE | 2022-07-30 14:44 | Discharge Summary ---
Date of Service July 30, 2022 Admission HPI Per Admitting Provider Rosendo is a 77-year-old male who presents with weakness following cystoscopy with laser lithotripsy, basket extraction of right stone, and stent exchange 07/21/2022. Patient was at home this morning, attempted to stand and felt much weaker than normal and slid to the ground. Notes that his catheter following cystoscopy has been dark and blood-tinged. Was not discharged on procedural antibiotics. At ER assessment patient has a new leukocytosis to 28.75, hemoglobin interval decrease from 12.3-9.3, neutrophilic predominance with an LR of 165. Mildly hyponatremic to 133, potassium is elevated at 5.6, and GRETCHEN is present with an increase from baseline creatinine of 1.41.72 and admitting creatinine of 2.63. 6-630 he reports was trying to transition from edge of bed to wheelchair and was so weak he just slid off the bed and couldn't transfer over and slid to the flood. +Fatigue. Denies fevers and chills. Endorses has felt weak most of the weak, feels similar today to yesterday. Did have surgery for kidney stones yesterday. No dysuria. No frequency. +hematuria since surgery/stent exchange but was told this would be normal for a few days. +lightheadedness. No dizziness. no chest pain, chest pressure, palpitations. Endorses a little shortness of breath in the last day or two 'just huffing and puffing all week a little more than normal, no wheezing.' +cough for a few days, yellow sputum production which is new in last 3-4 days. No night sweats. No bleeding other than hematuria. +N/-V yesterday after the urology procedure. No diarrhea. Time assessment he reports he feels much better after fluids and additional antibiotics. Was initially 87/49, systolic is ranging over 100 and he feels overall with better energy. After surgery was placed on ciprofloxacin 500mg. Has not taken medications today Medical History: Reviewed Medications: Reviewed Surgical History: Reviewed Allergies: Reviewed Social History: No tobacco use. No alcohol use. Code Status: medical POA is Jorge Marsh #[phone]. Full Code. COVID is negative. CXR: Left retrocardiac opacity? Atelectasis/pneumonia/aspiration Principal Diagnosis Hemorrhagic shock, acute blood loss anemia, acute on chronic kidney disease stage III Discharge Exam General-alert and oriented x3, no fevers, no chills. Morbidly obese HEENT-head atraumatic and normocephalic, pupils equal and reactive to light, extraocular muscles intact Neck-no lymphadenopathy or thyromegaly, trachea midline Chest-clear to auscultation percussion. No rales wheezing or rhonchi Cardiac-regular rate and rhythm, normal S1 and S2, no murmurs Abdomen-normal bowel sounds, nontender, no hepatosplenomegaly Extremities-no cyanosis, clubbing, or edema Neuro-cranial nerves II through XII intact, motor and sensory function within normal limits, strength symmetrical , no focal deficits Psych-normal affect, normal mood Discharge Data Allergies Allergy/AdvReac Type Severity Reaction Status Date / Time No Known Allergies Allergy Verified 07/21/22 07:50 Consultations 07/22/22 15:46 Consult Urology Routine 07/23/22 11:09 Consult Nephrology Routine Ordered Studies 07/22/22 11:52 CT Abd and Pelvis [CT abd pelvis wo con] Stat CT chest diagnostic wo con Stat Hospital Course (1) Sepsis: Sepsis after ureteral stent exchange : Ruled out. Cultures negative. Antibiotics have been discontinued (2) Atrial fibrillation: Chronic. Permanent cardiac pacemaker in place. Continue current medication (3) BPH w urinary obs/LUTS: Also history of bladder mass. Recent stent exchange. Flomax on hold while Phipps catheter is in place (4) CHF (congestive heart failure): Chronic, diastolic. Continue current medications. No exacerbation at this time. Lasix has been restarted on July 29 (5) CKD (chronic kidney disease) stage 3, GFR 30-59 ml/min: Lasix restarted on July 29. Creatinine has normalized. Monitor intake and output. Serial labs (6) Diabetes: Type II. ADA diet. Basal insulin therapy. Sliding scale coverage as needed (7) HTN (hypertension), benign: Controlled with current medication therapy. (8) Hyperlipidemia: Medication management (9) Iron deficiency anemia: Iron replacement therapy (10) Major depressive disorder: Sertraline therapy (11) Obesity: BMI greater than 40. Supportive care (12) Physical deconditioning: Continue OT and PT. SNF placement at discharge (13) Hemorrhagic shock: Resolved with fluid resuscitation and blood transfusion. Hemoglobin dropped to 7.4 and improved to 9.8. He has received 2 units of packed red blood cells since admission. Eliquis restarted on July 29 . (14) Acute blood loss anemia: Hemoglobin dropped to 7.4. He received 2 units of packed red blood cells. Hemoglobin improved and now appears stable. Serial labs. Eliquis restarted on July 29 (15) Acute kidney injury superimposed on chronic kidney disease: Monitor intake and output. Serial lab studies Plan Discharge to SNF when arrangements finalized Total Time Total Time Spent Total Time Spent (In Minutes): 35 minutes Discharge Plan Discharge Items Patient Disposition: Transfer [facility] Fac Reason For Visit: SEPSIS, URO VS PNA Discharge Diagnosis: Hemorrhagic shock, acute blood loss anemia, acute on chronic kidney disease st age III Activity: Resume your previous activity Non-emergency contact: Primary Care Provider Call non-emergency contact if: you have any medication questions Follow-up/Referrals: Yeyo Melendez DO [Primary Care Provider] - Hugo Larson DO [Physician] - 08/13/22 1:30 pm Diet: Carb Consistent or DM2 Addtl Attending Provider Instructions: Phipps catheter will remain in place for now Addtl Gym Teacher Provider Instructions: Please call the urology office at [phone] with any questions, concerns or need to reschedule appointments for any reason. We are happy to assist you. You have a follow-up appointment with Dr. Larson on 08/13/22 at 1:30PM. While you have a ureteral stent in place: Some discomfort is normal. Certain movements may trigger pain or a feeling that you need to urinate. You may also feel mild soreness or pressure before or during urination. These symptoms should go away a few days after the stent is removed. Your urine may be slightly pink or red. This is due to bleeding caused by minor irritation from the stent. This may happen on and off while you have the stent, it is not harmful and is to be expected. Drink plenty of fluids to help flush out your urinary tract. If you go home with a catheter, wash with soapy water and a fresh washcloth twice daily. We recommend mild bar soap such as Dial or Dove. When to call [facility] at [phone]: Your urine contains heavy blood clot or your catheter is not draining. Fever of 101F or higher, chills, nausea, or vomiting. Your pain is not relieved with medication. The end of the stent comes out of your urethra. Pending Studies at Discharge: No Stand-Alone Forms: My [facility] Skilled Items Patient informed of condition?: Yes DNR: No Discharge Level of Care: Skilled Communicable Disease: No Discharge Prognosis: Stable Lines: None Urinary Catheter: Yes Medications and DC Order Prescriptions: New insulin glargine [Lantus U-100 Insulin] 100 unit/mL Solution 9 unit subcut BID Qty: 20 0RF melatonin 3 mg Tablet 3 mg PO HS PRN (Reason: sleep) Qty: 10 0RF acetaminophen [Tylenol Extra Strength] 500 mg Tablet 1,000 mg PO TID PRN (Reason: fever or pain) Qty: 30 0RF carvedilol 3.125 mg Tablet 3.125 mg PO BIDM Qty: 60 0RF diclofenac sodium [Voltaren Arthritis Pain] 1 % Gel 2 g EXT TID PRN (Reason: pain) Qty: 100 0RF Continued (DME) blood-glucose meter [Accu-Chek Guide Glucose Meter] Misc See Rx Instructions .Route Qty: 1 0RF Rx Instructions: Test BID. E11.9 (DME) lancets [Accu-Chek Softclix Lancets] Misc See Rx Instructions .Route Qty: 100 5RF Rx Instructions: Test BID, E11.9 (DME) plastic urinal See Rx Instructions .Route .MEDSUPPLY Qty: 2 0RF Rx Instructions: As directed (DME) Hospital Bed Misc See Rx Instructions .Route Qty: 1 0RF Rx Instructions: [facility] Bed (DME) nebulizer See Rx Instructions .Route .MEDSUPPLY Qty: 1 0RF Rx Instructions: As directed Eliquis 5 mg tablet 5 mg PO BID Qty: 180 1RF (DME) diaper,brief,adult,disposable Misc See Rx Instructions .Route Qty: 200 6RF Rx Instructions: As directed, 7/day (DME) underpads [Bed Underpads] Pad See Rx Instructions .Route Qty: 4 6RF Rx Instructions: As directed 4/daily (DME) disposable gloves [Disposable Latex-Free Gloves] Misc See Rx Instructions .Route Qty: 100 6RF Rx Instructions: As directed amlodipine 5 mg tablet 5 mg PO QAM Qty: 90 1RF ferrous sulfate 325 mg (65 mg iron) tablet,delayed release (DR/EC) 325 mg PO BID Qty: 180 1RF (DME) Accu-Chek Guide test strips Strip See Rx Instructions .Route Qty: 100 5RF Rx Instructions: Test BID , E11.9 (DME) ARM REST FOR POWER WHEELCHAIR See Rx Instructions .Route .MEDSUPPLY Qty: 1 0RF Rx Instructions: FOR R62.2 AMBULATORY DYSFUNCTION (DME) Power Wheel Chair Repair See Rx Instructions .Route .MEDSUPPLY Qty: 1 0RF Rx Instructions: As directed (DME) Foot plate for power scooter See Rx Instructions .Route .MEDSUPPLY Qty: 1 0RF Rx Instructions: As directed tamsulosin 0.4 mg capsule 0.4 mg PO HS Qty: 30 0RF oxybutynin chloride 5 mg tablet 5 mg PO Q8H PRN (Reason: bladder spasms) Qty: 20 0RF omega-3 fatty acids Capsule 2,000 mg PO BID omeprazole 40 mg capsule,delayed release(DR/EC) 40 mg PO QAM glimepiride 1 mg tablet 1 mg PO QAM levothyroxine 50 mcg tablet 50 mcg PO QAM furosemide 20 mg tablet 20 mg PO QAM sertraline [Zoloft] 50 mg tablet 50 mg PO HS magnesium oxide 400 mg magnesium tablet 400 mg PO QAM Discontinued carvedilol 6.25 mg tablet 6.25 mg PO BIDM Qty: 180 1RF Rx Instructions: 1 Tablet twice daily with morning and evening meals. amoxicillin-pot clavulanate 875-125 mg tablet 1 tab PO BID Qty: 20 0RF ciprofloxacin HCl [Cipro] 500 mg tablet 500 mg PO BID Qty: 6 0RF phenazopyridine [Pyridium] 200 mg tablet 200 mg PO Q8H PRN (Reason: pain) Qty: 10 0RF ciprofloxacin HCl [Cipro] 500 mg tablet 500 mg PO Q12H Qty: 14 0RF oxycodone-acetaminophen [Percocet] 7.5-325 mg tablet 1 tab PO Q8H PRN (Reason: pain) Qty: 7 0RF acetaminophen 650 mg Tablet Extended Release 650 mg PO BID phenazopyridine [Pyridium] 200 mg tablet 200 mg PO Q8H PRN (Reason: pain) Qty: 10 0RF tamsulosin 0.4 mg capsule 0.4 mg PO HS Qty: 30 0RF oxycodone-acetaminophen [Percocet] 7.5-325 mg tablet 1 tab PO Q8H PRN (Reason: pain) Qty: 7 0RF Discharge Orders: Discharge Order (Routine); Ordered 07/30/22 Ordered By: Curt Hassan/Other Patient Handouts: Managing Type 2 Diabetes Admission Data Admit Date/Time: 07/22/22 13:11 Attending Provider: Curt Petty Admit Provider: Greyson Stafford Primary Care Provider: Yeyo Melendez Other Providers: Jose Hankins ; Henrique Pablo ; Rox Jc Coding Level of Care Code D/C DAY MANAGEMENT >30 MINS Diagnoses Sepsis A41.9 Atrial fibrillation I48.91 BPH w urinary obs/LUTS N40.1; N13.8 CHF (congestive heart failure) I50.9 CKD (chronic kidney disease) stage 3, GFR 30-59 ml/min N18.3 Diabetes E11.9 Diabetes mellitus type: type 2 Diabetes mellitus long chain quiller tender insulin use: without long chain quiller tender use Diabetes mellitus complication status: without complication HTN (hypertension), benign I10 Hyperlipidemia E78.5 Hyperlipidemia type: unspecified Iron deficiency anemia D50.0 Iron deficiency anemia type: chronic blood loss Major depressive disorder F32.9 Major depression recurrence: unspecified whether recurrent Active/Remission status: remission status unspecified Obesity E66.01; Z68.35 Obesity type: unspecified obesity type Obesity classification: adult class 2 (BMI 35 - 39.9) Serious obesity comorbidity presence: with serious comorbidity Body mass index: BMI 35.0-35.9 Physical deconditioning R53.81 Hemorrhagic shock R57.8 Acute blood loss anemia D62 Acute kidney injury superimposed on chronic kidney disease N17.9; N18.9
[2022-07-30] MEDS: ACETAMINOPHEN 500 MG TAB PO PRN (19:13)
--- NOTE | 2022-08-06 12:13 | Coding Query ---
CODING QUERY To promote full compliance with coding requirements relating to patient care, provider participation is requested in all cases of ice cream dispenser uncertainty. Please assist us with the question(s) below: Coding Question(s): Pt with recent lithotripsy and ureteral stent exchanges admitted with Hemorrhagic shock and ABLA. Discharge summary/progress notes document a subcapsular kidney hemorrhage and retroperitoneal hemorrhage. Please check below the phrase that describes the subcapsular kidney and retroperitoneal hemorrhage. Thanks for your help. Simba Joshua [facility] Physician's Response(s): The subcapsular kidney and retroperitoneal hemorrhage : x Are a complication of the previous Urological procedure are expected after the Urological procedure Cannot clinically determine if complication of the procedure Other: Please document: Principal Diagnosis: "that condition established after study, to be chiefly responsible for occasioning the admission of the patient to the hospital for care." Co-Existing Principal Diagnosis: "when two or more diagnoses equally meet the criteria for principal diagnosis as determined by the circumstances of admission, diagnostic work up, and/or therapy provided, and the Alphabetic Index, Tabular List, or another coding guideline does not provide sequencing direction, any one of the diagnoses may be sequenced first." "When the physician has documented what appears to be a current diagnosis in the body of the record, but has not included the diagnosis in the final diagnostic statement, the physician should be asked whether the diagnosis should be added." (Source [facility] 2 QTR90. p3-4) DELMI
== END 2022-07-30 19:54 | DRG 919 ==
LOC: ED 09:13 → 2S 13:11 → SUATTDRO 13:11 → 2S 14:57 → 3W 07-27 15:01